=== PATIENT | male | born 1955 | race Caucasian/White ===

== ENCOUNTER → 2016-11-05 | Outpatient (CLI) | payer BC ==
[2016-11-05 08:15] LABS: ABSOLUTE EOSINOPHILS # (AUTO) 0.1 10^3/uL (0.0-0.6); ABSOLUTE LYMPHOCYTES (AUTO) 1.5 10^3/uL (0.5-4.7); ABSOLUTE MONOCYTES (AUTO) 0.3 10^3/uL (0.1-1.4); ABSOLUTE NEUT (AUTO) 3.5 10^3/uL (1.7-8.2); BASOPHILS % (AUTO) 0.7 % (0-2); EOSINOPHILS % (AUTO) 1.4 % (0-6); HEMATOCRIT 43.6 % (37.9-51.0); HEMOGLOBIN 14.5 g/dL (13.5-17.0); HGB HCT DIFFERENCE -0.1; LYMPHOCYTES % (AUTO) 27.9 % (13-45); MEAN CORPUSCULAR HEMOGLOBIN 27.9 pg (27.0-33.4); MEAN CORPUSCULAR HGB CONC 33.4 g/dL (32.0-36.0); MEAN CORPUSCULAR VOLUME 84 fl (80-97); MONOCYTES % (AUTO) 5.2 % (3-13); RED BLOOD COUNT 5.21 10^6/uL (4.35-5.55); RED CELL DISTRIBUTION WIDTH 14.1 % (11.5-14.0); SEGMENTED NEUTROPHILS % (AUTO) 64.8 % (42-78); WHITE BLOOD COUNT 5.5 10^3/uL (4.0-10.5)
[2016-11-05 08:36] LABS: ALANINE AMINOTRANSFERASE 25 U/L (21-72); ALKALINE PHOSPHATASE 74 U/L (38-126); ANION GAP 12 (5-19); ASPARTATE AMINO TRANSFERASE 23 U/L (17-59); BILIRUBIN,DIRECT 0.4 mg/dL (0.0-0.4); BILIRUBIN,TOTAL 0.9 mg/dL (0.2-1.3); BLOOD UREA NITROGEN 15 mg/dL (7-20); CALCIUM 9.3 mg/dL (8.4-10.2); CARBON DIOXIDE 29 mmol/L (22-30); CHLORIDE 104 mmol/L (98-107); CHOLESTEROL 158.93 mg/dL (0-200); CREATININE RESULT 1.03 mg/dL (0.52-1.25); Direct HDL 40 mg/dL (>40); GLUCOSE 142 mg/dL (75-110); POTASSIUM 4.6 mmol/L (3.6-5.0); TRIGLYCERIDES 177 mg/dL (<150)
[2016-11-05 08:47] LABS: DIRECT LDL 82 mg/dL (<100)
[2016-11-05 09:24] LABS: VLDL CHOLESTEROL 35.4 mg/dL (10-31)
== END ==
LOC: OD 07:19
PROVIDERS: ATTEND Internal Medicine
DX: E11.9 Type 2 diabetes mellitus without complications (principal); E29.1 Testicular hypofunction; R53.82 Chronic fatigue, unspecified; R35.1 Nocturia; D81 Combined immunodeficiencies; D64.9 Anemia, unspecified
CPT/HCPCS: 36415; 80053; 80061; 82043; 82607; 83036; 84153; 84403; 84443; 85025; 86255

== ENCOUNTER → 2017-02-11 | Outpatient (CLI) | payer BC ==
[2017-02-11 08:26] LABS: ABSOLUTE EOSINOPHILS # (AUTO) 0.1 10^3/uL (0.0-0.6); ABSOLUTE LYMPHOCYTES (AUTO) 1.9 10^3/uL (0.5-4.7); ABSOLUTE MONOCYTES (AUTO) 0.4 10^3/uL (0.1-1.4); ABSOLUTE NEUT (AUTO) 4.7 10^3/uL (1.7-8.2); BASOPHILS % (AUTO) 0.5 % (0-2); EOSINOPHILS % (AUTO) 1.5 % (0-6); HEMATOCRIT 45.6 % (37.9-51.0); HGB HCT DIFFERENCE -0.6; LYMPHOCYTES % (AUTO) 26.7 % (13-45); MEAN CORPUSCULAR HGB CONC 32.8 g/dL (32.0-36.0); MEAN CORPUSCULAR VOLUME 82 fl (80-97); MONOCYTES % (AUTO) 6.2 % (3-13); RED BLOOD COUNT 5.53 10^6/uL (4.35-5.55); RED CELL DISTRIBUTION WIDTH 15.2 % (11.5-14.0); SEGMENTED NEUTROPHILS % (AUTO) 65.1 % (42-78); WHITE BLOOD COUNT 7.2 10^3/uL (4.0-10.5)
[2017-02-11 08:48] LABS: ALANINE AMINOTRANSFERASE 42 U/L (21-72); ALBUMIN 3.9 g/dL (3.5-5.0); ALKALINE PHOSPHATASE 71 U/L (38-126); ANION GAP 14 (5-19); ASPARTATE AMINO TRANSFERASE 38 U/L (17-59); BILIRUBIN,DIRECT 0.1 mg/dL (0.0-0.4); BILIRUBIN,TOTAL 0.7 mg/dL (0.2-1.3); BLOOD UREA NITROGEN 13 mg/dL (7-20); CALCIUM 8.8 mg/dL (8.4-10.2); CARBON DIOXIDE 27 mmol/L (22-30); CHLORIDE 98 mmol/L (98-107); CREATININE RESULT 0.92 mg/dL (0.52-1.25); DIGOXIN 0.79 ng/mL (0.8-2.0); GLUCOSE 188 mg/dL (75-110); POTASSIUM 4.8 mmol/L (3.6-5.0); TOTAL PROTEIN 6.8 g/dL (6.3-8.2)
== END ==
LOC: OD 07:15
PROVIDERS: ATTEND Internal Medicine
DX: E11.9 Type 2 diabetes mellitus without complications (principal); I48.0 Paroxysmal atrial fibrillation
CPT/HCPCS: 36415; 80053; 80162; 83036; 85025

== ENCOUNTER 2017-06-25 13:21 | Emergency (ER) | payer OTHER, BC ==
[2017-06-25 13:28] VITALS: BP 119/72
--- NOTE | 2017-06-25 13:54 | RADIOLOGY REPORT (SQ) ---
EXAM DESCRIPTION: CT HEAD WITHOUT COMPLETED DATE/TIME: 06/25/2017 1:44 pm REASON FOR STUDY: hit head per dr jenkins on blood thinners COMPARISON: None. TECHNIQUE: Axial images acquired through the brain without intravenous contrast. Images reviewed wi th bone, brain and subdural windows. Additional sagittal and coronal reconstructions were generated. Images stored on PACS. All CT scanners at this facility use dose modulation, iterative reconstruction, and/or weight based d osing when appropriate to reduce radiation dose to as low as reasonably achievable (ALARA). [facility]: Dose Right [facility]: CareDose [facility]: Dose Right [facility]: Teradose 4D [facility]: TwoFish RADIATION DOSE: CT Rad equipment meets quality standard of care and radiation dose reduction techniq ues were employed. CTDIvol: 53.2 mGy. DLP: 1017 mGy-cm. mGy. LIMITATIONS: None. FINDINGS: VENTRICLES: Normal size and contour. CEREBRUM: No masses. No hemorrhage. No midline shift. No evidence for acute infarction. There is a white matter benign dystrophic calcification axial image 24. There is partial calcification of the right and left thalamus, benign CEREBELLUM: No masses. No hemorrhage. No alteration of density. No evidence for acute infarction. Benign bilateral dentate nucleus calcification in the cerebellar hemispheres. EXTRAAXIAL SPACES: No fluid collections. No masses. ORBITS AND GLOBE: No intra- or extraconal masses. Normal contour of globe without masses. CALVARIUM: No fracture. PARANASAL SINUSES: No fluid or mucosal thickening. SOFT TISSUES: No mass or hematoma. OTHER: No other significant finding. IMPRESSION: No acute findings EVIDENCE OF ACUTE STROKE: NO. COMMENT: Quality ID # [id number]: Final reports with documentation of one or more dose reduction techniques (e.g., Automated exposure control, adjustment of the mA and/or kV according to patient size, use of iterative reconstruction technique) TECHNICAL DOCUMENTATION: JOB ID: [id number] [employer]- All Rights Reserved Reading location - IP/workstation name: [email or web address]
--- NOTE | 2017-06-25 14:31 | ER Document Report ---
ED General - General Chief Complaint: Facial Injury Stated Complaint: LACERATION ABOVE RIGHT EYE Time Seen by Provider: 06/25/17 14:19 Mode of Arrival: Ambulatory Information source: Patient Notes: Patient states he was in the restroom and turned around to get back into his wheelchair and lost his balance and his head hit the floor. He states he has muscular dystrophy so he often has problems with balance. He denies any pain. No neck pain or head pain. No loss of consciousness. He states he did get a small abrasion to his finger but otherwise no known injuries. Pain is been mild. Been constant. Nothing makes better or worse. No radiation of the pain. TRAVEL OUTSIDE OF THE [place] IN LAST 30 DAYS: No - Related Data Allergies/Adverse Reactions: hydrocodone [Hydrocodone] Allergy (Verified 12/02/13 06:12) heart racing Past Medical History - General Information source: Patient - Social History Smoking Status: Unknown if Ever Smoked Frequency of alcohol use: None Drug Abuse: None Lives with: Alone Family History: Reviewed & Not Pertinent - Past Medical History Cardiac Medical History: Reports: Hx Atrial Fibrillation Endocrine Medical History: Reports: Hx Diabetes Mellitus Type 2 Past Surgical History: Reports: Hx Appendectomy, Hx Orthopedic Surgery - Immunizations Hx Diphtheria, Pertussis, Tetanus Vaccination: Yes Review of Systems - Review of Systems Constitutional: denies: Chills, Fever Cardiovascular: denies: Chest pain, Palpitations Respiratory: denies: Cough, Short of breath -: Yes All other systems reviewed and negative Physical Exam - Vital signs Vitals: Temp Pulse Resp BP Pulse Ox 98.0 F 108 H 20 119/72 100 06/25/17 13:27 06/25/17 13:27 06/25/17 13:27 06/25/17 13:27 06/25/17 13:27 Interpretation: Tachycardic - General General appearance: Appears well, Alert In distress: None - HEENT Head: Normocephalic, Other - Patient has a 3 cm laceration above the right orbit. Eyes: Normal Pupils: PERRL Neck: Normal, Other - Entire C-spine palpated and nontender. - Respiratory Respiratory status: No respiratory distress Chest status: Nontender Breath sounds: Normal Chest palpation: Normal - Cardiovascular Rhythm: Regular, Tachycardia Heart sounds: Normal auscultation Murmur: No - Abdominal Inspection: Normal Distension: No distension Bowel sounds: Normal Tenderness: Nontender Organomegaly: No organomegaly - Back Back: Normal, Nontender - Extremities General upper extremity: Nontender, Normal color, Normal ROM, Normal temperature , Other - Patient has small abrasion to left finger. General lower extremity: Normal inspection, Nontender, Normal color, Normal ROM , Normal temperature, Normal weight bearing. No: Gary's sign - Neurological Neuro grossly intact: Yes Cognition: Normal Orientation: AAOx4 Mike Coma Scale Eye Opening: Spontaneous Mike Coma Scale Verbal: Oriented [place] Coma Scale Motor: Obeys Commands [place] Coma Scale Total: 15 Speech: Normal Motor strength normal: LUE, RUE Additional motor exam normals: Equal wire roller Sensory: Normal - Psychological Associated symptoms: Normal affect, Normal mood - Skin Skin Temperature: Warm Skin Moisture: Dry Skin Color: Normal Course - Vital Signs Vital signs: Temp Pulse Resp BP Pulse Ox 98.0 F 108 H 20 119/72 100 06/25/17 13:27 06/25/17 13:27 06/25/17 13:27 06/25/17 13:27 06/25/17 13:27 - Diagnostic Test Radiology reviewed: Image reviewed, Reports reviewed - Head CT reviewed and shows no evidence of acute intracranial pathology Procedures - Laceration/Wound Repair Right Head Time completed: 14:30 Wound length (cm): 3 Wound's Depth, Shape: Into muscle, Linear Wound explored: Clean Wound Repaired With: Dermabond Post-procedure wound care: Sterile dressing applied Post-procedure NV exam normal: Yes Complications: No Discharge - Discharge Clinical Impression: Facial laceration Qualifiers: Encounter type: initial encounter Qualified Code(s): S01.81XA - Laceration without foreign body of other part of head, initial encounter Condition: Stable Disposition: HOME, SELF-CARE Instructions: Tetanus Immunization Given (REPLACED BY [facility]), Laceration Care ([facility]), Skin Adhesive Closure (REPLACED BY [facility])
[2017-06-25] MEDS ORDERED: DIPH/PERTUSS(ACELL)/TETANUS VAC/PF 0.5 ML SYR (>=10YO) IM ONE (14:32)
== END 2017-06-25 14:49 | disposition home or self-care (01) ==
LOC: ER 13:21
DX: S01.111A Laceration without foreign body of right eyelid and periocular area, initial encounter (principal); W17.89XA Other fall from one level to another, initial encounter; Y93.89 Activity, other specified; G71.0 Muscular dystrophy; E11.9 Type 2 diabetes mellitus without complications; R00.0 Tachycardia, unspecified; Z88.5 Allergy status to narcotic agent
CPT/HCPCS: 70450; 90471; 90715; 99284

== ENCOUNTER → 2018-05-19 | Outpatient (CLI) | payer BC ==
--- NOTE | 2018-05-20 09:13 | XCELERA REPORT ---
[address] [address] Lower Extremity Venous Evaluation Procedure: A bilateral duplex scan of the lower extremity veins was performed. The evaluation included responses to compression and other maneuvers with patient in the supine and standing positions to assess venous insufficiency. Right Sided Venous Evaluation Challenging study, due to bandaging, inability to cooperate fully with study. Deep venous system evaluation shows patent veins with no obstruction or significant reflux identified. Saphena Femoral junction: no reflux. Femoral vein reflux: no reflux. Greater Saphenous vein, Proximal thigh: reflux: no reflux. Greater Saphenous vein, Distal thigh: reflux: no reflux. Greater Saphenous vein, Proximal below knee: reflux: no reflux. No significant Perforators identified. Left Sided Venous Evaluation Deep venous system evaluatiion shows patent veins with no obstruction or significant reflux identified. Sapheno Femoral junction: no reflux. Femoral vein reflux: no reflux. Greater Saphenous vein, Proximal thigh: reflux: no reflux. Greater Saphenous vein, Distal thigh: reflux: no reflux. Greater Saphenous vein, Proximal below knee: reflux: no reflux. No significant Perforators identified. Interpretation Summary No duplex evidence of DVT or obstruction in the bilateral lower extremities. No significant deep or superficial reflux. Name: DESTIN RAYMOND Age: 62 yrs Gender: Male : 1955 Patient Status: Outpatient Patient Location: Study Date: 05/19/2018 02:57 PM Reason For Study: ULCER Ordering Physician: DEE AMBROCIO Performed By: Jigar Mcintyre : DEE AMBROCIO > Irving Bowen
--- NOTE | 2018-05-20 09:15 | XCELERA REPORT ---
[address] [address] Lower Extremity Arterial Evaluation Name: DESTIN RAYMOND Age: 62 yrs Gender: Male : 1955 Patient Status: Outpatient Patient Location: SP Study Date: 05/19/2018 02:35 PM Procedure: A color flow and duplex scan of the lower extremity arteries was performed bilaterally with velocity and waveform anaylsis. Reason For Study: ULCER Ordering Physician: DEE AMBROCIO Performed By: Jigar Mcintyre Measurements and Calculations Right Left LEGAL RESEARCHER PSV 113.1 112.5 cm/sec Prox PFA PSV -69.1 -64.3 cm/sec Prox SFA PSV 113.8 88.8 cm/sec Mid SFA PSV -122.9 -118.0cm/sec Dist SFA PSV -99.9 -99.2 cm/sec Prox Pop A PSV 111.7 66.6 cm/sec Dist MAREK PSV 75.5 78.6 cm/sec Dist NURSE CARE MANAGER PSV 66.8 81.1 cm/sec Wale Pedis PSV 77.1 55.4 cm/sec Right Side Arterial Evaluation Normal velocity and triphasic waveforms noted from the Common Femoral artery to the infrageniculate vessels . Ankle Brachial index not obtained due to bandaging. Left Side Arterial Evaluation Normal velocity and triphasic waveforms noted from the Common Femoral artery to the infrageniculate vessels . Ankle Brachial index not obtained due to inability to tolerate. Interpretation Summary No hemodynamically significant lesions in the bilateral lower extremities, on duplex imaging, at rest. : DEE AMBROCIO > Irving Bowen
== END ==
LOC: SP 13:50
PROVIDERS: ATTEND Nurse Practitioner Family
DX: E11.621 Type 2 diabetes mellitus with foot ulcer (principal); L97.212 Non-pressure chronic ulcer of right calf with fat layer exposed
CPT/HCPCS: 93925; 93970

== ENCOUNTER 2018-11-04 01:44 | Inpatient (IN) | payer BC, MEDICARE ==
[2018-11-04 02:54] LABS: ABSOLUTE BASOPHILS # (AUTO) 0.1 10^3/uL (0.0-0.2); ABSOLUTE LYMPHOCYTES (AUTO) 1.5 10^3/uL (0.5-4.7); ABSOLUTE MONOCYTES (AUTO) 0.8 10^3/uL (0.1-1.4); ABSOLUTE NEUT (AUTO) 9.3 10^3/uL (1.7-8.2); BASOPHILS % (AUTO) 0.8 % (0-2); EOSINOPHILS % (AUTO) 0.3 % (0-6); HEMATOCRIT 47.4 % (37.9-51.0); HEMOGLOBIN 15.3 g/dL (13.5-17.0); LYMPHOCYTES % (AUTO) 12.9 % (13-45); MEAN CORPUSCULAR HEMOGLOBIN 24.8 pg (27.0-33.4); MEAN CORPUSCULAR HGB CONC 32.3 g/dL (32.0-36.0); MEAN CORPUSCULAR VOLUME 77 fl (80-97); MONOCYTES % (AUTO) 6.7 % (3-13); PLATELET COUNT 208 10^3/uL (150-450); RED BLOOD COUNT 6.16 10^6/uL (4.35-5.55); RED CELL DISTRIBUTION WIDTH 19.5 % (11.5-14.0); SEGMENTED NEUTROPHILS % (AUTO) 79.3 % (42-78); TOTAL CELLS COUNTED % (AUTO) 100 %; WHITE BLOOD COUNT 11.8 10^3/uL (4.0-10.5)
[2018-11-04 03:07] LABS: ALBUMIN 4.4 g/dL (3.5-5.0); ALKALINE PHOSPHATASE 92 U/L (38-126); ANION GAP 12 (5-19); ASPARTATE AMINO TRANSFERASE 41 U/L (17-59); BILIRUBIN,DIRECT 0.2 mg/dL (0.0-0.4); BILIRUBIN,TOTAL 1.3 mg/dL (0.2-1.3); BLOOD UREA NITROGEN 24 mg/dL (7-20); CALCIUM 9.4 mg/dL (8.4-10.2); CARBON DIOXIDE 24 mmol/L (22-30); CHLORIDE 101 mmol/L (98-107); GLUCOSE 198 mg/dL (75-110); TOTAL PROTEIN 7.7 g/dL (6.3-8.2)
[2018-11-04 03:09] LABS: POTASSIUM 6.1 mmol/L (3.6-5.0)
[2018-11-04] MEDS ORDERED: DEXTROSE 50%-WATER 25 GM/50 ML DISP.SYRIN IV ONE (03:15)
[2018-11-04] MEDS ORDERED: CALCIUM GLUCONATE 1000 MG/10 ML INJ IV ONE (03:15)
[2018-11-04] MEDS ORDERED: INSULIN REG, HUMAN 100 UNIT/ML 3 ML VIAL (PYX) IV ONE (03:15)
[2018-11-04] MEDS ORDERED: NORMAL SALINE 1000 ML 1,000 ML IV ONE (03:15)
[2018-11-04 03:18] LABS: CREATINE KINASE MB 1.7 ng/mL (<4.55)
--- NOTE | 2018-11-04 03:24 | ER Document Report ---
ED General - General Chief Complaint: General Weakness Stated Complaint: WEAKNESS Time Seen by Provider: 11/04/18 03:05 Notes: Patient is a 63-year-old male that comes to the emergency department for chief complaint of weakness. He states that he was so weak that he could not get off the toilet this evening, he slid over the side of the toilet and could not get off the floor. He denies a fall injury, denies hitting his head, denies any pa in. He states he could not get his legs to work. He states he does have a history of this, he has a history of muscular dystrophy and he is wheelchair- bound. He still lives alone. He denies any symptoms other than generalized weakness. He does admit to having a lot of difficulty caring for himself. Past medical history includes atrial fibrillation on metoprolol, he states he had his metoprolol increased from 25 twice a day to 25 in the morning and 50 mg in the evening. He states since this time he has had more lightheadedness and weakness as well. He denies fever, headache, vomiting, chest pain, shortness of breath, abdominal pain. TRAVEL OUTSIDE OF THE [place] IN LAST 30 DAYS: No - Related Data Allergies/Adverse Reactions: hydrocodone [Hydrocodone] Allergy (Verified 12/02/13 06:12) heart racing Past Medical History - General Information source: Patient - Social History Smoking Status: Never Smoker Frequency of alcohol use: None Drug Abuse: None Lives with: Family Family History: Reviewed & Not Pertinent Patient has suicidal ideation: No Patient has homicidal ideation: No - Past Medical History Cardiac Medical History: Reports: Hx Atrial Fibrillation Endocrine Medical History: Reports: Hx Diabetes Mellitus Type 2 Renal/ Medical History: Denies: Hx Peritoneal Dialysis Past Surgical History: Reports: Hx Appendectomy, Hx Orthopedic Surgery - Immunizations Hx Diphtheria, Pertussis, Tetanus Vaccination: Yes Review of Systems - Review of Systems Constitutional: See HPI EENT: No symptoms reported Cardiovascular: No symptoms reported Respiratory: No symptoms reported Gastrointestinal: No symptoms reported Genitourinary: No symptoms reported Male Genitourinary: No symptoms reported Musculoskeletal: No symptoms reported Skin: No symptoms reported Hematologic/Lymphatic: No symptoms reported Neurological/Psychological: No symptoms reported Physical Exam - Vital signs Vitals: Resp Pulse Ox 16 100 11/04/18 02:19 11/04/18 02:19 - Notes Notes: GENERAL: Slightly pale but alert and interactive HEAD: Normocephalic, atraumatic. EYES: Pupils equal, round, and reactive to light. Extraocular movements intact. ENT: Oral mucosa dry, tongue midline. Oropharynx unremarkable. Airway patent. LUNGS: Clear to auscultation bilaterally, no wheezes, rales, or rhonchi. No respiratory distress. HEART: Irregularly irregular, borderline tachycardic, no murmur ABDOMEN: Soft, non-tender. Non-distended. Bowel sounds present in all 4 quadrants. EXTREMITIES: Moves all 4 extremities spontaneously. Dressings ranging from the feet all the way to the knees on both lower extremities for pressure ulcers. Normal capillary refill and sensation. BACK: no cervical, thoracic, lumbar midline tenderness. No saddle anesthesia, normal distal neurovascular exam. Moves all extremities in full range of motion. NEUROLOGICAL: Alert and oriented x3. Normal speech. Cranial nerves II through XII grossly intact. PSYCH: Normal affect, normal mood. SKIN: Slightly pale Course - Re-evaluation Re-evalutation: On my initial evaluation patient has a systolic blood pressure of 100. Previous one was 89, patient denying any current symptoms. He is tachycardic with atrial fibrillation but reportedly atrial for relation is chronic and tachycardia is very borderline. Patient will be placed on the monitor, work-up initiated. After IV fluids tachycardia resolved, hypotension resolved. CBC nonspecific. Chemistry shows hyperkalemia at 6.1, QTC is prolonged. Patient given calcium gluconate, insulin, dextrose. Troponin is 0.2, however patient did have intermittent episodes of tachycardia with the atrial fibrillation and he had hypotension. He has not had any chest pain or shortness of breath. This will be recycled. Low suspicion of ACS based on patient's presentation. Discussed with Dr. Manuel. Repeat troponin is downtrending. Patient states he feels much improved after treatments. Because of patient's inability to care for himself, generalized weakness, hyperkalemia, QTC prolongation, acute renal insufficiency, and initial abnormal vital signs I will discuss the patient with hospitalist for admission. Patient states understanding and agreement. Discussed with Dr. Pride, hospitalist, patient will be excepted to telemetry. - Vital Signs Vital signs: Temp Pulse Resp BP Pulse Ox 15 113/81 98 11/04/18 06:01 11/04/18 06:01 11/04/18 06:01 - Laboratory Result Diagrams: 11/04/18 02:35 11/04/18 02:35 Laboratory results interpreted by me: 11/04/18 11/04/18 02:35 02:35 WBC 11.8 H RBC 6.16 H MCV 77 L MCH 24.8 L RDW 19.5 H Lymph % (Auto) 12.9 L Absolute Neuts (auto) 9.3 H Seg Neutrophils % 79.3 H Sodium 136.9 L Potassium 6.1 H* BUN 24 H Creatinine 1.43 H Est GFR (MDRD) Non-Af 50 L Glucose 198 H - EKG Interpretation by Me Additional EKG results interpreted by me: EKG shows atrial fibrillation at a rate of 96, normal axis, no T wave inversions or ST segment changes in consecutive leads. QTc is elevated at 506. Discharge - Discharge Clinical Impression: Weakness, Hyperkalemia, Acute renal insufficiency, Tachycardia Hypotension Qualifiers: Hypotension type: unspecified hypotension type Qualified Code(s): I95.9 - Hypotension, unspecified Condition: Stable Disposition: ADMITTED INPATIENT Admitting Provider: Shannen (Hospitalist) Unit Admitted: Telemetry
[2018-11-04 03:27] LABS: TROPONIN I 0.203 ng/mL
--- NOTE | 2018-11-04 03:55 | RADIOLOGY REPORT (SQ) ---
EXAM DESCRIPTION: XR CHEST 1 VIEW COMPLETED DATE/TME: 11/04/2018 03:16 CLINICAL HISTORY: 63 years, Male, weakness COMPARISON: 04/17/2011 chest x-ray NUMBER OF VIEWS: 1 TECHNIQUE: Portable chest LIMITATIONS: None. FINDINGS: Heart size is normal. Osteopenia. Lungs clear. No pneumothorax IMPRESSION: No acute cardiopulmonary process copyright 2010 [employer]- All Rights Reserved
[2018-11-04] MEDS ORDERED: MAGNESIUM HYDROXIDE SUSP 30 ML UDCUP PO PRN (05:59)
[2018-11-04] MEDS ORDERED: ONDANSETRON HCL INJ/PF 4 MG/2 ML SDV IV PRN (05:59)
[2018-11-04] MEDS ORDERED: MAG HYDROX/AL HYDROX/SIMETH SUSP 30 ML UDCUP PO PRN (05:59)
[2018-11-04] MEDS ORDERED: HEPARIN SOD (PORCINE) 5,000 UNIT/ML 1 ML VIAL SUBCUT SCH (06:00)
[2018-11-04] MEDS ORDERED: DEXTROSE 40% GEL 15 GM TUBE PO PRN ×2 (06:05)
[2018-11-04] MEDS ORDERED: DEXTROSE 50%-WATER 25 GM/50 ML DISP.SYRIN IV PRN ×2 (06:05)
[2018-11-04] MEDS ORDERED: GLUCAGON,HUMAN RECOMB 1 MG INJ IM PRN (06:05)
[2018-11-04] MEDS ORDERED: SODIUM POLYSTYRENE SULFONATE 15 GM/60 ML PO ONE (06:06)
[2018-11-04 06:27] LABS: CHOLESTEROL 90.23 mg/dL (0-200); TRIGLYCERIDES 149 mg/dL (<150)
[2018-11-04] MEDS: PANTOPRAZOLE SODIUM 40 MG TABLET.DR PO SCH ×2 (06:31→17:32)
--- NOTE | 2018-11-04 06:37 | PDOC H&P ---
History of Present Illness Admission Date/PCP: 11/04/2018 05:40 KEMI MARTINEZ Patient complains of: Weakness History of Present Illness: DESTIN RAYMOND is a 63 year old male who presented to the emergency room with acute weakness. He admits that he had been feeling very weak last evening and went to the toilet but was unable to get himself up off the toilet and back into his wheelchair. He subsequently slid himself down onto the floor and was unable to get up from there thus he summoned EMS to help him. He admits prior similar episodes of acute weakness related to his muscular dystrophy. He admits associated lightheadedness but denies other associated or accompanying signs and symptoms. He believes that a recent change in his metoprolol may be responsible for his weakness and lightheadedness but has not identified any additional aggravating or ameliorating factors for his weakness. In the emergency room he was found to have hyperkalemia with potassium 6.1 tachycardia and hypotension both of which responded to IV fluids. Patient was subsequently admitted to the hospital for further evaluation and treatment. Past Medical History Cardiac Medical History: Reports: Atrial Fibrillation, Hypertension Denies: Coronary Artery Disease, Myocardial Infarction, Hyperlipidema Pulmonary Medical History: Denies: Asthma, Chronic Obstructive Pulmonary Disease (COPD) EENT Medical History: Denies: Cataracts, Ears - Hearing aids Neurological Medical History: Reports: Other - Muscular dystrophy Denies: Hemorrhagic CVA, Ischemic CVA, Seizures Endocrine Medical History: Reports: Diabetes Mellitus Type 2 Denies: Diabetes Mellitus Type 1, Hyperthyroidism, Hypothyroidism Renal/ Medical History: Reports: Other - Benign prostatic hypertrophy Denies: Chronic Kidney Disease, Nephrolithiasis Malignancy Medical History: Reports: None GI Medical History: Denies: Cirrhosis, Crohn's Disease, Hepatitis, Ulcerative Colitis Musculoskeltal Medical History: Reports: Other - Muscular dystrophy Denies: Arthritis, Gout Skin Medical History: Denies: Eczema, Psoriasis Psychiatric Medical History: Denies: Alcohol Dependency, Substance Abuse, Tobacco Dependency Traumatic Medical History: Reports: None Hematology: Denies: Anemia, Bleeding Tendencies Infectious Medical History: Reports: None Past Surgical History Past Surgical History: Reports: Appendectomy, Orthopedic Surgery - Left lower extremity "they put a april up my leg" Social History Information Source: Patient Lives with: Alone Smoking Status: Never Smoker Frequency of Alcohol Use: None Hx Recreational Drug Use: No Drugs: None Hx Prescription Drug Abuse: No - Advance Directive Resuscitation Status: Full Code Surrogate healthcare decision maker:: Simeon Pedroza Family History Family History: CAD, DM, Other - Internal bleeding. denies: Hypertension, Malignancy Parental Family History Reviewed: Yes Children Family History Reviewed: No Sibling(s) Family History Reviewed.: Yes Medication/Allergy Home Medications: Insulin Aspart [Novolog] 30 unit SQ AC 04/17/11 Insulin Glargine,Hum.rec.anlog [Lantus] 20 unit SQ QAM 04/17/11 Insulin Glargine,Hum.rec.anlog [Lantus] 50 unit SQ QHS 04/17/11 Lisinopril/Hydrochlorothiazide [Zestoretic 10-12.5 mg Tablet] 1 tab PO DAILY 04/17/11 Metformin HCl [Glucophage 500 Mg Tablet] 1,000 mg PO QHS 04/17/11 Metoprolol Succinate [Toprol-Xl 25 Mg Tab.Sr] 25 mg PO BID 04/17/11 Digoxin [Lanoxin 0.125 mg Tablet] 0.125 mg PO DAILY 12/02/13 Dronedarone Hydrochloride [Multaq 400 Mg Tablet] 400 mg PO BID 12/02/13 Ergocalciferol (Vitamin D2) [Vitamin D2] 2,000 unit PO 12/02/13 Nitrofurantoin/Nitrofuran Mac [Macrobid 100 mg Capsule] 1 tab PO BID #20 capsule 12/02/13 Rivaroxaban [Xarelto 15 mg Tablet] 15 mg PO DAILY 12/02/13 Cephalexin Monohydrate [Keflex 500 mg Capsule] 500 mg PO QID 7 Days capsule 11/10/15 Ondansetron [Zofran Odt 4 mg Tablet] 1 - 2 tab PO Q4H PRN #20 tab.rapdis 11/10/15 Allergies/Adverse Reactions: hydrocodone [Hydrocodone] Allergy (Verified 12/02/13 06:12) heart racing Review of Systems Constitutional: PRESENT: as per HPI, weakness, other - Lightheadedness. ABSENT: chills, fever(s) Eyes: ABSENT: visual disturbances, other - Ocular pain Ears: ABSENT: hearing changes, other - Ear pain Nose, Mouth, and Throat: ABSENT: mouth pain, sore throat Cardiovascular: ABSENT: chest pain, dyspnea on exertion, palpitations Respiratory: ABSENT: cough, dyspnea Gastrointestinal: ABSENT: abdominal pain, constipation, diarrhea, nausea, vomiting Genitourinary: ABSENT: dysuria, hematuria Musculoskeletal: ABSENT: back pain, joint swelling Integumentary: ABSENT: pruritus, rash Neurological: PRESENT: weakness, other - Lightheadedness. ABSENT: confusion, convulsions, focal weakness, memory loss, syncope Psychiatric: ABSENT: anxiety, depression Endocrine: ABSENT: cold intolerance, heat intolerance Hematologic/Lymphatic: ABSENT: easy bleeding, easy bruising Allergic/Immunologic: ABSENT: seasonal rhinorrhea Physical Exam Vital Signs: Temp Pulse Resp BP Pulse Ox 14 108/77 100 11/04/18 05:01 11/04/18 05:01 11/04/18 05:01 Intake & Output 11/02/18 11/03/18 11/04/18 23:59 23:59 23:59 Intake Total 1000 Balance 1000 General appearance: PRESENT: no acute distress, cooperative Head exam: PRESENT: atraumatic, normocephalic Eye exam: PRESENT: conjunctiva pink. ABSENT: conjunctival injection, scleral icterus Ear exam: PRESENT: normal external ear exam. ABSENT: bleeding, drainage Mouth exam: PRESENT: dry mucosa, neck supple Neck exam: ABSENT: thyromegaly, tracheal deviation Respiratory exam: PRESENT: clear to auscultation asad, symmetrical, unlabored Cardiovascular exam: PRESENT: irregular rhythm - Irregularly irregular rate and rhythm. ABSENT: clicks, gallop, rubs Pulses: PRESENT: normal radial pulses, normal dorsalis pedis pul GI/Abdominal exam: PRESENT: normal bowel sounds, soft Rectal exam: PRESENT: deferred Extremities exam: ABSENT: joint swelling, pedal edema, tenderness Musculoskeletal exam: PRESENT: other - Wheelchair-bound due to weakness associated with muscular dystrophy (essentially paraplegic). ABSENT: deformity, dislocation Neurological exam: PRESENT: alert, oriented to person, oriented to place, oriented to time, oriented to situation, CN II-XII grossly intact, other - Wheelchair-bound due to weakness associated with muscular dystrophy (essential paraplegia) Psychiatric exam: PRESENT: appropriate affect, normal mood Skin exam: PRESENT: dry, intact, warm. ABSENT: jaundice, rash, urticaria Results Laboratory Results: 11/04/18 02:35 11/04/18 02:35 11/04/18 11/04/18 02:35 02:35 WBC 11.8 H RBC 6.16 H Hgb 15.3 Hct 47.4 MCV 77 L MCH 24.8 L MCHC 32.3 RDW 19.5 H Plt Count 208 Seg Neutrophils % 79.3 H Sodium 136.9 L Potassium 6.1 H* Chloride 101 Carbon Dioxide 24 Anion Gap 12 BUN 24 H Creatinine 1.43 H Est GFR ( Amer) > 60 Glucose 198 H Calcium 9.4 Magnesium 1.6 Total Bilirubin 1.3 AST 41 Alkaline Phosphatase 92 Total Protein 7.7 Albumin 4.4 11/04/18 11/04/18 11/04/18 02:35 02:35 04:35 Creatine Kinase 65 CK-MB (CK-2) 1.70 Troponin I 0.203 0.181 Impressions: Chest X-Ray 11/04/18 03:16 IMPRESSION: No acute cardiopulmonary process copyright 2011 [employer]- All Rights Reserved Assessment and Plan - Diagnosis (1) Acute renal insufficiency Is this a current diagnosis for this admission?: Yes Plan: Patient will be given IV fluids and his metabolic profile with magnesium levels and CBCs will be followed on a daily basis. (2) Hyperkalemia Is this a current diagnosis for this admission?: Yes Plan: Patient will be treated with IV fluid and his metabolic profiles will be followe d on a daily basis including a magnesium level. (3) Chronic atrial fibrillation Is this a current diagnosis for this admission?: Yes Plan: Patient will be continued on metoprolol for his atrial fibrillation but his dosage will be reduced back to 25 mg twice daily. Patient be monitored throughout his hospital course. (4) Hypertension Qualifiers: Hypertension type: essential hypertension Qualified Code(s): I10 - Essential (primary) hypertension Is this a current diagnosis for this admission?: Yes Plan: Patient will be treated with metoprolol 25 mg p.o. twice daily and his vital signs were monitored closely throughout his hospital stay to make any appropriate adjustments as needed in his therapy. (5) Diabetes mellitus type 2 in nonobese Is this a current diagnosis for this admission?: Yes Plan: Patient be continued on his usual diabetic diet and diabetic regiment. Hemoglobin A1c will be obtained to evaluate patient's current therapy. Changes were made to therapy only as required. A thyroid profile and a lipid profile will also be obtained during the patient's hospital course. Patient will have a [facility] Accu-Cheks performed and will receive sliding scale insulin for hyperglycemic events and hypoglycemic events will be treated with a hypoglycemic protocol. - Time Time Spent with patient: 15-24 minutes Medications reviewed and adjusted accordingly: Yes Anticipated discharge: SNF - Inpatient Certification Based on my medical assessment, after consideration of the patient's comorbidities, presenting symptoms, or acuity I expect that the services needed warrant INPATIENT care.: Yes I certify that my determination is in accordance with my understanding of Medicare's requirements for reasonable and necessary INPATIENT services [42 CFR 412.3e].: Yes Medical Necessity: Significant Comorbidiites Make Outpatient Treatment Too Risky, Need Close Monitoring Due to Risk of Patient Decompensation, Need For IV Fluids, Need For Continuous Telemetry Monitoring, Risk of Complication if Not Cared For in Hospital, Risk of Diagnosis Which Will Require Inpatient Eval/Care/Monitoring
[2018-11-04 06:38] LABS: DIRECT LDL 35 mg/dL (<100)
[2018-11-04 06:45] LABS: FREE T3 3.43 pg/mL (2.77-5.27); FREE T4 (FREE THYROXINE) 1.72 ng/dL (0.78-2.19)
[2018-11-04 06:59] LABS: THYROID STIMULATING HORMONE 1.29 uIU/mL (0.47-4.68)
[2018-11-04] MEDS: DOCUSATE SODIUM 100 MG CAPSULE PO SCH ×2 (09:59→17:11)
[2018-11-04] MEDS: INSULIN REG, HUMAN 100 UNIT/ML 3 ML VIAL (PYX) SUBCUT PRN ×3 (12:57→21:52)
[2018-11-04] MEDS ORDERED: (PENDING PHARMACY ID) (Fesoterodine Fumarate [Toviaz] 8 MG) PO SCH (14:14)
[2018-11-04] MEDS ORDERED: METOPROLOL TARTRATE 25 MG TABLET PO ONE (14:18)
--- NOTE | 2018-11-04 14:18 | PDOC PROGRESS REPORT ---
Subjective Progress Note for:: 11/04/18 Subjective:: Patient is resting in bed. He feels somewhat uneasy. He does not understand why he feels weak. He did note that he does not feel when his atrial fibrillation is rapid. Reason For Visit: REYES, HYPERKALEMIA Physical Exam Vital Signs: Temp Pulse Resp BP Pulse Ox 97.2 F 82 16 108/64 98 11/04/18 12:29 11/04/18 12:29 11/04/18 12:29 11/04/18 12:29 11/04/18 12:29 Intake & Output 11/03/18 11/04/18 11/05/18 06:59 06:59 06:59 Intake Total 1000 957 Balance 1000 957 General appearance: PRESENT: cooperative, mild distress, well-developed Head exam: PRESENT: atraumatic, normocephalic Eye exam: PRESENT: conjunctiva pink. ABSENT: scleral icterus Ear exam: PRESENT: normal external ear exam. ABSENT: bleeding, drainage Mouth exam: PRESENT: dry mucosa, tongue midline Respiratory exam: PRESENT: clear to auscultation asad, symmetrical, unlabored. ABSENT: rales, rhonchi, tachypnea, wheezes Cardiovascular exam: PRESENT: irregular rhythm, tachycardia GI/Abdominal exam: PRESENT: normal bowel sounds, soft. ABSENT: distended, tenderness Rectal exam: PRESENT: deferred Extremities exam: ABSENT: joint swelling, pedal edema - Compression wraps in place Musculoskeletal exam: PRESENT: other - Weakness with decreased muscle mass lower extremities more so than upper extremities trunk weakness noted as well. Neurological exam: PRESENT: alert, awake, oriented to person, oriented to place, oriented to time, oriented to situation, CN II-XII grossly intact Psychiatric exam: PRESENT: appropriate affect. ABSENT: agitated, anxious Focused psych exam: ABSENT: delusional, restlessness Results Laboratory Results: 11/04/18 02:35 11/04/18 02:35 11/04/18 11/04/18 11/04/18 02:35 02:35 02:35 WBC 11.8 H RBC 6.16 H Hgb 15.3 Hct 47.4 MCV 77 L MCH 24.8 L MCHC 32.3 RDW 19.5 H Plt Count 208 Seg Neutrophils % 79.3 H Sodium 136.9 L Potassium 6.1 H* Chloride 101 Carbon Dioxide 24 Anion Gap 12 BUN 24 H Creatinine 1.43 H Est GFR ( Amer) > 60 Glucose 198 H Calcium 9.4 Magnesium 1.6 Total Bilirubin 1.3 AST 41 Alkaline Phosphatase 92 Total Protein 7.7 Albumin 4.4 Triglycerides Cholesterol LDL Cholesterol Direct VLDL Cholesterol HDL Cholesterol TSH 1.29 Free T4 1.72 Free T3 pg/mL 3.43 11/04/18 02:35 WBC RBC Hgb Hct MCV MCH MCHC RDW Plt Count Seg Neutrophils % Sodium Potassium Chloride Carbon Dioxide Anion Gap BUN Creatinine Est GFR ( Amer) Glucose Calcium Magnesium Total Bilirubin AST Alkaline Phosphatase Total Protein Albumin Triglycerides 149 Cholesterol 90.23 LDL Cholesterol Direct 35 VLDL Cholesterol 30.0 HDL Cholesterol 35 L TSH Free T4 Free T3 pg/mL 11/04/18 11/04/18 11/04/18 02:35 02:35 04:35 Creatine Kinase 65 CK-MB (CK-2) 1.70 Troponin I 0.203 0.181 Impressions: Chest X-Ray 11/04/18 03:16 IMPRESSION: No acute cardiopulmonary process copyright 2010 [employer]- All Rights Reserved Assessment and Plan - Diagnosis (1) Atrial fibrillation with rapid ventricular response Is this a current diagnosis for this admission?: Yes Plan: 11/04/2018-we had a long discussion regarding potential causes of his acute kidney injury and his weakness. As it turns out the patient cannot sense when his heart rate is up. His heart rate is currently in the 115 to 125 range. His blood pressures are holding systolic slightly better than 100. The patient does see Dr. Gutierrez. He notes that he is on digoxin. He states that Dr. Gutierrez changed the other medication and he is no longer on metoprolol. He could not remember the name of the medication. After reaching out to Dr. Gutierrez I discovered that the medicine was Multitak. The patient takes 400 mg twice daily. The patient does state that he ran out of the medication at least 1 week ago. Once this was discovered I explained to him that if he cannot feel the rapid heart rate (2) Acute renal insufficiency Is this a current diagnosis for this admission?: Yes Plan: Patient will be given IV fluids and his metabolic profile with magnesium levels and CBCs will be followed on a daily basis. 11/04/2018-GFR is normal today. We will continue to monitor especially since the patient is on digoxin. (3) Hypotension Qualifiers: Hypotension type: unspecified hypotension type Qualified Code(s): I95.9 - Hypotension, unspecified Is this a current diagnosis for this admission?: Yes Plan: 11/04/2018-the patient's hypotension was likely due to atrial fibrillation with rapid ventricular response. I explained that with better rate control his blood pressure should improve. He also received fluids. I also explained that because he cannot sense a rapid heart rate from his fibrillation he may become lightheaded not knowing why and this could have predisposed him to the weakness and collapse. (4) Hyperkalemia Is this a current diagnosis for this admission?: Yes Plan: 11/04/2018-I believe the patient received Kayexalate in the emergency department. Potassium is now normal. We will continue to monitor. (5) Diabetes mellitus type 2 in nonobese Is this a current diagnosis for this admission?: Yes Plan: 11/04/2018-we will continue to monitor Accu-Cheks. The patient is on metformin as well as sliding scale. Will adjust medications based on sliding scale requirements. - Time Time Spent with patient: 25-34 minutes Medications reviewed and adjusted accordingly: Yes Anticipated discharge: Home
[2018-11-04] MEDS: NORMAL SALINE 1000 ML 1,000 ML IV PRN ×3 (14:45→23:27)
[2018-11-04] MEDS ORDERED: METOPROLOL TARTRATE PF/INJ 5 MG/5 ML SDV IV PRN (18:01)
[2018-11-04] MEDS ORDERED: DRONEDARONE HYDROCHLORIDE 400 MG TABLET PO ONE (18:30)
[2018-11-04 19:02] LABS: ANION GAP 13 (5-19); BLOOD UREA NITROGEN 20 mg/dL (7-20); CALCIUM 8.4 mg/dL (8.4-10.2); CARBON DIOXIDE 21 mmol/L (22-30); CHLORIDE 101 mmol/L (98-107); GLUCOSE 288 mg/dL (75-110)
[2018-11-04 19:13] LABS: POTASSIUM 4.7 mmol/L (3.6-5.0)
[2018-11-04] MEDS: DRONEDARONE HYDROCHLORIDE 400 MG TABLET PO SCH (21:48)
[2018-11-04] MEDS: ATORVASTATIN CALCIUM 20 MG TABLET PO SCH (21:51)
[2018-11-04] MEDS: METFORMIN HCL 500 MG TABLET PO SCH (21:51)
[2018-11-04] MEDS ORDERED: METOPROLOL SUCCINATE 50 MG TAB.SR.24H PO SCH (22:00)
[2018-11-05] MEDS: NORMAL SALINE 1000 ML 1,000 ML IV PRN (03:41)
[2018-11-05] MEDS: PANTOPRAZOLE SODIUM 40 MG TABLET.DR PO SCH ×2 (05:30→16:18)
[2018-11-05 06:28] LABS: HEMATOCRIT 36.6 % (37.9-51.0); MEAN CORPUSCULAR HEMOGLOBIN 25.2 pg (27.0-33.4); MEAN CORPUSCULAR HGB CONC 32.5 g/dL (32.0-36.0); MEAN CORPUSCULAR VOLUME 78 fl (80-97); PLATELET COUNT 122 10^3/uL (150-450); RED BLOOD COUNT 4.71 10^6/uL (4.35-5.55); RED CELL DISTRIBUTION WIDTH 19.5 % (11.5-14.0); WHITE BLOOD COUNT 6.4 10^3/uL (4.0-10.5)
[2018-11-05 06:30] LABS: HEMOGLOBIN 11.9 g/dL (13.5-17.0)
[2018-11-05 06:45] LABS: ALBUMIN 3.1 g/dL (3.5-5.0); ALKALINE PHOSPHATASE 65 U/L (38-126); ANION GAP 10 (5-19); ASPARTATE AMINO TRANSFERASE 44 U/L (17-59); BILIRUBIN,DIRECT 0.1 mg/dL (0.0-0.4); BILIRUBIN,TOTAL 0.6 mg/dL (0.2-1.3); BLOOD UREA NITROGEN 18 mg/dL (7-20); CALCIUM 7.8 mg/dL (8.4-10.2); CARBON DIOXIDE 22 mmol/L (22-30); CHLORIDE 106 mmol/L (98-107); GLUCOSE 212 mg/dL (75-110); POTASSIUM 4.6 mmol/L (3.6-5.0); TOTAL PROTEIN 5.7 g/dL (6.3-8.2)
[2018-11-05 07:56] LABS: APPEARANCE,URINE CLEAR; BILIRUBIN,URINE NEGATIVE (NEGATIVE); COLOR,URINE YELLOW; GLUCOSE, URINE >=500 mg/dL (NEGATIVE); KETONES,URINE NEGATIVE (NEGATIVE); LEUKOCYTE ESTERASE,URINE NEGATIVE (NEGATIVE); NITRITE,URINE NEGATIVE (NEGATIVE); PROTEIN,URINE NEGATIVE (NEGATIVE); URINE SPECIFIC GRAVITY 1.013; UROBILINOGEN,URINE NEGATIVE mg/dL (<2.0)
[2018-11-05] MEDS ORDERED: ONDANSETRON HCL INJ/PF 4 MG/2 ML SDV IV PRN (09:00)
[2018-11-05] MEDS: DOCUSATE SODIUM 100 MG CAPSULE PO SCH ×2 (12:00→19:08)
[2018-11-05] MEDS: RIVAROXABAN 15 MG TABLET PO SCH (12:11)
[2018-11-05] MEDS: LISINOPRIL 5 MG TABLET PO SCH (12:11)
[2018-11-05] MEDS: MULTIVITAMIN TABLET PO SCH (12:11)
[2018-11-05] MEDS: DIGOXIN 0.125 MG TABLET PO SCH (12:12)
[2018-11-05] MEDS: DRONEDARONE HYDROCHLORIDE 400 MG TABLET PO SCH ×2 (12:12→21:35)
[2018-11-05] MEDS: MAGNESIUM SULFATE/D5W 1 GM/100 ML RTUPB IV SCH ×2 (12:13→16:18)
--- NOTE | 2018-11-05 14:21 | EKG REPORT ---
SEVERITY:- ABNORMAL ECG - ATRIAL FIBRILLATION, V-RATE 68-120 NONSPECIFIC INTRAVENTRICULAR CONDUCTION DELAY : Confirmed by: Rosalee Fragoso 05-Nov-2018 14:20:43
[2018-11-05] MEDS ORDERED: MAGNESIUM SULFATE/D5W 1 GM/100 ML RTUPB IV ONE (16:05)
--- NOTE | 2018-11-05 16:35 | PDOC PROGRESS REPORT ---
Subjective Progress Note for:: 11/05/18 Subjective:: The patient reports feeling better today. He still has episodes of fast heartbeat and variable blood pressure. Reason For Visit: REYES, HYPERKALEMIA Physical Exam Vital Signs: Temp Pulse Resp BP Pulse Ox 98.4 F 118 H 15 117/83 97 11/05/18 15:12 11/05/18 15:12 11/05/18 15:12 11/05/18 15:12 11/05/18 15:12 Intake & Output 11/04/18 11/05/18 11/06/18 06:59 06:59 06:59 Intake Total 1000 3820 236 Output Total 0 Balance 1000 3820 236 Weight 88.8 kg 88.8 kg General appearance: PRESENT: no acute distress, cooperative, well-developed Head exam: PRESENT: atraumatic, normocephalic Eye exam: PRESENT: conjunctiva pink. ABSENT: scleral icterus Ear exam: PRESENT: normal external ear exam. ABSENT: bleeding, drainage Mouth exam: PRESENT: moist, tongue midline Respiratory exam: PRESENT: clear to auscultation asad, symmetrical, unlabored. ABSENT: rales, rhonchi, tachypnea, wheezes Cardiovascular exam: PRESENT: irregular rhythm, tachycardia GI/Abdominal exam: PRESENT: normal bowel sounds, soft. ABSENT: distended, tenderness Musculoskeletal exam: PRESENT: other - Marked weakness lower extremities and trunk. Upper extremities weak but functional. Neurological exam: PRESENT: alert, awake, oriented to person, oriented to place, oriented to time, oriented to situation, CN II-XII grossly intact Psychiatric exam: PRESENT: appropriate affect. ABSENT: agitated, anxious Focused psych exam: ABSENT: delusional, restlessness Skin exam: PRESENT: dry, normal color, warm. ABSENT: rash Results Laboratory Results: 11/05/18 05:50 11/05/18 05:50 11/04/18 11/05/18 11/05/18 18:34 05:50 05:50 WBC 6.4 RBC 4.71 Hgb 11.9 L D Hct 36.6 L MCV 78 L MCH 25.2 L MCHC 32.5 RDW 19.5 H Plt Count 122 L Sodium 135.2 L 138.0 Potassium 4.7 D 4.6 Chloride 101 106 Carbon Dioxide 21 L 22 Anion Gap 13 10 BUN 20 18 Creatinine 1.09 0.97 Est GFR ( Amer) > 60 > 60 Glucose 288 H 212 H Calcium 8.4 7.8 L Magnesium 1.3 L 1.3 L Total Bilirubin 0.6 AST 44 Alkaline Phosphatase 65 Total Protein 5.7 L Albumin 3.1 L Urine Color Urine Appearance Urine pH Ur Specific Bishop Urine Protein Urine Glucose (UA) Urine Ketones Urine Blood Urine Nitrite Ur Leukocyte Esterase Urine WBC (Auto) Urine RBC (Auto) 11/05/18 07:15 WBC RBC Hgb Hct MCV MCH MCHC RDW Plt Count Sodium Potassium Chloride Carbon Dioxide Anion Gap BUN Creatinine Est GFR ( Amer) Glucose Calcium Magnesium Total Bilirubin AST Alkaline Phosphatase Total Protein Albumin Urine Color YELLOW Urine Appearance CLEAR Urine pH 5.0 Ur Specific Bishop 1.013 Urine Protein NEGATIVE Urine Glucose (UA) >=500 H Urine Ketones NEGATIVE Urine Blood SMALL H Urine Nitrite NEGATIVE Ur Leukocyte Esterase NEGATIVE Urine WBC (Auto) 0 Urine RBC (Auto) 1 11/04/18 11/04/18 11/04/18 02:35 02:35 04:35 Creatine Kinase 65 CK-MB (CK-2) 1.70 Troponin I 0.203 0.181 Impressions: Chest X-Ray 11/04/18 03:16 IMPRESSION: No acute cardiopulmonary process copyright 2010 [employer]- All Rights Reserved Assessment and Plan - Diagnosis (1) Atrial fibrillation with rapid ventricular response Is this a current diagnosis for this admission?: Yes Plan: 11/04/2018-we had a long discussion regarding potential causes of his acute kidney injury and his weakness. As it turns out the patient cannot sense when his heart rate is up. His heart rate is currently in the 115 to 125 range. His blood pressures are holding systolic slightly better than 100. The patient does see Dr. Gutierrez. He notes that he is on digoxin. He states that Dr. Gutierrez changed the other medication and he is no longer on metoprolol. He could not remember the name of the medication. After reaching out to Dr. Gutierrez I discovered that the medicine was Multitak. The patient takes 400 mg twice daily. The patient does state that he ran out of the medication at least 1 week ago. Once this was discovered I explained to him that if he cannot feel the rapid heart rate 11/05/2018-the patient was restarted on his Multitak. He received 1 dose last night and one this morning. He still has pulse rates jumping between 80 and greater than 110. His magnesium is low and so he will get IV magnesium and this may help stabilize the rate. Cardiology did mention using sotalol if the Multitak is ineffective. (2) Acute renal insufficiency Is this a current diagnosis for this admission?: Yes Plan: Patient will be given IV fluids and his metabolic profile with magnesium levels and CBCs will be followed on a daily basis. 11/04/2018-GFR is normal today. We will continue to monitor especially since the patient is on digoxin. 11/05/2018-resolved. (3) Hypotension Qualifiers: Hypotension type: unspecified hypotension type Qualified Code(s): I95.9 - Hypotension, unspecified Is this a current diagnosis for this admission?: Yes Plan: 11/04/2018-the patient's hypotension was likely due to atrial fibrillation with rapid ventricular response. I explained that with better rate control his blood pressure should improve. He also received fluids. I also explained that because he cannot sense a rapid heart rate from his fibrillation he may become lightheaded not knowing why and this could have predisposed him to the weakness and collapse. 11/05/2018-blood pressures have been stable. (4) Hyperkalemia Is this a current diagnosis for this admission?: Yes Plan: 11/04/2018-I believe the patient received Kayexalate in the emergency department. Potassium is now normal. We will continue to monitor. 11/05/2018-potassium remains stable. We will be checking chemistries daily. (5) Diabetes mellitus type 2 in nonobese Is this a current diagnosis for this admission?: Yes Plan: 11/04/2018-we will continue to monitor Accu-Cheks. The patient is on metformin as well as sliding scale. Will adjust medications based on sliding scale requirements. 11/05/[id number] have been above 200. He is currently on sliding scale with 1 g of metformin at night. We may need to add low-dose Lantus or a more aggressive sliding scale. We will continue to monitor his Accu-Cheks.
[2018-11-05] MEDS: MAGNESIUM OXIDE 400 MG TABLET PO SCH (20:12)
[2018-11-05] MEDS: ATORVASTATIN CALCIUM 20 MG TABLET PO SCH (21:35)
[2018-11-05] MEDS: METFORMIN HCL 500 MG TABLET PO SCH (21:35)
[2018-11-05] MEDS: INSULIN REG, HUMAN 100 UNIT/ML 3 ML VIAL (PYX) SUBCUT PRN (21:36)
[2018-11-06] MEDS: PANTOPRAZOLE SODIUM 40 MG TABLET.DR PO SCH (05:06)
[2018-11-06 06:16] LABS: HEMATOCRIT 38.3 % (37.9-51.0); HEMOGLOBIN 12.5 g/dL (13.5-17.0); MEAN CORPUSCULAR HEMOGLOBIN 25.1 pg (27.0-33.4); MEAN CORPUSCULAR HGB CONC 32.6 g/dL (32.0-36.0); MEAN CORPUSCULAR VOLUME 77 fl (80-97); PLATELET COUNT 130 10^3/uL (150-450); RED BLOOD COUNT 4.98 10^6/uL (4.35-5.55); RED CELL DISTRIBUTION WIDTH 18.9 % (11.5-14.0); WHITE BLOOD COUNT 7.2 10^3/uL (4.0-10.5)
[2018-11-06 06:32] LABS: ANION GAP 12 (5-19); BLOOD UREA NITROGEN 12 mg/dL (7-20); CALCIUM 8.6 mg/dL (8.4-10.2); CARBON DIOXIDE 23 mmol/L (22-30); CHLORIDE 101 mmol/L (98-107); GLUCOSE 232 mg/dL (75-110); POTASSIUM 4.3 mmol/L (3.6-5.0)
[2018-11-06] MEDS: MAGNESIUM SULFATE/D5W 1 GM/100 ML RTUPB IV SCH ×3 (08:25→12:08)
[2018-11-06] MEDS: INSULIN REG, HUMAN 100 UNIT/ML 3 ML VIAL (PYX) SUBCUT PRN ×2 (08:40→22:07)
[2018-11-06] MEDS: LISINOPRIL 5 MG TABLET PO SCH (09:48)
[2018-11-06] MEDS: DIGOXIN 0.125 MG TABLET PO SCH (09:49)
[2018-11-06] MEDS: RIVAROXABAN 15 MG TABLET PO SCH (09:49)
[2018-11-06] MEDS: MAGNESIUM OXIDE 400 MG TABLET PO SCH ×2 (09:49→18:19)
[2018-11-06] MEDS: MULTIVITAMIN TABLET PO SCH (09:49)
[2018-11-06] MEDS: DRONEDARONE HYDROCHLORIDE 400 MG TABLET PO SCH (09:50)
[2018-11-06] MEDS: DOCUSATE SODIUM 100 MG CAPSULE PO SCH ×2 (09:54→19:29)
--- NOTE | 2018-11-06 11:46 | PDOC PROGRESS REPORT ---
Subjective Progress Note for:: 11/06/18 Subjective:: Patient is resting in bed. He was sleeping but wakes easily. He feels good today. His heart rate and blood pressure are better. Reason For Visit: REYES, HYPERKALEMIA Physical Exam Vital Signs: Temp Pulse Resp BP Pulse Ox 97.6 F 62 16 112/73 97 11/06/18 08:39 11/06/18 08:39 11/06/18 08:39 11/06/18 08:39 11/06/18 08:39 Intake & Output 11/05/18 11/06/18 11/07/18 06:59 06:59 06:59 Intake Total 3820 2076 100 Output Total 0 900 Balance 3820 1176 100 Weight 88.8 kg 87.6 kg General appearance: PRESENT: no acute distress, cooperative, well-developed Head exam: PRESENT: atraumatic, normocephalic Eye exam: PRESENT: conjunctiva pink. ABSENT: scleral icterus Ear exam: PRESENT: normal external ear exam. ABSENT: bleeding, drainage Mouth exam: PRESENT: moist, tongue midline Respiratory exam: PRESENT: clear to auscultation asad, symmetrical, unlabored. ABSENT: rales, rhonchi, tachypnea, wheezes Cardiovascular exam: PRESENT: irregular rhythm GI/Abdominal exam: PRESENT: normal bowel sounds, soft. ABSENT: distended, tenderness Rectal exam: PRESENT: deferred Extremities exam: ABSENT: joint swelling, pedal edema Musculoskeletal exam: PRESENT: other - Chronic weakness especially lower extremities and lower trunk. Arms with weakness but not profound. Neurological exam: PRESENT: awake, oriented to person, oriented to place, or iented to time, oriented to situation, CN II-XII grossly intact Psychiatric exam: PRESENT: appropriate affect. ABSENT: agitated, anxious Focused psych exam: ABSENT: delusional, restlessness Results Laboratory Results: 11/06/18 05:49 11/06/18 05:49 11/06/18 11/06/18 05:49 05:49 WBC 7.2 RBC 4.98 Hgb 12.5 L Hct 38.3 MCV 77 L MCH 25.1 L MCHC 32.6 RDW 18.9 H Plt Count 130 L Sodium 135.7 L Potassium 4.3 Chloride 101 Carbon Dioxide 23 Anion Gap 12 BUN 12 Creatinine 0.90 Est GFR ( Amer) > 60 Glucose 232 H Calcium 8.6 Magnesium 1.2 L* 11/04/18 11/04/18 11/04/18 02:35 02:35 04:35 Creatine Kinase 65 CK-MB (CK-2) 1.70 Troponin I 0.203 0.181 Impressions: Chest X-Ray 11/04/18 03:16 IMPRESSION: No acute cardiopulmonary process copyright 2010 [employer]- All Rights Reserved Assessment and Plan - Diagnosis (1) Atrial fibrillation with rapid ventricular response Is this a current diagnosis for this admission?: Yes Plan: 11/04/2018-we had a long discussion regarding potential causes of his acute kidney injury and his weakness. As it turns out the patient cannot sense when his heart rate is up. His heart rate is currently in the 115 to 125 range. His blood pressures are holding systolic slightly better than 100. The patient does see Dr. Gutierrez. He notes that he is on digoxin. He states that Dr. Gutierrez changed the other medication and he is no longer on metoprolol. He could not remember the name of the medication. After reaching out to Dr. Gutierrez I discovered that the medicine was Multitak. The patient takes 400 mg twice daily. The patient does state that he ran out of the medication at least 1 week ago. Once this was discovered I explained to him that if he cannot feel the rapid heart rate 11/05/2018-the patient was restarted on his Multitak. He received 1 dose last ni ght and one this morning. He still has pulse rates jumping between 80 and greater than 110. His magnesium is low and so he will get IV magnesium and this may help stabilize the rate. Cardiology did mention using sotalol if the Multitak is ineffective. 11/06/2018-I discussed the patient this morning on the phone with Dr. Gutierrez. He plans on stopping the Multitak and starting amiodarone. The patient's rate is controlled but he is still in fibrillation. (2) Acute renal insufficiency Is this a current diagnosis for this admission?: Yes Plan: Patient will be given IV fluids and his metabolic profile with magnesium levels and CBCs will be followed on a daily basis. 11/04/2018-GFR is normal today. We will continue to monitor especially since the patient is on digoxin. 11/05/2018-resolved. (3) Hypotension Qualifiers: Hypotension type: unspecified hypotension type Qualified Code(s): I95.9 - Hypotension, unspecified Is this a current diagnosis for this admission?: Yes Plan: 11/04/2018-the patient's hypotension was likely due to atrial fibrillation with rapid ventricular response. I explained that with better rate control his blood pressure should improve. He also received fluids. I also explained that because he cannot sense a rapid heart rate from his fibrillation he may become lightheaded not knowing why and this could have predisposed him to the weakness and collapse. 11/05/2018-blood pressures have been stable. 11/06/2018-resolved (4) Hyperkalemia Is this a current diagnosis for this admission?: Yes Plan: 11/04/2018-I believe the patient received Kayexalate in the emergency department. Potassium is now normal. We will continue to monitor. 11/05/2018-potassium remains stable. We will be checking chemistries daily. In 619-potassium is normal. Continue to monitor. Supplement if needed. (5) Diabetes mellitus type 2 in nonobese Is this a current diagnosis for this admission?: Yes Plan: 11/04/2018-we will continue to monitor Accu-Cheks. The patient is on metformin as well as sliding scale. Will adjust medications based on sliding scale re quirements. 11/05/20187543-[id number] have been above 200. He is currently on sliding scale with 1 g of metformin at night. We may need to add low-dose Lantus or a more aggressive sliding scale. We will continue to monitor his Accu-Cheks. 11/06/[id number] still significantly elevated. I will add 5 units of Lantus subcu at bedtime. Continue sliding scale. Adjust Lantus based on sliding scale requirements. (6) Hypomagnesemia Is this a current diagnosis for this admission?: Yes Plan: 11/06/2018-the patient exhibited low magnesium yesterday. He received some of the IV dose but the vein infiltrated. He is started on oral dosing today however his magnesium is only 1.2 and so 3 g IV will be given as well as the oral dose. He is on Protonix. PPIs can reduce her magnesium. I will discontinue the Protonix and start Pepcid. Continue to monitor magnesium levels. (7) Muscular dystrophy Is this a current diagnosis for this admission?: Yes Plan: 11/06/2018-the patient has systemic weakness due to muscular dystrophy. He uses an electric scooter and wheelchair to mobilize. He cannot support himself with a walker. With help he stands pivot transfers to a chair. I will asked physical therapy to work with the patient and provide bedside exercise regimen. - Time Time Spent with patient: 15-24 minutes Medications reviewed and adjusted accordingly: Yes Anticipated discharge: Home
[2018-11-06] MEDS ORDERED: DIGOXIN INJ 0.5 MG/2 ML AMPULE IV ONE (15:00)
[2018-11-06] MEDS ORDERED: FAMOTIDINE 20 MG TABLET PO ONE (16:00)
[2018-11-06] MEDS: FAMOTIDINE 20 MG TABLET PO SCH ×2 (16:10→22:09)
[2018-11-06] MEDS ORDERED: INSULIN GLARGINE,HUM.REC.ANLOG 1,000 UNIT/10 ML VIAL SUBCUT SCH (22:00)
[2018-11-06] MEDS: METFORMIN HCL 500 MG TABLET PO SCH (22:09)
[2018-11-07 04:38] LABS: HEMATOCRIT 39.3 % (37.9-51.0); MEAN CORPUSCULAR HEMOGLOBIN 25.4 pg (27.0-33.4); MEAN CORPUSCULAR HGB CONC 33.1 g/dL (32.0-36.0); MEAN CORPUSCULAR VOLUME 77 fl (80-97); PLATELET COUNT 147 10^3/uL (150-450); RED BLOOD COUNT 5.12 10^6/uL (4.35-5.55); RED CELL DISTRIBUTION WIDTH 19.3 % (11.5-14.0); WHITE BLOOD COUNT 6.8 10^3/uL (4.0-10.5)
[2018-11-07 05:10] LABS: ANION GAP 11 (5-19); BLOOD UREA NITROGEN 15 mg/dL (7-20); CALCIUM 9.1 mg/dL (8.4-10.2); CARBON DIOXIDE 27 mmol/L (22-30); CHLORIDE 98 mmol/L (98-107); DIGOXIN 0.79 ng/mL (0.8-2.0); GLUCOSE 203 mg/dL (75-110); POTASSIUM 4.6 mmol/L (3.6-5.0)
[2018-11-07] MEDS: INSULIN REG, HUMAN 100 UNIT/ML 3 ML VIAL (PYX) SUBCUT PRN ×3 (08:29→21:07)
[2018-11-07] MEDS ORDERED: DRONEDARONE HYDROCHLORIDE 400 MG TABLET PO ONE (10:00)
--- NOTE | 2018-11-07 10:14 | PDOC PROGRESS REPORT ---
Subjective Progress Note for:: 11/07/18 Subjective:: The patient is resting in bed. He in fact reports feeling better than yesterday. He is eating breakfast. He remains in atrial fib. Reason For Visit: REYES, HYPERKALEMIA Physical Exam Vital Signs: Temp Pulse Resp BP Pulse Ox 97.2 F 105 H 17 132/77 H 97 11/07/18 03:35 11/07/18 03:35 11/07/18 03:35 11/07/18 03:35 11/07/18 03:35 Intake & Output 11/06/18 11/07/18 11/08/18 06:59 06:59 06:59 Intake Total 2076 1496 Output Total 900 1750 Balance 1176 -254 Weight 87.6 kg 85.6 kg General appearance: PRESENT: no acute distress, cooperative, well-developed Head exam: PRESENT: atraumatic, normocephalic Eye exam: PRESENT: conjunctiva pink. ABSENT: scleral icterus Ear exam: PRESENT: normal external ear exam. ABSENT: bleeding, drainage Mouth exam: PRESENT: moist, tongue midline Respiratory exam: PRESENT: clear to auscultation asad, symmetrical, unlabored. ABSENT: rales, rhonchi, tachypnea, wheezes Cardiovascular exam: PRESENT: irregular rhythm GI/Abdominal exam: PRESENT: normal bowel sounds, soft. ABSENT: distended, tenderness Extremities exam: ABSENT: calf tenderness, joint swelling, pedal edema Musculoskeletal exam: PRESENT: normal inspection, other - Chronic weakness lower extremities more than upper and trunk. Neurological exam: PRESENT: alert, awake, oriented to person, oriented to place, oriented to time, oriented to situation, CN II-XII grossly intact Psychiatric exam: PRESENT: appropriate affect, normal mood. ABSENT: agitated, anxious Focused psych exam: ABSENT: delusional, restlessness Skin exam: PRESENT: dry, normal color, warm. ABSENT: rash Results Laboratory Results: 11/07/18 04:20 11/07/18 04:20 11/06/18 11/06/18 11/07/18 14:51 14:51 04:20 WBC 6.8 RBC 5.12 Hgb 13.0 L Hct 39.3 MCV 77 L MCH 25.4 L MCHC 33.1 RDW 19.3 H Plt Count 147 L Sodium Potassium Chloride Carbon Dioxide Anion Gap BUN Creatinine Est GFR ( Amer) Glucose Calcium Ionized Calcium Junie 1.11 L Magnesium 2.1 PTH Intact 11/07/18 11/07/18 04:20 04:20 WBC RBC Hgb Hct MCV MCH MCHC RDW Plt Count Sodium 136.0 L Potassium 4.6 Chloride 98 Carbon Dioxide 27 Anion Gap 11 BUN 15 Creatinine 0.85 Est GFR ( Amer) > 60 Glucose 203 H Calcium 9.1 Ionized Calcium Junie Magnesium 1.6 PTH Intact 48.6 11/04/18 11/04/18 11/04/18 02:35 02:35 04:35 Creatine Kinase 65 CK-MB (CK-2) 1.70 Troponin I 0.203 0.181 Impressions: Chest X-Ray 11/04/18 03:16 IMPRESSION: No acute cardiopulmonary process copyright 2010 [employer]- All Rights Reserved Assessment and Plan - Diagnosis (1) Atrial fibrillation with rapid ventricular response Is this a current diagnosis for this admission?: Yes Plan: 11/04/2018-we had a long discussion regarding potential causes of his acute kidney injury and his weakness. As it turns out the patient cannot sense when his heart rate is up. His heart rate is currently in the 115 to 125 range. His blood pressures are holding systolic slightly better than 100. The patient does see Dr. Gutierrez. He notes that he is on digoxin. He states that Dr. Gutierrez changed the other medication and he is no longer on metoprolol. He could not remember the name of the medication. After reaching out to Dr. Gutierrez I discovered that the medicine was Multitak. The patient takes 400 mg twice daily. The patient does state that he ran out of the medication at least 1 week ago. Once this was discovered I explained to him that if he cannot feel the rapid heart rate 11/05/2018-the patient was restarted on his Multitak. He received 1 dose last night and one this morning. He still has pulse rates jumping between 80 and greater than 110. His magnesium is low and so he will get IV magnesium and this may help stabilize the rate. Cardiology did mention using sotalol if the Multitak is ineffective. 11/06/2018-I discussed the patient this morning on the phone with Dr. Gutierrez. He plans on stopping the Multitak and starting amiodarone. The patient's rate is controlled but he is still in fibrillation. 11/07/2018-patient is still in atrial fibrillation. Dr. Gutierrez reported that he was going to start the patient on sotalol. The patient will need to stay monitored for 48 hours. Hopefully this will convert and control the patient. (2) Acute renal insufficiency Is this a current diagnosis for this admission?: Yes Plan: Patient will be given IV fluids and his metabolic profile with magnesium levels and CBCs will be followed on a daily basis. 11/04/2018-GFR is normal today. We will continue to monitor especially since the patient is on digoxin. 11/05/2018-resolved. (3) Hypotension Qualifiers: Hypotension type: unspecified hypotension type Qualified Code(s): I95.9 - Hypotension, unspecified Is this a current diagnosis for this admission?: Yes Plan: 11/04/2018-the patient's hypotension was likely due to atrial fibrillation with rapid ventricular response. I explained that with better rate control his blood pressure should improve. He also received fluids. I also explained that because he cannot sense a rapid heart rate from his fibrillation he may become lightheaded not knowing why and this could have predisposed him to the weakness and collapse. 11/05/2018-blood pressures have been stable. 11/06/2018-resolved (4) Hyperkalemia Is this a current diagnosis for this admission?: Yes Plan: 11/04/2018-I believe the patient received Kayexalate in the emergency department. Potassium is now normal. We will continue to monitor. 11/05/2018-potassium remains stable. We will be checking chemistries daily. 11/06/2018-potassium is normal. Continue to monitor. Supplement if needed. 11/07/2018-potassium remains normal. Monitor potassium. (5) Diabetes mellitus type 2 in nonobese Is this a current diagnosis for this admission?: Yes Plan: 11/04/2018-we will continue to monitor Accu-Cheks. The patient is on metformin as well as sliding scale. Will adjust medications based on sliding scale requirements. 11/05/[id number]-[id number] have been above 200. He is currently on sliding scale with 1 g of metformin at night. We may need to add low-dose Lantus or a more aggressive sliding scale. We will continue to monitor his Accu-Cheks. 11/06/[id number]-[id number] still significantly elevated. I will add 5 units of Lantus subcu at bedtime. Continue sliding scale. Adjust Lantus based on sliding scale requirements. 11/07/2018-the patient did receive his first dose of Lantus last night. Accu- Cheks are still high this morning. I will increase the Lantus to 8 units for tonight. Continue sliding scale. Continue to adjust Lantus based on sliding scale requirements. (6) Hypomagnesemia Is this a current diagnosis for this admission?: Yes Plan: 11/06/2018-the patient exhibited low magnesium yesterday. He received some of the IV dose but the vein infiltrated. He is started on oral dosing today however his magnesium is only 1.2 and so 3 g IV will be given as well as the oral dose. He is on Protonix. PPIs can reduce her magnesium. I will discontinue the Protonix and start Pepcid. Continue to monitor magnesium levels. 11/07/2018-the serum magnesium is just at the lower limit normal. Continue oral magnesium supplement. Proton pump inhibitor was discontinued as this can decrease magnesium. Parathyroid hormone, cortisol levels and vitamin D levels have been ordered. (7) Muscular dystrophy Is this a current diagnosis for this admission?: Yes Plan: 11/06/2018-the patient has systemic weakness due to muscular dystrophy. He uses an electric scooter and wheelchair to mobilize. He cannot support himself with a walker. With help he stands pivot transfers to a chair. I will asked physical therapy to work with the patient and provide bedside exercise regimen. In addition: With the patient's underlying muscle weakness Dr. Gutierrez suggested stopping the statin therapy as well. 11/07/2018-physical therapy did see the patient yesterday. They are waiting for his wheelchair to arrive today and they will work on transfers. We did stop his statin therapy in the event that is contributing to the weakness. I believe his underlying muscular dystrophy is certainly primary. - Time Time Spent with patient: Less than 15 minutes Medications reviewed and adjusted accordingly: Yes Anticipated discharge: Home
[2018-11-07] MEDS: MAGNESIUM OXIDE 400 MG TABLET PO SCH ×2 (10:31→17:35)
[2018-11-07] MEDS: LISINOPRIL 5 MG TABLET PO SCH (10:32)
[2018-11-07] MEDS: MULTIVITAMIN TABLET PO SCH (10:33)
[2018-11-07] MEDS: RIVAROXABAN 15 MG TABLET PO SCH (10:33)
[2018-11-07] MEDS: DIGOXIN 0.125 MG TABLET PO SCH (10:33)
[2018-11-07] MEDS: FAMOTIDINE 20 MG TABLET PO SCH ×2 (10:35→21:00)
[2018-11-07] MEDS: DOCUSATE SODIUM 100 MG CAPSULE PO SCH ×2 (10:52→17:37)
[2018-11-07] MEDS ORDERED: METOPROLOL TARTRATE PF/INJ 5 MG/5 ML SDV IV ONE (11:45)
[2018-11-07] MEDS ORDERED: DIGOXIN INJ 0.5 MG/2 ML AMPULE IV ONE (19:55)
--- NOTE | 2018-11-07 19:55 | Progress Note ---
Provider Note Provider Note: Cardiology PROGRESS NOTE by Dr. Minda Gutierrez on 11/07/2018. SUBJECTIVE: The patient's muscle weakness is much better better and he is able to transfer himself from the wheelchair to the bed. His magnesium is now normal. He continues to be in atrial fibrillation with ventricular response in the 1 teens. There is no bleeding on Xarelto. There is no TIA CVA symptoms. The patient denies any chest pain or discomfort. There is no shortness of breath. There is no PND orthopnea or leg edema. Physical EXAMINATION: The patient is well-groomed in no acute distress Selected Entries 11/07/18 11:22 Temperature 98.3 F Temperature Oral Source Pulse Rate 109 H Respiratory 17 Rate Blood Pressure 140/86 H Blood Pressure 104 Mean BP Location Left Arm BP Position Supine O2 Sat by Pulse 100 Oximetry Oxygen Delivery Room Air Method Head is atraumatic normocephalic. EYES: Pupils equal round regular reactive to light accommodation. External ocular movements are normal. There is no clinical pallor. There is no scleral icterus. EARS: Tympanic membranes are intact. External auditory canals are clear. NOSE: There is no deviated nasal septum. There is no inflammation of the nasal mucous membrane. MOUTH: Mucous membranes of the mouth are moist tongue is moist. There is no ulcers. There is no bleeding from the gums. THROAT: There is no redness of the oropharynx. There is no exudates. SKIN: There is no skin rashes. There is no petechia or ecchymosis. There is no skin lesions. NECK: Supple. There is no JVD. Carotids are equal there is no bruit there is no lymphadenopathy. There is no goiter. There is no accessory muscle respiration use. Trachea central. LUNGS: Clear to auscultation percussion without any rhonchi rales wheezing. HEART: S1- S2 is heard. S1 is of variable intensity. There is no S3 gallop. There is no S4 gallop. There is systolic murmur left sternal border and the apex there is no rub. ABDOMEN: Soft. Nontender. There is no hepatospleno megaly. Bowel sounds well heard. There is no tender areas masses. EXTREMITIES: Femorals well felt. There is no femoral bruits. Leg pulses are well felt. There is no pedal edema. There is no DVT or cellulitis. There is no calf tenderness. COMPONENT TECHNICIAN: The patient is conscious awake alert oriented x3. He has lower extremity and truncal weakness greater than upper extremity weakness. His muscle weakness has improved compared to yesterday. Although in spite of this there is no focal deficits. PSYCHIATRIC: Patient judgment insight are intact his affect is normal. Labs- All tests 24 hr 11/06/18 11/06/18 11/07/18 18:52 21:12 04:20 WBC 6.8 RBC 5.12 Hgb 13.0 L Hct 39.3 MCV 77 L MCH 25.4 L MCHC 33.1 RDW 19.3 H Plt Count 147 L Sodium Potassium Chloride Carbon Dioxide Anion Gap BUN Creatinine Est GFR ( Amer) Est GFR (MDRD) Non-Af Glucose POC Glucose 273 H Calcium Magnesium PTH Intact Cortisol AM Sample Cortisol PM Sample 5.81 Digoxin 11/07/18 11/07/18 11/07/18 04:20 04:20 04:20 WBC RBC Hgb Hct MCV MCH MCHC RDW Plt Count Sodium 136.0 L Potassium 4.6 Chloride 98 Carbon Dioxide 27 Anion Gap 11 BUN 15 Creatinine 0.85 Est GFR ( Amer) > 60 Est GFR (MDRD) Non-Af > 60 Glucose 203 H POC Glucose Calcium 9.1 Magnesium 1.6 PTH Intact 48.6 Cortisol AM Sample 19.70 Cortisol PM Sample Digoxin 0.79 L 11/07/18 11/07/18 11/07/18 08:10 11:55 17:04 WBC RBC Hgb Hct MCV MCH MCHC RDW Plt Count Sodium Potassium Chloride Carbon Dioxide Anion Gap BUN Creatinine Est GFR ( Amer) Est GFR (MDRD) Non-Af Glucose POC Glucose 197 H 201 H 220 H Calcium Magnesium PTH Intact Cortisol AM Sample Cortisol PM Sample Digoxin Chest X-Ray 11/04/18 03:16 IMPRESSION: No acute cardiopulmonary process copyright 2011 [employer]- All Rights Reserved IMPRESSION/RECOMMENDATION: 1. Hypomagnesemia: Resolved after replacement. Magnesium level is now normal. Hypomagnesemia is the likely cause of the patient's increased muscle weakness on top of the patient's already present weakness secondary to muscular dystrophy. Note that the patient's steroid levels are normal. The PTH is normal. And the patient ionized calcium slightly less than normal. Hence most likely the cause of the patient's hypomagnesemia most likely secondary to his proton pump inhibitor. 2. Muscle weakness most likely secondary to hypomagnesemia causing increased weakness on patient with already muscular dystrophy. 2. Atrial fibrillation with fast ventricular response: Note initially there was a plan to start the patient on sotalol. But the patient's QTC slightly white. Hence we will restart the patient on on Multitak again. Note his liver function tests are normal. The patient's this level is subtherapeutic. The patient already received his usual dose of digoxin this morning. We will give later a extra dose of digoxin 0.25 mg IV push if the heart rate still seems to be up. Will also give the patient metoprolol 2 0.5 mg IV push x1 dose. Continue Xarelto. 3. Muscular dystrophy: Continue supportive treatment. 4. Coronary artery disease by prior stress testing. Patient has no angina. There is no evidence of acute coronary syndrome this admission. Medications reviewed. Medications adjusted. Management plan discussed with the attending physician on the case. Discussed with the patient also. Medical decision making is of high complexity. 40 minutes spent on this patient more than 50% of time spent in direct patient care. Will follow
[2018-11-07] MEDS: METFORMIN HCL 500 MG TABLET PO SCH (21:00)
[2018-11-07] MEDS: INSULIN GLARGINE,HUM.REC.ANLOG 1,000 UNIT/10 ML VIAL SUBCUT SCH (21:09)
[2018-11-07] MEDS ORDERED: DIGOXIN 0.125 MG TABLET PO ONE (21:30)
[2018-11-08 05:06] LABS: HEMATOCRIT 39.4 % (37.9-51.0); HEMOGLOBIN 13.1 g/dL (13.5-17.0); MEAN CORPUSCULAR HEMOGLOBIN 25.4 pg (27.0-33.4); MEAN CORPUSCULAR HGB CONC 33.1 g/dL (32.0-36.0); MEAN CORPUSCULAR VOLUME 77 fl (80-97); PLATELET COUNT 163 10^3/uL (150-450); RED BLOOD COUNT 5.13 10^6/uL (4.35-5.55); RED CELL DISTRIBUTION WIDTH 18.5 % (11.5-14.0); WHITE BLOOD COUNT 6.9 10^3/uL (4.0-10.5)
[2018-11-08 05:28] LABS: ANION GAP 12 (5-19); BLOOD UREA NITROGEN 19 mg/dL (7-20); CALCIUM 8.8 mg/dL (8.4-10.2); CARBON DIOXIDE 25 mmol/L (22-30); CHLORIDE 98 mmol/L (98-107); GLUCOSE 239 mg/dL (75-110); POTASSIUM 4.5 mmol/L (3.6-5.0)
[2018-11-08] MEDS: DOCUSATE SODIUM 100 MG CAPSULE PO SCH ×2 (10:17→17:00)
[2018-11-08] MEDS: DIGOXIN 0.125 MG TABLET PO SCH (10:21)
[2018-11-08] MEDS: FAMOTIDINE 20 MG TABLET PO SCH ×2 (10:22→21:46)
[2018-11-08] MEDS: MAGNESIUM OXIDE 400 MG TABLET PO SCH ×2 (10:22→17:02)
[2018-11-08] MEDS: LISINOPRIL 5 MG TABLET PO SCH (10:22)
[2018-11-08] MEDS: MULTIVITAMIN TABLET PO SCH (10:23)
[2018-11-08] MEDS: RIVAROXABAN 15 MG TABLET PO SCH (10:23)
[2018-11-08] MEDS: INSULIN REG, HUMAN 100 UNIT/ML 3 ML VIAL (PYX) SUBCUT PRN ×3 (10:26→21:43)
[2018-11-08] MEDS ORDERED: DIGOXIN INJ 0.5 MG/2 ML AMPULE IV ONE (12:00)
[2018-11-08] MEDS: METOPROLOL SUCCINATE 25 MG TAB.SR.24H PO SCH ×2 (14:37→21:44)
--- NOTE | 2018-11-08 14:41 | RADIOLOGY REPORT (SQ) ---
EXAM DESCRIPTION: ELBOW LEFT AP/LATERAL COMPLETED DATE/TIME: 11/08/2018 2:30 pm REASON FOR STUDY: Leftelbow pain and swelling COMPARISON: None. NUMBER OF VIEWS: Two views. TECHNIQUE: AP and lateral radiographic images acquired of the left elbow. LIMITATIONS: None. FINDINGS: MINERALIZATION: Normal. BONES: No acute fracture or dislocation. No worrisome bone lesions. JOINT: No effusion. Moderate arthrosis. SOFT TISSUES: No soft tissue swelling. No foreign body. OTHER: No other significant finding. IMPRESSION: No fracture or dislocation of the left elbow. Moderate arthrosis. No elbow joint effus ion to suggest radiographically occult fracture. TECHNICAL DOCUMENTATION: JOB ID: [id number] [employer]- All Rights Reserved Reading location - IP/workstation name: [email or web address]
--- NOTE | 2018-11-08 18:48 | EKG REPORT ---
SEVERITY:- ABNORMAL ECG - ATRIAL FIBRILLATION, V-RATE 69-117 RIGHT BUNDLE BRANCH BLOCK ANTERIOR INFARCT, AGE INDETERMINATE : Confirmed by: Rosalee Fragoso 08-Nov-2018 18:46:35
--- NOTE | 2018-11-08 18:48 | EKG REPORT ---
SEVERITY:- ABNORMAL ECG - ATRIAL FIBRILLATION, V-RATE 94-158 RIGHT BUNDLE BRANCH BLOCK : Confirmed by: Rosalee Fragoso 08-Nov-2018 18:46:41
--- NOTE | 2018-11-08 20:06 | PDOC PROGRESS REPORT ---
Subjective Progress Note for:: 11/08/18 Subjective:: Today he complains of left elbow pain. He also remains tachycardic with his atrial fibrillation. Reason For Visit: REYES, HYPERKALEMIA Physical Exam Vital Signs: Temp Pulse Resp BP Pulse Ox 97.5 F 35 L 14 128/85 H 98 11/08/18 15:57 11/08/18 15:57 11/08/18 04:15 11/08/18 15:57 11/08/18 15:57 Intake & Output 11/07/18 11/08/18 11/09/18 06:59 06:59 06:59 Intake Total 1596 1440 180 Output Total 1750 2750 Balance -154 -1310 180 Weight 85.6 kg 84.8 kg General appearance: PRESENT: no acute distress, cooperative, well-developed Head exam: PRESENT: atraumatic, normocephalic Eye exam: PRESENT: conjunctiva pink. ABSENT: scleral icterus Ear exam: PRESENT: normal external ear exam. ABSENT: bleeding, drainage Teeth exam: PRESENT: poor dentation Respiratory exam: PRESENT: clear to auscultation asad, symmetrical, unlabored. ABSENT: accessory muscle use, rales, rhonchi, tachypnea, wheezes Cardiovascular exam: PRESENT: irregular rhythm GI/Abdominal exam: PRESENT: normal bowel sounds, soft. ABSENT: distended, tenderness Rectal exam: PRESENT: deferred Gentrourinary exam: ABSENT: indwelling catheter Extremities exam: ABSENT: pedal edema Musculoskeletal exam: PRESENT: other - The left elbow is not swollen and there is no erythema. The patient is somewhat tender over the lateral aspect of the elbow. No fluid collection is suspected. Neurological exam: PRESENT: alert, awake, oriented to person, oriented to place, oriented to time, oriented to situation, CN II-XII grossly intact, other - Chronic weakness from muscular dystrophy unchanged Psychiatric exam: PRESENT: normal mood. ABSENT: agitated, anxious Focused psych exam: ABSENT: delusional, restlessness Results Laboratory Results: 11/08/18 04:16 11/08/18 04:16 11/08/18 11/08/18 04:16 04:16 WBC 6.9 RBC 5.13 Hgb 13.1 L Hct 39.4 MCV 77 L MCH 25.4 L MCHC 33.1 RDW 18.5 H Plt Count 163 Sodium 134.9 L Potassium 4.5 Chloride 98 Carbon Dioxide 25 Anion Gap 12 BUN 19 Creatinine 0.91 Est GFR ( Amer) > 60 Glucose 239 H Calcium 8.8 Magnesium 1.4 L 11/04/18 11/04/18 11/04/18 02:35 02:35 04:35 Creatine Kinase 65 CK-MB (CK-2) 1.70 Troponin I 0.203 0.181 Impressions: Chest X-Ray 11/04/18 03:16 IMPRESSION: No acute cardiopulmonary process copyright 2010 [employer]- All Rights Reserved Elbow X-Ray 11/08/18 00:00 IMPRESSION: No fracture or dislocation of the left elbow. Moderate arthrosis. No elbow joint effusion to suggest radiographically occult fracture. Assessment and Plan - Diagnosis (1) Atrial fibrillation with rapid ventricular response Is this a current diagnosis for this admission?: Yes Plan: 11/04/2018-we had a long discussion regarding potential causes of his acute kidney injury and his weakness. As it turns out the patient cannot sense when his heart rate is up. His heart rate is currently in the 115 to 125 range. His blood pressures are holding systolic slightly better than 100. The patient does see Dr. Gutierrez. He notes that he is on digoxin. He states that Dr. Gutierrez changed the other medication and he is no longer on metoprolol. He could not remember the name of the medication. After reaching out to Dr. Gutierrez I discovered that the medicine was Multitak. The patient takes 400 mg twice daily. The patient does state that he ran out of the medication at least 1 week ago. Once this was discovered I explained to him that if he cannot feel the rapid heart rate 11/05/2018-the patient was restarted on his Multitak. He received 1 dose last night and one this morning. He still has pulse rates jumping between 80 and greater than 110. His magnesium is low and so he will get IV magnesium and this may help stabilize the rate. Cardiology did mention using sotalol if the M ultitak is ineffective. 11/06/2018-I discussed the patient this morning on the phone with Dr. Gutierrez. He plans on stopping the Multitak and starting amiodarone. The patient's rate is controlled but he is still in fibrillation. 11/07/2018-patient is still in atrial fibrillation. Dr. Gutierrez reported that he was going to start the patient on sotalol. The patient will need to stay monitored for 48 hours. Hopefully this will convert and control the patient. 11/08/2018-the patient was still tachycardic with an adequate rate control. Cardiology's plan was to initiate sotalol. He is currently on digoxin and metoprolol. (2) Acute renal insufficiency Is this a current diagnosis for this admission?: Yes Plan: Patient will be given IV fluids and his metabolic profile with magnesium levels and CBCs will be followed on a daily basis. 11/04/2018-GFR is normal today. We will continue to monitor especially since the patient is on digoxin. 11/05/2018-resolved. (3) Hypotension Qualifiers: Hypotension type: unspecified hypotension type Qualified Code(s): I95.9 - Hypotension, unspecified Is this a current diagnosis for this admission?: Yes Plan: 11/04/2018-the patient's hypotension was likely due to atrial fibrillation with rapid ventricular response. I explained that with better rate control his blood pressure should improve. He also received fluids. I also explained that because he cannot sense a rapid heart rate from his fibrillation he may become lightheaded not knowing why and this could have predisposed him to the weakness and collapse. 11/05/2018-blood pressures have been stable. 11/06/2018-resolved (4) Hyperkalemia Is this a current diagnosis for this admission?: Yes Plan: 11/04/2018-I believe the patient received Kayexalate in the emergency department. Potassium is now normal. We will continue to monitor. 11/05/2018-potassium remains stable. We will be checking chemistries daily. 11/06/2018-potassium is normal. Continue to monitor. Supplement if needed. 11/07/2018-potassium remains normal. Monitor potassium. 11/08/2018-normokalemic. Monitor electrolytes. (5) Diabetes mellitus type 2 in nonobese Is this a current diagnosis for this admission?: Yes Plan: 11/04/2018-we will continue to monitor Accu-Cheks. The patient is on metformin as well as sliding scale. Will adjust medications based on sliding scale requirements. 11/05/20189252-[id number] have been above 200. He is currently on sliding scale with 1 g of metformin at night. We may need to add low-dose Lantus or a more aggressive sliding scale. We will continue to monitor his Accu-Cheks. 11/06/[id number]-[id number] still significantly elevated. I will add 5 units of Lantus subcu at bedtime. Continue sliding scale. Adjust Lantus based on sliding scale requirements. 11/07/2018-the patient did receive his first dose of Lantus last night. Accu- Cheks are still high this morning. I will increase the Lantus to 8 units for tonight. Continue sliding scale. Continue to adjust Lantus based on sliding scale requirements. 11/08/2018-still with Accu-Cheks higher than desired. Will increase Lantus. He may need to split dosing Lantus or may need to change the Lantus dose to morning administration. (6) Hypomagnesemia Is this a current diagnosis for this admission?: Yes Plan: 11/06/2018-the patient exhibited low magnesium yesterday. He received some of the IV dose but the vein infiltrated. He is started on oral dosing today however his magnesium is only 1.2 and so 3 g IV will be given as well as the oral dose. He is on Protonix. PPIs can reduce her magnesium. I will discontinue the Protonix and start Pepcid. Continue to monitor magnesium levels. 11/07/2018-the serum magnesium is just at the lower limit normal. Continue oral magnesium supplement. Proton pump inhibitor was discontinued as this can decrease magnesium. Parathyroid hormone, cortisol levels and vitamin D levels have been ordered. 11/08/2018-despite supplementation he is still hypomagnesemic. I did discontinue the proton pump inhibitor. It may take some time for his magnesium levels to replete. We will continue to supplement. (7) Muscular dystrophy Is this a current diagnosis for this admission?: Yes Plan: 11/06/2018-the patient has systemic weakness due to muscular dystrophy. He uses an electric scooter and wheelchair to mobilize. He cannot support himself with a walker. With help he stands pivot transfers to a chair. I will asked physical therapy to work with the patient and provide bedside exercise regimen. In addition: With the patient's underlying muscle weakness Dr. Gutierrez suggested stopping the statin therapy as well. 11/07/2018-physical therapy did see the patient yesterday. They are waiting for his wheelchair to arrive today and they will work on transfers. We did stop his statin therapy in the event that is contributing to the weakness. I believe his underlying muscular dystrophy is certainly primary. 11/08/2018-I was called to be made aware that the patient's wheelchair was brought in for him and that with physical therapy he successfully transferred to his chair. At this point he should be able to transfer to his chair so that he can get out of bed and possibly even out of his room for short trips in the hallway. (8) Left elbow pain Is this a current diagnosis for this admission?: Yes Plan: 11/08/2018-the patient is having some discomfort in his left elbow. We will obtain a plain film. There is no discoloration or swelling. - Time Time Spent with patient: Less than 15 minutes Medications reviewed and adjusted accordingly: Yes Anticipated discharge: Home
[2018-11-08] MEDS: INSULIN GLARGINE,HUM.REC.ANLOG 1,000 UNIT/10 ML VIAL SUBCUT SCH (21:44)
[2018-11-08] MEDS: METFORMIN HCL 500 MG TABLET PO SCH (21:44)
--- NOTE | 2018-11-08 22:42 | Progress Note ---
Provider Note Provider Note: CARDIOLOGY PROGRESS NOTE by Dr. Minda Gutierrez on 11/08/2018. SUBJECTIVE: The patient complains of pain in the left elbow. He still seems to be in atrial fibrillation with rapid ventricular response. He has no chest pain or discomfort. There is no shortness of breath. There is no PND orthopnea. There is no leg edema. The patient's muscle weakness is much improved. PHYSICAL EXAMINATION: The patient is well-built. He is well-nourished. In no acute distress. Selected Entries 11/08/18 11/08/18 11/08/18 10:00 12:09 14:00 Temperature 98.4 F Pulse Rate 120 H Blood Pressure Blood Pressure Mean O2 Sat by Pulse 98 Oximetry Oxygen Delivery Room Air Method ( includes room air) 11/08/18 15:57 Temperature Pulse Rate Blood Pressure 128/85 H Blood Pressure 99 Mean O2 Sat by Pulse 98 Oximetry Oxygen Delivery Method ( includes room air) Head is atraumatic normocephalic. EYES: Pupils equal round regular reactive to light accommodation. External ocular movements are normal. There is no clinical pallor. There is no scleral icterus. EARS: Tympanic membranes are intact. External auditory canals are clear. NOSE: There is no deviated nasal septum. There is no inflammation of the nasal mucous membrane. MOUTH: Mucous membranes of the mouth are moist tongue is moist. There is no ulcers. There is no bleeding from the gums. THROAT: There is no redness of the oropharynx. There is no exudates. SKIN: There is no skin rashes. There is no petechia or ecchymosis. There is no skin lesions. NECK: Supple. There is no JVD. Carotids are equal there is no bruit there is no lymphadenopathy. There is no goiter. There is no accessory muscle respiration use. Trachea central. LUNGS: Clear to auscultation percussion without any rhonchi rales wheezing. HEART: S1- S2 is heard. S1 is of variable intensity. There is no S3 gallop. There is no S4 gallop. There is systolic murmur left sternal border and the apex there is no rub. ABDOMEN: Soft. Nontender. There is no hepatospleno megaly. Bowel sounds well heard. There is no tender areas masses. EXTREMITIES: Femorals well felt. There is no femoral bruits. Leg pulses are well felt. There is no pedal edema. There is no DVT or cellulitis. There is no calf tenderness. CERTIFIED PHYSICIAN ASSISTANT: The patient is conscious awake alert oriented x3. He has lower extremity and truncal weakness greater than upper extremity weakness. His muscle weakness has improved compared to yesterday. Although in spite of this there is no focal deficits. PSYCHIATRIC: Patient judgment insight are intact his affect is normal. Labs- All tests 24 hr 11/08/18 11/08/18 11/08/18 04:16 04:16 08:34 WBC 6.9 RBC 5.13 Hgb 13.1 L Hct 39.4 MCV 77 L MCH 25.4 L MCHC 33.1 RDW 18.5 H Plt Count 163 Sodium 134.9 L Potassium 4.5 Chloride 98 Carbon Dioxide 25 Anion Gap 12 BUN 19 Creatinine 0.91 Est GFR ( Amer) > 60 Est GFR (MDRD) Non-Af > 60 Glucose 239 H POC Glucose 191 H Calcium 8.8 Magnesium 1.4 L 11/08/18 11/08/18 11/08/18 12:34 16:22 21:32 WBC RBC Hgb Hct MCV MCH MCHC RDW Plt Count Sodium Potassium Chloride Carbon Dioxide Anion Gap BUN Creatinine Est GFR ( Amer) Est GFR (MDRD) Non-Af Glucose POC Glucose 238 H 273 H 309 H Calcium Magnesium Chest X-Ray 11/04/18 03:16 IMPRESSION: No acute cardiopulmonary process copyright 2011 [employer]- All Rights Reserved Elbow X-Ray 11/08/18 00:00 IMPRESSION: No fracture or dislocation of the left elbow. Moderate arthrosis. No elbow joint effusion to suggest radiographically occult fracture. IMPRESSION/RECOMMENDATION: 1. Hypomagnesemia: Resolved after replacement. Magnesium level is now normal. Hypomagnesemia is the likely cause of the patient's increased muscle weakness on top of the patient's already present weakness secondary to muscular dystrophy. Note that the patient's steroid levels are normal. The PTH is normal. And the patient ionized calcium slightly less than normal. Hence most likely the cause of the patient's hypomagnesemia most likely secondary to his proton pump inhibitor. 2. Muscle weakness most likely secondary to hypomagnesemia causing increased weakness on patient with already muscular dystrophy. 2. Atrial fibrillation with fast ventricular response: Note initially there was a plan to start the patient on sotalol. But the patient's QTC slightly white. Hence we will restart the patient on on Multitak again. Note his liver function tests are normal. The patient already received his usual dose of digoxin this morning. We will give an extra dose of digoxinWill start patient on Toprol XL. Continue Xarelto. 3. Left elbow pain this seems to be a slight swelling without redness. Will check elbow x-ray. 4.Muscular dystrophy: Continue supportive treatment. 5 Coronary artery disease by prior stress testing. Patient has no angina. There is no evidence of acute coronary syndrome this admission. 6. Diabetes mellitus: Continue antidiabetic medication. Medications reviewed. Medications adjusted. Management plan discussed with the attending physician on the case. Discussed with the patient also. Medical de cision making is of high complexity. 40 minutes spent on this patient more than 50% of time spent in direct patient care. Will follow
[2018-11-09] MEDS: MAGNESIUM OXIDE 400 MG TABLET PO SCH ×3 (07:53→18:49)
[2018-11-09 08:18] LABS: BLOOD UREA NITROGEN 24 mg/dL (7-20); CALCIUM 8.9 mg/dL (8.4-10.2); GLUCOSE 261 mg/dL (75-110)
[2018-11-09 08:19] LABS: ANION GAP 12 (5-19); CARBON DIOXIDE 25 mmol/L (22-30); CHLORIDE 97 mmol/L (98-107)
[2018-11-09] MEDS: INSULIN REG, HUMAN 100 UNIT/ML 3 ML VIAL (PYX) SUBCUT PRN (08:35)
[2018-11-09] MEDS: DOCUSATE SODIUM 100 MG CAPSULE PO SCH ×2 (09:04→18:49)
[2018-11-09] MEDS: MULTIVITAMIN TABLET PO SCH (09:04)
[2018-11-09] MEDS: RIVAROXABAN 15 MG TABLET PO SCH (09:04)
[2018-11-09] MEDS: METOPROLOL SUCCINATE 25 MG TAB.SR.24H PO SCH ×2 (09:04→22:09)
[2018-11-09] MEDS: FAMOTIDINE 20 MG TABLET PO SCH ×2 (09:05→22:09)
[2018-11-09] MEDS: DIGOXIN 0.125 MG TABLET PO SCH (09:05)
[2018-11-09] MEDS: LISINOPRIL 5 MG TABLET PO SCH (09:06)
[2018-11-09] MEDS: ACETAMINOPHEN 325 MG TABLET PO PRN ×2 (09:07→22:43)
[2018-11-09] MEDS ORDERED: DIGOXIN 0.125 MG TABLET PO ONE (13:30)
[2018-11-09] MEDS ORDERED: DIGOXIN INJ 0.5 MG/2 ML AMPULE ONE (13:37)
[2018-11-09] MEDS ORDERED: MAGNESIUM SULFATE/D5W 1 GM/100 ML RTUPB IV ONE (14:28)
--- NOTE | 2018-11-09 14:45 | EKG REPORT ---
SEVERITY:- ABNORMAL ECG - ATRIAL FIBRILLATION, V-RATE 79-120 RIGHT BUNDLE BRANCH BLOCK PROBABLE ANTEROSEPTAL INFARCT, AGE INDETERM : Confirmed by: Minda Gutierrez MD 09-Nov-2018 14:44:59
[2018-11-09] MEDS ORDERED: POLYETHYLENE GLYCOL 3350 POWDER 17 GM/1 PACKET PO ONE (18:00)
[2018-11-09] MEDS ORDERED: KETOROLAC TROMETHAMINE INJ/PF 30 MG/1 ML SDV IV SCH (18:00)
[2018-11-09] MEDS: FERROUS SULFATE 325 MG TABLET PO SCH (18:49)
[2018-11-09] MEDS: LACTULOSE SYRUP 20 GM/30 ML UDCUP PO SCH (18:49)
[2018-11-09] MEDS: METFORMIN HCL 500 MG TABLET PO SCH (22:08)
[2018-11-09] MEDS: INSULIN GLARGINE,HUM.REC.ANLOG 1,000 UNIT/10 ML VIAL SUBCUT SCH (22:08)
--- NOTE | 2018-11-09 23:01 | Progress Note ---
Provider Note Provider Note: Cardiology PROGRESS NOTE by Dr. Minda Ye on 11/09/2018. SUBJECTIVE: The patient continues to be in atrial fibrillation, with ventricular response much better. He is left elbow pain is much improved. He denies chest pain or discomfort there is no muscle weakness of the severity that he came in with. He has no PND orthopnea. There is no anginal symptoms. There is no leg edema. Physical EXAMINATION: The patient is a frail build. In no acute distress. The patient magnesium again is 1.5, and mildly low. Selected Entries 11/09/18 14:50 Temperature 98.5 F Temperature Oral Source Pulse Rate 85 Respiratory 18 Rate Blood Pressure 101/67 Blood Pressure 78 Mean BP Location Left Arm BP Position Supine O2 Sat by Pulse 96 Oximetry Oxygen Delivery Room Air Method Head is atraumatic normocephalic. EYES: Pupils equal round regular reactive to light accommodation. External ocular movements are normal. There is no clinical pallor. There is no scleral icterus. EARS: Tympanic membranes are intact. External auditory canals are clear. NOSE: There is no deviated nasal septum. There is no inflammation of the nasal mucous membrane. MOUTH: Mucous membranes of the mouth are moist tongue is moist. There is no ulcers. There is no bleeding from the gums. THROAT: There is no redness of the oropharynx. There is no exudates. SKIN: There is no skin rashes. There is no petechia or ecchymosis. There is no skin lesions. NECK: Supple. There is no JVD. Carotids are equal there is no bruit there is no lymphadenopathy. There is no goiter. There is no accessory muscle respiration use. Trachea central. LUNGS: Clear to auscultation percussion without any rhonchi rales wheezing. HEART: S1- S2 is heard. S1 is of variable intensity. There is no S3 gallop. There is no S4 gallop. There is systolic murmur left sternal border and the apex there is no rub. ABDOMEN: Soft. Nontender. There is no hepatospleno megaly. Bowel sounds well heard. There is no tender areas masses. EXTREMITIES: Femorals well felt. There is no femoral bruits. Leg pulses are well felt. There is no pedal edema. There is no DVT or cellulitis. There is no calf tenderness. SCRIPT MANAGER: The patient is conscious awake alert oriented x3. He has lower extremity and truncal weakness greater than upper extremity weakness. His muscle weakness has improved compared to yesterday. Although in spite of this there is no focal deficits. PSYCHIATRIC: Patient judgment insight are intact his affect is normal. Labs- All tests 24 hr 11/09/18 11/09/18 11/09/18 07:10 08:22 11:46 Sodium 133.8 L Potassium 5.0 Chloride 97 L Carbon Dioxide 25 Anion Gap 12 BUN 24 H Creatinine 0.91 Est GFR ( Amer) > 60 Est GFR (MDRD) Non-Af > 60 Glucose 261 H POC Glucose 257 H 281 H Calcium 8.9 Magnesium 1.5 L 11/09/18 11/09/18 17:00 21:37 Sodium Potassium Chloride Carbon Dioxide Anion Gap BUN Creatinine Est GFR ( Amer) Est GFR (MDRD) Non-Af Glucose POC Glucose 287 H 304 H Calcium Magnesium IMPRESSION/RECOMMENDATION: 1. Hypomagnesemia: The patient's magnesium is still slightly low. Continue magnesium replacement.. 2. Muscle weakness most likely secondary to hypomagnesemia causing increased weakness on patient with already muscular dystrophy. 2. Atrial fibrillation with fast ventricular response: Note initially there was a plan to start the patient on sotalol. But the patient's QTC slightly white. Hence we will restart the patient on on Multaq again. Note his liver function tests are normal. The patient already received his usual dose of digoxin this morning. We will give an extra dose of digoxinWill start patient on Toprol XL. Continue Xarelto. Check dig level in the a.m. 3. Left elbow pain this seems to be a slight swelling without redness. Will check elbow x-ray. 4.Muscular dystrophy: Continue supportive treatment. 5 Coronary artery disease by prior stress testing. Patient has no angina. There is no evidence of acute coronary syndrome this admission. 6. Diabetes mellitus: Continue antidiabetic medication.. Note needs tighter control of his diabetes, since the blood sugars are still very much elevated. Medications reviewed. Medications and management plan discussed with attending physician on the case. Condition making is of high complexity. The patient continues to be in atrial fibrillation. The patient Multitak and start the patient on amiodarone. 40 minutes spent on this patient with more than 50% time spent in direct patient care. Will follow.
[2018-11-10 05:11] LABS: HEMOGLOBIN 13.2 g/dL (13.5-17.0); MEAN CORPUSCULAR HEMOGLOBIN 25.1 pg (27.0-33.4); MEAN CORPUSCULAR HGB CONC 32.9 g/dL (32.0-36.0); MEAN CORPUSCULAR VOLUME 76 fl (80-97); PLATELET COUNT 162 10^3/uL (150-450); RED BLOOD COUNT 5.24 10^6/uL (4.35-5.55); RED CELL DISTRIBUTION WIDTH 18.1 % (11.5-14.0); WHITE BLOOD COUNT 6.2 10^3/uL (4.0-10.5)
[2018-11-10 05:33] LABS: ANION GAP 11 (5-19); BLOOD UREA NITROGEN 26 mg/dL (7-20); CALCIUM 9.1 mg/dL (8.4-10.2); CARBON DIOXIDE 26 mmol/L (22-30); CHLORIDE 98 mmol/L (98-107); GLUCOSE 264 mg/dL (75-110); POTASSIUM 4.8 mmol/L (3.6-5.0)
[2018-11-10] MEDS: INSULIN REG, HUMAN 100 UNIT/ML 3 ML VIAL (PYX) SUBCUT PRN ×4 (08:34→22:08)
--- NOTE | 2018-11-10 08:36 | PDOC PROGRESS REPORT ---
Subjective Progress Note for:: 11/09/18 Subjective:: The patient is resting in bed. His left elbow is still sore. He is getting frustrated as his rate is still not well controlled. He also reported some lightheadedness and dizziness. Reason For Visit: REYES, HYPERKALEMIA Physical Exam Vital Signs: Temp Pulse Resp BP Pulse Ox 98.1 F 73 16 126/78 H 97 11/10/18 03:31 11/10/18 07:00 11/10/18 03:31 11/10/18 03:31 11/10/18 03:31 Intake & Output 11/09/18 11/10/18 11/11/18 06:59 06:59 06:59 Intake Total 480 1406 Output Total 450 1300 Balance 30 106 Weight 83.6 kg 83.6 kg General appearance: PRESENT: no acute distress, cooperative, well-developed Head exam: PRESENT: atraumatic, normocephalic Ear exam: PRESENT: normal external ear exam. ABSENT: bleeding, drainage Respiratory exam: PRESENT: clear to auscultation asad, symmetrical, unlabored. ABSENT: accessory muscle use, rales, rhonchi, tachypnea, wheezes Cardiovascular exam: PRESENT: irregular rhythm GI/Abdominal exam: PRESENT: normal bowel sounds, soft. ABSENT: distended, tenderness Extremities exam: ABSENT: joint swelling, pedal edema Musculoskeletal exam: PRESENT: other - There is no swelling or discoloration of the left elbow. There is some tenderness over the tendons on the extensor side. There is no tenderness in the bodies of the muscle. Neurological exam: PRESENT: alert, awake, oriented to person, oriented to place, oriented to time, oriented to situation, CN II-XII grossly intact Psychiatric exam: PRESENT: appropriate affect. ABSENT: agitated, anxious Focused psych exam: ABSENT: delusional, restlessness Results Laboratory Results: 11/10/18 04:37 11/10/18 04:37 11/10/18 11/10/18 04:37 04:37 WBC 6.2 RBC 5.24 Hgb 13.2 L Hct 40.0 MCV 76 L MCH 25.1 L MCHC 32.9 RDW 18.1 H Plt Count 162 Sodium 135.0 L Potassium 4.8 Chloride 98 Carbon Dioxide 26 Anion Gap 11 BUN 26 H Creatinine 0.93 Est GFR ( Amer) > 60 Glucose 264 H Calcium 9.1 Magnesium 1.8 11/04/18 11/04/18 11/04/18 02:35 02:35 04:35 Creatine Kinase 65 CK-MB (CK-2) 1.70 Troponin I 0.203 0.181 Impressions: Chest X-Ray 11/04/18 03:16 IMPRESSION: No acute cardiopulmonary process copyright 2010 [employer]- All Rights Reserved Elbow X-Ray 11/08/18 00:00 IMPRESSION: No fracture or dislocation of the left elbow. Moderate arthrosis. No elbow joint effusion to suggest radiographically occult fracture. Assessment and Plan - Diagnosis (1) Atrial fibrillation with rapid ventricular response Is this a current diagnosis for this admission?: Yes Plan: 11/04/2018-we had a long discussion regarding potential causes of his acute kidney injury and his weakness. As it turns out the patient cannot sense when his heart rate is up. His heart rate is currently in the 115 to 125 range. His blood pressures are holding systolic slightly better than 100. The patient does see Dr. Gutierrez. He notes that he is on digoxin. He states that Dr. Gutierrez changed the other medication and he is no longer on metoprolol. He could not remember the name of the medication. After reaching out to Dr. Gutierrez I discovered that the medicine was Multitak. The patient takes 400 mg twice daily. The patient does state that he ran out of the medication at least 1 week ago. Once this was discovered I explained to him that if he cannot feel the rapid heart rate 11/05/2018-the patient was restarted on his Multitak. He received 1 dose last night and one this morning. He still has pulse rates jumping between 80 and greater than 110. His magnesium is low and so he will get IV magnesium and this may help stabilize the rate. Cardiology did mention using sotalol if the Multitak is ineffective. 11/06/2018-I discussed the patient this morning on the phone with Dr. Gutierrez. He plans on stopping the Multitak and starting amiodarone. The patient's rate is controlled but he is still in fibrillation. 11/07/2018-patient is still in atrial fibrillation. Dr. Gutierrez reported that he was going to start the patient on sotalol. The patient will need to stay monitored for 48 hours. Hopefully this will convert and control the patient. 11/08/2018-the patient was still tachycardic with an adequate rate control. Cardiology's plan was to initiate sotalol. He is currently on digoxin and metoprolol. 11/09/2018-the patient is still having heart rates above 100. Dr. Gutierrez has increase the metoprolol. We might consider adding diltiazem if he is not going to try sotalol. The patient's digoxin level was subtherapeutic and so we can increase the digoxin. (2) Acute renal insufficiency Is this a current diagnosis for this admission?: Yes Plan: Patient will be given IV fluids and his metabolic profile with magnesium levels and CBCs will be followed on a daily basis. 11/04/2018-GFR is normal today. We will continue to monitor especially since the patient is on digoxin. 11/05/2018-resolved. (3) Hypotension Qualifiers: Hypotension type: unspecified hypotension type Qualified Code(s): I95.9 - Hypotension, unspecified Is this a current diagnosis for this admission?: Yes Plan: 11/04/2018-the patient's hypotension was likely due to atrial fibrillation with rapid ventricular response. I explained that with better rate control his blood pressure should improve. He also received fluids. I also explained that because he cannot sense a rapid heart rate from his fibrillation he may become lightheaded not knowing why and this could have predisposed him to the weakness and collapse. 11/05/2018-blood pressures have been stable. 11/06/2018-resolved (4) Hyperkalemia Is this a current diagnosis for this admission?: Yes Plan: 11/04/2018-I believe the patient received Kayexalate in the emergency department. Potassium is now normal. We will continue to monitor. 11/05/2018-potassium remains stable. We will be checking chemistries daily. 11/06/2018-potassium is normal. Continue to monitor. Supplement if needed. 11/07/2018-potassium remains normal. Monitor potassium. 11/08/2018-normokalemic. Monitor electrolytes. 11/09/2018-serum potassium is 5.0. It is still within normal range. We will continue to monitor to avoid hyperkalemia. (5) Diabetes mellitus type 2 in nonobese Is this a current diagnosis for this admission?: Yes Plan: 11/04/2018-we will continue to monitor Accu-Cheks. The patient is on metformin as well as sliding scale. Will adjust medications based on sliding scale requirements. 11/05/20187599-[id number]-[id number] have been above 200. He is currently on sliding scale with 1 g of metformin at night. We may need to add low-dose Lantus or a more aggressive sliding scale. We will continue to monitor his Accu-Cheks. 11/06/[id number] still significantly elevated. I will add 5 units of Lantus subcu at bedtime. Continue sliding scale. Adjust Lantus based on sliding scale requirements. 11/07/2018-the patient did receive his first dose of Lantus last night. Accu- Cheks are still high this morning. I will increase the Lantus to 8 units for tonight. Continue sliding scale. Continue to adjust Lantus based on sliding scale requirements. 11/08/2018-still with Accu-Cheks higher than desired. Will increase Lantus. He may need to split dosing Lantus or may need to change the Lantus dose to morning administration. 11/09/[id number] still above 200. This has been his second dose of Lantus. If they are still elevated tomorrow then I would increase his Lantus again. He is on metformin 1000 mg daily. We can also increase his metformin. (6) Hypomagnesemia Is this a current diagnosis for this admission?: Yes Plan: 11/06/2018-the patient exhibited low magnesium yesterday. He received some of the IV dose but the vein infiltrated. He is started on oral dosing today however his magnesium is only 1.2 and so 3 g IV will be given as well as the oral dose. He is on Protonix. PPIs can reduce her magnesium. I will discontinue the Protonix and start Pepcid. Continue to monitor magnesium levels. 11/07/2018-the serum magnesium is just at the lower limit normal. Continue oral magnesium supplement. Proton pump inhibitor was discontinued as this can decrease magnesium. Parathyroid hormone, cortisol levels and vitamin D levels have been ordered. 11/08/2018-despite supplementation he is still hypomagnesemic. I did discontinue the proton pump inhibitor. It may take some time for his magnesium levels to replete. We will continue to supplement. 11/09/2018-his magnesium is still only 1.5 despite increasing his magnesium oxide to 800 mg 3 times a day. I will give 1 g of magnesium sulfate and hopefully tomorrow he will begin to stay within the normal range. (7) Muscular dystrophy Is this a current diagnosis for this admission?: Yes Plan: 11/06/2018-the patient has systemic weakness due to muscular dystrophy. He uses an electric scooter and wheelchair to mobilize. He cannot support himself with a walker. With help he stands pivot transfers to a chair. I will asked physical therapy to work with the patient and provide bedside exercise regimen. In addition: With the patient's underlying muscle weakness Dr. Gutierrez suggested stopping the statin therapy as well. 11/07/2018-physical therapy did see the patient yesterday. They are waiting for his wheelchair to arrive today and they will work on transfers. We did stop his statin therapy in the event that is contributing to the weakness. I believe his underlying muscular dystrophy is certainly primary. 11/08/2018-I was called to be made aware that the patient's wheelchair was brought in for him and that with physical therapy he successfully transferred to his chair. At this point he should be able to transfer to his chair so that he can get out of bed and possibly even out of his room for short trips in the hallway. 11/09/2018-I did encourage the patient to be in the wheelchair more. His left elbow is still sore and this may inhibit transfers. (8) Left elbow pain Is this a current diagnosis for this admission?: Yes Plan: 11/08/2018-the patient is having some discomfort in his left elbow. We will obtain a plain film. There is no discoloration or swelling. On 919-this is likely soft tissue. We can consider cold packs. I think range of motion exercises will help as well. - Time Time Spent with patient: Less than 15 minutes Medications reviewed and adjusted accordingly: Yes Anticipated discharge: Home
[2018-11-10] MEDS: MAGNESIUM OXIDE 400 MG TABLET PO SCH ×3 (09:08→16:10)
[2018-11-10] MEDS: RIVAROXABAN 15 MG TABLET PO SCH (09:08)
[2018-11-10] MEDS: DOCUSATE SODIUM 100 MG CAPSULE PO SCH ×2 (09:08→17:08)
[2018-11-10] MEDS: FAMOTIDINE 20 MG TABLET PO SCH ×2 (09:08→22:01)
[2018-11-10] MEDS: METOPROLOL SUCCINATE 25 MG TAB.SR.24H PO SCH ×2 (09:09→22:01)
[2018-11-10] MEDS: FERROUS SULFATE 325 MG TABLET PO SCH ×2 (09:09→17:09)
[2018-11-10] MEDS: LISINOPRIL 5 MG TABLET PO SCH (09:09)
[2018-11-10] MEDS: MULTIVITAMIN TABLET PO SCH (09:09)
[2018-11-10] MEDS: LACTULOSE SYRUP 20 GM/30 ML UDCUP PO SCH ×2 (09:11→17:08)
[2018-11-10] MEDS ORDERED: DIGOXIN 0.125 MG TABLET PO SCH (10:00)
[2018-11-10] MEDS ORDERED: AMIODARONE HCL 200 MG TABLET PO ONE (10:04)
--- NOTE | 2018-11-10 19:05 | PDOC PROGRESS REPORT ---
Subjective Progress Note for:: 11/10/18 Subjective:: DESTIN RAYMOND is a 63 year old male who presented to the emergency room with acute weakness. He admits that he had been feeling very weak last evening and went to the toilet but was unable to get himself up off the toilet and back into his wheelchair. He subsequently slid himself down onto the floor and was unable to get up from there thus he summoned EMS to help him. He admits prior similar episodes of acute weakness related to his muscular dystrophy. He admits associated lightheadedness but denies other associated or accompanying signs and symptoms. He believes that a recent change in his metoprolol may be responsible for his weakness and lightheadedness but has not identified any additional aggravating or ameliorating factors for his weakness. In the emergency room he was found to have hyperkalemia with potassium 6.1 tachycardia and hypotension both of which responded to IV fluids. Patient was subsequently admitted to the hospital for further evaluation and treatment. Reason For Visit: REYES, HYPERKALEMIA Physical Exam Vital Signs: Temp Pulse Resp BP Pulse Ox 98.1 F 81 16 126/78 H 97 11/10/18 03:31 11/10/18 14:00 11/10/18 03:31 11/10/18 03:31 11/10/18 03:31 Intake & Output 11/09/18 11/10/18 11/11/18 06:59 06:59 06:59 Intake Total 480 1406 487 Output Total 450 1300 400 Balance 30 106 87 Weight 83.6 kg 83.6 kg General appearance: PRESENT: no acute distress, well-developed, well-nourished Head exam: PRESENT: atraumatic, normocephalic Respiratory exam: PRESENT: clear to auscultation asad. ABSENT: rales, rhonchi, wheezes Cardiovascular exam: PRESENT: irregular rhythm GI/Abdominal exam: PRESENT: normal bowel sounds, soft. ABSENT: distended, guarding, mass, organolmegaly, rebound, tenderness Skin exam: PRESENT: dry, intact, warm. ABSENT: cyanosis, rash Results Laboratory Results: 11/10/18 04:37 11/10/18 04:37 11/10/18 11/10/18 04:37 04:37 WBC 6.2 RBC 5.24 Hgb 13.2 L Hct 40.0 MCV 76 L MCH 25.1 L MCHC 32.9 RDW 18.1 H Plt Count 162 Sodium 135.0 L Potassium 4.8 Chloride 98 Carbon Dioxide 26 Anion Gap 11 BUN 26 H Creatinine 0.93 Est GFR ( Amer) > 60 Glucose 264 H Calcium 9.1 Magnesium 1.8 11/04/18 11/04/18 11/04/18 02:35 02:35 04:35 Creatine Kinase 65 CK-MB (CK-2) 1.70 Troponin I 0.203 0.181 Impressions: Chest X-Ray 11/04/18 03:16 IMPRESSION: No acute cardiopulmonary process copyright 2010 [employer]- All Rights Reserved Elbow X-Ray 11/08/18 00:00 IMPRESSION: No fracture or dislocation of the left elbow. Moderate arthrosis. No elbow joint effusion to suggest radiographically occult fracture. Assessment and Plan - Diagnosis (1) Atrial fibrillation with rapid ventricular response Is this a current diagnosis for this admission?: Yes Plan: Anticoagulated. Rate improving. Digoxin subtherapeutic. Multaq and digoxin DC'd by cardiology. Started on amiodarone by cardiology. Baseline thyroid function and liver enzymes WNL. Magnesium has been repleted. Toprol-XL 25 mg p.o. twice daily. Continue amiodarone, Toprol-XL, telemetry. Cardiology consulted. Recommendations noted. (2) Acute renal insufficiency Is this a current diagnosis for this admission?: Yes Plan: Likely prerenal. Resolved after IV fluid challenge. Electrolytes WNL. Digoxin discontinued by cardiology. Monitor volume status and electrolytes. Outpatient PCP follow-up. (3) Diabetes mellitus type 2 in nonobese Is this a current diagnosis for this admission?: Yes Plan: Improving. Not optimized. Takes metformin at home. Continue cardiac diabetic diet, sliding scale regimen, Accu-Chek, long-acting insulin, pre-meal insulin, hypoglycemic protocol. Will DC home on home meds. Follow-up with PCP (4) Hypomagnesemia Is this a current diagnosis for this admission?: Yes Plan: Resolved. Continue supplemental magnesium. (5) Muscular dystrophy Is this a current diagnosis for this admission?: Yes Plan: History of muscular dystrophy and Objlxgk-Mpnmy-Dfwjv disease. Not on any muscle relaxants. Stating it did not help. He uses an electric scooter and wheelchair to mobilize. With the patient's underlying muscle weakness Dr. Gutierrez suggested stopping the statin therapy as well. PT OT was consulted. No rehab recommended. Continue supportive measures.
--- NOTE | 2018-11-10 21:11 | Progress Note ---
Provider Note Provider Note: Cardiology PROGRESS NOTE by Dr. Minda Ye on 11/10/2018. SUBJECTIVE: The patient continues to be in atrial fibrillation, but the heart rate is better. Note that the patient since 11/07/2018 has been off Multitak. This was stopped due to grave prognosis associated with continue Multitak in a patient who continues to be in atrial fibrillation. The patient denies any chest pain discomfort. There is no PND orthopnea. There is no bleeding on Xarelto. There is no TIA CVA symptoms. The patient's left elbow pain is much improved. There is no arrhythmia seen on the monitor. His muscle strength is slightly improved. PHYSICAL EXAMINATION: The patient is well-built. In no acute distress Selected Entries 11/10/18 03:31 Temperature 98.1 F Temperature Oral Source Pulse Rate 69 Respiratory 16 Rate Blood Pressure 126/78 H [Left] Blood Pressure 94 Mean [Left] Blood Pressure Supine Position [Left] O2 Sat by Pulse 97 Oximetry Oxygen Delivery Room Air Method ( includes room air) Head is atraumatic normocephalic. EYES: Pupils equal round regular reactive to light accommodation. External ocular movements are normal. There is no clinical pallor. There is no scleral icterus. EARS: Tympanic membranes are intact. External auditory canals are clear. NOSE: There is no deviated nasal septum. There is no inflammation of the nasal mucous membrane. MOUTH: Mucous membranes of the mouth are moist tongue is moist. There is no ulcers. There is no bleeding from the gums. THROAT: There is no redness of the oropharynx. There is no exudates. SKIN: There is no skin rashes. There is no petechia or ecchymosis. There is no skin lesions. NECK: Supple. There is no JVD. Carotids are equal there is no bruit there is no lymphadenopathy. There is no goiter. There is no accessory muscle respiration use. Trachea central. LUNGS: Clear to auscultation percussion without any rhonchi rales wheezing. HEART: S1-S2 is heard. S1 is of variable intensity. There is no S3 gallop. There is no S4 gallop. There is systolic murmur left sternal border and the apex there is no rub. ABDOMEN: Soft. Nontender. There is no hepatospleno megaly. Bowel sounds well heard. There is no tender areas masses. EXTREMITIES: Femorals well felt. There is no femoral bruits. Leg pulses are well felt. There is no pedal edema. There is no DVT or cellulitis. There is no calf tenderness. FUTURES TRADER: The patient is conscious awake alert oriented x3. He has lower extremity and truncal weakness greater than upper extremity weakness. His muscle weakness has improved compared to yesterday. Although in spite of this there is no focal deficits. PSYCHIATRIC: Patient judgment insight are intact his affect is normal. Labs- All tests 24 hr 11/09/18 11/10/18 11/10/18 23:20 04:37 04:37 WBC 6.2 RBC 5.24 Hgb 13.2 L Hct 40.0 MCV 76 L MCH 25.1 L MCHC 32.9 RDW 18.1 H Plt Count 162 Sodium 135.0 L Potassium 4.8 Chloride 98 Carbon Dioxide 26 Anion Gap 11 BUN 26 H Creatinine 0.93 Est GFR ( Amer) > 60 Est GFR (MDRD) Non-Af > 60 Glucose 264 H POC Glucose Calcium 9.1 Magnesium 1.8 Stl Occult Blood (ICT) NEGATIVE Digoxin 11/10/18 11/10/18 11/10/18 04:37 08:01 12:12 WBC RBC Hgb Hct MCV MCH MCHC RDW Plt Count Sodium Potassium Chloride Carbon Dioxide Anion Gap BUN Creatinine Est GFR ( Amer) Est GFR (MDRD) Non-Af Glucose POC Glucose 198 H 237 H Calcium Magnesium Stl Occult Blood (ICT) Digoxin 1.15 11/10/18 11/10/18 15:56 22:00 WBC RBC Hgb Hct MCV MCH MCHC RDW Plt Count Sodium Potassium Chloride Carbon Dioxide Anion Gap BUN Creatinine Est GFR ( Amer) Est GFR (MDRD) Non-Af Glucose POC Glucose 266 H 256 H Calcium Magnesium Stl Occult Blood (ICT) Digoxin EKG: Shows Atrial Fibrillation. IMPRESSION/RECOMMENDATION: 1. Hypomagnesemia: This has resolved. The patient's magnesium is back up to normal.. 2. Muscle weakness most likely secondary to hypomagnesemia causing increased weakness on patient with already muscular dystrophy. 2. Atrial fibrillation with controlled ventricular response: Note that the patient's Multitak has been stopped. We will start the patient on amiodarone. The risks and side effects of amiodarone of different systems discussed with the patient. The patient's baseline thyroid function test and liver function tests were normal. We will start the patient on amiodarone. We will stop the patient digoxin. For now we will continue patient on Lopressor. Continue Xarelto. 3. Left elbow pain this seems to be a slight swelling without redness. No fracture effusion by x-ray. Symptoms are much improved. 4.Muscular dystrophy: Continue supportive treatment. 5 Coronary artery disease by prior stress testing. Patient has no angina. There is no evidence of acute coronary syndrome this admission. 6. Diabetes mellitus: Continue antidiabetic medication.. Note needs tighter control of his diabetes, since the blood sugars are still very much elevated. Occasions reviewed. Medications adjusted. New medications added. Medical decision making is of high complexity in view of the need for change of medicin e. Medication management and management plan discussed with attending provider on the case. 40 minutes spent on this patient with more than 50% of the time spent in direct patient care. Will follow.
[2018-11-10] MEDS: ACETAMINOPHEN 325 MG TABLET PO PRN (22:01)
[2018-11-10] MEDS: AMIODARONE HCL 200 MG TABLET PO SCH (22:01)
[2018-11-10] MEDS: METFORMIN HCL 500 MG TABLET PO SCH (22:01)
[2018-11-10] MEDS: INSULIN GLARGINE,HUM.REC.ANLOG 1,000 UNIT/10 ML VIAL SUBCUT SCH (22:02)
[2018-11-11 06:41] LABS: ABSOLUTE EOSINOPHILS # (AUTO) 0.2 10^3/uL (0.0-0.6); ABSOLUTE LYMPHOCYTES (AUTO) 1.6 10^3/uL (0.5-4.7); ABSOLUTE MONOCYTES (AUTO) 0.6 10^3/uL (0.1-1.4); ABSOLUTE NEUT (AUTO) 4.1 10^3/uL (1.7-8.2); BASOPHILS % (AUTO) 0.7 % (0-2); EOSINOPHILS % (AUTO) 2.9 % (0-6); HEMATOCRIT 42.1 % (37.9-51.0); HEMOGLOBIN 13.6 g/dL (13.5-17.0); MEAN CORPUSCULAR HGB CONC 32.4 g/dL (32.0-36.0); MEAN CORPUSCULAR VOLUME 77 fl (80-97); MONOCYTES % (AUTO) 8.8 % (3-13); PLATELET COUNT 187 10^3/uL (150-450); RED BLOOD COUNT 5.47 10^6/uL (4.35-5.55); RED CELL DISTRIBUTION WIDTH 17.8 % (11.5-14.0); SEGMENTED NEUTROPHILS % (AUTO) 62.6 % (42-78); TOTAL CELLS COUNTED % (AUTO) 100 %; WHITE BLOOD COUNT 6.5 10^3/uL (4.0-10.5)
[2018-11-11 06:59] LABS: ALBUMIN 3.5 g/dL (3.5-5.0); ALKALINE PHOSPHATASE 85 U/L (38-126); ANION GAP 12 (5-19); ASPARTATE AMINO TRANSFERASE 23 U/L (17-59); BILIRUBIN,DIRECT 0.2 mg/dL (0.0-0.4); BILIRUBIN,TOTAL 0.4 mg/dL (0.2-1.3); BLOOD UREA NITROGEN 27 mg/dL (7-20); CARBON DIOXIDE 27 mmol/L (22-30); CHLORIDE 97 mmol/L (98-107); GLUCOSE 194 mg/dL (75-110); TOTAL PROTEIN 6.6 g/dL (6.3-8.2)
[2018-11-11] MEDS: MAGNESIUM OXIDE 400 MG TABLET PO SCH ×2 (09:07→13:02)
[2018-11-11] MEDS: METOPROLOL SUCCINATE 25 MG TAB.SR.24H PO SCH (09:07)
[2018-11-11] MEDS: LISINOPRIL 5 MG TABLET PO SCH (09:07)
[2018-11-11] MEDS: AMIODARONE HCL 200 MG TABLET PO SCH (09:08)
[2018-11-11] MEDS: FAMOTIDINE 20 MG TABLET PO SCH (09:08)
[2018-11-11] MEDS: MULTIVITAMIN TABLET PO SCH (09:08)
[2018-11-11] MEDS: FERROUS SULFATE 325 MG TABLET PO SCH (09:08)
[2018-11-11] MEDS: RIVAROXABAN 15 MG TABLET PO SCH (09:08)
[2018-11-11] MEDS: LACTULOSE SYRUP 20 GM/30 ML UDCUP PO SCH (09:09)
[2018-11-11] MEDS: DOCUSATE SODIUM 100 MG CAPSULE PO SCH (09:09)
[2018-11-11] MEDS: INSULIN REG, HUMAN 100 UNIT/ML 3 ML VIAL (PYX) SUBCUT PRN ×2 (09:15→13:01)
--- NOTE | 2018-11-11 09:26 | EKG REPORT ---
SEVERITY:- ABNORMAL ECG - ATRIAL FIBRILLATION, V-RATE 58-83 RIGHT BUNDLE BRANCH BLOCK PROBABLE ANTEROSEPTAL INFARCT, AGE INDETERM : Confirmed by: Minda Gutierrez MD 11-Nov-2018 09:25:31
[2018-11-11] MEDS ORDERED: AMIODARONE HCL 200 MG TABLET PO ONE (11:00)
[2018-11-11 14:32] VITALS: BP 126/78
[2018-11-11] MEDS ORDERED: INSULIN GLARGINE,HUM.REC.ANLOG 1,000 UNIT/10 ML VIAL SUBCUT SCH (22:00)
--- NOTE | 2018-11-11 22:20 | EKG REPORT ---
SEVERITY:- ABNORMAL ECG - ATRIAL FIBRILLATION, V-RATE 58-97 RIGHT BUNDLE BRANCH BLOCK ANTERIOR INFARCT, AGE INDETERMINATE : Confirmed by: Minda Gutierrez MD 11-Nov-2018 22:19:21
--- NOTE | 2018-11-12 16:18 | PDOC DISCHARGE SUMMARY ---
General - Admit/Disc Date/PCP Admission Date/Primary Care Provider: 11/04/18 05:36 KEMI MARTINEZ Discharge Date: 11/11/18 - Discharge Diagnosis (1) Atrial fibrillation with rapid ventricular response Is this a current diagnosis for this admission?: Yes (2) Acute renal insufficiency Is this a current diagnosis for this admission?: Yes (3) Diabetes mellitus type 2 in nonobese Is this a current diagnosis for this admission?: Yes (4) Hyperkalemia Is this a current diagnosis for this admission?: Yes (5) Hypomagnesemia Is this a current diagnosis for this admission?: Yes (6) Muscular dystrophy Is this a current diagnosis for this admission?: Yes - Additional Information Resuscitation Status: Full Code Discharge Diet: Cardiac, Diabetic Discharge Activity: Activity As Tolerated Prescriptions: Amiodarone HCl [Cordarone 200 mg Tablet] 200 mg PO Q12 30 Days #60 tablet Magnesium Oxide [Mag-Ox 400 mg Tablet] 800 mg PO MEALS 10 Days #10 tablet Metoprolol Succinate [Toprol Xl 25 mg Tab.sr] 25 mg PO BID 30 Days #60 tab.sr.24h Home Medications: Rivaroxaban [Xarelto 15 mg Tablet] 15 mg PO DAILY 12/02/13 Atorvastatin Calcium [Lipitor 20 mg Tablet] 20 mg PO QHS 11/04/18 Fesoterodine Fumarate [Toviaz] 8 mg PO DAILY 11/04/18 Lisinopril [Prinivil 5 mg Tablet] 2.5 mg PO DAILY 11/04/18 Multivitamin [Tab-A-Tia (Multiple Vitamin) Tablet] 1 tab PO DAILY 11/04/18 Amiodarone HCl [Cordarone 200 mg Tablet] 200 mg PO Q12 30 Days #60 tablet 11/11/18 Magnesium Oxide [Mag-Ox 400 mg Tablet] 800 mg PO MEALS 10 Days #10 tablet 11/11/18 Metoprolol Succinate [Toprol Xl 25 mg Tab.sr] 25 mg PO BID 30 Days #60 tab.sr.24h 11/12/18 History of Present Illness History of Present Illness: DESTIN RAYMOND is a 63 year old male who presented to the emergency room with acute weakness. He admits that he had been feeling very weak last evening and went to the toilet but was unable to get himself up off the toilet and back into his wheelchair. He subsequently slid himself down onto the floor and was unable to get up from there thus he summoned EMS to help him. He admits prior similar episodes of acute weakness related to his muscular dystrophy. He admits associated lightheadedness but denies other associated or accompanying signs and symptoms. He believes that a recent change in his metoprolol may be responsible for his weakness and lightheadedness but has not identified any additional aggravating or ameliorating factors for his weakness. In the emergency room he was found to have hyperkalemia with potassium 6.1 tachycardia and hypotension both of which responded to IV fluids. Patient was subsequently admitted to the hospital for further evaluation and treatment. Hospital Course Hospital Course: (1) Atrial fibrillation with rapid ventricular response Anticoagulated. Rate controlled. Digoxin was subtherapeutic DC'd by Dr. Gutierrez his scrub tech. Multaq and digoxin DC'd by cardiology. Was started on amiodarone by cardiology with good response. Baseline thyroid function and liver enzymes WNL. Magnesium has been repleted. Toprol-XL 25 mg p.o. twice daily. Dmitry was DC'd on Toprol-XL 25 mg p.o. twice daily, amiodarone 200 mg p.o. twice daily as per cardiology recommendation. Appointment was scheduled Dr. Gutierrez his scrub tech on 11/20/[address] Martinez on 11/17/2018. (2) Acute renal insufficiency Likely prerenal. Resolved after IV fluid challenge. Electrolytes WNL. Digoxin discontinued by cardiology. Monitor volume status and electrolytes. Outpatient PCP follow-up. (3) Diabetes mellitus type 2 in nonobese Improving. Not optimized. Takes metformin at home. A1c 8.3%. Was a started on cardiac diabetic diet, sliding scale regimen, Accu-Chek, long- acting insulin, pre-meal insulin, hypoglycemic protocol. Was discharged on home meds. Encouraged to follow-up with PCP for evaluation of diabetes. (4) Hypomagnesemia Resolved. Was placed on supplemental magnesium. Was discharged on supplemental magnesium for another [address] Gutierrez on 11/20/2018. (5) Muscular dystrophy History of muscular dystrophy and Nsbcomy-Lqyub-Cphic disease. Not on any muscle relaxants. Stating it did not help. He uses an electric scooter and wheelchair to mobilize. With the patient's underlying muscle weakness Dr. Gutierrez suggested stopping the statin therapy as well. Received PT/OT. No rehab recommended. Continued on supportive measures. Outpatient PCP follow-up. Physical Exam Vital Signs: Temp Pulse Resp BP Pulse Ox 97.5 F 90 16 126/78 H 98 11/11/18 13:41 11/11/18 14:00 11/11/18 13:41 11/11/18 13:41 11/11/18 13:41 Intake & Output 11/11/18 11/12/18 11/13/18 06:59 06:59 06:59 Intake Total 487 Output Total 1000 Balance -513 Weight 88.1 kg General appearance: PRESENT: no acute distress, well-developed, well-nourished Head exam: PRESENT: atraumatic, normocephalic Eye exam: PRESENT: conjunctiva pink, EOMI, PERRLA. ABSENT: scleral icterus Ear exam: PRESENT: normal external ear exam Mouth exam: PRESENT: moist, tongue midline Neck exam: ABSENT: carotid bruit, JVD, lymphadenopathy, thyromegaly Respiratory exam: PRESENT: clear to auscultation asad. ABSENT: rales, rhonchi, wheezes Cardiovascular exam: PRESENT: RRR. ABSENT: diastolic murmur, rubs, systolic murmur Pulses: PRESENT: normal dorsalis pedis pul Vascular exam: PRESENT: normal capillary refill GI/Abdominal exam: PRESENT: normal bowel sounds, soft. ABSENT: distended, guarding, mass, organolmegaly, rebound, tenderness Rectal exam: PRESENT: deferred Extremities exam: PRESENT: full ROM. ABSENT: calf tenderness, clubbing, pedal edema Neurological exam: PRESENT: alert, awake, oriented to person, oriented to place, oriented to time, oriented to situation, CN II-XII grossly intact. ABSENT: motor sensory deficit Psychiatric exam: PRESENT: appropriate affect, normal mood. ABSENT: homicidal ideation, suicidal ideation Skin exam: PRESENT: dry, intact, warm. ABSENT: cyanosis, rash Results Laboratory Results: 11/11/18 05:45 11/11/18 05:45 11/04/18 11/04/18 11/04/18 02:35 02:35 04:35 Creatine Kinase 65 CK-MB (CK-2) 1.70 Troponin I 0.203 0.181 11/11/18 10:14 Creatine Kinase CK-MB (CK-2) Troponin I < 0.012 Impressions: Chest X-Ray 11/04/18 03:16 IMPRESSION: No acute cardiopulmonary process copyright 2011 [employer]- All Rights Reserved Elbow X-Ray 11/08/18 00:00 IMPRESSION: No fracture or dislocation of the left elbow. Moderate arthrosis. No elbow joint effusion to suggest radiographically occult fracture. Qualifiers - * PATIENT BEING DISCHARGED WITH ANY OF THE FOLLOWING DIAGNOSIS: No Acute Heart Failure - Is this a Heart Failure Patient?: No
== END 2018-11-11 16:03 | disposition home or self-care (01) | DRG 641 ==
LOC: ER 01:44 → EH 05:36 → 5 08:11
PROVIDERS: ADMIT Emergency Medicine; ATTEND Emergency Medicine
DX: E87.5 Hyperkalemia (principal); E11.9 Type 2 diabetes mellitus without complications; E83.42 Hypomagnesemia; I48.2 Chronic atrial fibrillation; G71.00 Muscular dystrophy, unspecified; I10 Essential (primary) hypertension; N28.9 Disorder of kidney and ureter, unspecified; Z60.2 Problems related to living alone; I95.9 Hypotension, unspecified; Z99.3 Dependence on wheelchair; Z88.6 Allergy status to analgesic agent; Z79.4 Long term (current) use of insulin; Z79.899 Other long term (current) drug therapy; Z82.49 Family history of ischemic heart disease and other diseases of the circulatory system; Z83.3 Family history of diabetes mellitus
CPT/HCPCS: 36415; 71045; 80048; 80053; 80061; 80076; 80162; 81001; 82272; 82306; 82330; 82533; 82550; 82553; 82962; 83036; 83735; 83970; 84439; 84443; 84481; 84484; 85025; 85027; 93005; 93010; 94799; 96361; 96374; 96375; 99285; J0610; J1160; J1815; J3475; J3490; J7030

== ENCOUNTER 2018-12-04 14:43 | Emergency (ER) | payer BC, MEDICARE ==
[2018-12-04] MEDS ORDERED: NORMAL SALINE 500 ML IV ONE ×2 (20:30→22:04)
[2018-12-04 22:00] LABS: ABSOLUTE BASOPHILS # (AUTO) 0.1 10^3/uL (0.0-0.2); ABSOLUTE LYMPHOCYTES (AUTO) 1.4 10^3/uL (0.5-4.7); ABSOLUTE MONOCYTES (AUTO) 1.2 10^3/uL (0.1-1.4); ABSOLUTE NEUT (AUTO) 11.4 10^3/uL (1.7-8.2); BASOPHILS % (AUTO) 0.4 % (0-2); EOSINOPHILS % (AUTO) 0.2 % (0-6); HEMATOCRIT 42.8 % (37.9-51.0); HEMOGLOBIN 14.1 g/dL (13.5-17.0); LYMPHOCYTES % (AUTO) 10.2 % (13-45); MEAN CORPUSCULAR HGB CONC 32.8 g/dL (32.0-36.0); MEAN CORPUSCULAR VOLUME 79 fl (80-97); MONOCYTES % (AUTO) 8.7 % (3-13); PLATELET COUNT 161 10^3/uL (150-450); RED BLOOD COUNT 5.41 10^6/uL (4.35-5.55); RED CELL DISTRIBUTION WIDTH 18.7 % (11.5-14.0); SEGMENTED NEUTROPHILS % (AUTO) 80.5 % (42-78); TOTAL CELLS COUNTED % (AUTO) 100 %; WHITE BLOOD COUNT 14.1 10^3/uL (4.0-10.5)
[2018-12-04 22:31] LABS: ALKALINE PHOSPHATASE 74 U/L (38-126); ANION GAP 15 (5-19); ASPARTATE AMINO TRANSFERASE 27 U/L (17-59); BILIRUBIN,DIRECT 0.2 mg/dL (0.0-0.4); BLOOD UREA NITROGEN 23 mg/dL (7-20); CALCIUM 8.8 mg/dL (8.4-10.2); CARBON DIOXIDE 23 mmol/L (22-30); CHLORIDE 98 mmol/L (98-107); GLUCOSE 160 mg/dL (75-110); POTASSIUM 4.6 mmol/L (3.6-5.0); TOTAL PROTEIN 7.3 g/dL (6.3-8.2)
[2018-12-05 01:05] LABS: APPEARANCE,URINE SLIGHTLY-CLOUDY; BILIRUBIN,URINE NEGATIVE (NEGATIVE); COLOR,URINE AMBER; GLUCOSE, URINE 50 mg/dL (NEGATIVE); KETONES,URINE TRACE mg/dL (NEGATIVE); LEUKOCYTE ESTERASE,URINE NEGATIVE (NEGATIVE); NITRITE,URINE NEGATIVE (NEGATIVE); PROTEIN,URINE 30 mg/dL (NEGATIVE); URINE SPECIFIC GRAVITY 1.019
--- NOTE | 2018-12-05 01:32 | RADIOLOGY REPORT (SQ) ---
EXAM DESCRIPTION: XR CHEST 1 VIEW COMPLETED DATE/TME: 12/05/2018 00:00 CLINICAL HISTORY: leukocytosis COMPARISON: None. FINDINGS: Single frontal view of the chest. Cardiomediastinal silhouette: Normal size and contour. Lungs: No consolidation, pneumothorax, or pleural effusion. Bones: Degenerative change of the spine and shoulders. Leads overlie the chest. Upper abdomen: No abnormality identified. IMPRESSION: 1. No acute pulmonary process identified.
--- NOTE | 2018-12-05 01:34 | ER Document Report ---
Entered by JOANIE HERNANDEZ SCRIBE 12/04/18 2884 Acting as scribe for:DAVIS MEEHAN DO ED GI/ - General Chief Complaint: Diarrhea Stated Complaint: URINARY ISSUES Time Seen by Provider: 12/04/18 20:28 Primary Care Provider: KEMI MARTINEZ MD [Primary Care Provider] - Follow up as needed Mode of Arrival: Ambulatory Information source: Patient Notes: Patient is a 63-year-old male who presents to the emergency department today w ith complaints of loose stools for the last 2 days with associated abdominal cramping. Patient states the cramping is diffuse across his abdomen. Patient also mentions he has not urinated in 2 days, stating when he goes to urinate nothing comes out. Patient denies any pain when trying to urinate. Patient states initially he had been having a problem with constipation so he tried taking fiber, prune juice, and hot tea and now is having loose stools. TRAVEL OUTSIDE OF THE [place] IN LAST 30 DAYS: No - Related Data Allergies/Adverse Reactions: hydrocodone [Hydrocodone] Allergy (Verified 12/02/13 06:12) heart racing Past Medical History - General Information source: Patient - Social History Smoking Status: Never Smoker Cigarette use (# per day): No Chew tobacco use (# tins/day): No Frequency of alcohol use: None Drug Abuse: None Lives with: Family Family History: Reviewed & Not Pertinent, CAD, DM, Other Patient has suicidal ideation: No Patient has homicidal ideation: No - Past Medical History Cardiac Medical History: Reports: Hx Atrial Fibrillation, Hx Hypertension Endocrine Medical History: Reports: Hx Diabetes Mellitus Type 2 Past Surgical History: Reports: Hx Appendectomy, Hx Orthopedic Surgery - Immunizations Hx Diphtheria, Pertussis, Tetanus Vaccination: Yes Review of Systems - Review of Systems Constitutional: No symptoms reported EENT: No symptoms reported Cardiovascular: No symptoms reported Respiratory: No symptoms reported Gastrointestinal: See HPI, Abdominal pain, Diarrhea Genitourinary: See HPI, Retention Male Genitourinary: No symptoms reported Musculoskeletal: No symptoms reported Skin: No symptoms reported Hematologic/Lymphatic: No symptoms reported Neurological/Psychological: No symptoms reported -: Yes All other systems reviewed and negative Physical Exam - Vital signs Vitals: Resp Pulse Ox 19 97 12/04/18 16:03 12/04/18 16:03 Interpretation: Normal - General General appearance: Appears well In distress: None - HEENT Head: Normocephalic, Atraumatic Mucous membranes: Dry Pharynx: Normal - Respiratory Respiratory status: No respiratory distress Chest status: Nontender Breath sounds: Normal Chest palpation: Normal - Cardiovascular Rhythm: Irregularly irregular - Abdominal Inspection: Normal Distension: Distended Tenderness: Other - mild suprapubic TTP - Back Back: Normal - Extremities General upper extremity: Normal ROM General lower extremity: Other - at baseline - Neurological Neuro grossly intact: Yes Cognition: Normal Orientation: AAOx4 [place] Coma Scale Eye Opening: Spontaneous [place] Coma Scale Verbal: Oriented [place] Coma Scale Motor: Obeys Commands [place] Coma Scale Total: 15 - Psychological Associated symptoms: Normal affect, Normal mood - Skin Skin Temperature: Warm Skin Moisture: Dry Course - Re-evaluation Re-evalutation: 12/05/18 01:31 Patient is a 63-year-old male who comes in with diarrhea and complaints of difficulty urinating over the last 2 days. Patient with normal creatinine. Some urinary retention but patient is taking medication for incontinence. Patient has had some loose bowel movements here but no white blood cells or evidence for C. difficile infection. Abdominal pain resolved after bladder drained. Patient does not want [place] catheter. He is afebrile with a heart rate in the 50s to 60s and a blood pressure of 120s to 140 systolic. Some slight hyponatremia. Patient has been given fluids and is feeling better. He is hungry and wants to eat. Patient and family member requesting admission. Urine with no evidence for infection. Chest x-ray clear. Vitals are stable. Patient does not have any criteria at this time for admission. He appears to be at his baseline. I have offered medical transport for the patient home. He does not want to pay for this. I have offered to discuss social admission and placement in a facility as patient has a history of muscular dystrophy and states that he has been declining over the last few months. He does not want placement in a care home as he has a job. I have explained to the patient that unfortunately he does not meet any criteria for admission at this time. Nursing staff is also explained this to his family. He would like to wait for them to come pick him up in the morning. Otherwise, benign exam. Able to eat and drink. No WBCs indicative of C. difficile infection. Patient stable at this time for discharge. He is agreeable to this plan. - Vital Signs Vital signs: Temp Pulse Resp BP Pulse Ox 97.6 F 54 L 20 123/65 97 12/04/18 19:58 12/04/18 19:58 12/04/18 19:58 12/04/18 19:58 12/04/18 19:58 - Laboratory Result Diagrams: 12/04/18 21:15 12/04/18 21:15 Laboratory results interpreted by me: 12/04/18 12/04/18 12/05/18 21:15 21:15 00:40 WBC 14.1 H MCV 79 L MCH 26.0 L RDW 18.7 H Lymph % (Auto) 10.2 L Absolute Neuts (auto) 11.4 H Seg Neutrophils % 80.5 H Sodium 135.7 L BUN 23 H Glucose 160 H Total Bilirubin 2.0 H Urine Protein 30 H Urine Glucose (UA) 50 H Urine Ketones TRACE H Urine Blood LARGE H Urine Urobilinogen 2.0 H - Diagnostic Test Radiology reviewed: Image reviewed - CXR wnl Discharge - Discharge Clinical Impression: Diarrhea Qualifiers: Diarrhea type: unspecified type Qualified Code(s): R19.7 - Diarrhea, uns pecified Condition: Stable Disposition: HOME, SELF-CARE Instructions: Diarrhea, Nonspecific ([facility]) Referrals: KEMI MARTINEZ MD [Primary Care Provider] - Follow up as needed I personally performed the services described in the documentation, reviewed and edited the documentation which was dictated to the scribe in my presence, and it accurately records my words and actions.
[2018-12-05 02:36] LABS: C DIFFICILE GDH NEGATIVE (NEGATIVE)
[2018-12-05 09:43] VITALS: BP 130/69
== END 2018-12-05 09:43 | disposition home or self-care (01) ==
LOC: ER 14:43
DX: R19.7 Diarrhea, unspecified (principal); R39.198 Other difficulties with micturition; R10.9 Unspecified abdominal pain; I10 Essential (primary) hypertension; E11.9 Type 2 diabetes mellitus without complications
CPT/HCPCS: 36415; 87045; 89055; 87205; 82550; 83735; 85025; 80053; 81001; 84484; 87324; 87449; 71045; J7040; 96360; 96361; 99284

== ENCOUNTER 2018-12-06 01:55 | Inpatient (IN) | payer MEDICARE, BC ==
[2018-12-06 03:10] LABS: ABSOLUTE EOSINOPHILS # (AUTO) 0.1 10^3/uL (0.0-0.6); ABSOLUTE LYMPHOCYTES (AUTO) 0.9 10^3/uL (0.5-4.7); ABSOLUTE MONOCYTES (AUTO) 0.6 10^3/uL (0.1-1.4); ABSOLUTE NEUT (AUTO) 6.9 10^3/uL (1.7-8.2); BASOPHILS % (AUTO) 0.6 % (0-2); EOSINOPHILS % (AUTO) 0.9 % (0-6); HEMATOCRIT 40.3 % (37.9-51.0); HEMOGLOBIN 13.1 g/dL (13.5-17.0); LYMPHOCYTES % (AUTO) 10.2 % (13-45); MEAN CORPUSCULAR HEMOGLOBIN 25.5 pg (27.0-33.4); MEAN CORPUSCULAR HGB CONC 32.4 g/dL (32.0-36.0); MEAN CORPUSCULAR VOLUME 79 fl (80-97); MONOCYTES % (AUTO) 7.5 % (3-13); PLATELET COUNT 136 10^3/uL (150-450); RED BLOOD COUNT 5.12 10^6/uL (4.35-5.55); RED CELL DISTRIBUTION WIDTH 18.7 % (11.5-14.0); SEGMENTED NEUTROPHILS % (AUTO) 80.8 % (42-78); TOTAL CELLS COUNTED % (AUTO) 100 %; WHITE BLOOD COUNT 8.6 10^3/uL (4.0-10.5)
[2018-12-06 03:53] LABS: ALBUMIN 3.5 g/dL (3.5-5.0); ALKALINE PHOSPHATASE 79 U/L (38-126); ANION GAP 11 (5-19); ASPARTATE AMINO TRANSFERASE 24 U/L (17-59); BILIRUBIN,DIRECT 0.1 mg/dL (0.0-0.4); BILIRUBIN,TOTAL 1.2 mg/dL (0.2-1.3); BLOOD UREA NITROGEN 25 mg/dL (7-20); CALCIUM 9.1 mg/dL (8.4-10.2); CARBON DIOXIDE 25 mmol/L (22-30); CHLORIDE 101 mmol/L (98-107); GLUCOSE 216 mg/dL (75-110); TOTAL PROTEIN 6.5 g/dL (6.3-8.2)
--- NOTE | 2018-12-06 04:49 | ER Document Report ---
ED General - General Chief Complaint: Diarrhea Stated Complaint: diarrhea Time Seen by Provider: 12/06/18 02:00 Mode of Arrival: Medic Information source: Patient Notes: This 63-year-old male with history of muscular dystrophy, diabetes, chronic afib presents to the emergency department with reports of weakness,tired, constant incontinent of diarrhea with incontinent of urine for the last few days. He reports that he is having trouble just sitting in his chair without falling. Patient does live alone. He reports that he was having trouble with constipation so a couple days ago he had a cup of tea with some fiber and now he is experiencing diarrhea. He reports he is constantly stooling, at least every 15 minutes. He also reports that he was on some medication to stop his urine i ncontinence and he took 1 dose yesterday and now he is incontinent of urine whenever he has a bowel movement. Reports he believes this time for him to go to a facility. His neighbor usually takes care of him but she recently broke her hand and is unable to help him. TRAVEL OUTSIDE OF THE [place] IN LAST 30 DAYS: No - HPI Onset: Other Onset/Duration: Persistent Quality of pain: Achy Associated symptoms: Diarrhea Exacerbated by: Denies Relieved by: Denies Similar symptoms previously: No Recently seen / treated by doctor: No - Related Data Allergies/Adverse Reactions: hydrocodone [Hydrocodone] Allergy (Verified 12/02/13 06:12) heart racing Past Medical History - General Information source: Patient - Social History Smoking Status: Unknown if Ever Smoked Cigarette use (# per day): No Frequency of alcohol use: None Drug Abuse: None Lives with: Alone Family History: Reviewed & Not Pertinent, CAD, DM, Other Patient has suicidal ideation: No Patient has homicidal ideation: No - Past Medical History Cardiac Medical History: Reports: Hx Atrial Fibrillation, Hx Hypertension Denies: Hx Coronary Artery Disease, Hx Heart Attack, Hx Hypercholesterolemia Pulmonary Medical History: Denies: Hx Asthma, Hx COPD Neurological Medical History: Denies: Hx Seizures Endocrine Medical History: Reports: Hx Diabetes Mellitus Type 2. Denies: Hx Diabetes Mellitus Type 1, Hx Hyperthyroidism, Hx Hypothyroidism Renal/ Medical History: Denies: Hx Peritoneal Dialysis GI Medical History: Denies: Hx Cirrhosis, Hx Crohn's Disease, Hx Hepatitis, Hx Ulcerative Colitis Musculoskeletal Medical History: Denies Hx Arthritis, Denies Hx Gout, Reports Hx Muscular Dystrophy Skin Medical History: Denies Hx Eczema, Denies Hx Psoriasis Infectious Medical History: Denies: Hx Hepatitis Past Surgical History: Reports: Hx Appendectomy, Hx Orthopedic Surgery - Immunizations Hx Diphtheria, Pertussis, Tetanus Vaccination: Yes Review of Systems - Review of Systems Notes: Review HPI for review of systems., All other systems negative Physical Exam - Vital signs Vitals: Temp Pulse BP Pulse Ox 97.5 F 61 106/63 99 12/06/18 03:09 12/06/18 03:09 12/06/18 03:09 12/06/18 03:09 - General General appearance: Alert, Anxious In distress: None - HEENT Head: Normocephalic Eyes: Normal Conjunctiva: Normal Neck: Normal - Respiratory Respiratory status: No respiratory distress Chest status: Nontender Breath sounds: Normal Chest palpation: Normal - Cardiovascular Rhythm: Regular - Abdominal Inspection: Normal Distension: No distension Bowel sounds: Normal Tenderness: Nontender - Rectal Tenderness: Yes - Back Back: Normal - Extremities General upper extremity: Normal color - Upper extremities active full range of motion bilaterally General lower extremity: Normal color, Other - lower extremities decreased range of motion, 2+ pitting edema to the ankles - Neurological Neuro grossly intact: Yes Cognition: Normal Orientation: AAOx4 [place] Coma Scale Eye Opening: Spontaneous [place] Coma Scale Verbal: Oriented [place] Coma Scale Motor: Obeys Commands [place] Coma Scale Total: 15 Speech: Normal - Psychological Associated symptoms: Normal affect, Normal mood - Skin Skin Temperature: Warm Skin Moisture: Dry Skin irregularity: Decubitus ulcer - sacral area Course - Re-evaluation Re-evalutation: 12/06/18 04:49 63-year-old male with history of muscular dystrophy that lives alone presents today with complaints of weakness, constant stools for the last few days, incontinent of urine. Patient reports he is so weak and tired he is unable to sit down in his chair without falling over. Denies fever vomiting denies abdominal pain. Denies chest pain. Patient lives alone. Reports his neighbor usually comes over and helps him but he she recently broke her hands unable to help him. He believes it is time to go to rehab. 12/06/18 06:[address] Pride, he agrees with admission 12/06/18 02:55 12/06/18 02:55 MCV 79 fl (80-97) L 12/06/18 02:55 MCH 25.5 pg (27.0-33.4) L 12/06/18 02:55 MCHC 32.4 g/dL (32.0-36.0) 12/06/18 02:55 RDW 18.7 % (11.5-14.0) H 12/06/18 02:55 Seg Neutrophils % 80.8 % (42-78) H 12/06/18 02:55 Chloride 101 mmol/L (98-107) 12/06/18 02:55 Carbon Dioxide 25 mmol/L (22-30) 12/06/18 02:55 Anion Gap 11 (5-19) 12/06/18 02:55 Est GFR ( Amer) > 60 (>60) 12/06/18 02:55 Glucose 216 mg/dL (75-110) H 12/06/18 02:55 Calcium 9.1 mg/dL (8.4-10.2) 12/06/18 02:55 Total Bilirubin 1.2 mg/dL (0.2-1.3) 12/06/18 02:55 AST 24 U/L (17-59) 12/06/18 02:55 Alkaline Phosphatase 79 U/L (38-126) 12/06/18 02:55 Total Protein 6.5 g/dL (6.3-8.2) 12/06/18 02:55 Albumin 3.5 g/dL (3.5-5.0) 12/06/18 02:55 Urine Color YELLOW 12/06/18 05:07 Urine Appearance CLEAR 12/06/18 05:07 Urine pH 5.0 (5.0-9.0) 12/06/18 05:07 Ur Specific [place] 1.019 12/06/18 05:07 Urine Protein 30 mg/dL (NEGATIVE) H 12/06/18 05:07 Urine Glucose (UA) 150 mg/dL (NEGATIVE) H 12/06/18 05:07 Urine Ketones TRACE mg/dL (NEGATIVE) H 12/06/18 05:07 Urine Blood MODERATE (NEGATIVE) H 12/06/18 05:07 Urine Nitrite NEGATIVE (NEGATIVE) 12/06/18 05:07 Ur Leukocyte Esterase NEGATIVE (NEGATIVE) 12/06/18 05:07 Urine WBC (Auto) 1 /HPF 12/06/18 05:07 Urine RBC (Auto) 36 /HPF 12/06/18 05:07 Stool for White Cells NO WBCs SEEN 12/06/18 02:55 - Vital Signs Vital signs: Temp Pulse Resp BP Pulse Ox 97.5 F 89 20 128/63 H 99 12/06/18 05:59 12/06/18 05:59 12/06/18 05:59 12/06/18 05:59 12/06/18 05:59 - Laboratory Result Diagrams: 12/06/18 02:55 12/06/18 02:55 Laboratory results interpreted by me: 12/06/18 12/06/18 12/06/18 02:55 02:55 05:07 Hgb 13.1 L MCV 79 L MCH 25.5 L RDW 18.7 H Plt Count 136 L Lymph % (Auto) 10.2 L Seg Neutrophils % 80.8 H Sodium 136.7 L BUN 25 H Glucose 216 H Urine Protein 30 H Urine Glucose (UA) 150 H Urine Ketones TRACE H Urine Blood MODERATE H - EKG Interpretation by Me EKG shows normal: Sinus rhythm Mcnabb/QRS: RBBB Discharge - Discharge Clinical Impression: Weakness, Muscular dystrophy Diarrhea Qualifiers: Diarrhea type: unspecified type Qualified Code(s): R19.7 - Diarrhea, unspecified Condition: Stable Disposition: ADMITTED INPATIENT Admitting Provider: Shannen (Hospitalist) Unit Admitted: Medical Floor
[2018-12-06 06:03] LABS: APPEARANCE,URINE CLEAR; BILIRUBIN,URINE NEGATIVE (NEGATIVE); COLOR,URINE YELLOW; GLUCOSE, URINE 150 mg/dL (NEGATIVE); KETONES,URINE TRACE mg/dL (NEGATIVE); LEUKOCYTE ESTERASE,URINE NEGATIVE (NEGATIVE); NITRITE,URINE NEGATIVE (NEGATIVE); PROTEIN,URINE 30 mg/dL (NEGATIVE); URINE SPECIFIC GRAVITY 1.019; UROBILINOGEN,URINE NEGATIVE mg/dL (<2.0)
[2018-12-06] MEDS ORDERED: MAG HYDROX/AL HYDROX/SIMETH SUSP 30 ML UDCUP PO PRN (06:50)
[2018-12-06] MEDS ORDERED: ONDANSETRON HCL INJ/PF 4 MG/2 ML SDV IV PRN (06:50)
[2018-12-06] MEDS ORDERED: DEXTROSE 50%-WATER 25 GM/50 ML DISP.SYRIN IV PRN ×4 (06:56→08:52)
[2018-12-06] MEDS ORDERED: GLUCAGON,HUMAN RECOMB 1 MG INJ IM PRN ×2 (06:56→08:52)
[2018-12-06] MEDS ORDERED: DEXTROSE 40% GEL 15 GM TUBE PO PRN ×4 (06:56→08:52)
[2018-12-06] MEDS ORDERED: INSULIN REG, HUMAN 100 UNIT/ML 3 ML VIAL (PYX) SUBCUT PRN (06:57)
[2018-12-06 07:25] LABS: INTERNATIONAL RATION (INR) 1.93; PROTHROMBIN TIME 22.3 SEC (11.4-15.4)
[2018-12-06 07:26] LABS: PARTIAL THROMBOPLASTIN TIME 43.3 SEC (23.5-35.8)
[2018-12-06 07:50] LABS: FREE T3 2.42 pg/mL (2.77-5.27); FREE T4 (FREE THYROXINE) 2.18 ng/dL (0.78-2.19)
[2018-12-06] MEDS: RINGERS SOLUTION,LACTATED 1,000 ML IV PRN (07:50)
[2018-12-06 08:03] LABS: THYROID STIMULATING HORMONE 1.81 uIU/mL (0.47-4.68)
[2018-12-06 08:43] LABS: ANION GAP 10 (5-19); BLOOD UREA NITROGEN 23 mg/dL (7-20); CALCIUM 8.8 mg/dL (8.4-10.2); CARBON DIOXIDE 26 mmol/L (22-30); CHLORIDE 101 mmol/L (98-107); GLUCOSE 211 mg/dL (75-110)
--- NOTE | 2018-12-06 08:50 | EKG REPORT ---
SEVERITY:- ABNORMAL ECG - SINUS RHYTHM RIGHT BUNDLE BRANCH BLOCK ANTERIOR INFARCT, AGE INDETERMINATE : Confirmed by: Minda Gutierrez MD 06-Dec-2018 08:49:50
--- NOTE | 2018-12-06 09:10 | PDOC H&P ---
History of Present Illness Admission Date/PCP: 12/06/18 06:32 KEMI MARTINEZ Patient complains of: Incontinence feces and urine, worsening weakness History of Present Illness: DESTIN RAYMOND is a 63 year old male with multiple previous hospitalizations over the last several months. The patient reports that he has been having incontinence of feces and urine. When he would move his bowels he would express urine. He also has been having increased weakness. He is unable to hold himself upright on his electric scooter. He tends to lean to the side. He can correct his position sometimes but sometimes falls. He has been feeling weaker over time. Assessment in the emergency department was relatively unremarkable. He had hyperglycemia and mild dehydration. He is incapable of caring for himself at home. He will be admitted to the hospital by the hospitalist service and evaluated for long-term care after repleting his volume, monitoring his electrolytes and checking pulmonary function as he has been on amiodarone for his atrial fibrillation. Past Medical History Cardiac Medical History: Reports: Atrial Fibrillation, Hypertension Denies: Coronary Artery Disease, Myocardial Infarction, Hyperlipidema Pulmonary Medical History: Denies: Asthma, Chronic Obstructive Pulmonary Disease (COPD) EENT Medical History: Denies: Ears, Nose, Throat Neurological Medical History: Denies: Seizures Endocrine Medical History: Reports: Diabetes Mellitus Type 2, Other - Muscular dystrophy Denies: Diabetes Mellitus Type 1, Hyperthyroidism, Hypothyroidism Renal/ Medical History: Reports: Other Denies: Chronic Kidney Disease Malignancy Medical History: Reports: None GI Medical History: Denies: Cirrhosis, Crohn's Disease, Hepatitis, Ulcerative Colitis Musculoskeltal Medical History: Reports: Other - ezcibmt-Pxfvr-Qvyql muscular dystrophy Denies: Arthritis, Gout Skin Medical History: Denies: Eczema, Psoriasis Psychiatric Medical History: Denies: Alcohol Dependency, Depression, General Anxiety Disorder, Substance Abuse, Tobacco Dependency Traumatic Medical History: Reports: None Hematology: Denies: Anemia, Bleeding Tendencies Infectious Medical History: Reports: None Past Surgical History Past Surgical History: Reports: Appendectomy, Orthopedic Surgery Social History Information Source: Patient, [facility] Records Lives with: Alone Smoking Status: Unknown if Ever Smoked Frequency of Alcohol Use: None Hx Recreational Drug Use: No Drugs: None Hx Prescription Drug Abuse: No - Advance Directive Resuscitation Status: Full Code Surrogate healthcare decision maker:: Because the patient cannot write I helped him to initiate completing the application of the healthcare proxy/living will that is part of the admissions packet. His sister Christos Pedroza is the designated decision maker. Family History Family History: CAD, DM, Other Parental Family History Reviewed: Yes Children Family History Reviewed: Yes Sibling(s) Family History Reviewed.: Yes Medication/Allergy Home Medications: Rivaroxaban [Xarelto 15 mg Tablet] 15 mg PO DAILY 12/02/13 Atorvastatin Calcium [Lipitor 20 mg Tablet] 20 mg PO QHS 11/04/18 Fesoterodine Fumarate [Toviaz] 8 mg PO DAILY 11/04/18 Lisinopril [Prinivil 5 mg Tablet] 2.5 mg PO DAILY 11/04/18 Multivitamin [Tab-A-Tia (Multiple Vitamin) Tablet] 1 tab PO DAILY 11/04/18 Magnesium Oxide [Mag-Ox 400 mg Tablet] 800 mg PO MEALS 10 Days #10 tablet 11/11/18 Amiodarone HCl [Cordarone 200 mg Tablet] 200 mg PO Q8 12/06/18 Digoxin [Lanoxin 0.125 mg Tablet] 0.125 mg PO DAILY 12/06/18 Metformin HCl [Metformin HCl ER] 1,000 mg PO QHS 12/06/18 Metoprolol Succinate [Toprol Xl 50 mg Tab.sr] 50 mg PO Q12 12/06/18 Allergies/Adverse Reactions: hydrocodone [Hydrocodone] Allergy (Verified 12/02/13 06:12) heart racing Review of Systems Constitutional: ABSENT: anorexia, fever(s), headache(s) Eyes: ABSENT: visual disturbances Ears: ABSENT: hearing changes Nose, Mouth, and Throat: ABSENT: headache(s), mouth pain, sore throat Cardiovascular: PRESENT: palpitations - History a-fib. ABSENT: chest pain, edema Respiratory: ABSENT: cough, dyspnea, hemoptysis Gastrointestinal: PRESENT: diarrhea. ABSENT: abdominal pain, nausea, vomiting Genitourinary: PRESENT: difficulty urinating. ABSENT: hematuria Musculoskeletal: PRESENT: joint swelling - Ankles Integumentary: PRESENT: wounds - scabs and ulcerations legs Neurological: PRESENT: tremor(s), weakness. ABSENT: syncope Psychiatric: ABSENT: anxiety, depression Endocrine: ABSENT: cold intolerance, heat intolerance Hematologic/Lymphatic: ABSENT: easy bleeding, easy bruising Allergic/Immunologic: ABSENT: seasonal rhinorrhea Physical Exam Vital Signs: Temp Pulse Resp BP Pulse Ox 97.5 F 89 20 128/63 H 99 12/06/18 05:59 12/06/18 05:59 12/06/18 05:59 12/06/18 05:59 12/06/18 05:59 Intake & Output 12/05/18 12/06/18 12/07/18 06:59 06:59 06:59 Output Total 2400 Balance -2400 Weight 84.5 kg General appearance: PRESENT: no acute distress, cooperative, well-developed Head exam: PRESENT: atraumatic, normocephalic Eye exam: PRESENT: conjunctiva pink, EOMI. ABSENT: PERRLA - Iris defect congenital, scleral icterus Ear exam: PRESENT: normal external ear exam. ABSENT: bleeding, drainage Mouth exam: PRESENT: moist, other - some drooling Teeth exam: ABSENT: dental tenderness Neck exam: ABSENT: carotid bruit, JVD, lymphadenopathy Respiratory exam: PRESENT: clear to auscultation asad, symmetrical, unlabored. ABSENT: accessory muscle use, rales, rhonchi, tachypnea, wheezes Cardiovascular exam: PRESENT: irregular rhythm. ABSENT: diastolic murmur, systolic murmur GI/Abdominal exam: PRESENT: normal bowel sounds, soft. ABSENT: distended, rigid, tenderness Rectal exam: PRESENT: deferred Extremities exam: PRESENT: joint swelling - ankles. ABSENT: pedal edema Musculoskeletal exam: PRESENT: deformity. ABSENT: ambulatory, full ROM, normal inspection Neurological exam: PRESENT: alert, awake, oriented to person, oriented to place, oriented to time, oriented to situation, CN II-XII grossly intact Psychiatric exam: PRESENT: appropriate affect, normal mood. ABSENT: agitated, anxious Focused psych exam: ABSENT: delusional, restlessness Skin exam: PRESENT: other - very dry with cobble-stoning around ankles and toes. Thin skin with scabs and abrasion Results Laboratory Results: 12/06/18 02:55 12/06/18 07:55 12/06/18 12/06/18 12/06/18 02:55 02:55 02:55 WBC 8.6 RBC 5.12 Hgb 13.1 L Hct 40.3 MCV 79 L MCH 25.5 L MCHC 32.4 RDW 18.7 H Plt Count 136 L Seg Neutrophils % 80.8 H Sodium 136.7 L Potassium 4.0 Chloride 101 Carbon Dioxide 25 Anion Gap 11 BUN 25 H Creatinine 0.85 Est GFR ( Amer) > 60 Glucose 216 H Calcium 9.1 Total Bilirubin 1.2 AST 24 Alkaline Phosphatase 79 Total Protein 6.5 Albumin 3.5 TSH Free T4 Free T3 pg/mL Urine Color Urine Appearance Urine pH Ur Specific [place] Urine Protein Urine Glucose (UA) Urine Ketones Urine Blood Urine Nitrite Ur Leukocyte Esterase Urine WBC (Auto) Urine RBC (Auto) Stool for White Cells NO WBCs SEEN 12/06/18 12/06/18 12/06/18 02:55 05:07 07:55 WBC RBC Hgb Hct MCV MCH MCHC RDW Plt Count Seg Neutrophils % Sodium 136.8 L Potassium 4.0 Chloride 101 Carbon Dioxide 26 Anion Gap 10 BUN 23 H Creatinine 0.73 Est GFR ( Amer) > 60 Glucose 211 H Calcium 8.8 Total Bilirubin AST Alkaline Phosphatase Total Protein Albumin TSH 1.81 Free T4 2.18 Free T3 pg/mL 2.42 L Urine Color YELLOW Urine Appearance CLEAR Urine pH 5.0 Ur Specific [place] 1.019 Urine Protein 30 H Urine Glucose (UA) 150 H Urine Ketones TRACE H Urine Blood MODERATE H Urine Nitrite NEGATIVE Ur Leukocyte Esterase NEGATIVE Urine WBC (Auto) 1 Urine RBC (Auto) 36 Stool for White Cells Assessment and Plan - Diagnosis (1) Muscular dystrophy Is this a current diagnosis for this admission?: Yes (2) Neurogenic bladder Is this a current diagnosis for this admission?: Yes (3) Diarrhea Qualifiers: Diarrhea type: unspecified type Qualified Code(s): R19.7 - Diarrhea, unspecified Is this a current diagnosis for this admission?: Yes (4) Chronic atrial fibrillation Is this a current diagnosis for this admission?: Yes (5) Diabetes mellitus type 2 in nonobese Is this a current diagnosis for this admission?: Yes (6) Hyponatremia Is this a current diagnosis for this admission?: Yes - Plan Summary Summary: 12/06/2018 Muscular dystrophy-the patient's muscular dystrophy is progressing. He is losing control of his bowels and exhibits neurogenic bladder with urinary retention. He required catheter placement. I will hold his Toviaz. He admits to increased weakness. He is losing trunk strength and the ability to maintain positioning. I have asked physical and speech therapy to assess the patient. I do not believe he is capable of caring for himself at home. For fibrillation-the patient is chronic atrial fibrillation. He has been on several medications including amiodarone. Dr. Gutierrez will see the patient and I have ordered pulmonary function testing to assess for any pulmonary toxicity from the amiodarone. The patient will continue his anticoagulation. He is placed on telemetry monitoring. Diabetes mellitus type 2-we will continue the metformin 1 g at bedtime. He is on 60 units of Lantus at bedtime and 30 units of NovoLog with meals. I have decreased the Lantus dosing slightly and decrease the scheduled NovoLog. I have ordered Accu-Cheks and sliding scale coverage. Hyponatremia-the serum sodium is only slightly below the lower limit normal. We will administer IV fluids and continue to monitor. - Time Time Spent with patient: 35 or more minutes Medications reviewed and adjusted accordingly: Yes Anticipated discharge: Other - Long-term care - Inpatient Certification Based on my medical assessment, after consideration of the patient's comorbidities, presenting symptoms, or acuity I expect that the services needed warrant INPATIENT care.: Yes I certify that my determination is in accordance with my understanding of Medicare's requirements for reasonable and necessary INPATIENT services [42 CFR 412.3e].: Yes Medical Necessity: Significant Comorbidiites Make Outpatient Treatment Too Risky, Need For Continuous Telemetry Monitoring, Risk of Complication if Not Cared For in Hospital Post Hospital Care: D/C Transportation Superintendent Documentation
--- NOTE | 2018-12-06 09:29 | ADVANCED CARE ---
- Diagnosis (1) Diarrhea Diagnosis Current: Yes (2) Chronic atrial fibrillation Diagnosis Current: Yes (3) Diabetes mellitus type 2 in nonobese Diagnosis Current: Yes Attendance: Discussion was held at the bedside with the patient Resuscitation Status: Full Code Discussion: Because the patient is actually seeking long-term placement at this time we did discuss his current CODE STATUS. He is a full code. He does want certain restrictions such as no tracheostomy. We briefly discussed the PEG tube. I explained that they would put a PEG tube and if he lost the swallow which means he would not be able to eat. It was overwhelming for the patient at this time. I told him that we could discuss this further. I did enter in the discharge planners note that we initiated completing the healthcare proxy/living will form and that it would need to be completed and notarized. The patient has difficulty writing because of his muscular dystrophy and so would probably need a witness and ascribed. Care Planning Goals: To establish benchmarks as he has a chronic progressive illness. Document(s) Completed: Initiated entries into the healthcare proxy/living will form. The patient still needs to make some decisions. He did designate his sister Andreas Pedroza as the designated decision maker. He has 2 children that he does not want participating in his decisions. He still has to delineate care goals and restrictions in the event of a catastrophic event. Time Spent: 25 minutes
[2018-12-06] MEDS ORDERED: PHARMACY COMMUNICATION ORDER MC NR (09:30)
[2018-12-06] MEDS: FAMOTIDINE 20 MG TABLET PO SCH ×2 (09:52→22:17)
[2018-12-06] MEDS: INSULIN LISPRO 100 UNIT/ML 3 ML VIAL SUBCUT SCH ×5 (13:15→22:18)
[2018-12-06] MEDS ORDERED: HEPARIN SOD (PORCINE) 5,000 UNIT/ML 1 ML VIAL SUBCUT SCH (14:00)
[2018-12-06] MEDS ORDERED: LEVALBUTEROL HCL NEB 1.25 MG/3 ML AMPUL NEB PRN (14:17)
[2018-12-06] MEDS: METOPROLOL SUCCINATE 25 MG TAB.SR.24H PO SCH ×2 (14:55→22:17)
[2018-12-06] MEDS: AMIODARONE HCL 200 MG TABLET PO SCH ×2 (14:55→22:17)
[2018-12-06] MEDS: RIVAROXABAN 15 MG TABLET PO SCH (17:51)
[2018-12-06] MEDS: METFORMIN HCL 500 MG TABLET PO SCH (17:51)
[2018-12-06] MEDS: ATORVASTATIN CALCIUM 20 MG TABLET PO SCH (22:18)
[2018-12-06] MEDS: INSULIN GLARGINE,HUM.REC.ANLOG 1,000 UNIT/10 ML VIAL SUBCUT SCH (22:19)
[2018-12-06] MEDS: TEMAZEPAM 15 MG CAPSULE PO PRN (22:53)
[2018-12-06] MEDS: ACETAMINOPHEN 325 MG TABLET PO PRN (22:53)
[2018-12-07] MEDS: RINGERS SOLUTION,LACTATED 1,000 ML IV PRN (00:06)
[2018-12-07] MEDS: AMIODARONE HCL 200 MG TABLET PO SCH ×3 (05:21→21:57)
[2018-12-07] MEDS: ACETAMINOPHEN 325 MG TABLET PO PRN (06:19)
[2018-12-07] MEDS: INSULIN LISPRO 100 UNIT/ML 3 ML VIAL SUBCUT SCH ×7 (07:43→21:56)
[2018-12-07 09:59] LABS: HEMATOCRIT 35.5 % (37.9-51.0); HEMOGLOBIN 11.8 g/dL (13.5-17.0); MEAN CORPUSCULAR HEMOGLOBIN 25.9 pg (27.0-33.4); MEAN CORPUSCULAR HGB CONC 33.2 g/dL (32.0-36.0); MEAN CORPUSCULAR VOLUME 78 fl (80-97); PLATELET COUNT 126 10^3/uL (150-450); RED BLOOD COUNT 4.54 10^6/uL (4.35-5.55); RED CELL DISTRIBUTION WIDTH 18.6 % (11.5-14.0); WHITE BLOOD COUNT 5.4 10^3/uL (4.0-10.5)
[2018-12-07] MEDS: FAMOTIDINE 20 MG TABLET PO SCH ×2 (10:37→21:55)
[2018-12-07 10:47] LABS: ANION GAP 8 (5-19); BLOOD UREA NITROGEN 17 mg/dL (7-20); CALCIUM 7.9 mg/dL (8.4-10.2); CARBON DIOXIDE 27 mmol/L (22-30); CHLORIDE 100 mmol/L (98-107); GLUCOSE 165 mg/dL (75-110); POTASSIUM 3.6 mmol/L (3.6-5.0)
[2018-12-07] MEDS: METOPROLOL SUCCINATE 25 MG TAB.SR.24H PO SCH ×2 (10:51→21:55)
[2018-12-07] MEDS ORDERED: MAGNESIUM SULFATE 4 GM/D5W 100 ML IV ONE (12:00)
[2018-12-07] MEDS: RIVAROXABAN 15 MG TABLET PO SCH (17:11)
[2018-12-07] MEDS: METFORMIN HCL 500 MG TABLET PO SCH (17:11)
--- NOTE | 2018-12-07 17:54 | PDOC PROGRESS REPORT ---
Subjective Progress Note for:: 12/07/18 Subjective:: Just returned from pulmonary function testing. Loose stools are slowing somewhat. [place] Le[place] catheter was inserted due to acute urinary retention. His urine is still dark in color. Reason For Visit: DIARRHEA,WEAKNESS Physical Exam Vital Signs: Temp Pulse Resp BP Pulse Ox 97.5 F 89 17 106/67 99 12/07/18 15:18 12/07/18 15:18 12/07/18 15:18 12/07/18 15:18 12/07/18 15:18 Intake & Output 12/06/18 12/07/18 12/08/18 06:59 06:59 06:59 Intake Total 1440 380 Output Total 2400 500 200 Balance -2400 940 180 Weight 84.5 kg 87.6 kg Results Laboratory Results: 12/07/18 09:40 12/07/18 09:40 12/07/18 12/07/18 12/07/18 09:40 09:40 09:40 WBC 5.4 RBC 4.54 Hgb 11.8 L Hct 35.5 L MCV 78 L MCH 25.9 L MCHC 33.2 RDW 18.6 H Plt Count 126 L Sodium 135.4 L Potassium 3.6 Chloride 100 Carbon Dioxide 27 Anion Gap 8 BUN 17 Creatinine 0.76 Est GFR ( Amer) > 60 Glucose 165 H Calcium 7.9 L Magnesium 1.2 L* Assessment and Plan - Diagnosis (1) Muscular dystrophy Is this a current diagnosis for this admission?: Yes (2) Neurogenic bladder Is this a current diagnosis for this admission?: Yes (3) Diarrhea Qualifiers: Diarrhea type: unspecified type Qualified Code(s): R19.7 - Diarrhea, unspecified Is this a current diagnosis for this admission?: Yes (4) Chronic atrial fibrillation Is this a current diagnosis for this admission?: Yes (5) Diabetes mellitus type 2 in nonobese Is this a current diagnosis for this admission?: Yes (6) Hyponatremia Is this a current diagnosis for this admission?: Yes - Plan Summary Summary: 12/06/2018 Muscular dystrophy-the patient's muscular dystrophy is progressing. He is los ing control of his bowels and exhibits neurogenic bladder with urinary retention. He required catheter placement. I will hold his Toviaz. He admits to increased weakness. He is losing trunk strength and the ability to maintain positioning. I have asked physical and speech therapy to assess the patient. I do not believe he is capable of caring for himself at home. For fibrillation-the patient is chronic atrial fibrillation. He has been on several medications including amiodarone. Dr. Gutierrez will see the patient and I have ordered pulmonary function testing to assess for any pulmonary toxicity from the amiodarone. The patient will continue his anticoagulation. He is placed on telemetry monitoring. Diabetes mellitus type 2-we will continue the metformin 1 g at bedtime. He is on 60 units of Lantus at bedtime and 30 units of NovoLog with meals. I have decreased the Lantus dosing slightly and decrease the scheduled NovoLog. I have ordered Accu-Cheks and sliding scale coverage. Hyponatremia-the serum sodium is only slightly below the lower limit normal. We will administer IV fluids and continue to monitor.
[2018-12-07] MEDS: INSULIN GLARGINE,HUM.REC.ANLOG 1,000 UNIT/10 ML VIAL SUBCUT SCH (21:55)
[2018-12-07] MEDS: ATORVASTATIN CALCIUM 20 MG TABLET PO SCH (21:55)
[2018-12-07] MEDS: NORMAL SALINE 1000 ML 1,000 ML IV PRN (22:00)
[2018-12-08] MEDS: AMIODARONE HCL 200 MG TABLET PO SCH ×3 (06:15→21:35)
[2018-12-08] MEDS: NORMAL SALINE 1000 ML 1,000 ML IV PRN ×2 (06:16→16:03)
[2018-12-08 06:58] LABS: HEMATOCRIT 37.2 % (37.9-51.0); HEMOGLOBIN 12.1 g/dL (13.5-17.0); MEAN CORPUSCULAR HEMOGLOBIN 25.6 pg (27.0-33.4); MEAN CORPUSCULAR HGB CONC 32.5 g/dL (32.0-36.0); MEAN CORPUSCULAR VOLUME 79 fl (80-97); PLATELET COUNT 138 10^3/uL (150-450); RED BLOOD COUNT 4.71 10^6/uL (4.35-5.55); RED CELL DISTRIBUTION WIDTH 18.2 % (11.5-14.0); WHITE BLOOD COUNT 6.3 10^3/uL (4.0-10.5)
[2018-12-08] MEDS: INSULIN LISPRO 100 UNIT/ML 3 ML VIAL SUBCUT SCH ×7 (07:40→21:39)
[2018-12-08] MEDS ORDERED: SIMETHICONE 80 MG TAB.CHEW PO PRN (08:37)
[2018-12-08] MEDS: FAMOTIDINE 20 MG TABLET PO SCH ×2 (10:48→21:35)
[2018-12-08] MEDS: METOPROLOL SUCCINATE 25 MG TAB.SR.24H PO SCH ×2 (10:55→21:35)
[2018-12-08] MEDS: RIVAROXABAN 15 MG TABLET PO SCH (16:04)
--- NOTE | 2018-12-08 16:07 | PDOC PROGRESS REPORT ---
Subjective Progress Note for:: 12/08/18 Subjective:: No acute event overnight. His stools continue to improve. He is complaining of mild colicky abdominal pain which he describes as having a lot of gassiness in his bowel. He denies chest pain or shortness of breath. 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 He continues to have bilateral leg weakness. HR went down to the 40s. He may need SNF/rehab placement. Reason For Visit: DIARRHEA,WEAKNESS Physical Exam Vital Signs: Temp Pulse Resp BP Pulse Ox 97.7 F 52 L 16 126/67 H 100 12/08/18 12:17 12/08/18 12:17 12/08/18 12:17 12/08/18 12:17 12/08/18 12:17 Intake & Output 12/07/18 12/08/18 12/09/18 06:59 06:59 06:59 Intake Total 1440 2800 236 Output Total 500 2500 Balance 940 300 236 Weight 193 lb 1.999 oz 191 lb 9.307 oz General appearance: PRESENT: no acute distress, well-developed, well-nourished Head exam: PRESENT: atraumatic, normocephalic Eye exam: PRESENT: conjunctiva pink, EOMI, PERRLA. ABSENT: scleral icterus Ear exam: PRESENT: normal external ear exam Mouth exam: PRESENT: moist, tongue midline Neck exam: ABSENT: carotid bruit, JVD, lymphadenopathy, thyromegaly Respiratory exam: PRESENT: clear to auscultation asad. ABSENT: rales, rhonchi, wheezes Cardiovascular exam: PRESENT: RRR. ABSENT: diastolic murmur, rubs, systolic murmur Pulses: PRESENT: normal dorsalis pedis pul GI/Abdominal exam: PRESENT: normal bowel sounds, soft. ABSENT: distended, guarding, mass, organolmegaly, rebound, tenderness Rectal exam: PRESENT: deferred Neurological exam: PRESENT: alert, awake, oriented to person, oriented to place, oriented to time, oriented to situation, CN II-XII grossly intact, motor sensory deficit - 2/5 both LEs Results Laboratory Results: 12/08/18 05:06 12/07/18 09:40 12/08/18 12/08/18 05:06 05:06 WBC 6.3 RBC 4.71 Hgb 12.1 L Hct 37.2 L MCV 79 L MCH 25.6 L MCHC 32.5 RDW 18.2 H Plt Count 138 L Magnesium 1.6 Assessment and Plan - Diagnosis (1) Diarrhea Qualifiers: Diarrhea type: unspecified type Qualified Code(s): R19.7 - Diarrhea, unspecified Is this a current diagnosis for this admission?: Yes Plan: Improving. (2) Muscular dystrophy Is this a current diagnosis for this admission?: Yes Plan: He says he was diagnosed with Hfroldd-Yqlhg-Jvmih disease when he was 20 yo. (3) Neurogenic bladder Is this a current diagnosis for this admission?: Yes (4) Paroxysmal A-fib Is this a current diagnosis for this admission?: Yes Plan: Continue Xarelto. He is on amiodarone as well. Hold next dose of Toprol for now.
[2018-12-08] MEDS: ATORVASTATIN CALCIUM 20 MG TABLET PO SCH (21:36)
[2018-12-08] MEDS: INSULIN GLARGINE,HUM.REC.ANLOG 1,000 UNIT/10 ML VIAL SUBCUT SCH (21:36)
[2018-12-08] MEDS: METFORMIN HCL 500 MG TABLET PO SCH (21:36)
[2018-12-09] MEDS: AMIODARONE HCL 200 MG TABLET PO SCH ×2 (05:47→13:28)
[2018-12-09 06:13] LABS: HEMATOCRIT 35.4 % (37.9-51.0); HEMOGLOBIN 11.4 g/dL (13.5-17.0); MEAN CORPUSCULAR HEMOGLOBIN 25.2 pg (27.0-33.4); MEAN CORPUSCULAR HGB CONC 32.1 g/dL (32.0-36.0); MEAN CORPUSCULAR VOLUME 79 fl (80-97); PLATELET COUNT 122 10^3/uL (150-450); RED BLOOD COUNT 4.51 10^6/uL (4.35-5.55); RED CELL DISTRIBUTION WIDTH 18.4 % (11.5-14.0); WHITE BLOOD COUNT 4.7 10^3/uL (4.0-10.5)
[2018-12-09] MEDS: NORMAL SALINE 1000 ML 1,000 ML IV PRN ×2 (06:39→07:57)
[2018-12-09] MEDS: INSULIN LISPRO 100 UNIT/ML 3 ML VIAL SUBCUT SCH ×7 (07:32→21:33)
[2018-12-09] MEDS: METOPROLOL SUCCINATE 25 MG TAB.SR.24H PO SCH (09:24)
[2018-12-09] MEDS: FAMOTIDINE 20 MG TABLET PO SCH ×2 (09:24→21:34)
[2018-12-09] MEDS: RIVAROXABAN 15 MG TABLET PO SCH (17:14)
[2018-12-09] MEDS: ATORVASTATIN CALCIUM 20 MG TABLET PO SCH (21:34)
[2018-12-09] MEDS: METFORMIN HCL 500 MG TABLET PO SCH (21:34)
[2018-12-09] MEDS: INSULIN GLARGINE,HUM.REC.ANLOG 1,000 UNIT/10 ML VIAL SUBCUT SCH (21:34)
[2018-12-10] MEDS: NORMAL SALINE 1000 ML 1,000 ML IV PRN ×3 (00:21→18:30)
[2018-12-10] MEDS: INSULIN LISPRO 100 UNIT/ML 3 ML VIAL SUBCUT SCH ×7 (08:14→22:08)
[2018-12-10] MEDS: METOPROLOL SUCCINATE 25 MG TAB.SR.24H PO SCH (09:21)
[2018-12-10] MEDS: FAMOTIDINE 20 MG TABLET PO SCH ×2 (09:21→22:09)
[2018-12-10] MEDS: AMIODARONE HCL 200 MG TABLET PO SCH (09:21)
[2018-12-10] MEDS: ACETAMINOPHEN 325 MG TABLET PO PRN (11:21)
[2018-12-10] MEDS ORDERED: CYANOCOBALAMIN (VITAMIN B-12) INJ 1000 MCG/1 ML VIAL IM ONE (14:00)
--- NOTE | 2018-12-10 16:43 | PDOC PROGRESS REPORT ---
Subjective Progress Note for:: 12/09/18 Subjective:: 12/08: His stools continue to improve. He is complaining of mild colicky abdominal pain which he describes as having a lot of gassiness in his bowel. He denies chest pain or shortness of breath. He says he was diagnosed with Bsukpbz-Afrtx-Qnoxg disease when he was 20 yo. He continues to have bilateral leg weakness. HR went down to the 40s. He may need SNF/rehab placement. 12/09: No acute event overnight. Denies acute placement. Patient needs SNF/rehab placement. Awaiting placement. Reason For Visit: DIARRHEA,WEAKNESS Physical Exam Vital Signs: Temp Pulse Resp BP Pulse Ox 97.5 F 50 L 16 131/66 H 98 12/09/18 07:25 12/09/18 07:25 12/09/18 07:25 12/09/18 07:25 12/09/18 07:25 Intake & Output 12/08/18 12/09/18 12/10/18 06:59 06:59 06:59 Intake Total 2800 3166 163 Output Total 2500 1320 Balance 300 1846 163 Weight 191 lb 9.307 oz 194 lb 10.691 oz General appearance: PRESENT: no acute distress, well-developed, well-nourished Head exam: PRESENT: atraumatic, normocephalic Eye exam: PRESENT: conjunctiva pink, EOMI, PERRLA. ABSENT: scleral icterus Ear exam: PRESENT: normal external ear exam Mouth exam: PRESENT: moist, tongue midline Neck exam: ABSENT: carotid bruit, JVD, lymphadenopathy, thyromegaly Respiratory exam: PRESENT: clear to auscultation asda. ABSENT: rales, rhonchi, wheezes Cardiovascular exam: PRESENT: RRR. ABSENT: diastolic murmur, rubs, systolic murmur Pulses: PRESENT: normal dorsalis pedis pul GI/Abdominal exam: PRESENT: normal bowel sounds, soft. ABSENT: distended, guarding, mass, organolmegaly, rebound, tenderness Rectal exam: PRESENT: deferred Extremities exam: PRESENT: full ROM. ABSENT: calf tenderness, clubbing, pedal edema Neurological exam: PRESENT: alert, awake, oriented to person, oriented to place, oriented to time, CN II-XII grossly intact, motor sensory deficit - 1/5 weakness on both legs Results Laboratory Results: 12/09/18 05:51 12/07/18 09:40 12/09/18 12/09/18 05:51 05:51 WBC 4.7 RBC 4.51 Hgb 11.4 L Hct 35.4 L MCV 79 L MCH 25.2 L MCHC 32.1 RDW 18.4 H Plt Count 122 L Magnesium 1.3 L 12/06/18 02:55 Stool - Stool - Final 12/06/18 02:55 Stool - Stool Stool Culture - Final NO SALMONELLA, SHIGELLA, CAMPYLOBACTER, OR E.COLI 0157 RECOVERED. NEGATIVE FOR SHIGA TOXINS 1&2. Assessment and Plan - Diagnosis (1) Diarrhea Qualifiers: Diarrhea type: unspecified type Qualified Code(s): R19.7 - Diarrhea, unspecified Is this a current diagnosis for this admission?: Yes Plan: Improving. (2) Muscular dystrophy Is this a current diagnosis for this admission?: Yes Plan: He says he was diagnosed with Tgrqadp-Zatcd-Kksdv disease when he was 20 yo. (3) Neurogenic bladder Is this a current diagnosis for this admission?: Yes (4) Paroxysmal A-fib Is this a current diagnosis for this admission?: Yes Plan: Continue Xarelto. He is on amiodarone as well. Toprol decreased. - Time Time Spent with patient: 15-24 minutes
--- NOTE | 2018-12-10 17:28 | PDOC PROGRESS REPORT ---
Subjective Progress Note for:: 12/10/18 Subjective:: 12/08: His stools continue to improve. He is complaining of mild colicky abdominal pain which he describes as having a lot of gassiness in his bowel. He denies chest pain or shortness of breath. He says he was diagnosed with Jsttxou-Ivlbc-Kbhrr disease when he was 20 yo. He continues to have bilateral leg weakness. HR went down to the 40s. He may need SNF/rehab placement. 12/09: Denies acute placement. Patient needs SNF/rehab placement. 12/10: No acute event overnight. Stools are almost close to his baseline. He continues to have weakness and is deemed to require SNF/rehab placement. Patient has agreed to go to [facility] after a very long discussion with him and his close female friend. Reason For Visit: DIARRHEA,WEAKNESS Physical Exam Vital Signs: Temp Pulse Resp BP Pulse Ox 97.8 F 53 L 19 149/74 H 99 12/10/18 11:44 12/10/18 11:44 12/10/18 11:44 12/10/18 11:44 12/10/18 11:44 Intake & Output 12/09/18 12/10/18 12/11/18 06:59 06:59 06:59 Intake Total 3166 2319 1580 Output Total 1320 2075 Balance 7400 286 3164 Weight 194 lb 10.691 oz 214 lb 11.684 oz General appearance: PRESENT: no acute distress, well-developed, well-nourished Head exam: PRESENT: atraumatic, normocephalic Eye exam: PRESENT: conjunctiva pink, EOMI, PERRLA. ABSENT: scleral icterus Ear exam: PRESENT: normal external ear exam Mouth exam: PRESENT: moist, tongue midline Neck exam: ABSENT: carotid bruit, JVD, lymphadenopathy, thyromegaly Respiratory exam: PRESENT: clear to auscultation asad. ABSENT: rales, rhonchi, wheezes Cardiovascular exam: PRESENT: RRR. ABSENT: diastolic murmur, rubs, systolic murmur Pulses: PRESENT: normal dorsalis pedis pul Vascular exam: PRESENT: normal capillary refill GI/Abdominal exam: PRESENT: normal bowel sounds, soft. ABSENT: distended, guarding, mass, organolmegaly, rebound, tenderness Rectal exam: PRESENT: deferred Neurological exam: PRESENT: alert, awake, oriented to person, oriented to place, oriented to time, oriented to situation, CN II-XII grossly intact, motor sensory deficit - 1/5 strength on both LE Results Laboratory Results: 12/09/18 05:51 12/07/18 09:40 12/06/18 02:55 Stool - Stool - Final 12/06/18 02:55 Stool - Stool Stool Culture - Final NO SALMONELLA, SHIGELLA, CAMPYLOBACTER, OR E.COLI 0157 RECOVERED. NEGATIVE FOR SHIGA TOXINS 1&2. Assessment and Plan - Diagnosis (1) Diarrhea Qualifiers: Diarrhea type: unspecified type Qualified Code(s): R19.7 - Diarrhea, unspecified Is this a current diagnosis for this admission?: Yes Plan: Resolving. (2) Muscular dystrophy Is this a current diagnosis for this admission?: Yes Plan: He says he was diagnosed with Unvkzbg-Wxsiz-Gxdgj disease when he was 20 yo. (3) Neurogenic bladder Is this a current diagnosis for this admission?: Yes (4) Paroxysmal A-fib Is this a current diagnosis for this admission?: Yes Plan: Continue Xarelto. He is on amiodarone as well. Toprol decreased. - Time Time Spent with patient: 25-34 minutes
[2018-12-10] MEDS: RIVAROXABAN 15 MG TABLET PO SCH (18:30)
[2018-12-10] MEDS: METFORMIN HCL 500 MG TABLET PO SCH (22:08)
[2018-12-10] MEDS: ATORVASTATIN CALCIUM 20 MG TABLET PO SCH (22:09)
[2018-12-10] MEDS: INSULIN GLARGINE,HUM.REC.ANLOG 1,000 UNIT/10 ML VIAL SUBCUT SCH (22:19)
[2018-12-11] MEDS: TEMAZEPAM 15 MG CAPSULE PO PRN
[2018-12-11] MEDS: NORMAL SALINE 1000 ML 1,000 ML IV PRN (04:29)
[2018-12-11] MEDS: INSULIN LISPRO 100 UNIT/ML 3 ML VIAL SUBCUT SCH ×6 (08:24→15:54)
[2018-12-11] MEDS: AMIODARONE HCL 200 MG TABLET PO SCH (09:41)
[2018-12-11] MEDS: METOPROLOL SUCCINATE 25 MG TAB.SR.24H PO SCH (09:44)
[2018-12-11] MEDS: FAMOTIDINE 20 MG TABLET PO SCH (09:44)
--- NOTE | 2018-12-11 10:29 | Pulmonary Function Test ---
Pulmonary Function Test Date of Procedure:: 12/09/18 INDICATION:: Dyspnea Referring Provider: Dr.Lakshmi Gutierrez Threshing Machine Operator: Maricarmen Avendaño, LOCK FITTER, GUEST SERVICE AIDE - Report Spirometry: Spirometry: pre-FVC: 4.01 L 78% post-FVC: 3.96 L 77% pre-FEV:1 3.00 L 73% post-FEV1: 2.84 L 70% pre-FEV1/FVC %: 75 post-FEV1/FVC%: 72 predicted: 78 [id number]%: 2.43 L 61% [id number]%: 2.35 L 59% Diffusion Capactity: DLCO: 17.6 71% DLCO/VA: 5.11 135% Impression: Mild obstructive ventilatory defect. Insignificant response to bronchodilator therapy. This does not preclude a clinical trial of bronchodilator therapy. Restrictive defect is implied but cannot be diagnosed on the basis of spirometry alone. Mild decrease in diffusion capacity.
[2018-12-11 11:49] VITALS: BP 140/80
--- NOTE | 2018-12-11 13:29 | PDOC TRANSFER SUMMARY ---
Impression - Admit/DC Date/PCP Admission Date/Primary Care Provider: 12/06/18 06:32 KEMI MARTINEZ Discharge Date: 12/11/18 - Discharge Diagnosis (1) Diarrhea Is this a current diagnosis for this admission?: Yes (2) Muscular dystrophy Is this a current diagnosis for this admission?: Yes (3) Neurogenic bladder Is this a current diagnosis for this admission?: Yes (4) Paroxysmal A-fib Is this a current diagnosis for this admission?: Yes - Additional Information Resuscitation Status: Full Code Referrals: Urology,Follow Up [Other] (pt needs a follow up with an urologist) [facility]/Rehab [Outside] Prescriptions: Amiodarone HCl [Cordarone 200 mg Tablet] 200 mg PO DAILY #30 Metoprolol Succinate [Toprol Xl 25 mg Tab.sr] 12.5 mg PO DAILY #60 tab.sr.24h Home Medications: Rivaroxaban [Xarelto 15 mg Tablet] 15 mg PO DAILY 12/02/13 Atorvastatin Calcium [Lipitor 20 mg Tablet] 20 mg PO QHS 11/04/18 Fesoterodine Fumarate [Toviaz] 8 mg PO DAILY 11/04/18 Lisinopril [Prinivil 5 mg Tablet] 2.5 mg PO DAILY 11/04/18 Multivitamin [Tab-A-Tia (Multiple Vitamin) Tablet] 1 tab PO DAILY 11/04/18 Magnesium Oxide [Mag-Ox 400 mg Tablet] 800 mg PO MEALS 10 Days #10 tablet 11/11/18 Digoxin [Lanoxin 0.125 mg Tablet] 0.125 mg PO DAILY 12/06/18 Metformin HCl [Metformin HCl ER] 1,000 mg PO QHS 12/06/18 Amiodarone HCl [Cordarone 200 mg Tablet] 200 mg PO DAILY #30 12/11/18 Metoprolol Succinate [Toprol Xl 25 mg Tab.sr] 12.5 mg PO DAILY #60 tab.sr.24h 12/11/18 History of Present Illiness History of Present Illness: Admitting hospitalist's H&P: DESTIN RAYMOND is a 63 year old male with multiple previous hospitalizations over the last several months. The patient reports that he has been having incontinence of feces and urine. When he would move his bowels he would express urine. He also has been having increased weakness. He is unable to hold himself upright on his electric scooter. He tends to lean to the side. He can correct his position sometimes but sometimes falls. He has been feeling weaker over time. Assessment in the emergency department was relatively unremarkable. He had hyperglycemia and mild dehydration. He is incapable of caring for himself at home. He will be admitted to the hospital by the hospitalist service and evaluated for long-term care after repleting his volume, monitoring his electrolytes and checking pulmonary function as he has been on amiodarone for his atrial fibrillation. Hospital Course Hospital Course: This is a 63-year-old male with reported history of muscular dystrophy. 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 He presented with progressive bilateral weakness. He does have chronic weakness and has been wheelchair dependent for the past several years. He reports his been progressively weak and has been having extreme difficulty taking care of himself at home. He also presented with acute urinary retention and loose stools with questionable incontinence. Stool studies were unremarkable. His stools did return to his baseline and he was able to achieve better bowel control. Possibility of his Aqdzzne-Lattp-Nazwp disease progressing and contributing to a beginning neurogenic bladder. Recommend outpatient urodynamic studies with urology. Recommend intermittent straight catheterization at the correction for now until he sees urology for a more definitive management. Patient was initially very adamant about going home although he admits that he is unable to take care of himself at home. He was also evaluated by PT and was deemed to require SNF/rehab placement. He eventually agreed to going to [facility]. He has history of atrial fibrillation but has been in sinus rhythm on this hospitalization. His heart rate did went down to before to 40 while being on amiodarone 200 q8 and metoprolol 25 mg every 12. Amiodarone was decreased to daily and metoprolol was also decreased to 12.5 mg. With this regimen, he has remained in sinus rhythm since then with a heart rate in the high 50s in the past 48 hours. We will keep him on current regimen. He will also continue taking his Xarelto. He will follow-up with Dr. Winters for his A. fib. Physical Exam Vital Signs: Temp Pulse Resp BP Pulse Ox 97.5 F 51 L 18 140/80 H 99 12/11/18 10:53 12/11/18 10:53 12/11/18 10:53 12/11/18 10:53 12/11/18 10:53 Intake & Output 12/10/18 12/11/18 12/12/18 06:59 06:59 06:59 Intake Total 2319 3816 Output Total 2074 2400 Balance 244 1416 Weight 214 lb 11.684 oz 216 lb 11.43 oz General appearance: PRESENT: no acute distress, well-developed, well-nourished Head exam: PRESENT: atraumatic, normocephalic Eye exam: PRESENT: conjunctiva pink, EOMI, PERRLA. ABSENT: scleral icterus Ear exam: PRESENT: normal external ear exam Mouth exam: PRESENT: moist, tongue midline Neck exam: ABSENT: carotid bruit, JVD, lymphadenopathy, thyromegaly Respiratory exam: PRESENT: clear to auscultation asad. ABSENT: rales, rhonchi, wheezes Cardiovascular exam: PRESENT: RRR. ABSENT: diastolic murmur, rubs, systolic murmur Pulses: PRESENT: normal dorsalis pedis pul GI/Abdominal exam: PRESENT: normal bowel sounds, soft. ABSENT: distended, guarding, mass, organolmegaly, rebound, tenderness Rectal exam: PRESENT: deferred Extremities exam: PRESENT: full ROM. ABSENT: calf tenderness, clubbing, pedal edema Neurological exam: PRESENT: alert, awake, oriented to person, oriented to place, oriented to time, oriented to situation, CN II-XII grossly intact, motor sensory deficit - 1/5 motor strength on both LEs Results Laboratory Results: WBC 4.7 10^3/uL (4.0-10.5) 12/09/18 05:51 RBC 4.51 10^6/uL (4.35-5.55) 12/09/18 05:51 Hgb 11.4 g/dL (13.5-17.0) L 12/09/18 05:51 Hct 35.4 % (37.9-51.0) L 12/09/18 05:51 MCV 79 fl (80-97) L 12/09/18 05:51 MCH 25.2 pg (27.0-33.4) L 12/09/18 05:51 MCHC 32.1 g/dL (32.0-36.0) 12/09/18 05:51 RDW 18.4 % (11.5-14.0) H 12/09/18 05:51 Plt Count 122 10^3/uL (150-450) L 12/09/18 05:51 Lymph % (Auto) 10.2 % (13-45) L 12/06/18 02:55 Surry % (Auto) 7.5 % (3-13) 12/06/18 02:55 Eos % (Auto) 0.9 % (0-6) 12/06/18 02:55 Baso % (Auto) 0.6 % (0-2) 12/06/18 02:55 Absolute Neuts (auto) 6.9 10^3/uL (1.7-8.2) 12/06/18 02:55 Absolute Lymphs (auto) 0.9 10^3/uL (0.5-4.7) 12/06/18 02:55 Absolute Monos (auto) 0.6 10^3/uL (0.1-1.4) 12/06/18 02:55 Absolute Eos (auto) 0.1 10^3/uL (0.0-0.6) 12/06/18 02:55 Absolute Basos (auto) 0.0 10^3/uL (0.0-0.2) 12/06/18 02:55 Seg Neutrophils % 80.8 % (42-78) H 12/06/18 02:55 PT 22.3 SEC (11.4-15.4) H 12/06/18 06:55 INR 1.93 12/06/18 06:55 APTT 43.3 SEC (23.5-35.8) H 12/06/18 06:55 Sodium 135.4 mmol/L (137-145) L 12/07/18 09:40 Potassium 3.6 mmol/L (3.6-5.0) 12/07/18 09:40 Chloride 100 mmol/L (98-107) 12/07/18 09:40 Carbon Dioxide 27 mmol/L (22-30) 12/07/18 09:40 Anion Gap 8 (5-19) 12/07/18 09:40 BUN 17 mg/dL (7-20) 12/07/18 09:40 Creatinine 0.76 mg/dL (0.52-1.25) 12/07/18 09:40 Est GFR ( Amer) > 60 (>60) 12/07/18 09:40 Est GFR (MDRD) Non-Af > 60 (>60) 12/07/18 09:40 Glucose 165 mg/dL (75-110) H 12/07/18 09:40 POC Glucose 120 mg/dL (70-110) H 12/11/18 10:56 Calcium 7.9 mg/dL (8.4-10.2) L 12/07/18 09:40 Magnesium 1.3 mg/dL (1.6-2.3) L 12/09/18 05:51 Total Bilirubin 1.2 mg/dL (0.2-1.3) 12/06/18 02:55 Direct Bilirubin 0.1 mg/dL (0.0-0.4) 12/06/18 02:55 Neonat Total Bilirubin Not Reportable 12/06/18 02:55 Neonat Direct Bilirubin Not Reportable 12/06/18 02:55 Neonat Indirect Bili Not Reportable 12/06/18 02:55 AST 24 U/L (17-59) 12/06/18 02:55 ALT 14 U/L (<50) 12/06/18 02:55 Alkaline Phosphatase 79 U/L (38-126) 12/06/18 02:55 Total Protein 6.5 g/dL (6.3-8.2) 12/06/18 02:55 Albumin 3.5 g/dL (3.5-5.0) 12/06/18 02:55 TSH 1.81 uIU/mL (0.47-4.68) 12/06/18 02:55 Free T4 2.18 ng/dL (0.78-2.19) 12/06/18 02:55 Free T3 pg/mL 2.42 pg/mL (2.77-5.27) L 12/06/18 02:55 Urine Color YELLOW 12/06/18 05:07 Urine Appearance CLEAR 12/06/18 05:07 Urine pH 5.0 (5.0-9.0) 12/06/18 05:07 Ur Specific Keller 1.019 12/06/18 05:07 Urine Protein 30 mg/dL (NEGATIVE) H 12/06/18 05:07 Urine Glucose (UA) 150 mg/dL (NEGATIVE) H 12/06/18 05:07 Urine Ketones TRACE mg/dL (NEGATIVE) H 12/06/18 05:07 Urine Blood MODERATE (NEGATIVE) H 12/06/18 05:07 Urine Nitrite NEGATIVE (NEGATIVE) 12/06/18 05:07 Urine Bilirubin NEGATIVE (NEGATIVE) 12/06/18 05:07 Urine Urobilinogen NEGATIVE mg/dL (<2.0) 12/06/18 05:07 Ur Leukocyte Esterase NEGATIVE (NEGATIVE) 12/06/18 05:07 Urine WBC (Auto) 1 /HPF 12/06/18 05:07 Urine RBC (Auto) 36 /HPF 12/06/18 05:07 Squamous Epi Cells Auto <1 /HPF 12/06/18 05:07 Urine Mucus (Auto) RARE /LPF 12/06/18 05:07 Urine Ascorbic Acid NEGATIVE (NEGATIVE) 12/06/18 05:07 POC Stool Occult Blood POSITIVE (NEGATIVE) 12/06/18 02:20 Stool for White Cells NO WBCs SEEN 12/06/18 02:55 Stroke Is this a Stroke Patient?: No Acute Heart Failure - Is this a Heart Failure Patient?: No
[2018-12-11 13:39] LABS: ANION GAP 10 (5-19); BLOOD UREA NITROGEN 13 mg/dL (7-20); CALCIUM 7.9 mg/dL (8.4-10.2); CARBON DIOXIDE 23 mmol/L (22-30); CHLORIDE 104 mmol/L (98-107); GLUCOSE 121 mg/dL (75-110); POTASSIUM 4.1 mmol/L (3.6-5.0)
[2018-12-11] MEDS: MAGNESIUM SULFATE/D5W 1 GM/100 ML RTUPB IV SCH ×3 (14:49→17:49)
[2018-12-11] MEDS: RIVAROXABAN 15 MG TABLET PO SCH (17:47)
[2018-12-11 18:33] LABS: ALBUMIN 2.9 g/dL (3.5-5.0); ALKALINE PHOSPHATASE 83 U/L (38-126); ANION GAP 9 (5-19); ASPARTATE AMINO TRANSFERASE 27 U/L (17-59); BILIRUBIN,DIRECT 0.2 mg/dL (0.0-0.4); BILIRUBIN,TOTAL 0.3 mg/dL (0.2-1.3); BLOOD UREA NITROGEN 15 mg/dL (7-20); CALCIUM 7.8 mg/dL (8.4-10.2); CARBON DIOXIDE 24 mmol/L (22-30); CHLORIDE 103 mmol/L (98-107); GLUCOSE 185 mg/dL (75-110); POTASSIUM 4.2 mmol/L (3.6-5.0); TOTAL PROTEIN 5.8 g/dL (6.3-8.2)
--- NOTE | 2018-12-11 21:18 | EKG REPORT ---
SEVERITY:- ABNORMAL ECG - SINUS RHYTHM RIGHT BUNDLE BRANCH BLOCK ANTERIOR INFARCT, AGE INDETERMINATE CONSIDER OLD INFERIOR HI PROLONG QT INTERVAL. : Confirmed by: Que Mark MD 11-Dec-2018 21:17:52
== END 2018-12-11 19:53 | DRG 641 ==
LOC: ER 01:55 → EH 06:32 → 4N 13:29
PROVIDERS: ADMIT Emergency Medicine; ATTEND Emergency Medicine
DX: E87.1 Hypo-osmolality and hyponatremia (principal); G35 Multiple sclerosis; E86.0 Dehydration; G60.0 Hereditary motor and sensory neuropathy; E11.65 Type 2 diabetes mellitus with hyperglycemia; I48.0 Paroxysmal atrial fibrillation; Z60.2 Problems related to living alone; R15.9 Full incontinence of feces; R19.7 Diarrhea, unspecified; N31.9 Neuromuscular dysfunction of bladder, unspecified; N39.498 Other specified urinary incontinence; I10 Essential (primary) hypertension; Z79.02 Long term (current) use of antithrombotics/antiplatelets; Z99.3 Dependence on wheelchair; Z90.49 Acquired absence of other specified parts of digestive tract; Z88.6 Allergy status to analgesic agent; Z79.84 Long term (current) use of oral hypoglycemic drugs; Z79.899 Other long term (current) drug therapy
CPT/HCPCS: 36415; 80048; 80053; 81001; 82962; 83735; 84439; 84443; 84481; 85025; 85027; 85610; 85730; 87045; 87070; 87205; 89055; 93005; 93010; 94060; 94729; 99285; J1644; J1815; J3420; J3475; J3490; J7030; J7120

== ENCOUNTER 2019-03-11 13:15 | Inpatient (IN) | payer BC, MEDICARE ==
[2019-03-11 15:24] LABS: ABSOLUTE BASOPHILS # (AUTO) 0.1 10^3/uL (0.0-0.2); ABSOLUTE EOSINOPHILS # (AUTO) 0.1 10^3/uL (0.0-0.6); ABSOLUTE LYMPHOCYTES (AUTO) 1.2 10^3/uL (0.5-4.7); ABSOLUTE MONOCYTES (AUTO) 0.4 10^3/uL (0.1-1.4); BASOPHILS % (AUTO) 0.9 % (0-2); EOSINOPHILS % (AUTO) 1.7 % (0-6); HEMATOCRIT 38.7 % (37.9-51.0); HEMOGLOBIN 12.4 g/dL (13.5-17.0); LYMPHOCYTES % (AUTO) 17.1 % (13-45); MEAN CORPUSCULAR HEMOGLOBIN 24.9 pg (27.0-33.4); MEAN CORPUSCULAR HGB CONC 32.2 g/dL (32.0-36.0); MEAN CORPUSCULAR VOLUME 78 fl (80-97); MONOCYTES % (AUTO) 6.5 % (3-13); PLATELET COUNT 237 10^3/uL (150-450); RED CELL DISTRIBUTION WIDTH 16.3 % (11.5-14.0); SEGMENTED NEUTROPHILS % (AUTO) 73.8 % (42-78); TOTAL CELLS COUNTED % (AUTO) 100 %; WHITE BLOOD COUNT 6.8 10^3/uL (4.0-10.5)
[2019-03-11 15:37] LABS: ALBUMIN 3.8 g/dL (3.5-5.0); ALKALINE PHOSPHATASE 167 U/L (38-126); ANION GAP 13 (5-19); ASPARTATE AMINO TRANSFERASE 26 U/L (17-59); BILIRUBIN,DIRECT 0.2 mg/dL (0.0-0.4); BILIRUBIN,TOTAL 0.6 mg/dL (0.2-1.3); BLOOD UREA NITROGEN 14 mg/dL (7-20); CALCIUM 8.9 mg/dL (8.4-10.2); CARBON DIOXIDE 27 mmol/L (22-30); CHLORIDE 99 mmol/L (98-107); GLUCOSE 177 mg/dL (75-110); POTASSIUM 3.9 mmol/L (3.6-5.0); TOTAL PROTEIN 7.6 g/dL (6.3-8.2)
--- NOTE | 2019-03-11 15:44 | ER Document Report ---
ED General - General Chief Complaint: Wound Infection Stated Complaint: WOUND CHECK Time Seen by Provider: 03/11/19 15:06 Primary Care Provider: KEMI MARTINEZ MD [Primary Care Provider] - Follow up as needed TRAVEL OUTSIDE OF THE [place] IN LAST 30 DAYS: No - Related Data Allergies/Adverse Reactions: hydrocodone [Hydrocodone] Allergy (Verified 02/08/19 20:03) heart racing Past Medical History - Social History Smoking Status: Unknown if Ever Smoked Family History: None, CAD, DM Patient has suicidal ideation: No Patient has homicidal ideation: No - Past Medical History Cardiac Medical History: Reports: Hx Atrial Fibrillation, Hx Hypertension Denies: Hx Coronary Artery Disease, Hx Heart Attack, Hx Hypercholesterolemia Pulmonary Medical History: Denies: Hx Asthma, Hx COPD Neurological Medical History: Denies: Hx Seizures Endocrine Medical History: Reports: Hx Diabetes Mellitus Type 2. Denies: Hx Diabetes Mellitus Type 1, Hx Hyperthyroidism, Hx Hypothyroidism Renal/ Medical History: Denies: Hx Peritoneal Dialysis GI Medical History: Denies: Hx Cirrhosis, Hx Crohn's Disease, Hx Hepatitis, Hx Ulcerative Colitis Musculoskeletal Medical History: Denies Hx Arthritis, Denies Hx Gout, Reports Hx Muscular Dystrophy Skin Medical History: Denies Hx Eczema, Denies Hx Psoriasis Psychiatric Medical History: Denies: Hx Depression Infectious Medical History: Denies: Hx Hepatitis Past Surgical History: Reports: Hx Appendectomy, Hx Orthopedic Surgery - Immunizations Hx Diphtheria, Pertussis, Tetanus Vaccination: Yes Physical Exam - Vital signs Vitals: Temp 97.8 F 03/11/19 13:16 - Notes Notes: Patient was sent in from home health for evaluation of a sacral wound. Patient states he said the wound for about a month now was recently hospitalized for this. Reports it is getting worse and is unable to care for himself and is trying to get placed in senior living. He denies any fevers chest pain shortness of breath nausea vomiting or abdominal pain His medical history is significant for atrial fibrillation muscular dystrophy diabetes hypertension peripheral neuropathy. Social history does not smoke or drink at all. Tetanus is up-to-date Review of systems pertinent positives and negatives in HPI otherwise all the systems were reviewed and acutely negative PHYSICIAN EXAM -vital signs are noted triage note and note from triage reviewed GENERAL: Well-appearing, well-nourished and in _no acute distress HEAD: Atraumatic, normocephalic. EYES: Pupils equal round and reactive to light, extraocular movements intact, sclera anicteric, conjunctiva are normal. ENT: nares patent, oropharynx clear without exudates. Moist mucous membranes. NECK: supple without lymphadenopathy LUNGS: Breath sounds clear to auscultation bilaterally and equal. No wheezes rales or rhonchi. Pacemaker site left upper chest clean and dry with Steri- Strips in place HEART: Regular rate and rhythm without murmurs ABDOMEN: Soft, nontender, normoactive bowel sounds. EXTREMITIES: No deformity, no edema. NEUROLOGICAL he is alert and oriented x4. Cranial nerves symmetrical smile facial expressions. His motor strength is 5/5 in upper extremities with a mild resting tremor. Minimal movement in the lower extremities. PSYCH: Normal mood, normal affect. SKIN: Warm, Dry, normal turgor, superficial ulcerated lesions behind both knees. There is no secondary infection. She has stage IV decubitus ulcer sacral area with some drainage and foul smell BACK-nontender in the midline Differential diagnosis infected decubitus ulcer dehydration Course - Re-evaluation Re-evalutation: 03/11/19 18:17 ED patient is remained stable a wound culture was sent. He was started on Zosyn and vancomycin. Medical decision making patient presents with a large infected decubitus wound and will need admission of consult the hospitalist they have requested an MRI will need to determine if patient has a pacemaker that is MRI compatible we can obtain CT - Vital Signs Vital signs: Temp Pulse Resp BP Pulse Ox 97.6 F 15 173/87 H 100 03/11/19 16:00 03/11/19 17:01 03/11/19 17:00 03/11/19 17:01 - Laboratory Result Diagrams: 03/11/19 15:00 03/11/19 15:00 Laboratory results interpreted by me: 03/11/19 03/11/19 03/11/19 15:00 15:00 15:00 Hgb 12.4 L MCV 78 L MCH 24.9 L RDW 16.3 H ESR Glucose 177 H Lactic Acid 2.4 H Alkaline Phosphatase 167 H Creatine Kinase 03/11/19 03/11/19 15:00 15:00 Hgb MCV MCH RDW ESR 59 H Glucose Lactic Acid Alkaline Phosphatase Creatine Kinase 45 L - Diagnostic Test Radiology reviewed: Reports reviewed - EKG Interpretation by Me Additional EKG results interpreted by me: 03/11/19 18:17 EKG shows a atrial paced rhythm right bundle branch block. The right bundle is unchanged his EKG shows ventricular paced Discharge - Discharge Clinical Impression: Sacral decubitus ulcer, stage IV Sepsis Qualifiers: Sepsis type: sepsis due to unspecified organism Sepsis acute organ dysfunction status: unspecified Qualified Code(s): A41.9 - Sepsis, unspecified organism Disposition: ADMITTED INPATIENT Admitting Provider: isaias Unit Admitted: Medical Floor Referrals: KEMI MARTINEZ MD [Primary Care Provider] - Follow up as needed
[2019-03-11] MEDS ORDERED: ACETAMINOPHEN 325 MG TABLET PO ONE (16:11)
[2019-03-11] MEDS ORDERED: VANCOMYCIN HCL INJ 1000 MG VIAL IV ONE (16:12)
--- NOTE | 2019-03-11 17:14 | RADIOLOGY REPORT (SQ) ---
EXAM DESCRIPTION: PELVIS AP COMPLETED DATE/TIME: 03/11/2019 3:33 pm REASON FOR STUDY: ulcer COMPARISON: None. NUMBER OF VIEWS: One view TECHNIQUE: AP Pelvis LIMITATIONS: None. FINDINGS: MINERALIZATION: Normal. HIPS: No acute fracture or dislocation. 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 PELVIS AND SACRUM: No acute fracture or dislocation. No worrisome bone lesions. PUBIS AND ISCHIUM: No acute fracture. LOWER LUMBAR SPINE: No significant findings as visualized. SOFT TISSUES: No findings. OTHER: No other significant finding. IMPRESSION: No radiographic evidence of osteomyelitis. No acute fracture or dislocation. If there is clinical concern for osteomyelitis further evaluation with MRI is recommended. COMMENT: Pelvic fractures are often occult on plain radiographs. If strong clinical suspicion for f racture, recommend CT or MR. TECHNICAL DOCUMENTATION: JOB ID: [id number] [employer]- All Rights Reserved Reading location - IP/workstation name: [email or web address]
[2019-03-11] MEDS ORDERED: PIPERACILLIN/TAZOBACTAM 3.375 GM VIAL IV ONE ×2 (17:24→20:00)
[2019-03-11] MEDS ORDERED: ACETAMINOPHEN 650 MG SUPP.RECT PR PRN (18:16)
[2019-03-11] MEDS ORDERED: ONDANSETRON 4 MG TAB.RAPDIS PO PRN (18:16)
[2019-03-11] MEDS ORDERED: NORMAL SALINE 1000 ML 1,000 ML IV ONE (18:18)
[2019-03-11] MEDS ORDERED: NORMAL SALINE 500 ML IV ONE (18:18)
[2019-03-11] MEDS ORDERED: PIPERACILLIN SODIUM/TAZOBACTAM 4.5 GM in NORMAL SALINE 100 ML IV ONE (18:30)
--- NOTE | 2019-03-11 19:00 | PDOC H&P ---
History of Present Illness Admission Date/PCP: KEMI MARTINEZ History of Present Illness: DESTIN RAYMOND is a 63 year old male with past medical history significant for chronic stage IV sacral decubitus ulcer POA, Yylhaas-Hlwlk-Uaxte muscular dystrophy, T2 DM, chronic atrial fibrillation status post pacemaker, hypertension, neurogenic bladder. Patient presents after 1 week of progressive worsening stage IV sacral ulcer which had foul-smelling purulent material coming from the wound with increased pain in and around the wound per patient. He denies fever/chills/nausea/vomiting. WBC normal. X-ray of pelvis did not reveal osteomyelitis. MRI pelvis with contrast ordered by ED which is pending on admission. Of note, ESR elevated to 59 on admission and lactic acid up to 2.4. CPK normal. Sacral wound culture sent along with blood cultures on admission. Patient recently had pacemaker implanted in the left chest wall a few weeks ago and this is at risk of infection if he is bacteremic, however labs and vitals are not consistent with sepsis. Patient has never been seen by a plastic surgeon but states a general surgeon debrided his sacral wound on previous admission. He also has a few ulcerations on his lower legs including a 1 to 2 cm ulceration along his right lateral ankle which has some very scant bleeding on the bandage on exam. He was recently admitted in January/2019 with rhabdomyolysis worsening pressure ulcers and inability to care for self. Per patient, he is in the process of arranging placement at a long-term nursing facility and he has a social services manager that is working with him to arrange this. Past Medical History Cardiac Medical History: Reports: Atrial Fibrillation, Hypertension Denies: Coronary Artery Disease, Myocardial Infarction, Hyperlipidema Pulmonary Medical History: Denies: Asthma, Chronic Obstructive Pulmonary Disease (COPD) Neurological Medical History: Denies: Seizures Endocrine Medical History: Reports: Diabetes Mellitus Type 2 Denies: Diabetes Mellitus Type 1, Hyperthyroidism, Hypothyroidism Malignancy Medical History: Reports: None GI Medical History: Denies: Cirrhosis, Crohn's Disease, Hepatitis, Ulcerative Colitis Musculoskeltal Medical History: Denies: Arthritis, Gout Skin Medical History: Denies: Eczema, Psoriasis Psychiatric Medical History: Denies: Depression Hematology: Denies: Anemia, Bleeding Tendencies Past Surgical History Past Surgical History: Reports: Appendectomy, Orthopedic Surgery Social History Lives with: Alone Smoking Status: Former Smoker Frequency of Alcohol Use: None Hx Recreational Drug Use: No Drugs: None Hx Prescription Drug Abuse: No Family History Family History: Reviewed & Not Pertinent, CAD, DM Parental Family History Reviewed: Yes Children Family History Reviewed: NA Sibling(s) Family History Reviewed.: NA Medication/Allergy Home Medications: Atorvastatin Calcium [Lipitor 20 mg Tablet] 20 mg PO QHS 02/09/19 Metformin HCl [Glucophage] 1,000 mg PO QHS 02/09/19 Multivit-Min/Folic/Vit K/Lycop [Men's 50 Plus Multivitamin Tab] 1 each PO DAILY 02/09/19 Rivaroxaban [Xarelto 15 mg Tablet] 15 mg PO DAILY 02/09/19 Metoprolol Succinate [Toprol Xl 25 mg Tab.sr] 25 mg PO Q12 #60 tab.sr.24h 02/16/19 Amiodarone HCl [Cordarone 200 mg Tablet] 200 mg PO DAILY #30 tablet 02/19/19 Fesoterodine Fumarate [Toviaz] 8 mg PO DAILY 03/11/19 Allergies/Adverse Reactions: hydrocodone [Hydrocodone] Allergy (Verified 02/08/19 20:03) heart racing Review of Systems All systems: reviewed and no additional remarkable complaints except as stated Constitutional: PRESENT: as per HPI Eyes: PRESENT: as per HPI Ears: PRESENT: as per HPI Nose, Mouth, and Throat: PRESENT: as per HPI Breasts: PRESENT: as per HPI Cardiovascular: PRESENT: as per HPI Respiratory: PRESENT: as per HPI Gastrointestinal: PRESENT: as per HPI Genitourinary: PRESENT: as per HPI Musculoskeletal: PRESENT: as per HPI Integumentary: PRESENT: as per HPI Neurological: PRESENT: as per HPI Psychiatric: PRESENT: as per HPI Endocrine: PRESENT: as per HPI Hematologic/Lymphatic: PRESENT: as per HPI Allergic/Immunologic: PRESENT: as per HPI Physical Exam Vital Signs: Temp Pulse Resp BP Pulse Ox 97.6 F 15 173/87 H 100 03/11/19 16:00 03/11/19 17:01 03/11/19 17:00 03/11/19 17:01 Intake & Output 03/10/19 03/11/19 03/12/19 06:59 06:59 06:59 Weight 81 kg General appearance: PRESENT: no acute distress, well-developed, well-nourished Head exam: PRESENT: atraumatic, normocephalic Eye exam: PRESENT: conjunctiva pink Respiratory exam: PRESENT: clear to auscultation asad. ABSENT: rales, rhonchi, wheezes Cardiovascular exam: PRESENT: RRR. ABSENT: diastolic murmur, rubs, systolic murmur GI/Abdominal exam: PRESENT: normal bowel sounds, soft. ABSENT: distended, guarding, mass, organolmegaly, rebound, tenderness Extremities exam: PRESENT: other - Bilateral lower legs with 1 to 2 cm ulcerations Musculoskeletal exam: PRESENT: other - Diffuse muscle wasting Neurological exam: PRESENT: alert, awake, oriented to person, oriented to place, oriented to time, oriented to situation, motor sensory deficit - Chronic and unchanged from baseline per patient Psychiatric exam: PRESENT: appropriate affect, normal mood Skin exam: PRESENT: other - Large approximately 3 cm diameter and 2 to 3 cm depth stage IV sacral decubitus ulcer with yellow purulent material coming from wound now packed with gauze, foul-smelling Results Laboratory Results: 03/11/19 15:00 03/11/19 15:00 03/11/19 03/11/19 03/11/19 15:00 15:00 15:00 WBC 6.8 RBC 5.00 Hgb 12.4 L Hct 38.7 MCV 78 L MCH 24.9 L MCHC 32.2 RDW 16.3 H Plt Count 237 Seg Neutrophils % 73.8 Sodium 138.6 Potassium 3.9 Chloride 99 Carbon Dioxide 27 Anion Gap 13 BUN 14 Creatinine 0.70 Est GFR ( Amer) > 60 Glucose 177 H Lactic Acid 2.4 H Calcium 8.9 Total Bilirubin 0.6 AST 26 Alkaline Phosphatase 167 H Total Protein 7.6 Albumin 3.8 03/11/19 15:00 Creatine Kinase 45 L Impressions: Pelvis X-Ray 03/11/19 15:44 IMPRESSION: No radiographic evidence of osteomyelitis. No acute fracture or dislocation. If there is clinical concern for osteomyelitis further evaluation with MRI is recommended. Assessment and Plan - Diagnosis (1) Sacral decubitus ulcer, stage IV Is this a current diagnosis for this admission?: Yes Plan: Has been present for past few months per patient and became acutely worse over the past 1 to 2 weeks Wound care nurse sent patient to ED for this admission due to acute worsening of purulence and pain Empiric vancomycin/Zosyn Pelvic x-ray did not show osteomyelitis Pelvic MRI with contrast pending General surgery consult in a.m., very likely would benefit from a plastic surgery consult in the near future as well (2) Pacemaker Is this a current diagnosis for this admission?: Yes Plan: Recently placed few weeks COIN PURSE FRAMER per patient, no complications per patient Steri-Strips still in place on exam, good approximation of wound Monitor for signs of infection, none so far Follows with adjunct instructor Dr. Winters (3) Chronic atrial fibrillation Is this a current diagnosis for this admission?: Yes Plan: Continue amiodarone and metoprolol home meds Rate controlled here Pacemaker implanted a few weeks prior to admission, appears to be functioning properly (4) Debility Is this a current diagnosis for this admission?: Yes Plan: Prior admission for inability to care for self due to Yrfljkz-Ajuye-Alaes muscular dystrophy Social work here will need to follow-up with his social services manager to make sure he has safe transition from hospital when the time comes (5) Decubitus ulcer Qualifiers: Pressure injury location: buttock Pressure injury stage: stage 2 Laterality: left Qualified Code(s): L89.322 - Pressure ulcer of left buttock, stage 2 Is this a current diagnosis for this admission?: Yes - Time Time Spent with patient: 35 or more minutes Medications reviewed and adjusted accordingly: Yes - Inpatient Certification I certify that my determination is in accordance with my understanding of Medicare's requirements for reasonable and necessary INPATIENT services [42 CFR 412.3e].: Yes Medical Necessity: Need for IV Antibiotics, Need for Surgery, Risk of Complication if Not Cared For in Hospital
--- NOTE | 2019-03-11 19:11 | Progress Note ---
Provider Note Provider Note: Advance care planning time greater than 16 minutes spent discussing CODE STATUS including CPR/chest compressions/intubation and patient indicated he would like to be full code. He designates his friend Simeon Pedroza as his M POA and states he has notarized legal paperwork to support this
[2019-03-11] MEDS ORDERED: PIPERACILLIN/TAZOBACTAM 4.5 GM VIAL IV ONE (19:44)
[2019-03-11] MEDS ORDERED: DEXTROSE 50%-WATER SYRINGE 12.5 GM/25 ML DOSE IV PRN (20:00)
[2019-03-11] MEDS ORDERED: DEXTROSE 40% GEL 15 GM TUBE X 2 PO PRN (20:00)
[2019-03-11] MEDS ORDERED: DEXTROSE 40% GEL 15 GM TUBE PO PRN (20:00)
[2019-03-11] MEDS ORDERED: DEXTROSE 50%-WATER SYRINGE 25 GM/50 ML DOSE IV PRN (20:00)
[2019-03-11] MEDS ORDERED: GLUCAGON,HUMAN RECOMB 1 MG INJ IM PRN (20:00)
[2019-03-11] MEDS: ACETAMINOPHEN 325 MG TABLET PO PRN (20:54)
[2019-03-11 21:20] LABS: ANION GAP 10 (5-19); BLOOD UREA NITROGEN 15 mg/dL (7-20); CALCIUM 8.2 mg/dL (8.4-10.2); CARBON DIOXIDE 28 mmol/L (22-30); CHLORIDE 98 mmol/L (98-107); GLUCOSE 130 mg/dL (75-110); POTASSIUM 3.9 mmol/L (3.6-5.0)
--- NOTE | 2019-03-11 22:00 | EKG REPORT ---
SEVERITY:- ABNORMAL ECG - ATRIAL-PACED COMPLEXES RIGHT BUNDLE BRANCH BLOCK CONSIDER ANTERIOR INFARCT : Confirmed by: Rosalee Fragoso 11-Mar-2019 21:59:22
[2019-03-11] MEDS: INSULIN LISPRO 100 UNIT/ML 3 ML VIAL SUBCUT SCH (23:16)
[2019-03-11] MEDS ORDERED: INSULIN GLARGINE,HUM.REC.ANLOG 1,000 UNIT/10 ML VIAL (PYX) SUBCUT ONE (23:38)
[2019-03-11] MEDS: INSULIN GLARGINE,HUM.REC.ANLOG 1,000 UNIT/10 ML VIAL SUBCUT SCH (23:39)
[2019-03-11] MEDS: PIPERACILLIN/TAZOBACTAM 3.375 GM VIAL IV SCH (23:59)
[2019-03-12 05:10] LABS: ABSOLUTE BASOPHILS # (AUTO) 0.1 10^3/uL (0.0-0.2); ABSOLUTE EOSINOPHILS # (AUTO) 0.2 10^3/uL (0.0-0.6); ABSOLUTE LYMPHOCYTES (AUTO) 1.2 10^3/uL (0.5-4.7); ABSOLUTE MONOCYTES (AUTO) 0.5 10^3/uL (0.1-1.4); ABSOLUTE NEUT (AUTO) 3.1 10^3/uL (1.7-8.2); BASOPHILS % (AUTO) 1.1 % (0-2); EOSINOPHILS % (AUTO) 3.6 % (0-6); HEMATOCRIT 32.7 % (37.9-51.0); HEMOGLOBIN 10.4 g/dL (13.5-17.0); LYMPHOCYTES % (AUTO) 23.9 % (13-45); MEAN CORPUSCULAR HEMOGLOBIN 24.6 pg (27.0-33.4); MEAN CORPUSCULAR HGB CONC 31.9 g/dL (32.0-36.0); MEAN CORPUSCULAR VOLUME 77 fl (80-97); MONOCYTES % (AUTO) 9.9 % (3-13); PLATELET COUNT 197 10^3/uL (150-450); RED BLOOD COUNT 4.25 10^6/uL (4.35-5.55); SEGMENTED NEUTROPHILS % (AUTO) 61.5 % (42-78); TOTAL CELLS COUNTED % (AUTO) 100 %
[2019-03-12] MEDS: VANCOMYCIN HCL 1,000 MG in DEXTROSE 5%-WATER 250 ML IV SCH ×3 (05:20→22:03)
[2019-03-12] MEDS ORDERED: PIPERACILLIN/TAZOBACTAM 3.375 GM VIAL IV ONE (05:37)
[2019-03-12 06:03] LABS: APPEARANCE,URINE SLIGHTLY-CLOUDY; BILIRUBIN,URINE NEGATIVE (NEGATIVE); CALCIUM OXALATE CRYSTALS,URINE FEW /HPF; COLOR,URINE YELLOW; GLUCOSE, URINE >=500 mg/dL (NEGATIVE); KETONES,URINE NEGATIVE (NEGATIVE); LEUKOCYTE ESTERASE,URINE NEGATIVE (NEGATIVE); NITRITE,URINE NEGATIVE (NEGATIVE); PROTEIN,URINE NEGATIVE (NEGATIVE); UROBILINOGEN,URINE NEGATIVE mg/dL (<2.0)
[2019-03-12] MEDS: PIPERACILLIN/TAZOBACTAM 3.375 GM VIAL IV SCH (06:17)
[2019-03-12] MEDS: INSULIN LISPRO 100 UNIT/ML 3 ML VIAL SUBCUT SCH ×5 (10:17→22:03)
[2019-03-12] MEDS: AMIODARONE HCL 200 MG TABLET PO SCH (10:34)
[2019-03-12] MEDS: RIVAROXABAN 15 MG TABLET PO SCH (10:34)
[2019-03-12] MEDS: ATORVASTATIN CALCIUM 20 MG TABLET PO SCH (10:35)
[2019-03-12] MEDS: OXYBUTYNIN CHLORIDE 5 MG TABLET PO SCH (10:37)
[2019-03-12] MEDS ORDERED: VANCOMYCIN HCL INJ 1000 MG VIAL IV ONE (18:16)
--- NOTE | 2019-03-12 18:17 | PDOC PROGRESS REPORT ---
Subjective Progress Note for:: 03/12/19 Subjective:: Patient is a 63-year-old white male admitted for stage IV sacral ulcer and cellulitis. 03/12: Magnesium low, repleting. A1c 7.1. Unable to do MRI pelvis due to incom patibility with his pacemaker. Will get CT with contrast instead. No new complaints per patient, seems to pain in his right arm is resolved for now. Reason For Visit: STAGE FOUR SACRAL DECUBITUS ULCER POA,RLE CELLULIT Physical Exam Vital Signs: Temp Pulse Resp BP Pulse Ox 98.1 F 59 L 16 135/78 H 99 03/12/19 10:53 03/12/19 10:53 03/12/19 10:53 03/12/19 10:53 03/12/19 10:53 Intake & Output 03/11/19 03/12/19 03/13/19 06:59 06:59 06:59 Intake Total 600 646 Output Total 1000 650 Balance -400 -4 Weight 77.4 kg 77.4 kg General appearance: PRESENT: no acute distress, well-developed, well-nourished Head exam: PRESENT: atraumatic, normocephalic Eye exam: PRESENT: conjunctiva pink Respiratory exam: PRESENT: clear to auscultation asad. ABSENT: rales, rhonchi, w heezes Cardiovascular exam: PRESENT: RRR. ABSENT: diastolic murmur, rubs, systolic murmur GI/Abdominal exam: PRESENT: normal bowel sounds, soft. ABSENT: distended, guarding, mass, organolmegaly, rebound, tenderness Neurological exam: PRESENT: alert, awake, motor sensory deficit - Chronic and unchanged from baseline deficits Psychiatric exam: PRESENT: appropriate affect, normal mood Skin exam: PRESENT: other - Sacral decubitus ulcer still with some drainage, wounds on bilateral shins starting to heal with very minimal blood spots on imaging Results Laboratory Results: 03/12/19 04:11 03/11/19 20:55 03/11/19 03/12/19 03/12/19 20:55 04:11 04:11 WBC 5.0 RBC 4.25 L Hgb 10.4 L Hct 32.7 L MCV 77 L MCH 24.6 L MCHC 31.9 L RDW 16.0 H Plt Count 197 Seg Neutrophils % 61.5 Sodium 135.9 L Potassium 3.9 Chloride 98 Carbon Dioxide 28 Anion Gap 10 BUN 15 Creatinine 0.71 Est GFR ( Amer) > 60 Glucose 130 H Calcium 8.2 L Magnesium 1.3 L Urine Color Urine Appearance Urine pH Ur Specific [place] Urine Protein Urine Glucose (UA) Urine Ketones Urine Blood Urine Nitrite Ur Leukocyte Esterase Urine WBC (Auto) Urine RBC (Auto) 03/12/19 05:45 WBC RBC Hgb Hct MCV MCH MCHC RDW Plt Count Seg Neutrophils % Sodium Potassium Chloride Carbon Dioxide Anion Gap BUN Creatinine Est GFR ( Amer) Glucose Calcium Magnesium Urine Color YELLOW Urine Appearance SLIGHTLY-CLOUDY Urine pH 5.0 Ur Specific [place] 1.020 Urine Protein NEGATIVE Urine Glucose (UA) >=500 H Urine Ketones NEGATIVE Urine Blood SMALL H Urine Nitrite NEGATIVE Ur Leukocyte Esterase NEGATIVE Urine WBC (Auto) 3 Urine RBC (Auto) 3 03/11/19 15:00 Creatine Kinase 45 L Impressions: Pelvis X-Ray 03/11/19 15:44 IMPRESSION: No radiographic evidence of osteomyelitis. No acute fracture or dislocation. If there is clinical concern for osteomyelitis further evaluation with MRI is recommended. Assessment and Plan - Diagnosis (1) Sacral decubitus ulcer, stage IV Is this a current diagnosis for this admission?: Yes Plan: Has been present for past few months per patient and became acutely worse over the past 1 to 2 weeks Wound care nurse sent patient to ED for this admission due to acute worsening of purulence and pain Empiric vancomycin/Zosyn Pelvic x-ray did not show osteomyelitis Pelvic MRI could not be done due to pacemaker, CT with contrast of pelvis instead General surgery consult in a.m., very likely would benefit from a plastic surgery consult in the near future as well Personally spoke with general surgeon today who recommended patient have close follow-up with wound clinic where they have a plastic surgeon available (2) Pacemaker Is this a current diagnosis for this admission?: Yes (3) Chronic atrial fibrillation Is this a current diagnosis for this admission?: Yes (4) Debility Is this a current diagnosis for this admission?: Yes (5) Decubitus ulcer Qualifiers: Pressure injury location: buttock Pressure injury stage: stage 2 Laterality: left Qualified Code(s): L89.322 - Pressure ulcer of left buttock, stage 2 Is this a current diagnosis for this admission?: Yes - Time Time Spent with patient: 25-34 minutes Medications reviewed and adjusted accordingly: Yes - Inpatient Certification Medical Necessity: Need for IV Antibiotics, Need for Surgery, Risk of Complication if Not Cared For in Hospital
[2019-03-12] MEDS ORDERED: VANCOMYCIN HCL INJ 1000 MG VIAL IV SCH (18:30)
[2019-03-12] MEDS: PIPERACILLIN SODIUM/TAZOBACTAM 3.375 GM in NORMAL SALINE 100 ML IV SCH ×2 (18:56→18:57)
[2019-03-12] MEDS ORDERED: MAGNESIUM SULFATE/D5W 1 GM/100 ML RTUPB IV ONE (19:00)
--- NOTE | 2019-03-12 21:34 | Operative Report ---
Operative Report DATE OF SURGERY: 03/12/19 PREOPERATIVE DIAGNOSIS: Decubitus ulcer of the right trochanteric area stage IV with area of necrosis in the middle of 5 x 5 x 2 cm deep ulcer POSTOPERATIVE DIAGNOSIS: Same OPERATION: Sharp debridement of necrotic tissue on the right trochanteric area. Necrotic tissue debrided down to the muscle. SURGEON: CORBY ROBLES TISSUE REMOVED OR ALTERED: Necrotic tissue from the right greater trochanteric decubitus ulcer down to the muscle about 5 x 5 cm in diameter by about 2 cm deep COMPLICATIONS: None ESTIMATED BLOOD LOSS: 1 cc QUANTITATIVE BLOOD LOSS: 1 INTRAOPERATIVE FINDINGS: There is a 5 x 5 cm by about 2 cm deep right greater trochanteric decubitus ulcer with necrotic tissue in the middle 4 x 4 centimeter area down to the muscle. PROCEDURE: Patient was placed in left lateral decubitus position with the right side up. The decubitus area on the right trochanteric area has a necrotic tissue down to the muscle which was sharply debrided with a an 11 blade. It was divided all the way down into the muscle and fascia but not to the bone. Practically all of the necrotic tissue was excised sharply. Next wet-to-dry dressing was then placed over the operative site. The dressing with saline soaked 4 x 4 will be changed every 12 hours.
[2019-03-12] MEDS: METOPROLOL SUCCINATE 25 MG TAB.SR.24H PO SCH (22:03)
[2019-03-12] MEDS: INSULIN GLARGINE,HUM.REC.ANLOG 1,000 UNIT/10 ML VIAL SUBCUT SCH (22:04)
[2019-03-13] MEDS: PIPERACILLIN SODIUM/TAZOBACTAM 3.375 GM in NORMAL SALINE 100 ML IV SCH ×5 (00:16→23:58)
[2019-03-13] MEDS: VANCOMYCIN HCL 1,000 MG in DEXTROSE 5%-WATER 250 ML IV SCH ×3 (05:15→22:18)
[2019-03-13 05:28] LABS: ABSOLUTE BASOPHILS # (AUTO) 0.1 10^3/uL (0.0-0.2); ABSOLUTE EOSINOPHILS # (AUTO) 0.2 10^3/uL (0.0-0.6); ABSOLUTE LYMPHOCYTES (AUTO) 1.1 10^3/uL (0.5-4.7); ABSOLUTE MONOCYTES (AUTO) 0.5 10^3/uL (0.1-1.4); ABSOLUTE NEUT (AUTO) 3.6 10^3/uL (1.7-8.2); EOSINOPHILS % (AUTO) 2.8 % (0-6); HEMOGLOBIN 10.6 g/dL (13.5-17.0); LYMPHOCYTES % (AUTO) 20.4 % (13-45); MEAN CORPUSCULAR HEMOGLOBIN 25.3 pg (27.0-33.4); MEAN CORPUSCULAR HGB CONC 33.2 g/dL (32.0-36.0); MEAN CORPUSCULAR VOLUME 76 fl (80-97); MONOCYTES % (AUTO) 9.3 % (3-13); PLATELET COUNT 181 10^3/uL (150-450); RED BLOOD COUNT 4.21 10^6/uL (4.35-5.55); RED CELL DISTRIBUTION WIDTH 16.1 % (11.5-14.0); SEGMENTED NEUTROPHILS % (AUTO) 66.5 % (42-78); TOTAL CELLS COUNTED % (AUTO) 100 %; WHITE BLOOD COUNT 5.5 10^3/uL (4.0-10.5)
--- NOTE | 2019-03-13 08:35 | RADIOLOGY REPORT (SQ) ---
EXAM DESCRIPTION: CT PELVIS WITH COMPLETED DATE/TIME: 03/12/2019 11:02 pm REASON FOR STUDY: sacral osteomyelitis COMPARISON: None. TECHNIQUE: CT scan of the pelvis performed with intravenous, without oral contrast after administrat ion of 100 cc omni 350. Images reviewed with soft tissue and bone windows. Reconstructed coronal and sagittal MPR images rev iewed. All images stored on PACS. All CT scanners at this facility use dose modulation, iterative reconstruction, and/or weight based d osing when appropriate to reduce radiation dose to as low as reasonably achievable (ALARA). [facility]: Dose Right [facility]: CareDose [facility]: Dose Right [facility]: Teradose 4D [facility]: Smart ecomom RADIATION DOSE: CT Rad equipment meets quality standard of care and radiation dose reduction techniq ues were employed. CTDIvol: 9.4 mGy. DLP: 361 mGy-cm. mGy. LIMITATIONS: None. FINDINGS: PELVIC BONES: Patchy osteopenia without aggressive bone destruction. No fracture. VISUALIZED SPINE: Lower lumbar spondylosis. No sacral or coccyx acute fracture or bone loss. HIP(S): Bilateral hip DJD without fracture. Joint space narrowing. PELVIC SOFT TISSUES: Horseshoe kidney. Minimal presacral edema. No drainable lower abdominal or pel bryson collections. EXTRAPELVIC SOFT TISSUES: Right inferior gluteal tooth scratch at right inferior gluteal decubitus ul cer tracks down to ischium. No aggressive ischial bone loss or significant periostitis. No drainabl e fluid collections. OTHER: No other significant finding. IMPRESSION: 1. Right decubitus ulcer. 2. No CT evidence of aggressive bone resorption to suggest osteomyelitis. TECHNICAL DOCUMENTATION: JOB ID: [id number] Quality ID # [id number]: Final reports with documentation of one or more dose reduction techniques (e.g., Au tomated exposure control, adjustment of the mA and/or kV according to patient size, use of iterative reconstruction technique) 2010 [employer]- All Rights Reserved Reading location - IP/workstation name: [email or web address]
[2019-03-13] MEDS: INSULIN LISPRO 100 UNIT/ML 3 ML VIAL SUBCUT SCH ×6 (09:42→22:18)
[2019-03-13] MEDS: AMIODARONE HCL 200 MG TABLET PO SCH (09:43)
[2019-03-13] MEDS: RIVAROXABAN 15 MG TABLET PO SCH (09:45)
[2019-03-13] MEDS: MULTIVITAMIN TABLET PO SCH (09:45)
[2019-03-13] MEDS: ATORVASTATIN CALCIUM 20 MG TABLET PO SCH (09:45)
[2019-03-13] MEDS: METOPROLOL SUCCINATE 25 MG TAB.SR.24H PO SCH ×2 (09:45→22:18)
[2019-03-13] MEDS: OXYBUTYNIN CHLORIDE 5 MG TABLET PO SCH (09:45)
[2019-03-13] MEDS ORDERED: VIT K PO SCH (10:00)
[2019-03-13] MEDS ORDERED: [UNRECOGNIZED DRUG - OTHER] PO SCH (10:00)
[2019-03-13] MEDS ORDERED: (PENDING PHARMACY ID) (Fesoterodine Fumarate [Toviaz] 8 MG) PO SCH (10:00)
[2019-03-13] MEDS ORDERED: MULTIVIT MIN PO SCH (10:00)
[2019-03-13] MEDS ORDERED: LYCOP PO SCH (10:00)
[2019-03-13] MEDS ORDERED: FOLIC PO SCH (10:00)
[2019-03-13 10:28] LABS: VANCOMYCIN,TROUGH 17.6 ug/mL (5.0-20.0)
[2019-03-13 14:16] LABS: VANCOMYCIN,TROUGH 12.6 ug/mL (5.0-20.0)
--- NOTE | 2019-03-13 14:42 | PDOC PROGRESS REPORT ---
Subjective Progress Note for:: 03/13/19 Subjective:: Patient is a 63-year-old white male admitted for stage IV sacral ulcer and cellulitis. 03/12: Magnesium low, repleting. A1c 7.1. Unable to do MRI pelvis due to incom patibility with his pacemaker. Will get CT with contrast instead. No new complaints per patient, seems to pain in his right arm is resolved for now. 03/13: CT pelvis with contrast showed cellulitis but did not show any evidence of bone resorption or osteomyelitis per report. Patient states he has some intermittent increased pain in his wound especially when dressings are changed but has no new complaints. Blood sugars elevated and insulin has been adjusted accordingly. Reason For Visit: STAGE FOUR SACRAL DECUBITUS ULCER POA,RLE CELLULIT Physical Exam Vital Signs: Temp Pulse Resp BP Pulse Ox 98.1 F 60 18 116/61 98 03/13/19 12:00 03/13/19 12:00 03/13/19 12:00 03/13/19 12:00 03/13/19 12:00 Intake & Output 03/12/19 03/13/19 03/14/19 06:59 06:59 06:59 Intake Total 850 2299 Output Total 1000 2400 Balance -150 -101 Weight 77.4 kg 73.8 kg General appearance: PRESENT: no acute distress, well-developed, well-nourished Head exam: PRESENT: atraumatic, normocephalic Eye exam: PRESENT: conjunctiva pink Respiratory exam: PRESENT: clear to auscultation asad. ABSENT: rales, rhonchi, wheezes Cardiovascular exam: PRESENT: RRR. ABSENT: diastolic murmur, rubs, systolic murmur GI/Abdominal exam: PRESENT: normal bowel sounds, soft. ABSENT: distended, guarding, mass, organolmegaly, rebound, tenderness Neurological exam: PRESENT: alert, awake Psychiatric exam: PRESENT: appropriate affect, normal mood Skin exam: PRESENT: dry, warm - Sacral wound as before, and drainage on gauze, debrided by surgeon Results Laboratory Results: 03/13/19 05:06 03/13/19 13:15 03/13/19 03/13/19 05:06 13:15 WBC 5.5 RBC 4.21 L Hgb 10.6 L Hct 32.0 L MCV 76 L MCH 25.3 L MCHC 33.2 RDW 16.1 H Plt Count 181 Seg Neutrophils % 66.5 Creatinine 0.79 Est GFR ( Amer) > 60 03/11/19 15:00 Creatine Kinase 45 L Impressions: Pelvis X-Ray 03/11/19 15:44 IMPRESSION: No radiographic evidence of osteomyelitis. No acute fracture or dislocation. If there is clinical concern for osteomyelitis further evaluation with MRI is recommended. Pelvis CT 03/12/19 00:00 IMPRESSION: 1. Right decubitus ulcer. 2. No CT evidence of aggressive bone resorption to suggest osteomyelitis. Assessment and Plan - Diagnosis (1) Sacral decubitus ulcer, stage IV Is this a current diagnosis for this admission?: Yes Plan: Has been present for past few months per patient and became acutely worse over the past 1 to 2 weeks Wound care nurse sent patient to ED for this admission due to acute worsening of purulence and pain Empiric vancomycin/Zosyn; continued on broad antibiotics Pelvic x-ray did not show osteomyelitis Pelvic MRI could not be done due to pacemaker, CT with contrast of pelvis did not show osteomyelitis General surgery consult in a.m., very likely would benefit from a plastic surgery consult in the near future as well Personally spoke with general surgeon today who recommended patient have close follow-up with wound clinic where they have a plastic surgeon available (2) Pacemaker Is this a current diagnosis for this admission?: Yes (3) Chronic atrial fibrillation Is this a current diagnosis for this admission?: Yes (4) Debility Is this a current diagnosis for this admission?: Yes (5) Decubitus ulcer Qualifiers: Pressure injury location: buttock Pressure injury stage: stage 2 Laterality: left Qualified Code(s): L89.322 - Pressure ulcer of left buttock, stage 2 Is this a current diagnosis for this admission?: Yes - Time Time Spent with patient: 15-24 minutes - Inpatient Certification Medical Necessity: Need for IV Antibiotics, Need for Surgery
[2019-03-13] MEDS: ACETAMINOPHEN 325 MG TABLET PO PRN ×2 (15:50→22:29)
[2019-03-13] MEDS: INSULIN GLARGINE,HUM.REC.ANLOG 1,000 UNIT/10 ML VIAL SUBCUT SCH (22:18)
[2019-03-14] MEDS: ACETAMINOPHEN 325 MG TABLET PO PRN (05:31)
[2019-03-14] MEDS: PIPERACILLIN SODIUM/TAZOBACTAM 3.375 GM in NORMAL SALINE 100 ML IV SCH ×3 (05:32→17:36)
[2019-03-14] MEDS: VANCOMYCIN HCL 1,000 MG in DEXTROSE 5%-WATER 250 ML IV SCH ×3 (05:32→21:45)
[2019-03-14 05:50] LABS: ABSOLUTE BASOPHILS # (AUTO) 0.1 10^3/uL (0.0-0.2); ABSOLUTE EOSINOPHILS # (AUTO) 0.2 10^3/uL (0.0-0.6); ABSOLUTE LYMPHOCYTES (AUTO) 1.4 10^3/uL (0.5-4.7); ABSOLUTE MONOCYTES (AUTO) 0.5 10^3/uL (0.1-1.4); ABSOLUTE NEUT (AUTO) 3.3 10^3/uL (1.7-8.2); BASOPHILS % (AUTO) 1.3 % (0-2); EOSINOPHILS % (AUTO) 3.3 % (0-6); HEMATOCRIT 31.8 % (37.9-51.0); HEMOGLOBIN 10.4 g/dL (13.5-17.0); LYMPHOCYTES % (AUTO) 25.9 % (13-45); MEAN CORPUSCULAR HEMOGLOBIN 25.2 pg (27.0-33.4); MEAN CORPUSCULAR HGB CONC 32.8 g/dL (32.0-36.0); MEAN CORPUSCULAR VOLUME 77 fl (80-97); MONOCYTES % (AUTO) 9.4 % (3-13); PLATELET COUNT 183 10^3/uL (150-450); RED BLOOD COUNT 4.14 10^6/uL (4.35-5.55); RED CELL DISTRIBUTION WIDTH 16.1 % (11.5-14.0); SEGMENTED NEUTROPHILS % (AUTO) 60.1 % (42-78); TOTAL CELLS COUNTED % (AUTO) 100 %; WHITE BLOOD COUNT 5.5 10^3/uL (4.0-10.5)
[2019-03-14] MEDS: INSULIN LISPRO 100 UNIT/ML 3 ML VIAL SUBCUT SCH ×7 (08:07→21:46)
[2019-03-14] MEDS: AMIODARONE HCL 200 MG TABLET PO SCH (09:48)
[2019-03-14] MEDS: MAGNESIUM OXIDE 400 MG TABLET PO SCH (09:48)
[2019-03-14] MEDS: MULTIVITAMIN TABLET PO SCH (09:48)
[2019-03-14] MEDS: RIVAROXABAN 15 MG TABLET PO SCH (09:48)
[2019-03-14] MEDS: ATORVASTATIN CALCIUM 20 MG TABLET PO SCH (09:48)
[2019-03-14] MEDS: OXYBUTYNIN CHLORIDE 5 MG TABLET PO SCH (09:48)
[2019-03-14] MEDS: METOPROLOL SUCCINATE 25 MG TAB.SR.24H PO SCH ×2 (09:48→21:45)
--- NOTE | 2019-03-14 15:17 | PDOC PROGRESS REPORT ---
Subjective Subjective:: Patient is a 63-year-old white male admitted for stage IV sacral ulcer and cellulitis. 03/12: Magnesium low, repleting. A1c 7.1. Unable to do MRI pelvis due to incompatibility with his pacemaker. Will get CT with contrast instead. No new complaints per patient, seems to pain in his right arm is resolved for now. 03/13: CT pelvis with contrast showed cellulitis but did not show any evidence of bone resorption or osteomyelitis per report. Patient states he has some intermittent increased pain in his wound especially when dressings are changed but has no new complaints. Blood sugars elevated and insulin has been adjusted accordingly. 03/14: Patient pain well controlled on current medications. Blood pressure very mildly elevated intermittently. Magnesium a bit low. Patient has no new complaints but states he very much wants to go to a long-term nursing facility when we have found one for him. Reason For Visit: STAGE FOUR SACRAL DECUBITUS ULCER POA,RLE CELLULIT Physical Exam Vital Signs: Temp Pulse Resp BP Pulse Ox 98.0 F 59 L 17 117/60 98 03/14/19 11:19 03/14/19 11:19 03/14/19 11:19 03/14/19 11:19 03/14/19 11:19 Intake & Output 03/13/19 03/14/19 03/15/19 06:59 06:59 06:59 Intake Total 2299 2000 610 Output Total 2400 2100 750 Balance -101 -100 -140 Weight 73.8 kg General appearance: PRESENT: no acute distress, well-developed, well-nourished Respiratory exam: PRESENT: clear to auscultation asad. ABSENT: rales, rhonchi, wheezes Cardiovascular exam: PRESENT: RRR. ABSENT: diastolic murmur, rubs, systolic murmur GI/Abdominal exam: PRESENT: normal bowel sounds, soft. ABSENT: distended, guarding, mass, organolmegaly, rebound, tenderness Musculoskeletal exam: PRESENT: other - Chronic muscle wasting and chronic focal deficits at baseline Neurological exam: PRESENT: alert, awake Psychiatric exam: PRESENT: appropriate affect, normal mood Skin exam: PRESENT: dry, warm, other - Sacral wound healing slowly Results Laboratory Results: 03/14/19 05:18 03/13/19 13:15 03/14/19 03/14/19 05:18 05:18 WBC 5.5 RBC 4.14 L Hgb 10.4 L Hct 31.8 L MCV 77 L MCH 25.2 L MCHC 32.8 RDW 16.1 H Plt Count 183 Seg Neutrophils % 60.1 Magnesium 1.6 03/11/19 15:00 Creatine Kinase 45 L Impressions: Pelvis X-Ray 03/11/19 15:44 IMPRESSION: No radiographic evidence of osteomyelitis. No acute fracture or dislocation. If there is clinical concern for osteomyelitis further evaluation with MRI is recommended. Pelvis CT 03/12/19 00:00 IMPRESSION: 1. Right decubitus ulcer. 2. No CT evidence of aggressive bone resorption to suggest osteomyelitis. Assessment and Plan - Diagnosis (1) Sacral decubitus ulcer, stage IV Is this a current diagnosis for this admission?: Yes Plan: Has been present for past few months per patient and became acutely worse over the past 1 to 2 weeks Wound care nurse sent patient to ED for this admission due to acute worsening of purulence and pain Empiric vancomycin/Zosyn; continued on broad antibiotics Pelvic x-ray did not show osteomyelitis Pelvic MRI could not be done due to pacemaker, CT with contrast of pelvis did not show osteomyelitis General surgery consulted, very likely patient would benefit from a plastic surgery consult in the near future as well Personally spoke with general surgeon -Optimize nutrition (2) Pacemaker Is this a current diagnosis for this admission?: Yes (3) Chronic atrial fibrillation Is this a current diagnosis for this admission?: Yes (4) Debility Is this a current diagnosis for this admission?: Yes (5) Decubitus ulcer Qualifiers: Pressure injury location: buttock Pressure injury stage: stage 2 Laterality: left Qualified Code(s): L89.322 - Pressure ulcer of left buttock, stage 2 Is this a current diagnosis for this admission?: Yes (6) Hypomagnesemia Is this a current diagnosis for this admission?: Yes Plan: Replete - Time Time Spent with patient: 15-24 minutes Within: within 72 hours - Inpatient Certification Medical Necessity: Need for IV Antibiotics
[2019-03-14] MEDS: INSULIN GLARGINE,HUM.REC.ANLOG 1,000 UNIT/10 ML VIAL SUBCUT SCH (21:46)
[2019-03-15] MEDS: PIPERACILLIN SODIUM/TAZOBACTAM 3.375 GM in NORMAL SALINE 100 ML IV SCH ×4 (00:05→17:37)
[2019-03-15] MEDS: VANCOMYCIN HCL 1,000 MG in DEXTROSE 5%-WATER 250 ML IV SCH ×3 (05:30→21:59)
[2019-03-15] MEDS: INSULIN LISPRO 100 UNIT/ML 3 ML VIAL SUBCUT SCH ×7 (07:44→21:56)
[2019-03-15] MEDS: MULTIVITAMIN TABLET PO SCH (09:43)
[2019-03-15] MEDS: MAGNESIUM OXIDE 400 MG TABLET PO SCH (09:43)
[2019-03-15] MEDS: METOPROLOL SUCCINATE 25 MG TAB.SR.24H PO SCH ×2 (09:43→21:59)
[2019-03-15] MEDS: ATORVASTATIN CALCIUM 20 MG TABLET PO SCH (09:43)
[2019-03-15] MEDS: AMIODARONE HCL 200 MG TABLET PO SCH (09:44)
[2019-03-15] MEDS: OXYBUTYNIN CHLORIDE 5 MG TABLET PO SCH (09:44)
[2019-03-15] MEDS: RIVAROXABAN 15 MG TABLET PO SCH (09:44)
--- NOTE | 2019-03-15 15:22 | PDOC PROGRESS REPORT ---
Subjective Progress Note for:: 03/15/19 Subjective:: Patient is doing well has no complaints at the moment besides some back pain at the site of his ulcer. Patient would like to go to [facility] for long- term care. He states that he does not ambulate and gets around via wheelchair given his muscular dystrophy. Reason For Visit: STAGE FOUR SACRAL DECUBITUS ULCER POA,RLE CELLULIT Physical Exam Vital Signs: Temp Pulse Resp BP Pulse Ox 97.9 F 59 L 15 128/74 H 100 03/15/19 12:53 03/15/19 12:53 03/15/19 12:53 03/15/19 12:53 03/15/19 12:53 Intake & Output 03/14/19 03/15/19 03/16/19 06:59 06:59 06:59 Intake Total 1999 2210 350 Output Total 2099 2100 300 Balance -100 110 50 General appearance: PRESENT: no acute distress, cooperative Neck exam: ABSENT: JVD Respiratory exam: PRESENT: symmetrical, unlabored. ABSENT: tachypnea, wheezes Cardiovascular exam: PRESENT: +S1, +S2 Neurological exam: PRESENT: alert, awake, oriented to person, oriented to place Results Laboratory Results: 03/14/19 05:18 03/13/19 13:15 03/11/19 15:44 Coccyx - Decubitis Ulcer Gram Stain - Final 03/11/19 15:44 Coccyx - Decubitis Ulcer Wound Culture - Final Providencia Stuartii Escherichia Coli Enterococcus Faecium (Group D) 03/11/19 15:00 Creatine Kinase 45 L Impressions: Pelvis X-Ray 03/11/19 15:44 IMPRESSION: No radiographic evidence of osteomyelitis. No acute fracture or dislocation. If there is clinical concern for osteomyelitis further evaluation with MRI is recommended. Pelvis CT 03/12/19 00:00 IMPRESSION: 1. Right decubitus ulcer. 2. No CT evidence of aggressive bone resorption to suggest osteomyelitis. Assessment and Plan - Diagnosis (1) Sacral decubitus ulcer, stage IV Is this a current diagnosis for this admission?: Yes Plan: Has been present for past few months per patient and became acutely worse over the past 1 to 2 weeks and was referred in by his wound care nurse for worsening purulence Pelvic MRI could not be done due to pacemaker, CT with contrast of pelvis did not show osteomyelitis Surgery consulted and performed debridement with wound growing procidentia, enterococcus and Ecoli bacteria -Optimize nutrition -Continue Vanco Zosyn day 4 (2) Chronic atrial fibrillation Is this a current diagnosis for this admission?: Yes Plan: Continue his home regimen of amiodarone, metoprolol and Xarelto Rate controlled here Pacemaker implanted a few weeks prior to admission (3) Debility Is this a current diagnosis for this admission?: Yes Plan: Prior admission for inability to care for self due to G[place]pcuc-[place]uec-Ratgk muscular dystrophy and lives alone. Social work here will need to follow-up with his criminal justice social worker to make sure he has safe transition from hospital when the time comes. Patient would like to go to [facility] upon discharge however this may be difficult as patient may have used up all of his medicare allowed days. (4) DM type 2 (diabetes mellitus, type 2) Is this a current diagnosis for this admission?: Yes Plan: Currently on Lantus and pre-meal insulin was on metformin at home Continue to monitor BG levels and adjust regimen as needed. - Time Time Spent with patient: 15-24 minutes
[2019-03-15] MEDS: INSULIN GLARGINE,HUM.REC.ANLOG 1,000 UNIT/10 ML VIAL SUBCUT SCH (21:58)
[2019-03-16] MEDS: PIPERACILLIN SODIUM/TAZOBACTAM 3.375 GM in NORMAL SALINE 100 ML IV SCH ×2 (01:14→05:36)
[2019-03-16] MEDS: ACETAMINOPHEN 325 MG TABLET PO PRN ×2 (03:22→09:41)
[2019-03-16] MEDS: VANCOMYCIN HCL 1,000 MG in DEXTROSE 5%-WATER 250 ML IV SCH (07:21)
[2019-03-16] MEDS: INSULIN LISPRO 100 UNIT/ML 3 ML VIAL SUBCUT SCH ×7 (09:35→21:10)
[2019-03-16] MEDS: OXYBUTYNIN CHLORIDE 5 MG TABLET PO SCH (09:38)
[2019-03-16] MEDS: RIVAROXABAN 15 MG TABLET PO SCH (09:38)
[2019-03-16] MEDS: AMIODARONE HCL 200 MG TABLET PO SCH (09:38)
[2019-03-16] MEDS: MULTIVITAMIN TABLET PO SCH (09:38)
[2019-03-16] MEDS: SULFAMETHOXAZOLE/TRIMETHOPRIM 800-160 MG TABLET PO SCH ×2 (09:38→17:00)
[2019-03-16] MEDS: METOPROLOL SUCCINATE 25 MG TAB.SR.24H PO SCH ×2 (09:38→21:09)
[2019-03-16] MEDS: ATORVASTATIN CALCIUM 20 MG TABLET PO SCH (09:38)
[2019-03-16] MEDS: MAGNESIUM OXIDE 400 MG TABLET PO SCH (09:38)
--- NOTE | 2019-03-16 11:17 | PDOC PROGRESS REPORT ---
Subjective Progress Note for:: 03/16/19 Subjective:: Patient is having some back pain today. States he has been eating well and eating all his meals. Denies any fever or chills. Still wanting to go to rehab upon discharge. Reason For Visit: STAGE FOUR SACRAL DECUBITUS ULCER POA,RLE CELLULIT Physical Exam Vital Signs: Temp Pulse Resp BP Pulse Ox 98.3 F 59 L 18 137/76 H 100 03/16/19 08:00 03/16/19 08:00 03/16/19 08:00 03/16/19 08:00 03/16/19 08:00 Intake & Output 03/15/19 03/16/19 03/17/19 06:59 06:59 06:59 Intake Total 2210 1630 Output Total 2100 2700 Balance 110 -1070 Weight 76.5 kg General appearance: PRESENT: no acute distress, cooperative Neck exam: ABSENT: JVD Respiratory exam: PRESENT: clear to auscultation asad, unlabored. ABSENT: tachypnea, wheezes Cardiovascular exam: PRESENT: RRR, +S1, +S2. ABSENT: tachycardia GI/Abdominal exam: PRESENT: normal bowel sounds, soft. ABSENT: rebound, rigid, tenderness Musculoskeletal exam: ABSENT: ambulatory Neurological exam: PRESENT: alert, awake, oriented to person, oriented to place, oriented to time Results Laboratory Results: 03/14/19 05:18 03/13/19 13:15 03/11/19 15:00 Creatine Kinase 45 L Impressions: Pelvis X-Ray 03/11/19 15:44 IMPRESSION: No radiographic evidence of osteomyelitis. No acute fracture or dislocation. If there is clinical concern for osteomyelitis further evaluation with MRI is recommended. Pelvis CT 03/12/19 00:00 IMPRESSION: 1. Right decubitus ulcer. 2. No CT evidence of aggressive bone resorption to suggest osteomyelitis. Assessment and Plan - Diagnosis (1) Sacral decubitus ulcer, stage IV Is this a current diagnosis for this admission?: Yes Plan: Has been present for past few months per patient and became acutely worse over the past 1 to 2 weeks and was referred in by his wound care nurse for worsening purulence Pelvic MRI could not be done due to pacemaker, CT with contrast of pelvis did not show osteomyelitis Surgery consulted and performed debridement with wound growing procidentia, enterococcus and Ecoli bacteria -Optimize nutrition -Has received 4 days of Vanco Zosyn. De-escalated to Augmentin and Bactrim p.o. (2) Chronic atrial fibrillation Is this a current diagnosis for this admission?: Yes Plan: Continue his home regimen of amiodarone, metoprolol and Xarelto Rate controlled here Pacemaker implanted a few weeks prior to admission (3) Debility Is this a current diagnosis for this admission?: Yes Plan: Prior admission for inability to care for self due to [place]ubzz[place]-Almeq-Aalng muscular dystrophy and lives alone. Social work here will need to follow-up with his social service liaison to make sure he has safe transition from hospital when the time comes. Patient would like to go to [facility] upon discharge however this may be difficult as patient may have used up all of his medicare allowed days. (4) DM type 2 (diabetes mellitus, type 2) Is this a current diagnosis for this admission?: Yes Plan: I confirmed the patient that he takes Lantus 40 to 60 units at bedtime and NovoLog 30 units before meals when at home. I will adjust his insulin regimen here cautiously since he is not on the same diet in the hospital as at home and uptitrate his Lantus from 25 to 35 units and Humalog from 18 to 25 units AC to achieve more optimal control Continue to monitor BG levels and adjust regimen as needed. - Time Time Spent with patient: Less than 15 minutes
[2019-03-16] MEDS: AMOXICILLIN TR/POT CLAVULANATE 500-125 MG TAB PO SCH ×2 (13:21→21:09)
[2019-03-16] MEDS ORDERED: INSULIN GLARGINE,HUM.REC.ANLOG 1,000 UNIT/10 ML VIAL SUBCUT SCH (22:00)
[2019-03-17] MEDS: ACETAMINOPHEN 325 MG TABLET PO PRN (05:32)
[2019-03-17] MEDS: AMOXICILLIN TR/POT CLAVULANATE 500-125 MG TAB PO SCH ×3 (05:33→21:51)
[2019-03-17] MEDS: INSULIN LISPRO 100 UNIT/ML 3 ML VIAL SUBCUT SCH ×7 (07:28→21:51)
[2019-03-17] MEDS: MULTIVITAMIN TABLET PO SCH (09:48)
[2019-03-17] MEDS: SULFAMETHOXAZOLE/TRIMETHOPRIM 800-160 MG TABLET PO SCH ×2 (09:48→17:53)
[2019-03-17] MEDS: METOPROLOL SUCCINATE 25 MG TAB.SR.24H PO SCH ×2 (09:48→21:50)
[2019-03-17] MEDS: ATORVASTATIN CALCIUM 20 MG TABLET PO SCH (09:48)
[2019-03-17] MEDS: AMIODARONE HCL 200 MG TABLET PO SCH (09:48)
[2019-03-17] MEDS: MAGNESIUM OXIDE 400 MG TABLET PO SCH (09:48)
[2019-03-17] MEDS: OXYBUTYNIN CHLORIDE 5 MG TABLET PO SCH (09:48)
[2019-03-17] MEDS: RIVAROXABAN 15 MG TABLET PO SCH (09:48)
--- NOTE | 2019-03-17 12:39 | PDOC PROGRESS REPORT ---
Subjective Progress Note for:: 03/17/19 Subjective:: Patient denies any chest pain, shortness of breath, abdominal pain and back pain is minimal. Awaiting placement at SNF. Reason For Visit: STAGE FOUR SACRAL DECUBITUS ULCER POA,RLE CELLULIT Physical Exam Vital Signs: Temp Pulse Resp BP Pulse Ox 98.0 F 59 L 16 138/73 H 98 03/17/19 11:56 03/17/19 11:56 03/17/19 11:56 03/17/19 11:56 03/17/19 11:56 Intake & Output 03/16/19 03/17/19 03/18/19 06:59 06:59 06:59 Intake Total 1630 2174 Output Total 2700 800 Balance -1070 1374 Weight 76.5 kg 78.1 kg General appearance: PRESENT: no acute distress, cooperative Neck exam: ABSENT: JVD Respiratory exam: PRESENT: clear to auscultation asad Cardiovascular exam: PRESENT: +S1, +S2 GI/Abdominal exam: PRESENT: soft. ABSENT: tenderness Neurological exam: PRESENT: alert, awake, oriented to person, oriented to place, oriented to time Results Laboratory Results: 03/14/19 05:18 03/13/19 13:15 03/11/19 14:55 Blood Blood Culture - Final NO GROWTH IN 5 DAYS 03/11/19 15:00 Blood Blood Culture - Final NO GROWTH IN 5 DAYS 03/11/19 15:00 Creatine Kinase 45 L Impressions: Pelvis X-Ray 03/11/19 15:44 IMPRESSION: No radiographic evidence of osteomyelitis. No acute fracture or dislocation. If there is clinical concern for osteomyelitis further evaluation with MRI is recommended. Pelvis CT 03/12/19 00:00 IMPRESSION: 1. Right decubitus ulcer. 2. No CT evidence of aggressive bone resorption to suggest osteomyelitis. Assessment and Plan - Diagnosis (1) Sacral decubitus ulcer, stage IV Is this a current diagnosis for this admission?: Yes Plan: Has been present for past few months per patient and became acutely worse over the past 1 to 2 weeks and was referred in by his wound care nurse for worsening purulence Pelvic MRI could not be done due to pacemaker, CT with contrast of pelvis did not show osteomyelitis Surgery consulted and performed debridement with wound growing procidentia, enterococcus and Ecoli bacteria -Optimize nutrition -Has received 4 days of Vanco Zosyn. De-escalated to Augmentin and Bactrim p.o. day 2. (2) Chronic atrial fibrillation Is this a current diagnosis for this admission?: Yes Plan: Continue his home regimen of amiodarone, metoprolol and Xarelto Rate controlled here Pacemaker implanted a few weeks prior to admission (3) Debility Is this a current diagnosis for this admission?: Yes Plan: Prior admission for inability to care for self due to Rovzpsv-Uddon-Bhpsx muscular dystrophy and lives alone. Social work currently working on placement at SNF. Patient would like to go to [facility] for long-term care. (4) DM type 2 (diabetes mellitus, type 2) Is this a current diagnosis for this admission?: Yes Plan: I confirmed the patient that he takes Lantus 40 to 60 units at bedtime and NovoLog 30 units before meals when at home. Currently doses adjusted to Lantus 40 units at bedtime and Humalog 30 units before meals. Continue Accu-Cheks and sliding scale. - Time Time Spent with patient: Less than 15 minutes
[2019-03-17] MEDS: INSULIN GLARGINE,HUM.REC.ANLOG 1,000 UNIT/10 ML VIAL SUBCUT SCH (21:51)
[2019-03-18] MEDS: ACETAMINOPHEN 325 MG TABLET PO PRN ×3 (01:56→22:55)
[2019-03-18] MEDS: AMOXICILLIN TR/POT CLAVULANATE 500-125 MG TAB PO SCH ×3 (05:45→21:54)
[2019-03-18] MEDS: INSULIN LISPRO 100 UNIT/ML 3 ML VIAL SUBCUT SCH ×7 (07:33→21:58)
--- NOTE | 2019-03-18 09:52 | PDOC PROGRESS REPORT ---
Subjective Progress Note for:: 03/18/19 Subjective:: Patient denies any complaints today. Still awaiting placement. Reason For Visit: STAGE FOUR SACRAL DECUBITUS ULCER POA,RLE CELLULIT Physical Exam Vital Signs: Temp Pulse Resp BP Pulse Ox 98.0 F 60 18 122/69 99 03/17/19 16:00 03/17/19 16:00 03/17/19 16:00 03/17/19 16:00 03/17/19 16:00 Intake & Output 03/17/19 03/18/19 03/19/19 06:59 06:59 06:59 Intake Total 2174 1642 Output Total 800 2050 Balance 1374 -408 Weight 78.1 kg 80.1 kg General appearance: PRESENT: no acute distress, cooperative Neck exam: ABSENT: JVD Respiratory exam: PRESENT: clear to auscultation asad. ABSENT: wheezes Cardiovascular exam: PRESENT: +S1, +S2. ABSENT: tachycardia GI/Abdominal exam: PRESENT: normal bowel sounds, soft. ABSENT: tenderness Neurological exam: PRESENT: alert, awake Results Laboratory Results: 03/14/19 05:18 03/13/19 13:15 03/11/19 15:00 Creatine Kinase 45 L Impressions: Pelvis X-Ray 03/11/19 15:44 IMPRESSION: No radiographic evidence of osteomyelitis. No acute fracture or dislocation. If there is clinical concern for osteomyelitis further evaluation with MRI is recommended. Pelvis CT 03/12/19 00:00 IMPRESSION: 1. Right decubitus ulcer. 2. No CT evidence of aggressive bone resorption to suggest osteomyelitis. Assessment and Plan - Diagnosis (1) Sacral decubitus ulcer, stage IV Is this a current diagnosis for this admission?: Yes Plan: Had been present for past few months per patient and became acutely worse over the 1 to 2 weeks prior to presentation and was referred in by his wound care nurse for worsening purulence Pelvic MRI could not be done due to pacemaker, CT with contrast of pelvis did not show osteomyelitis Surgery consulted and performed debridement with wound growing procidentia, enterococcus and Ecoli bacteria -Optimize nutrition -Has received 4 days of Vanco Zosyn. De-escalated to Augmentin and Bactrim p.o. day 3/14. (2) Chronic atrial fibrillation Is this a current diagnosis for this admission?: Yes Plan: Continue his home regimen of amiodarone, metoprolol and Xarelto Pacemaker implanted a few weeks prior to admission due to episodes of bra dycardia (3) Debility Is this a current diagnosis for this admission?: Yes Plan: Prior admission for inability to care for self due to Tvqbrkl-Wwcgt-Mpaia muscular dystrophy and lives alone. Social work currently working on placement at SNF. Patient would like to go to [facility] for long-term care. (4) DM type 2 (diabetes mellitus, type 2) Is this a current diagnosis for this admission?: Yes Plan: I confirmed the patient that he takes Lantus 40 to 60 units at bedtime and NovoLog 30 units before meals when at home. Currently doses adjusted to Lantus 40 units at bedtime and Humalog 30 units before meals. Continue Accu-Cheks and sliding scale. - Plan Summary Summary: Still awaiting placement at SNF. - Time Time Spent with patient: Less than 15 minutes
[2019-03-18] MEDS: MULTIVITAMIN TABLET PO SCH (10:20)
[2019-03-18] MEDS: SULFAMETHOXAZOLE/TRIMETHOPRIM 800-160 MG TABLET PO SCH ×2 (10:20→17:14)
[2019-03-18] MEDS: ATORVASTATIN CALCIUM 20 MG TABLET PO SCH (10:20)
[2019-03-18] MEDS: MAGNESIUM OXIDE 400 MG TABLET PO SCH (10:20)
[2019-03-18] MEDS: OXYBUTYNIN CHLORIDE 5 MG TABLET PO SCH ×2 (10:21→10:22)
[2019-03-18] MEDS: METOPROLOL SUCCINATE 25 MG TAB.SR.24H PO SCH ×2 (10:21→21:54)
[2019-03-18] MEDS: RIVAROXABAN 15 MG TABLET PO SCH (10:21)
[2019-03-18] MEDS: AMIODARONE HCL 200 MG TABLET PO SCH (10:21)
[2019-03-18] MEDS: INSULIN GLARGINE,HUM.REC.ANLOG 1,000 UNIT/10 ML VIAL SUBCUT SCH (21:58)
[2019-03-19] MEDS: AMOXICILLIN TR/POT CLAVULANATE 500-125 MG TAB PO SCH ×3 (06:18→22:04)
[2019-03-19] MEDS: INSULIN LISPRO 100 UNIT/ML 3 ML VIAL SUBCUT SCH ×7 (07:35→22:06)
[2019-03-19] MEDS: OXYBUTYNIN CHLORIDE 5 MG TABLET PO SCH (09:39)
[2019-03-19] MEDS: AMIODARONE HCL 200 MG TABLET PO SCH (09:45)
[2019-03-19] MEDS: MULTIVITAMIN TABLET PO SCH (09:46)
[2019-03-19] MEDS: SULFAMETHOXAZOLE/TRIMETHOPRIM 800-160 MG TABLET PO SCH ×2 (09:46→17:27)
[2019-03-19] MEDS: RIVAROXABAN 15 MG TABLET PO SCH (09:46)
[2019-03-19] MEDS: METOPROLOL SUCCINATE 25 MG TAB.SR.24H PO SCH ×2 (09:46→22:03)
[2019-03-19] MEDS: MAGNESIUM OXIDE 400 MG TABLET PO SCH (09:46)
[2019-03-19] MEDS: ATORVASTATIN CALCIUM 20 MG TABLET PO SCH (09:46)
--- NOTE | 2019-03-19 12:33 | Progress Note ---
Provider Note Provider Note: Patient seen and evaluated by me. Patient has no complaints at this time. Vital signs within normal limits. Patient is alert and in no distress. Awake and oriented x3. Continue oral antibiotics for infected sacral decubitus ulcer. Patient remains cleared for discharge medically. Still awaiting SNF placement.
[2019-03-19] MEDS: INSULIN GLARGINE,HUM.REC.ANLOG 1,000 UNIT/10 ML VIAL SUBCUT SCH (22:06)
[2019-03-20] MEDS: AMOXICILLIN TR/POT CLAVULANATE 500-125 MG TAB PO SCH ×3 (05:55→22:02)
[2019-03-20] MEDS: ACETAMINOPHEN 325 MG TABLET PO PRN ×2 (07:41→21:59)
[2019-03-20] MEDS: INSULIN LISPRO 100 UNIT/ML 3 ML VIAL SUBCUT SCH ×7 (07:43→22:01)
--- NOTE | 2019-03-20 10:57 | Progress Note ---
Provider Note Provider Note: Patient seen by me today. Patient states that he is feeling better but just trying to get his Paxil to help. Vital signs are within normal limits. Patient looks in no distress and cooperative. Alert and oriented fully awake. Continue treatment of patient's infected sacral decubitus ulcer. Continue antibiotics. Every 2 hours turns. Encourage adequate high-protein nutrition. Blood sugars under better control. Continue insulin as scheduled with sliding scale coverage as needed. Still awaiting placement at SNF.
[2019-03-20] MEDS: ATORVASTATIN CALCIUM 20 MG TABLET PO SCH (12:51)
[2019-03-20] MEDS: AMIODARONE HCL 200 MG TABLET PO SCH (12:51)
[2019-03-20] MEDS: OXYBUTYNIN CHLORIDE 5 MG TABLET PO SCH (12:51)
[2019-03-20] MEDS: METOPROLOL SUCCINATE 25 MG TAB.SR.24H PO SCH ×2 (12:52→21:59)
[2019-03-20] MEDS: SULFAMETHOXAZOLE/TRIMETHOPRIM 800-160 MG TABLET PO SCH ×2 (12:52→17:11)
[2019-03-20] MEDS: RIVAROXABAN 15 MG TABLET PO SCH (12:52)
[2019-03-20] MEDS: MULTIVITAMIN TABLET PO SCH (12:52)
[2019-03-20] MEDS: MAGNESIUM OXIDE 400 MG TABLET PO SCH (12:52)
[2019-03-20] MEDS: INSULIN GLARGINE,HUM.REC.ANLOG 1,000 UNIT/10 ML VIAL SUBCUT SCH (22:00)
[2019-03-21] MEDS: AMOXICILLIN TR/POT CLAVULANATE 500-125 MG TAB PO SCH ×3 (06:22→21:50)
[2019-03-21] MEDS: ACETAMINOPHEN 325 MG TABLET PO PRN (07:21)
[2019-03-21] MEDS: INSULIN LISPRO 100 UNIT/ML 3 ML VIAL SUBCUT SCH ×7 (07:22→21:47)
[2019-03-21] MEDS: SULFAMETHOXAZOLE/TRIMETHOPRIM 800-160 MG TABLET PO SCH ×2 (10:32→17:12)
[2019-03-21] MEDS: MULTIVITAMIN TABLET PO SCH (10:33)
[2019-03-21] MEDS: MAGNESIUM OXIDE 400 MG TABLET PO SCH (10:33)
[2019-03-21] MEDS: RIVAROXABAN 15 MG TABLET PO SCH (10:33)
[2019-03-21] MEDS: OXYBUTYNIN CHLORIDE 5 MG TABLET PO SCH (10:34)
[2019-03-21] MEDS: ATORVASTATIN CALCIUM 20 MG TABLET PO SCH (10:34)
[2019-03-21] MEDS: AMIODARONE HCL 200 MG TABLET PO SCH (10:34)
[2019-03-21] MEDS: METOPROLOL SUCCINATE 25 MG TAB.SR.24H PO SCH ×2 (10:34→21:50)
--- NOTE | 2019-03-21 11:12 | Progress Note ---
Provider Note Provider Note: Patient only complains of some back pain. States he feels well and does not need anything. Vital signs are stable. Patient is in no distress. Abdomen is nontender. Continue antibiotics this day 6 of 14 for treatment of infected sacral decubitus ulcer. Diabetes and more controlled on insulin. Remains medically cleared. 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
[2019-03-21] MEDS: INSULIN GLARGINE,HUM.REC.ANLOG 1,000 UNIT/10 ML VIAL SUBCUT SCH (21:51)
[2019-03-22] MEDS: AMOXICILLIN TR/POT CLAVULANATE 500-125 MG TAB PO SCH ×3 (05:27→22:21)
[2019-03-22] MEDS: INSULIN LISPRO 100 UNIT/ML 3 ML VIAL SUBCUT SCH ×7 (07:23→22:22)
[2019-03-22] MEDS: OXYBUTYNIN CHLORIDE 5 MG TABLET PO SCH (09:58)
[2019-03-22] MEDS: METOPROLOL SUCCINATE 25 MG TAB.SR.24H PO SCH ×2 (10:00→22:21)
[2019-03-22] MEDS: ATORVASTATIN CALCIUM 20 MG TABLET PO SCH (10:01)
[2019-03-22] MEDS: RIVAROXABAN 15 MG TABLET PO SCH (10:01)
[2019-03-22] MEDS: MAGNESIUM OXIDE 400 MG TABLET PO SCH (10:01)
[2019-03-22] MEDS: MULTIVITAMIN TABLET PO SCH (10:01)
[2019-03-22] MEDS: AMIODARONE HCL 200 MG TABLET PO SCH (10:01)
[2019-03-22] MEDS: SULFAMETHOXAZOLE/TRIMETHOPRIM 800-160 MG TABLET PO SCH ×2 (10:02→17:27)
--- NOTE | 2019-03-22 11:36 | Progress Note ---
Provider Note Provider Note: Patient has no complaints today. Vital signs are stable. Patient appears in no distress without any work of breathing. Blood sugar noted acceptable control on current regimen. Continue current management of diabetes. Continue antibiotics for treatment of infected sacral decubitus ulcer.
[2019-03-22] MEDS: ACETAMINOPHEN 325 MG TABLET PO PRN ×2 (14:29→23:53)
[2019-03-22] MEDS: INSULIN GLARGINE,HUM.REC.ANLOG 1,000 UNIT/10 ML VIAL SUBCUT SCH (22:23)
[2019-03-23 06:11] LABS: ANION GAP 12 (5-19); BLOOD UREA NITROGEN 26 mg/dL (7-20); CALCIUM 8.7 mg/dL (8.4-10.2); CARBON DIOXIDE 24 mmol/L (22-30); CHLORIDE 97 mmol/L (98-107); GLUCOSE 194 mg/dL (75-110); POTASSIUM 4.9 mmol/L (3.6-5.0)
[2019-03-23] MEDS: AMOXICILLIN TR/POT CLAVULANATE 500-125 MG TAB PO SCH (06:11)
[2019-03-23] MEDS: INSULIN LISPRO 100 UNIT/ML 3 ML VIAL SUBCUT SCH ×7 (07:35→22:32)
[2019-03-23] MEDS: OXYBUTYNIN CHLORIDE 5 MG TABLET PO SCH (09:06)
[2019-03-23] MEDS: MAGNESIUM OXIDE 400 MG TABLET PO SCH ×2 (09:07→17:19)
[2019-03-23] MEDS: AMIODARONE HCL 200 MG TABLET PO SCH (09:07)
[2019-03-23] MEDS: MULTIVITAMIN TABLET PO SCH (09:07)
[2019-03-23] MEDS: RIVAROXABAN 15 MG TABLET PO SCH (09:07)
[2019-03-23] MEDS: ATORVASTATIN CALCIUM 20 MG TABLET PO SCH (09:07)
[2019-03-23] MEDS: METOPROLOL SUCCINATE 25 MG TAB.SR.24H PO SCH ×2 (09:07→22:32)
--- NOTE | 2019-03-23 14:16 | PDOC PROGRESS REPORT ---
Subjective Progress Note for:: 03/23/19 Subjective:: Patient has no complaints today. Reason For Visit: STAGE FOUR SACRAL DECUBITUS ULCER POA,RLE CELLULIT Physical Exam Vital Signs: Temp Pulse Resp BP Pulse Ox 97.9 F 59 L 16 118/64 100 03/23/19 11:06 03/23/19 11:06 03/23/19 11:06 03/23/19 11:06 03/23/19 11:06 Intake & Output 03/22/19 03/23/19 03/24/19 06:59 06:59 06:59 Intake Total 1590 1803 240 Output Total 725 425 400 Balance 865 1378 -160 Weight 70.7 kg 73.4 kg General appearance: PRESENT: no acute distress, cooperative Neurological exam: PRESENT: alert, awake, oriented to person, oriented to place, oriented to time Results Laboratory Results: 03/14/19 05:18 03/23/19 04:19 03/23/19 04:19 Sodium 133.4 L Potassium 4.9 Chloride 97 L Carbon Dioxide 24 Anion Gap 12 BUN 26 H Creatinine 0.92 Est GFR ( Amer) > 60 Glucose 194 H Calcium 8.7 Magnesium 1.5 L 03/11/19 15:00 Creatine Kinase 45 L Impressions: Pelvis X-Ray 03/11/19 15:44 IMPRESSION: No radiographic evidence of osteomyelitis. No acute fracture or dislocation. If there is clinical concern for osteomyelitis further evaluation with MRI is recommended. Pelvis CT 03/12/19 00:00 IMPRESSION: 1. Right decubitus ulcer. 2. No CT evidence of aggressive bone resorption to suggest osteomyelitis. Assessment and Plan - Diagnosis (1) Sacral decubitus ulcer, stage IV Is this a current diagnosis for this admission?: Yes Plan: Infected sacral decubitus ulcer Pelvic MRI could not be done due to pacemaker but CT with contrast of pelvis did not show osteomyelitis Surgery performed debridement with wound growing procidentia, enterococcus and Ecoli bacteria -Optimize nutrition -Received 4 days of Vanco Zosyn. De-escalated to Augmentin and Bactrim p.o. day 8/14. (2) Chronic atrial fibrillation Is this a current diagnosis for this admission?: Yes Plan: -History of A. fib with sick sinus syndrome s/p pacemaker by Dr Manzo 01/2019 --outpt f/u with cardiology -continue his home regimen of amiodarone, metoprolol and Xarelto (3) Debility Is this a current diagnosis for this admission?: Yes Plan: Inability to care for self due to Ydnvsmp-Fruut-Qqjbq muscular dystrophy and lives alone. Awaiting placement at SNF (4) DM type 2 (diabetes mellitus, type 2) Is this a current diagnosis for this admission?: Yes Plan: I confirmed the patient that he takes Lantus 40 to 60 units at bedtime and NovoLog 30 units before meals when at home. Current inpatient regimen: Sugars controlled on Lantus 40 units at bedtime and Humalog 30 units before meals. Continue Accu-Cheks and sliding scale. - Plan Summary Summary: Patient still awaiting placement at SNF for the past several days. Remains medically cleared. - Time Time Spent with patient: Less than 15 minutes
[2019-03-23] MEDS: INSULIN GLARGINE,HUM.REC.ANLOG 1,000 UNIT/10 ML VIAL SUBCUT SCH (22:33)
[2019-03-24] MEDS: INSULIN LISPRO 100 UNIT/ML 3 ML VIAL SUBCUT SCH ×7 (07:37→23:17)
[2019-03-24] MEDS: AMIODARONE HCL 200 MG TABLET PO SCH (10:07)
[2019-03-24] MEDS: METOPROLOL SUCCINATE 25 MG TAB.SR.24H PO SCH ×2 (10:07→23:23)
[2019-03-24] MEDS: MULTIVITAMIN TABLET PO SCH (10:07)
[2019-03-24] MEDS: MAGNESIUM OXIDE 400 MG TABLET PO SCH ×2 (10:07→17:49)
[2019-03-24] MEDS: ATORVASTATIN CALCIUM 20 MG TABLET PO SCH (10:07)
[2019-03-24] MEDS: OXYBUTYNIN CHLORIDE 5 MG TABLET PO SCH (10:08)
[2019-03-24] MEDS: RIVAROXABAN 15 MG TABLET PO SCH (10:08)
--- NOTE | 2019-03-24 14:08 | PDOC PROGRESS REPORT ---
Subjective Progress Note for:: 03/24/19 Subjective:: Patient was seen and examined. He is doing well. No issues whatsoever. Tolerating diet. Reason For Visit: STAGE FOUR SACRAL DECUBITUS ULCER POA,RLE CELLULIT Physical Exam Vital Signs: Temp Pulse Resp BP Pulse Ox 98.3 F 60 18 127/70 H 98 03/24/19 11:22 03/24/19 11:22 03/24/19 11:22 03/24/19 11:22 03/24/19 11:22 Intake & Output 03/23/19 03/24/19 03/25/19 06:59 06:59 06:59 Intake Total 1803 1120 Output Total 425 1525 Balance 1378 -405 Weight 161 lb 13.109 oz 159 lb 9.835 oz 159 lb 9.835 oz Exam: Patient is no acute distress Alert oriented to time place person No anxiety or depression Head: atraumatic normocephalic Pupils: are equal reactive Heart: Regular rate and rhythm Lungs: clear no distress Abdomen: nontender nondistended Neurological exam: unremarkable Results Laboratory Results: 03/14/19 05:18 03/23/19 04:19 03/11/19 15:00 Creatine Kinase 45 L Impressions: Pelvis X-Ray 03/11/19 15:44 IMPRESSION: No radiographic evidence of osteomyelitis. No acute fracture or dislocation. If there is clinical concern for osteomyelitis further evaluation with MRI is recommended. Pelvis CT 03/12/19 00:00 IMPRESSION: 1. Right decubitus ulcer. 2. No CT evidence of aggressive bone resorption to suggest osteomyelitis. Assessment and Plan - Diagnosis (1) Sacral decubitus ulcer, stage IV Is this a current diagnosis for this admission?: Yes Plan: Infected sacral decubitus ulcer Pelvic MRI could not be done due to pacemaker but CT with contrast of pelvis did not show osteomyelitis Surgery performed debridement with wound growing procidentia, enterococcus and Ecoli bacteria -Continue to optimize nutrition -Finished course of antibiotics (2) DM type 2 (diabetes mellitus, type 2) Is this a current diagnosis for this admission?: Yes Plan: I confirmed the patient that he takes Lantus 40 to 60 units at bedtime and NovoLog 30 units before meals when at home. Current inpatient regimen: Sugars controlled on Lantus 40 units at bedtime and Humalog 30 units before meals. Continue Accu-Cheks and sliding scale. (3) Debility Is this a current diagnosis for this admission?: Yes Plan: Inability to care for self due to Rmkaics-Uqpmm-Isvfq muscular dystrophy and lives alone. Awaiting placement at SNF (4) Chronic atrial fibrillation Is this a current diagnosis for this admission?: Yes Plan: -History of A. fib with sick sinus syndrome s/p pacemaker by Dr Manzo 01/2019 --outpt f/u with cardiology -continue his home regimen of amiodarone, metoprolol and Xarelto
[2019-03-24] MEDS: INSULIN GLARGINE,HUM.REC.ANLOG 1,000 UNIT/10 ML VIAL SUBCUT SCH (23:18)
[2019-03-25] MEDS: INSULIN LISPRO 100 UNIT/ML 3 ML VIAL SUBCUT SCH ×7 (07:43→22:02)
[2019-03-25] MEDS: MULTIVITAMIN TABLET PO SCH (09:24)
[2019-03-25] MEDS: METOPROLOL SUCCINATE 25 MG TAB.SR.24H PO SCH ×2 (09:24→22:02)
[2019-03-25] MEDS: ATORVASTATIN CALCIUM 20 MG TABLET PO SCH (09:24)
[2019-03-25] MEDS: MAGNESIUM OXIDE 400 MG TABLET PO SCH ×2 (09:25→17:03)
[2019-03-25] MEDS: RIVAROXABAN 15 MG TABLET PO SCH (09:25)
[2019-03-25] MEDS: AMIODARONE HCL 200 MG TABLET PO SCH (09:25)
[2019-03-25] MEDS: OXYBUTYNIN CHLORIDE 5 MG TABLET PO SCH (09:25)
--- NOTE | 2019-03-25 15:41 | PDOC PROGRESS REPORT ---
Subjective Subjective:: Patient was seen and examined. He is doing well. No issues whatsoever. Tolerating diet. Reason For Visit: STAGE FOUR SACRAL DECUBITUS ULCER POA,RLE CELLULIT Physical Exam Vital Signs: Temp Pulse Resp BP Pulse Ox 97.6 F 56 L 12 119/61 98 03/25/19 11:00 03/25/19 11:00 03/25/19 11:00 03/25/19 11:00 03/25/19 11:00 Intake & Output 03/24/19 03/25/19 03/26/19 06:59 06:59 06:59 Intake Total 1120 1604 Output Total 1525 650 Balance -405 954 Weight 159 lb 9.835 oz 159 lb 9.835 oz Exam: Patient is no acute distress Alert oriented to time place person No anxiety or depression Head: atraumatic normocephalic Pupils: are equal reactive Heart: Regular rate and rhythm Lungs: clear no distress Abdomen: nontender nondistended Neurological exam: unremarkable Results Laboratory Results: 03/14/19 05:18 03/23/19 04:19 03/11/19 15:00 Creatine Kinase 45 L Impressions: Pelvis X-Ray 03/11/19 15:44 IMPRESSION: No radiographic evidence of osteomyelitis. No acute fracture or dislocation. If there is clinical concern for osteomyelitis further evaluation with MRI is recommended. Pelvis CT 03/12/19 00:00 IMPRESSION: 1. Right decubitus ulcer. 2. No CT evidence of aggressive bone resorption to suggest osteomyelitis. Assessment and Plan - Diagnosis (1) Sacral decubitus ulcer, stage IV Is this a current diagnosis for this admission?: Yes Plan: Infected sacral decubitus ulcer Pelvic MRI could not be done due to pacemaker but CT with contrast of pelvis did not show osteomyelitis Surgery performed debridement with wound growing procidentia, enterococcus and Ecoli bacteria -Continue to optimize nutrition -Finished course of antibiotics (2) DM type 2 (diabetes mellitus, type 2) Is this a current diagnosis for this admission?: Yes Plan: I confirmed the patient that he takes Lantus 40 to 60 units at bedtime and NovoLog 30 units before meals when at home. Current inpatient regimen: Sugars controlled on Lantus 40 units at bedtime and Humalog 30 units before meals. Continue Accu-Cheks and sliding scale. (3) Debility Is this a current diagnosis for this admission?: Yes Plan: Inability to care for self due to Ghidemm-Lyrqh-Mtskm muscular dystrophy and lives alone. still Awaiting placement at SNF (4) Chronic atrial fibrillation Is this a current diagnosis for this admission?: Yes Plan: -History of A. andrews with sick sinus syndrome s/p pacemaker by Dr Manzo 01/2019 --outpt f/u with cardiology -continue his home regimen of amiodarone, metoprolol and Xarelto
[2019-03-25] MEDS: INSULIN GLARGINE,HUM.REC.ANLOG 1,000 UNIT/10 ML VIAL SUBCUT SCH (22:03)
[2019-03-26] MEDS: INSULIN LISPRO 100 UNIT/ML 3 ML VIAL SUBCUT SCH ×7 (08:17→21:44)
[2019-03-26] MEDS: AMIODARONE HCL 200 MG TABLET PO SCH (11:01)
[2019-03-26] MEDS: RIVAROXABAN 15 MG TABLET PO SCH (11:01)
[2019-03-26] MEDS: METOPROLOL SUCCINATE 25 MG TAB.SR.24H PO SCH ×2 (11:01→21:45)
[2019-03-26] MEDS: OXYBUTYNIN CHLORIDE 5 MG TABLET PO SCH (11:02)
[2019-03-26] MEDS: MULTIVITAMIN TABLET PO SCH (11:02)
[2019-03-26] MEDS: MAGNESIUM OXIDE 400 MG TABLET PO SCH ×2 (11:02→19:51)
[2019-03-26] MEDS: ATORVASTATIN CALCIUM 20 MG TABLET PO SCH (11:02)
--- NOTE | 2019-03-26 12:27 | PDOC PROGRESS REPORT ---
Subjective Progress Note for:: 03/26/19 Subjective:: 03/25/2019: Patient was seen and examined. He is doing well. No issues whatsoever. Tolerating diet. 03/26/2019: Patient was seen and examined. No acute changes. Tolerating diet. Was wondering if someone will follow-up on his pacemaker. Pacemaker pocket is healed and no signs of infection. Reason For Visit: STAGE FOUR SACRAL DECUBITUS ULCER POA,RLE CELLULIT Physical Exam Vital Signs: Temp Pulse Resp BP Pulse Ox 97.8 F 59 L 12 133/73 H 100 03/26/19 07:00 03/26/19 07:00 03/26/19 07:00 03/26/19 07:00 03/26/19 07:00 Intake & Output 03/25/19 03/26/19 03/27/19 06:59 06:59 06:59 Intake Total 1604 545 Output Total 650 850 Balance 954 -305 Weight 159 lb 9.835 oz 138 lb 10.732 oz Exam: Patient is no acute distress Alert oriented to time place person No anxiety or depression Head: atraumatic normocephalic Pupils: are equal reactive Heart: Regular rate and rhythm Lungs: clear no distress Abdomen: nontender nondistended Neurological exam: unremarkable Results Laboratory Results: 03/14/19 05:18 03/23/19 04:19 03/11/19 15:00 Creatine Kinase 45 L Impressions: Pelvis X-Ray 03/11/19 15:44 IMPRESSION: No radiographic evidence of osteomyelitis. No acute fracture or dislocation. If there is clinical concern for osteomyelitis further evaluation with MRI is recommended. Pelvis CT 03/12/19 00:00 IMPRESSION: 1. Right decubitus ulcer. 2. No CT evidence of aggressive bone resorption to suggest osteomyelitis. Assessment and Plan - Diagnosis (1) Sacral decubitus ulcer, stage IV Is this a current diagnosis for this admission?: Yes Plan: Infected sacral decubitus ulcer Pelvic MRI could not be done due to pacemaker but CT with contrast of pelvis did not show osteomyelitis Surgery performed debridement with wound growing procidentia, enterococcus and Ecoli bacteria -Continue to optimize nutrition -Finished course of antibiotics Continue dressing changes (2) DM type 2 (diabetes mellitus, type 2) Is this a current diagnosis for this admission?: Yes Plan: I confirmed the patient that he takes Lantus 40 to 60 units at bedtime and NovoLog 30 units before meals when at home. Current inpatient regimen: Sugars controlled on Lantus 40 units at bedtime and Humalog 30 units before meals. Continue Accu-Cheks and sliding scale. (3) Debility Is this a current diagnosis for this admission?: Yes Plan: Inability to care for self due to Gceuyzb-Bqzon-Adtrm muscular dystrophy and lives alone. still Awaiting placement at SNF (4) Chronic atrial fibrillation Is this a current diagnosis for this admission?: Yes Plan: -History of A. andrews with sick sinus syndrome s/p pacemaker by Dr Manzo 01/2019 --outpt f/u with cardiology -continue his home regimen of amiodarone, metoprolol and Xarelto
[2019-03-26] MEDS: INSULIN GLARGINE,HUM.REC.ANLOG 1,000 UNIT/10 ML VIAL SUBCUT SCH (21:53)
[2019-03-27] MEDS: ACETAMINOPHEN 325 MG TABLET PO PRN (02:54)
[2019-03-27] MEDS: INSULIN LISPRO 100 UNIT/ML 3 ML VIAL SUBCUT SCH ×7 (08:45→21:51)
[2019-03-27] MEDS: MULTIVITAMIN TABLET PO SCH (11:02)
[2019-03-27] MEDS: ATORVASTATIN CALCIUM 20 MG TABLET PO SCH (11:03)
[2019-03-27] MEDS: METOPROLOL SUCCINATE 25 MG TAB.SR.24H PO SCH ×2 (11:03→22:33)
[2019-03-27] MEDS: MAGNESIUM OXIDE 400 MG TABLET PO SCH ×2 (11:03→18:18)
[2019-03-27] MEDS: AMIODARONE HCL 200 MG TABLET PO SCH (11:04)
[2019-03-27] MEDS: OXYBUTYNIN CHLORIDE 5 MG TABLET PO SCH (11:04)
[2019-03-27] MEDS: RIVAROXABAN 15 MG TABLET PO SCH (11:04)
--- NOTE | 2019-03-27 11:46 | PDOC PROGRESS REPORT ---
Subjective Progress Note for:: 03/27/19 Subjective:: 03/25/2019: Patient was seen and examined. He is doing well. No issues whatsoever. Tolerating diet. 03/26/2019: Patient was seen and examined. No acute changes. Tolerating diet. Was wondering if someone will follow-up on his pacemaker. Pacemaker pocket is healed and no signs of infection. 03/27/2019: Patient was seen and examined. Stable clinically. Still awaiting insurance authorization for rehab. Reason For Visit: STAGE FOUR SACRAL DECUBITUS ULCER POA,RLE CELLULIT Physical Exam Vital Signs: Temp Pulse Resp BP Pulse Ox 97.4 F 60 12 124/68 98 03/27/19 08:43 03/27/19 08:43 03/27/19 08:43 03/27/19 08:43 03/27/19 08:43 Intake & Output 03/26/19 03/27/19 03/28/19 06:59 06:59 06:59 Intake Total 545 473 Output Total 850 400 Balance -305 73 Weight 138 lb 10.732 oz 159 lb 13.362 oz Exam: Patient is no acute distress Alert oriented to time place person No anxiety or depression Head: atraumatic normocephalic Pupils: are equal reactive Heart: Regular rate and rhythm Lungs: clear no distress Abdomen: nontender nondistended Neurological exam: unremarkable Results Laboratory Results: 03/14/19 05:18 03/23/19 04:19 03/11/19 15:00 Creatine Kinase 45 L Impressions: Pelvis X-Ray 03/11/19 15:44 IMPRESSION: No radiographic evidence of osteomyelitis. No acute fracture or dislocation. If there is clinical concern for osteomyelitis further evaluation with MRI is recommended. Pelvis CT 03/12/19 00:00 IMPRESSION: 1. Right decubitus ulcer. 2. No CT evidence of aggressive bone resorption to suggest osteomyelitis. Assessment and Plan - Diagnosis (1) Sacral decubitus ulcer, stage IV Is this a current diagnosis for this admission?: Yes Plan: Infected sacral decubitus ulcer Pelvic MRI could not be done due to pacemaker but CT with contrast of pelvis did not show osteomyelitis Surgery performed debridement with wound growing procidentia, enterococcus and Ecoli bacteria -Continue to optimize nutrition -Finished course of antibiotics Continue dressing changes (2) DM type 2 (diabetes mellitus, type 2) Is this a current diagnosis for this admission?: Yes Plan: Continue Lantus 40 to 60 units at bedtime and Humalog 30 units before meals when at home. Continue Accu-Cheks and sliding scale. (3) Debility Is this a current diagnosis for this admission?: Yes Plan: Inability to care for self due to Yquabou-Bxopc-Ahvft muscular dystrophy and lives alone. still Awaiting placement at SNF (4) Chronic atrial fibrillation Is this a current diagnosis for this admission?: Yes Plan: -History of A. andrews with sick sinus syndrome s/p pacemaker by Dr Manzo 01/2019 --outpt f/u with cardiology -continue his home regimen of amiodarone, metoprolol and Xarelto
[2019-03-27] MEDS: INSULIN GLARGINE,HUM.REC.ANLOG 1,000 UNIT/10 ML VIAL SUBCUT SCH (22:32)
[2019-03-28] MEDS: INSULIN LISPRO 100 UNIT/ML 3 ML VIAL SUBCUT SCH ×8 (08:43→22:49)
[2019-03-28] MEDS: AMIODARONE HCL 200 MG TABLET PO SCH (09:40)
[2019-03-28] MEDS: RIVAROXABAN 15 MG TABLET PO SCH (09:40)
[2019-03-28] MEDS: MAGNESIUM OXIDE 400 MG TABLET PO SCH ×2 (09:40→17:04)
[2019-03-28] MEDS: METOPROLOL SUCCINATE 25 MG TAB.SR.24H PO SCH ×2 (09:40→22:49)
[2019-03-28] MEDS: ATORVASTATIN CALCIUM 20 MG TABLET PO SCH ×2 (09:40→22:49)
[2019-03-28] MEDS: OXYBUTYNIN CHLORIDE 5 MG TABLET PO SCH (09:40)
[2019-03-28] MEDS: MULTIVITAMIN TABLET PO SCH (09:40)
[2019-03-28 10:14] LABS: HEMATOCRIT 35.7 % (37.9-51.0); HEMOGLOBIN 11.6 g/dL (13.5-17.0); MEAN CORPUSCULAR HEMOGLOBIN 24.6 pg (27.0-33.4); MEAN CORPUSCULAR HGB CONC 32.4 g/dL (32.0-36.0); MEAN CORPUSCULAR VOLUME 76 fl (80-97); PLATELET COUNT 269 10^3/uL (150-450); RED BLOOD COUNT 4.69 10^6/uL (4.35-5.55); RED CELL DISTRIBUTION WIDTH 16.4 % (11.5-14.0); WHITE BLOOD COUNT 4.6 10^3/uL (4.0-10.5)
--- NOTE | 2019-03-28 11:36 | PDOC PROGRESS REPORT ---
Subjective Progress Note for:: 03/28/19 Subjective:: 03/25/2019: Patient was seen and examined. He is doing well. No issues whatsoever. Tolerating diet. 03/26/2019: Patient was seen and examined. No acute changes. Tolerating diet. Was wondering if someone will follow-up on his pacemaker. Pacemaker pocket is healed and no signs of infection. 03/27/2019: Patient was seen and examined. Stable clinically. Still awaiting insurance authorization for rehab. 03/28/2019: Patient was seen and examined. No clinical changes. Reason For Visit: STAGE FOUR SACRAL DECUBITUS ULCER POA,RLE CELLULIT Physical Exam Vital Signs: Temp Pulse Resp BP Pulse Ox 97.3 F 60 20 123/68 100 03/28/19 07:20 03/28/19 07:20 03/28/19 07:20 03/28/19 07:20 03/28/19 07:20 Intake & Output 03/27/19 03/28/19 03/29/19 06:59 06:59 06:59 Intake Total 473 861 Output Total 400 725 150 Balance 73 136 -150 Weight 159 lb 13.362 oz 159 lb 6.307 oz Exam: Patient is no acute distress Alert oriented to time place person No anxiety or depression Head: atraumatic normocephalic Pupils: are equal reactive Heart: Regular rate and rhythm Lungs: clear no distress Abdomen: nontender nondistended Neurological exam: unremarkable Results Laboratory Results: 03/28/19 09:17 03/28/19 09:17 WBC 4.6 RBC 4.69 Hgb 11.6 L Hct 35.7 L MCV 76 L MCH 24.6 L MCHC 32.4 RDW 16.4 H Plt Count 269 03/11/19 15:00 Creatine Kinase 45 L Impressions: Pelvis X-Ray 03/11/19 15:44 IMPRESSION: No radiographic evidence of osteomyelitis. No acute fracture or dislocation. If there is clinical concern for osteomyelitis further evaluation with MRI is recommended. Pelvis CT 03/12/19 00:00 IMPRESSION: 1. Right decubitus ulcer. 2. No CT evidence of aggressive bone resorption to suggest osteomyelitis. Assessment and Plan - Diagnosis (1) Sacral decubitus ulcer, stage IV Is this a current diagnosis for this admission?: Yes Plan: Infected sacral decubitus ulcer Pelvic MRI could not be done due to pacemaker but CT with contrast of pelvis did not show osteomyelitis Surgery performed debridement with wound growing procidentia, enterococcus and Ecoli bacteria -Continue to optimize nutrition -Finished course of antibiotics Continue dressing changes (2) DM type 2 (diabetes mellitus, type 2) Is this a current diagnosis for this admission?: Yes Plan: Continue Lantus 40 to 60 units at bedtime and Humalog 30 units before meals when at home. Continue Accu-Cheks and sliding scale. Resume metformin (3) Debility Is this a current diagnosis for this admission?: Yes Plan: Inability to care for self due to [place]-Gjxtj-Ysjqg muscular dystrophy and lives alone. still Awaiting placement at SNF (4) Chronic atrial fibrillation Is this a current diagnosis for this admission?: Yes Plan: -History of A. fib with sick sinus syndrome s/p pacemaker by Dr Manzo 01/2019 --outpt f/u with cardiology -continue his home regimen of amiodarone, metoprolol and Xarelto
[2019-03-28 11:57] LABS: ANION GAP 11 (5-19); BLOOD UREA NITROGEN 24 mg/dL (7-20); CALCIUM 9.1 mg/dL (8.4-10.2); CARBON DIOXIDE 26 mmol/L (22-30); CHLORIDE 100 mmol/L (98-107); GLUCOSE 221 mg/dL (75-110); POTASSIUM 4.6 mmol/L (3.6-5.0)
[2019-03-28] MEDS: INSULIN GLARGINE,HUM.REC.ANLOG 1,000 UNIT/10 ML VIAL SUBCUT SCH (22:48)
[2019-03-28] MEDS: METFORMIN HCL 500 MG TABLET PO SCH (22:49)
[2019-03-29] MEDS: INSULIN LISPRO 100 UNIT/ML 3 ML VIAL SUBCUT SCH ×7 (07:44→22:26)
[2019-03-29] MEDS: MAGNESIUM OXIDE 400 MG TABLET PO SCH ×2 (09:40→17:48)
[2019-03-29] MEDS: OXYBUTYNIN CHLORIDE 5 MG TABLET PO SCH (09:40)
[2019-03-29] MEDS: MULTIVITAMIN TABLET PO SCH (09:41)
[2019-03-29] MEDS: METOPROLOL SUCCINATE 25 MG TAB.SR.24H PO SCH ×2 (09:41→22:27)
[2019-03-29] MEDS: RIVAROXABAN 15 MG TABLET PO SCH (09:43)
[2019-03-29] MEDS: AMIODARONE HCL 200 MG TABLET PO SCH (09:43)
--- NOTE | 2019-03-29 11:37 | PDOC PROGRESS REPORT ---
Subjective Progress Note for:: 03/29/19 Subjective:: 03/25/2019: Patient was seen and examined. He is doing well. No issues whatsoever. Tolerating diet. 03/26/2019: Patient was seen and examined. No acute changes. Tolerating diet. Was wondering if someone will follow-up on his pacemaker. Pacemaker pocket is healed and no signs of infection. 03/27/2019: Patient was seen and examined. Stable clinically. Still awaiting insurance authorization for rehab. 03/28/2019: Patient was seen and examined. No clinical changes. 03/29/2019: Patient seen and examined. He is in bed with no acute distress. Denies any pain shortness of breath. Reason For Visit: STAGE FOUR SACRAL DECUBITUS ULCER POA,RLE CELLULIT Physical Exam Vital Signs: Temp Pulse Resp BP Pulse Ox 98.2 F 60 16 124/65 99 03/29/19 07:22 03/29/19 07:22 03/29/19 07:22 03/29/19 07:22 03/29/19 07:22 Intake & Output 03/28/19 03/29/19 03/30/19 06:59 06:59 06:59 Intake Total 861 1175 Output Total 725 850 Balance 136 325 Weight 159 lb 6.307 oz 159 lb 6.307 oz Exam: Patient is no acute distress Alert oriented to time place person No anxiety or depression Head: atraumatic normocephalic Pupils: are equal reactive Heart: Regular rate and rhythm Lungs: clear no distress Abdomen: nontender nondistended Neurological exam: unremarkable Results Laboratory Results: 03/28/19 09:17 03/28/19 09:17 03/28/19 09:17 Sodium 136.8 L Potassium 4.6 Chloride 100 Carbon Dioxide 26 Anion Gap 11 BUN 24 H Creatinine 0.89 Est GFR ( Amer) > 60 Glucose 221 H Calcium 9.1 Magnesium 1.5 L 03/11/19 15:00 Creatine Kinase 45 L Impressions: Pelvis X-Ray 03/11/19 15:44 IMPRESSION: No radiographic evidence of osteomyelitis. No acute fracture or dislocation. If there is clinical concern for osteomyelitis further evaluation with MRI is recommended. Pelvis CT 03/12/19 00:00 IMPRESSION: 1. Right decubitus ulcer. 2. No CT evidence of aggressive bone resorption to suggest osteomyelitis. Assessment and Plan - Diagnosis (1) Sacral decubitus ulcer, stage IV Is this a current diagnosis for this admission?: Yes Plan: Infected sacral decubitus ulcer Pelvic MRI could not be done due to pacemaker but CT with contrast of pelvis did not show osteomyelitis Surgery performed debridement with wound growing procidentia, enterococcus and Ecoli bacteria -Continue to optimize nutrition -Finished course of antibiotics Continue dressing changes (2) DM type 2 (diabetes mellitus, type 2) Is this a current diagnosis for this admission?: Yes Plan: Continue Lantus 40 to 60 units at bedtime and Humalog 30 units before meals when at home. Continue Accu-Cheks and sliding scale. Resume metformin (3) Debility Is this a current diagnosis for this admission?: Yes Plan: Inability to care for self due to Dmouvwr-Coewp-Yibfh muscular dystrophy and lives alone. still Awaiting placement at SNF (4) Chronic atrial fibrillation Is this a current diagnosis for this admission?: Yes Plan: -History of A. fib with sick sinus syndrome s/p pacemaker by Dr Manzo 01/2019 --outpt f/u with cardiology -continue his home regimen of amiodarone, metoprolol and Xarelto
[2019-03-29] MEDS: ACETAMINOPHEN 325 MG TABLET PO PRN (18:34)
[2019-03-29] MEDS: METFORMIN HCL 500 MG TABLET PO SCH (22:26)
[2019-03-29] MEDS: ATORVASTATIN CALCIUM 20 MG TABLET PO SCH (22:27)
[2019-03-29] MEDS: INSULIN GLARGINE,HUM.REC.ANLOG 1,000 UNIT/10 ML VIAL SUBCUT SCH (22:27)
[2019-03-30] MEDS: INSULIN LISPRO 100 UNIT/ML 3 ML VIAL SUBCUT SCH ×7 (07:59→22:07)
[2019-03-30] MEDS: METOPROLOL SUCCINATE 25 MG TAB.SR.24H PO SCH ×2 (10:56→22:07)
[2019-03-30] MEDS: OXYBUTYNIN CHLORIDE 5 MG TABLET PO SCH (10:57)
[2019-03-30] MEDS: MAGNESIUM OXIDE 400 MG TABLET PO SCH ×2 (10:57→17:16)
[2019-03-30] MEDS: RIVAROXABAN 15 MG TABLET PO SCH (10:57)
[2019-03-30] MEDS: AMIODARONE HCL 200 MG TABLET PO SCH (10:57)
[2019-03-30] MEDS: MULTIVITAMIN TABLET PO SCH (10:57)
[2019-03-30] MEDS: ACETAMINOPHEN 325 MG TABLET PO PRN ×2 (15:51→22:09)
--- NOTE | 2019-03-30 17:32 | PDOC PROGRESS REPORT ---
Subjective Progress Note for:: 03/30/19 Subjective:: This is a 63 year old male with past medical history significant for chronic stage IV sacral decubitus ulcer POA, Sxeopms-Lofho-Oqjmq muscular dystrophy, T2 DM, chronic atrial fibrillation status post pacemaker, hypertension, neurogenic bladder who was admitted with worsening and necrotic stage IV sacral ulcer. Patient was started on IV antibiotics. He was also seen by surgery and underwent sharp debridement on 03/12/2019. Patient is clinically improved since then but is awaiting long-term placement. No acute event overnight. Upon encounter, he appears comfortable. He denies acute complaints. Still awaiting for placement. Reason For Visit: STAGE FOUR SACRAL DECUBITUS ULCER POA,RLE CELLULIT Physical Exam Vital Signs: Temp Pulse Resp BP Pulse Ox 97.8 F 54 L 16 119/65 100 03/30/19 14:41 03/30/19 14:41 03/30/19 14:41 03/30/19 14:41 03/30/19 14:41 Intake & Output 03/29/19 03/30/19 03/31/19 06:59 06:59 06:59 Intake Total 1175 1912 476 Output Total 850 800 Balance 325 1912 -324 Weight 159 lb 6.307 oz 159 lb 6.307 oz General appearance: PRESENT: no acute distress, well-developed, well-nourished Head exam: PRESENT: atraumatic, normocephalic Eye exam: PRESENT: conjunctiva pink, EOMI, PERRLA. ABSENT: scleral icterus Ear exam: PRESENT: normal external ear exam Mouth exam: PRESENT: moist, tongue midline Neck exam: ABSENT: carotid bruit, JVD, lymphadenopathy, thyromegaly Respiratory exam: PRESENT: clear to auscultation asad. ABSENT: rales, rhonchi, wheezes Cardiovascular exam: PRESENT: RRR. ABSENT: diastolic murmur, rubs, systolic murmur Pulses: PRESENT: normal dorsalis pedis pul GI/Abdominal exam: PRESENT: normal bowel sounds, soft. ABSENT: distended, gua rding, mass, organolmegaly, rebound, tenderness Rectal exam: PRESENT: deferred Neurological exam: PRESENT: alert, awake, oriented to person, oriented to place, oriented to time, oriented to situation, CN II-XII grossly intact Results Laboratory Results: 03/28/19 09:17 03/28/19 09:17 03/11/19 15:00 Creatine Kinase 45 L Impressions: Pelvis X-Ray 03/11/19 15:44 IMPRESSION: No radiographic evidence of osteomyelitis. No acute fracture or dislocation. If there is clinical concern for osteomyelitis further evaluation with MRI is recommended. Pelvis CT 03/12/19 00:00 IMPRESSION: 1. Right decubitus ulcer. 2. No CT evidence of aggressive bone resorption to suggest osteomyelitis. Assessment and Plan - Diagnosis (1) Sacral decubitus ulcer, stage IV Is this a current diagnosis for this admission?: Yes Plan: Completed IV antibiotics. S/P Sharp debridement on 03/12/2019. wound cultures grew Providentia, enterococcus and Ecoli bacteria (2) DM type 2 (diabetes mellitus, type 2) Is this a current diagnosis for this admission?: Yes (3) Diabetes mellitus type 2 in nonobese Is this a current diagnosis for this admission?: Yes (4) Hypertension Qualifiers: Hypertension type: essential hypertension Qualified Code(s): I10 - Essential (primary) hypertension Is this a current diagnosis for this admission?: Yes (5) Muscular dystrophy Is this a current diagnosis for this admission?: Yes (6) Neurogenic bladder Is this a current diagnosis for this admission?: Yes (7) Paroxysmal A-fib Is this a current diagnosis for this admission?: Yes - Time Time Spent with patient: 25-34 minutes
[2019-03-30] MEDS: METFORMIN HCL 500 MG TABLET PO SCH (22:07)
[2019-03-30] MEDS: INSULIN GLARGINE,HUM.REC.ANLOG 1,000 UNIT/10 ML VIAL SUBCUT SCH (22:08)
[2019-03-30] MEDS: ATORVASTATIN CALCIUM 20 MG TABLET PO SCH (22:09)
[2019-03-31] MEDS: ACETAMINOPHEN 325 MG TABLET PO PRN ×2 (02:15→22:44)
[2019-03-31 07:13] LABS: ANION GAP 8 (5-19); BLOOD UREA NITROGEN 20 mg/dL (7-20); CALCIUM 8.9 mg/dL (8.4-10.2); CARBON DIOXIDE 30 mmol/L (22-30); CHLORIDE 99 mmol/L (98-107); GLUCOSE 108 mg/dL (75-110); POTASSIUM 4.4 mmol/L (3.6-5.0)
[2019-03-31] MEDS: INSULIN LISPRO 100 UNIT/ML 3 ML VIAL SUBCUT SCH ×7 (07:45→22:43)
[2019-03-31] MEDS: AMIODARONE HCL 200 MG TABLET PO SCH (09:19)
[2019-03-31] MEDS: METOPROLOL SUCCINATE 25 MG TAB.SR.24H PO SCH ×2 (09:19→22:43)
[2019-03-31] MEDS: OXYBUTYNIN CHLORIDE 5 MG TABLET PO SCH (09:19)
[2019-03-31] MEDS: MAGNESIUM OXIDE 400 MG TABLET PO SCH ×2 (09:19→17:27)
[2019-03-31] MEDS: MULTIVITAMIN TABLET PO SCH (09:19)
[2019-03-31] MEDS: RIVAROXABAN 15 MG TABLET PO SCH (09:19)
[2019-03-31] MEDS: LIDOCAINE 5% (700 MG) TRANSDERMAL ADH..PATCH TP PRN (10:37)
--- NOTE | 2019-03-31 15:54 | PDOC PROGRESS REPORT ---
Subjective Progress Note for:: 03/31/19 Subjective:: This is a 63 year old male with past medical history significant for chronic stage IV sacral decubitus ulcer POA, Uuojzdi-Djnyu-Fimrf muscular dystrophy, T2 DM, chronic atrial fibrillation status post pacemaker, hypertension, neurogenic bladder who was admitted with worsening and necrotic stage IV sacral ulcer. Patient was started on IV antibiotics. He was also seen by surgery and underwent sharp debridement on 03/12/2019. Patient is clinically improved since then but is awaiting long-term placement. 03/30: No acute event overnight. Upon encounter, he appears comfortable. He denies acute complaints. 03/31: Patient complains of recurrence of right shoulder pain. He has prior chronic bilateral shoulder pains. He had a recent shoulder x-ray which showed osteoarthropathy and rotator cuff loss likely related to chronic overuse of his shoulders to compensate for his limited motility. Otherwise, denies chest pain or shortness of breath. We will add some lidocaine patch for his right shoulder pain. Still awaiting for placement. Reason For Visit: STAGE FOUR SACRAL DECUBITUS ULCER POA,RLE CELLULIT Physical Exam Vital Signs: Temp Pulse Resp BP Pulse Ox 97.7 F 59 L 16 131/67 H 100 03/31/19 14:58 03/31/19 14:58 03/31/19 14:58 03/31/19 14:58 03/31/19 14:58 Intake & Output 03/30/19 03/31/19 04/01/19 06:59 06:59 06:59 Intake Total 1912 1324 474 Output Total 1850 400 Balance 2 -526 74 Weight 159 lb 6.307 oz 159 lb 6.307 oz General appearance: PRESENT: no acute distress, well-developed, well-nourished Head exam: PRESENT: atraumatic, normocephalic Eye exam: PRESENT: conjunctiva pink, EOMI, PERRLA. ABSENT: scleral icterus Ear exam: PRESENT: normal external ear exam Mouth exam: PRESENT: moist, tongue midline Neck exam: ABSENT: carotid bruit, JVD, lymphadenopathy, thyromegaly Respiratory exam: PRESENT: clear to auscultation asad. ABSENT: rales, rhonchi, wheezes Cardiovascular exam: PRESENT: RRR. ABSENT: diastolic murmur, rubs, systolic murmur Pulses: PRESENT: normal dorsalis pedis pul GI/Abdominal exam: PRESENT: normal bowel sounds, soft. ABSENT: distended, guarding, mass, organolmegaly, rebound, tenderness Rectal exam: PRESENT: deferred Extremities exam: PRESENT: full ROM. ABSENT: calf tenderness, clubbing, pedal edema Neurological exam: PRESENT: alert, awake, oriented to person, oriented to place, oriented to time, oriented to situation, CN II-XII grossly intact Results Laboratory Results: 03/28/19 09:17 03/31/19 05:49 03/31/19 05:49 Sodium 136.8 L Potassium 4.4 Chloride 99 Carbon Dioxide 30 Anion Gap 8 BUN 20 Creatinine 0.68 Est GFR ( Amer) > 60 Glucose 108 Calcium 8.9 Magnesium 1.6 03/11/19 15:00 Creatine Kinase 45 L Impressions: Pelvis X-Ray 03/11/19 15:44 IMPRESSION: No radiographic evidence of osteomyelitis. No acute fracture or dislocation. If there is clinical concern for osteomyelitis further evaluation with MRI is recommended. Pelvis CT 03/12/19 00:00 IMPRESSION: 1. Right decubitus ulcer. 2. No CT evidence of aggressive bone resorption to suggest osteomyelitis. Assessment and Plan - Diagnosis (1) Sacral decubitus ulcer, stage IV Is this a current diagnosis for this admission?: Yes Plan: Completed IV antibiotics. S/P Sharp debridement on 03/12/2019. wound cultures grew Providentia, enterococcus and Ecoli bacteria (2) DM type 2 (diabetes mellitus, type 2) Is this a current diagnosis for this admission?: Yes Plan: Continue Lantus 40 to 60 units at bedtime and Humalog 30 units before meals when at home. Continue Accu-Cheks and sliding scale. Resume metformin (3) Diabetes mellitus type 2 in nonobese Is this a current diagnosis for this admission?: Yes (4) Hypertension Qualifiers: Hypertension type: essential hypertension Qualified Code(s): I10 - Essentia l (primary) hypertension Is this a current diagnosis for this admission?: Yes (5) Muscular dystrophy Is this a current diagnosis for this admission?: Yes (6) Neurogenic bladder Is this a current diagnosis for this admission?: Yes (7) Paroxysmal A-fib Is this a current diagnosis for this admission?: Yes - Time Time Spent with patient: 15-24 minutes
[2019-03-31] MEDS: INSULIN GLARGINE,HUM.REC.ANLOG 1,000 UNIT/10 ML VIAL SUBCUT SCH (22:41)
[2019-03-31] MEDS: METFORMIN HCL 500 MG TABLET PO SCH (22:42)
[2019-03-31] MEDS: ATORVASTATIN CALCIUM 20 MG TABLET PO SCH (22:43)
[2019-04-01] MEDS: INSULIN LISPRO 100 UNIT/ML 3 ML VIAL SUBCUT SCH ×7 (07:38→22:01)
[2019-04-01] MEDS: METOPROLOL SUCCINATE 25 MG TAB.SR.24H PO SCH ×2 (09:31→22:01)
[2019-04-01] MEDS: MAGNESIUM OXIDE 400 MG TABLET PO SCH ×2 (09:32→17:07)
[2019-04-01] MEDS: MULTIVITAMIN TABLET PO SCH (09:32)
[2019-04-01] MEDS: OXYBUTYNIN CHLORIDE 5 MG TABLET PO SCH (09:33)
[2019-04-01] MEDS: AMIODARONE HCL 200 MG TABLET PO SCH (10:17)
[2019-04-01] MEDS: RIVAROXABAN 15 MG TABLET PO SCH (10:17)
--- NOTE | 2019-04-01 15:34 | PDOC PROGRESS REPORT ---
Subjective Progress Note for:: 04/01/19 Subjective:: This is a 63 year old male with past medical history significant for chronic stage IV sacral decubitus ulcer POA, Msqtavf-Wtkft-Vxwwk muscular dystrophy, T2 DM, chronic atrial fibrillation status post pacemaker, hypertension, neurogenic bladder who was admitted with worsening and necrotic stage IV sacral ulcer. Patient was started on IV antibiotics. He was also seen by surgery and underwent sharp debridement on 03/12/2019. Patient is clinically improved since then but is awaiting long-term placement. 03/30: No acute event overnight. Upon encounter, he appears comfortable. He denies acute complaints. 03/31: Patient complains of recurrence of right shoulder pain. He has prior chronic bilateral shoulder pains. He had a recent shoulder x-ray which showed osteoarthropathy and rotator cuff loss likely related to chronic overuse of his shoulders to compensate for his limited motility. Otherwise, denies chest pain or shortness of breath. We will add some lidocaine patch for his right shoulder pain. Still awaiting for placement. 04/01: No acute issues overnight. He has gotten significant relief from the lidocaine patch for his right shoulder pain. Denies chest pain or shortness of breath. Reason For Visit: STAGE FOUR SACRAL DECUBITUS ULCER POA,RLE CELLULIT Physical Exam Vital Signs: Temp Pulse Resp BP Pulse Ox 98.1 F 60 16 112/61 100 04/01/19 11:08 04/01/19 11:08 04/01/19 11:08 04/01/19 11:08 04/01/19 11:08 Intake & Output 03/31/19 04/01/19 04/02/19 06:59 06:59 06:59 Intake Total 1324 1423 474 Output Total 1850 1425 250 Balance -526 -2 224 Weight 159 lb 6.307 oz 166 lb 10.711 oz General appearance: PRESENT: no acute distress, well-developed, well-nourished Head exam: PRESENT: atraumatic, normocephalic Eye exam: PRESENT: conjunctiva pink, EOMI, PERRLA. ABSENT: scleral icterus Ear exam: PRESENT: normal external ear exam Mouth exam: PRESENT: moist, tongue midline Neck exam: ABSENT: carotid bruit, JVD, lymphadenopathy, thyromegaly Respiratory exam: PRESENT: clear to auscultation asad. ABSENT: rales, rhonchi, wheezes Cardiovascular exam: PRESENT: RRR. ABSENT: diastolic murmur, rubs, systolic m urmur Pulses: PRESENT: normal dorsalis pedis pul GI/Abdominal exam: PRESENT: normal bowel sounds, soft. ABSENT: distended, guarding, mass, organolmegaly, rebound, tenderness Rectal exam: PRESENT: deferred Neurological exam: PRESENT: alert, awake, oriented to person, oriented to place, oriented to time. ABSENT: oriented to situation Results Laboratory Results: 03/28/19 09:17 03/31/19 05:49 03/11/19 15:00 Creatine Kinase 45 L Impressions: Pelvis X-Ray 03/11/19 15:44 IMPRESSION: No radiographic evidence of osteomyelitis. No acute fracture or dislocation. If there is clinical concern for osteomyelitis further evaluation with MRI is recommended. Pelvis CT 03/12/19 00:00 IMPRESSION: 1. Right decubitus ulcer. 2. No CT evidence of aggressive bone resorption to suggest osteomyelitis. Assessment and Plan - Diagnosis (1) Sacral decubitus ulcer, stage IV Is this a current diagnosis for this admission?: Yes Plan: Completed IV antibiotics. S/P Sharp debridement on 03/12/2019. wound cultures grew Providentia, enterococcus and Ecoli bacteria (2) DM type 2 (diabetes mellitus, type 2) Is this a current diagnosis for this admission?: Yes Plan: Continue Lantus and Humalog. (3) Diabetes mellitus type 2 in nonobese Is this a current diagnosis for this admission?: Yes (4) Hypertension Qualifiers: Hypertension type: essential hypertension Qualified Code(s): I10 - Essential (primary) hypertension Is this a current diagnosis for this admission?: Yes (5) Muscular dystrophy Is this a current diagnosis for this admission?: Yes (6) Neurogenic bladder Is this a current diagnosis for this admission?: Yes (7) Paroxysmal A-fib Is this a current diagnosis for this admission?: Yes - Time Time Spent with patient: 15-24 minutes
[2019-04-01] MEDS: ACETAMINOPHEN 325 MG TABLET PO PRN (20:37)
[2019-04-01] MEDS: METFORMIN HCL 500 MG TABLET PO SCH (22:00)
[2019-04-01] MEDS: ATORVASTATIN CALCIUM 20 MG TABLET PO SCH (22:01)
[2019-04-01] MEDS: INSULIN GLARGINE,HUM.REC.ANLOG 1,000 UNIT/10 ML VIAL SUBCUT SCH (22:01)
[2019-04-02] MEDS: INSULIN LISPRO 100 UNIT/ML 3 ML VIAL SUBCUT SCH ×7 (07:57→21:46)
[2019-04-02] MEDS: MULTIVITAMIN TABLET PO SCH (09:39)
[2019-04-02] MEDS: MAGNESIUM OXIDE 400 MG TABLET PO SCH ×2 (09:39→18:19)
[2019-04-02] MEDS: OXYBUTYNIN CHLORIDE 5 MG TABLET PO SCH (09:40)
[2019-04-02] MEDS: METOPROLOL SUCCINATE 25 MG TAB.SR.24H PO SCH ×2 (09:41→21:46)
[2019-04-02] MEDS: AMIODARONE HCL 200 MG TABLET PO SCH (09:41)
[2019-04-02] MEDS: RIVAROXABAN 15 MG TABLET PO SCH (09:41)
[2019-04-02] MEDS: LIDOCAINE 5% (700 MG) TRANSDERMAL ADH..PATCH TP PRN (09:49)
[2019-04-02] MEDS: ACETAMINOPHEN 325 MG TABLET PO PRN (11:41)
--- NOTE | 2019-04-02 15:54 | PDOC PROGRESS REPORT ---
Subjective Progress Note for:: 04/02/19 Subjective:: This is a 63 year old male with past medical history significant for chronic stage IV sacral decubitus ulcer POA, Dehvnxi-Yxufz-Ftwqh muscular dystrophy, T2 DM, chronic atrial fibrillation status post pacemaker, hypertension, neurogenic bladder who was admitted with worsening and necrotic stage IV sacral ulcer. Patient was started on IV antibiotics. He was also seen by surgery and underwent sharp debridement on 03/12/2019. Patient is clinically improved since then but is awaiting long-term placement. 03/30: No acute event overnight. Upon encounter, he appears comfortable. He denies acute complaints. 03/31: Patient complains of recurrence of right shoulder pain. He has prior chronic bilateral shoulder pains. He had a recent shoulder x-ray which showed osteoarthropathy and rotator cuff loss likely related to chronic overuse of his shoulders to compensate for his limited motility. Otherwise, denies chest pain or shortness of breath. We will add some lidocaine patch for his right shoulder pain. 04/01: No acute issues overnight. He has gotten significant relief from the lidocaine patch for his right shoulder pain. Denies chest pain or shortness of breath. 04/02: No acute issues overnight. Patient denies acute complaints. Right shoulder pain is well controlled with lidocaine patch. Still awaiting for placement. Reason For Visit: STAGE FOUR SACRAL DECUBITUS ULCER POA,RLE CELLULIT Physical Exam Vital Signs: Temp Pulse Resp BP Pulse Ox 97.9 F 54 L 19 116/71 99 04/02/19 10:54 04/02/19 10:54 04/02/19 10:54 04/02/19 10:54 04/02/19 10:54 Intake & Output 04/01/19 04/02/19 04/03/19 06:59 06:59 06:59 Intake Total 1423 1605 474 Output Total 1425 1725 600 Balance -2 -120 -126 Weight 166 lb 10.711 oz General appearance: PRESENT: no acute distress, well-developed, well-nourished Head exam: PRESENT: atraumatic, normocephalic Eye exam: PRESENT: conjunctiva pink, EOMI, PERRLA. ABSENT: scleral icterus Ear exam: PRESENT: normal external ear exam Mouth exam: PRESENT: moist, tongue midline Neck exam: ABSENT: carotid bruit, JVD, lymphadenopathy, thyromegaly Respiratory exam: PRESENT: clear to auscultation asad. ABSENT: rales, rhonchi, wheezes Cardiovascular exam: PRESENT: RRR. ABSENT: diastolic murmur, rubs, systolic murmur Pulses: PRESENT: normal dorsalis pedis pul GI/Abdominal exam: PRESENT: normal bowel sounds, soft. ABSENT: distended, guarding, mass, organolmegaly, rebound, tenderness Rectal exam: PRESENT: deferred Neurological exam: PRESENT: alert, awake, oriented to person, oriented to place, oriented to time, oriented to situation, CN II-XII grossly intact Results Laboratory Results: 03/28/19 09:17 03/31/19 05:49 03/11/19 15:00 Creatine Kinase 45 L Impressions: Pelvis X-Ray 03/11/19 15:44 IMPRESSION: No radiographic evidence of osteomyelitis. No acute fracture or dislocation. If there is clinical concern for osteomyelitis further evaluation with MRI is recommended. Pelvis CT 03/12/19 00:00 IMPRESSION: 1. Right decubitus ulcer. 2. No CT evidence of aggressive bone resorption to suggest osteomyelitis. Assessment and Plan - Diagnosis (1) Sacral decubitus ulcer, stage IV Is this a current diagnosis for this admission?: Yes Plan: Completed IV antibiotics. S/P Sharp debridement on 03/12/2019. Wound cultures grew Providentia, enterococcus and E. coli bacteria (2) DM type 2 (diabetes mellitus, type 2) Is this a current diagnosis for this admission?: Yes Plan: Continue Lantus and Humalog. (3) Paroxysmal A-fib Is this a current diagnosis for this admission?: Yes Plan: Continue Toprol, cordarone ad Xarelto. (4) Diabetes mellitus type 2 in nonobese Is this a current diagnosis for this admission?: Yes (5) Hypertension Qualifiers: Hypertension type: essential hypertension Qualified Code(s): I10 - Essent ial (primary) hypertension Is this a current diagnosis for this admission?: Yes Plan: Continue Toprol. (6) Muscular dystrophy Is this a current diagnosis for this admission?: Yes (7) Neurogenic bladder Is this a current diagnosis for this admission?: Yes - Time Time Spent with patient: 25-34 minutes
[2019-04-02] MEDS: METFORMIN HCL 500 MG TABLET PO SCH (21:46)
[2019-04-02] MEDS: ATORVASTATIN CALCIUM 20 MG TABLET PO SCH (21:46)
[2019-04-02] MEDS: INSULIN GLARGINE,HUM.REC.ANLOG 1,000 UNIT/10 ML VIAL SUBCUT SCH (21:47)
[2019-04-03] MEDS: INSULIN LISPRO 100 UNIT/ML 3 ML VIAL SUBCUT SCH ×7 (08:12→22:03)
[2019-04-03] MEDS: MAGNESIUM OXIDE 400 MG TABLET PO SCH ×2 (09:38→18:15)
[2019-04-03] MEDS: METOPROLOL SUCCINATE 25 MG TAB.SR.24H PO SCH ×2 (09:38→22:05)
[2019-04-03] MEDS: MULTIVITAMIN TABLET PO SCH (09:38)
[2019-04-03] MEDS: OXYBUTYNIN CHLORIDE 5 MG TABLET PO SCH (09:38)
[2019-04-03] MEDS: RIVAROXABAN 15 MG TABLET PO SCH (09:39)
[2019-04-03] MEDS: AMIODARONE HCL 200 MG TABLET PO SCH (09:39)
--- NOTE | 2019-04-03 14:56 | PDOC PROGRESS REPORT ---
Subjective Progress Note for:: 04/03/19 Subjective:: This is a 63 year old male with past medical history significant for chronic stage IV sacral decubitus ulcer POA, Ycuvenh-Htksp-Zrtwt muscular dystrophy, T2 DM, chronic atrial fibrillation status post pacemaker, hypertension, neurogenic bladder who was admitted with worsening and necrotic stage IV sacral ulcer. Patient was started on IV antibiotics. He was also seen by surgery and underwent sharp debridement on 03/12/2019. Patient is clinically improved since then but is awaiting long-term placement. 03/30: No acute event overnight. Upon encounter, he appears comfortable. He denies acute complaints. 03/31: Patient complains of recurrence of right shoulder pain. He has prior chronic bilateral shoulder pains. He had a recent shoulder x-ray which showed osteoarthropathy and rotator cuff loss likely related to chronic overuse of his shoulders to compensate for his limited motility. Otherwise, denies chest pain or shortness of breath. We will add some lidocaine patch for his right shoulder pain. 04/01: No acute issues overnight. He has gotten significant relief from the lidocaine patch for his right shoulder pain. Denies chest pain or shortness of breath. 04/02: No acute issues overnight. Patient denies acute complaints. Right shoulder pain is well controlled with lidocaine patch. 04/03: No acute issues or complaints. Still awaiting for placement. Reason For Visit: STAGE FOUR SACRAL DECUBITUS ULCER POA,RLE CELLULIT Physical Exam Vital Signs: Temp Pulse Resp BP Pulse Ox 98.6 F 60 18 118/65 100 04/03/19 12:00 04/03/19 12:00 04/03/19 12:04/03/19 12:04/03/19 12:00 Intake & Output 04/02/19 04/03/19 04/04/19 06:59 06:59 06:59 Intake Total 1605 933 Output Total 1725 1550 Balance -120 -617 Weight 161 lb 6.054 oz General appearance: PRESENT: no acute distress, well-developed, well-nourished Head exam: PRESENT: atraumatic, normocephalic Eye exam: PRESENT: conjunctiva pink, EOMI, PERRLA. ABSENT: scleral icterus Mouth exam: PRESENT: moist, tongue midline Neck exam: ABSENT: carotid bruit, JVD, lymphadenopathy, thyromegaly Respiratory exam: PRESENT: clear to auscultation asad. ABSENT: rales, rhonchi, wheezes Cardiovascular exam: PRESENT: RRR. ABSENT: diastolic murmur, rubs, systolic murmur Pulses: PRESENT: normal dorsalis pedis pul GI/Abdominal exam: PRESENT: normal bowel sounds, soft. ABSENT: distended, guarding, mass, organolmegaly, rebound, tenderness Rectal exam: PRESENT: deferred Extremities exam: ABSENT: calf tenderness, +1 edema Neurological exam: PRESENT: alert, awake, oriented to person, oriented to place, oriented to time, oriented to situation, CN II-XII grossly intact Results Laboratory Results: 03/28/19 09:17 03/31/19 05:49 03/11/19 15:00 Creatine Kinase 45 L Impressions: Pelvis X-Ray 03/11/19 15:44 IMPRESSION: No radiographic evidence of osteomyelitis. No acute fracture or di slocation. If there is clinical concern for osteomyelitis further evaluation with MRI is recommended. Pelvis CT 03/12/19 00:00 IMPRESSION: 1. Right decubitus ulcer. 2. No CT evidence of aggressive bone resorption to suggest osteomyelitis. Assessment and Plan - Diagnosis (1) Sacral decubitus ulcer, stage IV Is this a current diagnosis for this admission?: Yes Plan: Completed IV antibiotics. S/P Sharp debridement on 03/12/2019. Wound cultures grew Providentia, enterococcus and E. coli bacteria (2) DM type 2 (diabetes mellitus, type 2) Is this a current diagnosis for this admission?: Yes Plan: Continue Lantus and Humalog. (3) Paroxysmal A-fib Is this a current diagnosis for this admission?: Yes Plan: Continue Toprol, cordarone ad Xarelto. (4) Diabetes mellitus type 2 in nonobese Is this a current diagnosis for this admission?: Yes (5) Hypertension Qualifiers: Hypertension type: essential hypertension Qualified Code(s): I10 - Essential (primary) hypertension Is this a current diagnosis for this admission?: Yes Plan: Continue Toprol. (6) Muscular dystrophy Is this a current diagnosis for this admission?: Yes (7) Neurogenic bladder Is this a current diagnosis for this admission?: Yes - Time Time Spent with patient: 25-34 minutes
[2019-04-03] MEDS ORDERED: NYSTATIN TOPICAL POWDER 15 GM TP PRN (19:53)
[2019-04-03] MEDS: INSULIN GLARGINE,HUM.REC.ANLOG 1,000 UNIT/10 ML VIAL SUBCUT SCH (22:04)
[2019-04-03] MEDS: METFORMIN HCL 500 MG TABLET PO SCH (22:05)
[2019-04-03] MEDS: ACETAMINOPHEN 325 MG TABLET PO PRN (22:05)
[2019-04-03] MEDS: ATORVASTATIN CALCIUM 20 MG TABLET PO SCH (22:05)
[2019-04-04] MEDS: INSULIN LISPRO 100 UNIT/ML 3 ML VIAL SUBCUT SCH ×7 (08:29→22:28)
[2019-04-04] MEDS: AMIODARONE HCL 200 MG TABLET PO SCH (11:13)
[2019-04-04] MEDS: MAGNESIUM OXIDE 400 MG TABLET PO SCH ×2 (11:14→18:19)
[2019-04-04] MEDS: MULTIVITAMIN TABLET PO SCH (11:14)
[2019-04-04] MEDS: METOPROLOL SUCCINATE 25 MG TAB.SR.24H PO SCH ×2 (11:14→22:27)
[2019-04-04] MEDS: RIVAROXABAN 15 MG TABLET PO SCH (11:14)
[2019-04-04] MEDS: OXYBUTYNIN CHLORIDE 5 MG TABLET PO SCH (11:20)
--- NOTE | 2019-04-04 15:08 | PDOC PROGRESS REPORT ---
Subjective Progress Note for:: 04/04/19 Subjective:: This is a 63 year old male with past medical history significant for chronic stage IV sacral decubitus ulcer POA, Rgcoajb-Kdvnf-Ggoma muscular dystrophy, T2 DM, chronic atrial fibrillation status post pacemaker, hypertension, neurogenic bladder who was admitted with worsening and necrotic stage IV sacral ulcer. Patient was started on IV antibiotics. He was also seen by surgery and underwent sharp debridement on 03/12/2019. Patient is clinically improved since then but is awaiting long-term placement. 03/30: No acute event overnight. Upon encounter, he appears comfortable. He denies acute complaints. 03/31: Patient complains of recurrence of right shoulder pain. He has prior chronic bilateral shoulder pains. He had a recent shoulder x-ray which showed osteoarthropathy and rotator cuff loss likely related to chronic overuse of his shoulders to compensate for his limited motility. Otherwise, denies chest pain or shortness of breath. We will add some lidocaine patch for his right shoulder pain. 04/01: No acute issues overnight. He has gotten significant relief from the lidocaine patch for his right shoulder pain. Denies chest pain or shortness of breath. 04/02: No acute issues overnight. Patient denies acute complaints. Right shoulder pain is well controlled with lidocaine patch. 04/04: No acute issues or complaints. Still awaiting for placement. Reason For Visit: STAGE FOUR SACRAL DECUBITUS ULCER POA,RLE CELLULIT Physical Exam Vital Signs: Temp Pulse Resp BP Pulse Ox 98.4 F 55 L 16 107/58 L 99 04/04/19 08:51 04/04/19 08:51 04/04/19 08:51 04/04/19 08:51 04/04/19 08:51 Intake & Output 04/03/19 04/04/19 04/05/19 06:59 06:59 06:59 Intake Total 933 860 750 Output Total 1550 1310 Balance -617 -450 750 Weight 161 lb 6.054 oz 160 lb 0.889 oz General appearance: PRESENT: no acute distress, well-developed, well-nourished Head exam: PRESENT: atraumatic, normocephalic Eye exam: PRESENT: conjunctiva pink, EOMI, PERRLA. ABSENT: scleral icterus Ear exam: PRESENT: normal external ear exam Mouth exam: PRESENT: moist, tongue midline Neck exam: ABSENT: carotid bruit, JVD, lymphadenopathy, thyromegaly Respiratory exam: PRESENT: clear to auscultation asad. ABSENT: rales, rhonchi, wheezes Cardiovascular exam: PRESENT: RRR. ABSENT: diastolic murmur, rubs, systolic murmur Pulses: PRESENT: normal dorsalis pedis pul GI/Abdominal exam: PRESENT: normal bowel sounds, soft. ABSENT: distended, guarding, mass, organolmegaly, rebound, tenderness Rectal exam: PRESENT: deferred Neurological exam: PRESENT: alert, awake, oriented to person, oriented to place, oriented to time, oriented to situation, CN II-XII grossly intact Results Laboratory Results: 03/28/19 09:17 03/31/19 05:49 03/11/19 15:00 Creatine Kinase 45 L Impressions: Pelvis X-Ray 03/11/19 15:44 IMPRESSION: No radiographic evidence of osteomyelitis. No acute fracture or dislocation. If there is clinical concern for osteomyelitis further evaluation with MRI is recommended. Pelvis CT 03/12/19 00:00 IMPRESSION: 1. Right decubitus ulcer. 2. No CT evidence of aggressive bone resorption to suggest osteomyelitis. Assessment and Plan - Diagnosis (1) Sacral decubitus ulcer, stage IV Is this a current diagnosis for this admission?: Yes Plan: Completed IV antibiotics. S/P Sharp debridement on 03/12/2019. Wound cultures grew Providentia, enterococcus and E. coli bacteria (2) DM type 2 (diabetes mellitus, type 2) Is this a current diagnosis for this admission?: Yes Plan: Continue Lantus and Humalog. (3) Paroxysmal A-fib Is this a current diagnosis for this admission?: Yes Plan: Continue Toprol, cordarone and Xarelto. (4) Diabetes mellitus type 2 in nonobese Is this a current diagnosis for this admission?: Yes (5) Hypertension Qualifiers: Hypertension type: essential hypertension Qualified Code(s): I10 - Essential (primary) hypertension Is this a current diagnosis for this admission?: Yes Plan: Continue Toprol. (6) Muscular dystrophy Is this a current diagnosis for this admission?: Yes (7) Neurogenic bladder Is this a current diagnosis for this admission?: Yes - Time Time Spent with patient: 25-34 minutes
[2019-04-04] MEDS: METFORMIN HCL 500 MG TABLET PO SCH (22:27)
[2019-04-04] MEDS: ATORVASTATIN CALCIUM 20 MG TABLET PO SCH (22:27)
[2019-04-04] MEDS: INSULIN GLARGINE,HUM.REC.ANLOG 1,000 UNIT/10 ML VIAL SUBCUT SCH (22:28)
[2019-04-04] MEDS ORDERED: LIDOCAINE 5% (700 MG) TRANSDERMAL ADH..PATCH ONE (22:43)
[2019-04-04] MEDS: LIDOCAINE 5% (700 MG) TRANSDERMAL ADH..PATCH TP PRN (22:46)
[2019-04-05] MEDS: INSULIN LISPRO 100 UNIT/ML 3 ML VIAL SUBCUT SCH ×7 (07:25→22:05)
[2019-04-05] MEDS: MAGNESIUM OXIDE 400 MG TABLET PO SCH ×2 (10:14→17:26)
[2019-04-05] MEDS: METOPROLOL SUCCINATE 25 MG TAB.SR.24H PO SCH ×2 (10:14→22:04)
[2019-04-05] MEDS: MULTIVITAMIN TABLET PO SCH (10:14)
[2019-04-05] MEDS: RIVAROXABAN 15 MG TABLET PO SCH (10:14)
[2019-04-05] MEDS: AMIODARONE HCL 200 MG TABLET PO SCH (10:14)
[2019-04-05] MEDS: OXYBUTYNIN CHLORIDE 5 MG TABLET PO SCH (10:14)
--- NOTE | 2019-04-05 14:39 | PDOC PROGRESS REPORT ---
Subjective Progress Note for:: 04/05/19 Subjective:: This is a 63 year old male with past medical history significant for chronic stage IV sacral decubitus ulcer POA, Ilogduc-Uoowb-Obikl muscular dystrophy, T2 DM, chronic atrial fibrillation status post pacemaker, hypertension, neurogenic bladder who was admitted with worsening and necrotic stage IV sacral ulcer. Patient was started on IV antibiotics. He was also seen by surgery and underwent sharp debridement on 03/12/2019. Patient is clinically improved since then but is awaiting long-term placement. 03/30: No acute event overnight. Upon encounter, he appears comfortable. He denies acute complaints. 03/31: Patient complains of recurrence of right shoulder pain. He has prior chronic bilateral shoulder pains. He had a recent shoulder x-ray which showed osteoarthropathy and rotator cuff loss likely related to chronic overuse of his shoulders to compensate for his limited motility. Otherwise, denies chest pain or shortness of breath. We will add some lidocaine patch for his right shoulder pain. 04/01: No acute issues overnight. He has gotten significant relief from the lidocaine patch for his right shoulder pain. Denies chest pain or shortness of breath. 04/02: No acute issues overnight. Patient denies acute complaints. Right shoulder pain is well controlled with lidocaine patch. 04/05: No acute issues or complaints. He has been medically stable for discharge but is still awaiting for placement as he needs SNF placement. Reason For Visit: STAGE FOUR SACRAL DECUBITUS ULCER POA,RLE CELLULIT Physical Exam Vital Signs: Temp Pulse Resp BP Pulse Ox 98.1 F 61 19 134/70 H 97 04/05/19 07:44 04/05/19 07:44 04/05/19 07:44 04/05/19 07:44 04/05/19 07:44 Intake & Output 04/04/19 04/05/19 04/06/19 06:59 06:59 06:59 Intake Total 860 1310 Output Total 1310 725 Balance -450 585 Weight 160 lb 0.889 oz 160 lb 0.889 oz General appearance: PRESENT: no acute distress, well-developed, well-nourished Head exam: PRESENT: atraumatic, normocephalic Eye exam: PRESENT: conjunctiva pink, EOMI, PERRLA. ABSENT: scleral icterus Ear exam: PRESENT: normal external ear exam Mouth exam: PRESENT: moist, tongue midline Neck exam: ABSENT: carotid bruit, JVD, lymphadenopathy, thyromegaly Respiratory exam: PRESENT: clear to auscultation asad. ABSENT: rales, rhonchi, wheezes Cardiovascular exam: PRESENT: RRR. ABSENT: diastolic murmur, rubs, systolic murmur Pulses: PRESENT: normal dorsalis pedis pul GI/Abdominal exam: PRESENT: normal bowel sounds, soft. ABSENT: distended, guarding, mass, organolmegaly, rebound, tenderness Rectal exam: PRESENT: deferred Neurological exam: PRESENT: alert, awake, oriented to person, oriented to place, oriented to time, oriented to situation, CN II-XII grossly intact Results Laboratory Results: 03/28/19 09:17 03/31/19 05:49 03/11/19 15:00 Creatine Kinase 45 L Impressions: Pelvis X-Ray 03/11/19 15:44 IMPRESSION: No radiographic evidence of osteomyelitis. No acute fracture or dislocation. If there is clinical concern for osteomyelitis further evaluation with MRI is recommended. Pelvis CT 03/12/19 00:00 IMPRESSION: 1. Right decubitus ulcer. 2. No CT evidence of aggressive bone resorption to suggest osteomyelitis. Assessment and Plan - Diagnosis (1) Sacral decubitus ulcer, stage IV Is this a current diagnosis for this admission?: Yes Plan: Completed IV antibiotics. S/P Sharp debridement on 03/12/2019. Wound cultures grew Providentia, enterococcus and E. coli bacteria (2) DM type 2 (diabetes mellitus, type 2) Is this a current diagnosis for this admission?: Yes Plan: Continue Lantus and Humalog. (3) Paroxysmal A-fib Is this a current diagnosis for this admission?: Yes Plan: Continue Toprol, cordarone and Xarelto. (4) Diabetes mellitus type 2 in nonobese Is this a current diagnosis for this admission?: Yes (5) Hypertension Qualifiers: Hypertension type: essential hypertension Qualified Code(s): I10 - Essential (primary) hypertension Is this a current diagnosis for this admission?: Yes Plan: Continue Toprol. (6) Muscular dystrophy Is this a current diagnosis for this admission?: Yes (7) Neurogenic bladder Is this a current diagnosis for this admission?: Yes - Time Time Spent with patient: 15-24 minutes
[2019-04-05] MEDS: ATORVASTATIN CALCIUM 20 MG TABLET PO SCH (22:04)
[2019-04-05] MEDS: METFORMIN HCL 500 MG TABLET PO SCH (22:04)
[2019-04-05] MEDS: INSULIN GLARGINE,HUM.REC.ANLOG 1,000 UNIT/10 ML VIAL SUBCUT SCH (22:07)
[2019-04-06 06:13] LABS: ABSOLUTE EOSINOPHILS # (AUTO) 0.1 10^3/uL (0.0-0.6); ABSOLUTE LYMPHOCYTES (AUTO) 1.1 10^3/uL (0.5-4.7); ABSOLUTE MONOCYTES (AUTO) 0.7 10^3/uL (0.1-1.4); ABSOLUTE NEUT (AUTO) 3.8 10^3/uL (1.7-8.2); BASOPHILS % (AUTO) 0.7 % (0-2); EOSINOPHILS % (AUTO) 2.4 % (0-6); HEMATOCRIT 34.5 % (37.9-51.0); HEMOGLOBIN 11.1 g/dL (13.5-17.0); MEAN CORPUSCULAR HEMOGLOBIN 24.2 pg (27.0-33.4); MEAN CORPUSCULAR HGB CONC 32.2 g/dL (32.0-36.0); MEAN CORPUSCULAR VOLUME 75 fl (80-97); MONOCYTES % (AUTO) 11.4 % (3-13); PLATELET COUNT 206 10^3/uL (150-450); RED BLOOD COUNT 4.57 10^6/uL (4.35-5.55); RED CELL DISTRIBUTION WIDTH 16.4 % (11.5-14.0); SEGMENTED NEUTROPHILS % (AUTO) 66.5 % (42-78); TOTAL CELLS COUNTED % (AUTO) 100 %; WHITE BLOOD COUNT 5.7 10^3/uL (4.0-10.5)
[2019-04-06 06:33] LABS: ANION GAP 12 (5-19); BLOOD UREA NITROGEN 25 mg/dL (7-20); CALCIUM 8.5 mg/dL (8.4-10.2); CARBON DIOXIDE 26 mmol/L (22-30); CHLORIDE 98 mmol/L (98-107); GLUCOSE 222 mg/dL (75-110); POTASSIUM 4.2 mmol/L (3.6-5.0)
[2019-04-06] MEDS: INSULIN LISPRO 100 UNIT/ML 3 ML VIAL SUBCUT SCH ×7 (08:51→21:33)
[2019-04-06] MEDS: METOPROLOL SUCCINATE 25 MG TAB.SR.24H PO SCH ×2 (10:45→21:36)
[2019-04-06] MEDS: MULTIVITAMIN TABLET PO SCH (10:45)
[2019-04-06] MEDS: MAGNESIUM OXIDE 400 MG TABLET PO SCH ×2 (10:45→18:47)
[2019-04-06] MEDS: AMIODARONE HCL 200 MG TABLET PO SCH (10:46)
[2019-04-06] MEDS: OXYBUTYNIN CHLORIDE 5 MG TABLET PO SCH (10:46)
[2019-04-06] MEDS: RIVAROXABAN 15 MG TABLET PO SCH (10:46)
[2019-04-06] MEDS: LIDOCAINE 5% (700 MG) TRANSDERMAL ADH..PATCH TP PRN (18:48)
[2019-04-06] MEDS: INSULIN GLARGINE,HUM.REC.ANLOG 1,000 UNIT/10 ML VIAL SUBCUT SCH (21:36)
[2019-04-06] MEDS: METFORMIN HCL 500 MG TABLET PO SCH (21:36)
[2019-04-06] MEDS: ATORVASTATIN CALCIUM 20 MG TABLET PO SCH (21:36)
--- NOTE | 2019-04-06 21:48 | PDOC PROGRESS REPORT ---
Subjective Progress Note for:: 04/06/19 Subjective:: Patient is currently eating his dinner. He is not in any acute discomfort. He is worried about his decubitus ulcer. He also is very defensive about his current situation with regard to transitioning to [facility] facility, the insurance and financial obligations. Reason For Visit: STAGE FOUR SACRAL DECUBITUS ULCER POA,RLE CELLULIT Physical Exam Vital Signs: Temp Pulse Resp BP Pulse Ox 98.1 F 60 17 115/65 99 04/06/19 15:05 04/06/19 15:05 04/06/19 15:05 04/06/19 15:05 04/06/19 15:05 Intake & Output 04/05/19 04/06/19 04/07/19 06:59 06:59 06:59 Intake Total 1310 1100 500 Output Total 725 700 400 Balance 585 400 100 Weight 72.6 kg 72.6 kg 72.6 kg General appearance: PRESENT: cooperative, well-developed Head exam: PRESENT: atraumatic, normocephalic Respiratory exam: PRESENT: clear to auscultation asad, symmetrical, unlabored. ABSENT: accessory muscle use, prolonged expiratory phas, rales, rhonchi, tachypnea, wheezes Cardiovascular exam: PRESENT: RRR, +S1, +S2, systolic murmur - 2/6 GI/Abdominal exam: PRESENT: normal bowel sounds, soft. ABSENT: distended, guarding, tenderness Neurological exam: PRESENT: alert, awake, oriented to person, oriented to place, oriented to time, oriented to situation Psychiatric exam: ABSENT: agitated, anxious - Somewhat defensive today. Focused psych exam: ABSENT: delusional, restlessness Results Laboratory Results: 04/06/19 05:45 04/06/19 05:45 04/06/19 04/06/19 05:45 05:45 WBC 5.7 RBC 4.57 Hgb 11.1 L Hct 34.5 L MCV 75 L MCH 24.2 L MCHC 32.2 RDW 16.4 H Plt Count 206 Seg Neutrophils % 66.5 Sodium 136.1 L Potassium 4.2 Chloride 98 Carbon Dioxide 26 Anion Gap 12 BUN 25 H Creatinine 0.71 Est GFR ( Amer) > 60 Glucose 222 H Calcium 8.5 03/11/19 15:00 Creatine Kinase 45 L Impressions: Pelvis X-Ray 03/11/19 15:44 IMPRESSION: No radiographic evidence of osteomyelitis. No acute fracture or dislocation. If there is clinical concern for osteomyelitis further evaluation with MRI is recommended. Pelvis CT 03/12/19 00:00 IMPRESSION: 1. Right decubitus ulcer. 2. No CT evidence of aggressive bone resorption to suggest osteomyelitis. Assessment and Plan - Diagnosis (1) Sacral decubitus ulcer, stage IV Is this a current diagnosis for this admission?: Yes Plan: Saline wet-to-dry dressings twice daily. This is a chronic issue due to his immobility. (2) DM type 2 (diabetes mellitus, type 2) Qualifiers: Diabetes mellitus adjunct faculty for medical terminology insulin use: with senior care use Diabetes mellitus complication status: without complication Qualified Code(s): E11.9 - Type 2 diabetes mellitus without complications; Z79.4 - adjunct faculty for medical terminology (current) use of insulin Is this a current diagnosis for this admission?: Yes Plan: Continue Lantus as well as Humalog 15 units before meals plus sliding scale. Reasonable control at this time. Glucose levels do fluctuate and this could be related to inconsistency with meal consumption. (3) Paroxysmal A-fib Is this a current diagnosis for this admission?: Yes Plan: Good rate control on current medications. Continue anticoagulation as well. (4) Hypertension Qualifiers: Hypertension type: essential hypertension Qualified Code(s): I10 - Essential (primary) hypertension Is this a current diagnosis for this admission?: Yes Plan: Excellent blood pressure control on current medication regimen. No changes at this time. (5) Muscular dystrophy Is this a current diagnosis for this admission?: Yes Plan: Chronic progressive condition. Patient needs long-term placement. (6) Neurogenic bladder Is this a current diagnosis for this admission?: Yes Plan: Continue oxybutynin - Time Time Spent with patient: 15-24 minutes Medications reviewed and adjusted accordingly: Yes Anticipated discharge: Other - Long-term care
[2019-04-07] MEDS: INSULIN LISPRO 100 UNIT/ML 3 ML VIAL SUBCUT SCH ×7 (07:46→21:11)
[2019-04-07] MEDS: METOPROLOL SUCCINATE 25 MG TAB.SR.24H PO SCH ×2 (09:47→21:13)
[2019-04-07] MEDS: MULTIVITAMIN TABLET PO SCH (09:47)
[2019-04-07] MEDS: MAGNESIUM OXIDE 400 MG TABLET PO SCH ×2 (09:47→17:21)
[2019-04-07] MEDS: OXYBUTYNIN CHLORIDE 5 MG TABLET PO SCH (09:48)
[2019-04-07] MEDS: RIVAROXABAN 15 MG TABLET PO SCH (09:48)
[2019-04-07] MEDS: AMIODARONE HCL 200 MG TABLET PO SCH (09:48)
--- NOTE | 2019-04-07 12:13 | PDOC PROGRESS REPORT ---
Subjective Progress Note for:: 04/07/19 Subjective:: With the assistance of the nurse we uncovered the ischial ulcer. I have also contacted the wound care center for suggestions about ongoing care. The patient has no complaints this morning. Reason For Visit: STAGE FOUR SACRAL DECUBITUS ULCER POA,RLE CELLULIT Physical Exam Vital Signs: Temp Pulse Resp BP Pulse Ox 98.1 F 60 16 116/63 99 04/07/19 07:14 04/07/19 07:14 04/07/19 07:14 04/07/19 07:14 04/07/19 07:14 Intake & Output 04/06/19 04/07/19 04/08/19 06:59 06:59 06:59 Intake Total 1100 600 Output Total 700 400 Balance 400 200 Weight 72.6 kg 72.6 kg General appearance: PRESENT: no acute distress, cooperative, well-developed Head exam: PRESENT: atraumatic, normocephalic Respiratory exam: PRESENT: clear to auscultation asad, symmetrical, unlabored. ABSENT: rales, rhonchi, tachypnea, wheezes Cardiovascular exam: PRESENT: RRR, +S1, +S2 GI/Abdominal exam: PRESENT: normal bowel sounds, soft. ABSENT: tenderness Musculoskeletal exam: PRESENT: other - Paraplegia. ABSENT: ambulatory Neurological exam: PRESENT: alert, awake, oriented to person, oriented to place, oriented to time, oriented to situation, CN II-XII grossly intact, motor sensory deficit - Paraplegia with weakness in upper extremities Psychiatric exam: PRESENT: flat affect. ABSENT: agitated, anxious Skin exam: PRESENT: other - The patient has an ulcer over the right ischial tuberosity. We took the dressing down. There is a beefy red wound base. There is a small defect at the base of the wound with likely nerve tissue exposed. Results Laboratory Results: 04/06/19 05:45 04/06/19 05:45 03/11/19 15:00 Creatine Kinase 45 L Impressions: Pelvis X-Ray 03/11/19 15:44 IMPRESSION: No radiographic evidence of osteomyelitis. No acute fracture or di slocation. If there is clinical concern for osteomyelitis further evaluation with MRI is recommended. Pelvis CT 03/12/19 00:00 IMPRESSION: 1. Right decubitus ulcer. 2. No CT evidence of aggressive bone resorption to suggest osteomyelitis. Assessment and Plan - Diagnosis (1) Sacral decubitus ulcer, stage IV Is this a current diagnosis for this admission?: Yes Plan: I have reached out to the wound care center. 1 of the nurses did come to evaluate the wound. I reviewed her findings and suggestions with her as well as the patient's nurse. For the time being we will put Promogran silver (Marybel) in the base of the wound and cover with slightly dampened gauze. Dressing change every 2 days. Once the patient is at a assisted facility the [facility] care team can decide if he would benefit from a VAC or not. (2) DM type 2 (diabetes mellitus, type 2) Qualifiers: Diabetes mellitus watermelon inspector insulin use: with watermelon inspector use Diabetes mellitus complication status: without complication Qualified Code(s): E11.9 - Type 2 diabetes mellitus without complications; Z79.4 - snf (current) use of insulin Is this a current diagnosis for this admission?: Yes Plan: Reasonable control. Continue current regimen. (3) Paroxysmal A-fib Is this a current diagnosis for this admission?: Yes Plan: Stable on current regimen. No changes. Continue anticoagulation. (4) Hypertension Qualifiers: Hypertension type: essential hypertension Qualified Code(s): I10 - Es sential (primary) hypertension Is this a current diagnosis for this admission?: Yes Plan: Good blood pressure control. No changes at this time. (5) Muscular dystrophy Is this a current diagnosis for this admission?: Yes Plan: Currently stable. Unfortunately this is a chronic progressive disease. No acute intervention at this time other than wound care. (6) Neurogenic bladder Is this a current diagnosis for this admission?: Yes Plan: Continue oxybutynin - Time Time Spent with patient: 15-24 minutes Medications reviewed and adjusted accordingly: Yes Anticipated discharge: Other - Long-term care
[2019-04-07] MEDS: LIDOCAINE 5% (700 MG) TRANSDERMAL ADH..PATCH TP PRN (20:55)
[2019-04-07] MEDS: INSULIN GLARGINE,HUM.REC.ANLOG 1,000 UNIT/10 ML VIAL SUBCUT SCH (21:12)
[2019-04-07] MEDS: ACETAMINOPHEN 325 MG TABLET PO PRN (21:13)
[2019-04-07] MEDS: ATORVASTATIN CALCIUM 20 MG TABLET PO SCH (21:13)
[2019-04-07] MEDS: METFORMIN HCL 500 MG TABLET PO SCH (21:13)
[2019-04-08] MEDS: INSULIN LISPRO 100 UNIT/ML 3 ML VIAL SUBCUT SCH ×7 (07:33→21:48)
[2019-04-08] MEDS: AMIODARONE HCL 200 MG TABLET PO SCH (09:27)
[2019-04-08] MEDS: OXYBUTYNIN CHLORIDE 5 MG TABLET PO SCH (09:28)
[2019-04-08] MEDS: MAGNESIUM OXIDE 400 MG TABLET PO SCH ×2 (09:28→17:05)
[2019-04-08] MEDS: MULTIVITAMIN TABLET PO SCH (09:28)
[2019-04-08] MEDS: RIVAROXABAN 15 MG TABLET PO SCH (09:28)
[2019-04-08] MEDS: METOPROLOL SUCCINATE 25 MG TAB.SR.24H PO SCH ×2 (09:29→21:47)
--- NOTE | 2019-04-08 13:40 | PDOC PROGRESS REPORT ---
Subjective Progress Note for:: 04/08/19 Subjective:: No new complaints. Reason For Visit: STAGE FOUR SACRAL DECUBITUS ULCER POA,RLE CELLULIT Physical Exam Vital Signs: Temp Pulse Resp BP Pulse Ox 97.7 F 60 18 131/69 H 100 04/08/19 07:30 04/08/19 07:30 04/08/19 07:30 04/08/19 07:30 04/08/19 07:30 Intake & Output 04/07/19 04/08/19 04/09/19 06:59 06:59 06:59 Intake Total 600 2591 Output Total 400 300 Balance 200 2291 Weight 72.6 kg 72.6 kg General appearance: PRESENT: no acute distress, well-developed Respiratory exam: PRESENT: clear to auscultation asad, symmetrical, unlabored. ABSENT: rales, rhonchi, tachypnea, wheezes Cardiovascular exam: PRESENT: RRR, +S1, +S2 GI/Abdominal exam: PRESENT: normal bowel sounds, soft. ABSENT: tenderness Rectal exam: PRESENT: deferred Neurological exam: PRESENT: alert, awake, oriented to person, oriented to place, oriented to time, oriented to situation Psychiatric exam: PRESENT: agitated Results Laboratory Results: 04/06/19 05:45 04/06/19 05:45 03/11/19 15:00 Creatine Kinase 45 L Impressions: Pelvis X-Ray 03/11/19 15:44 IMPRESSION: No radiographic evidence of osteomyelitis. No acute fracture or dislocation. If there is clinical concern for osteomyelitis further evaluation with MRI is recommended. Pelvis CT 03/12/19 00:00 IMPRESSION: 1. Right decubitus ulcer. 2. No CT evidence of aggressive bone resorption to suggest osteomyelitis. Assessment and Plan - Diagnosis (1) Sacral decubitus ulcer, stage IV Is this a current diagnosis for this admission?: Yes Plan: Continue the Marybel collagen dressings (2) DM type 2 (diabetes mellitus, type 2) Qualifiers: Diabetes mellitus fpc insulin use: with fpc use Diabetes mellitus complication status: without complication Qualified Code(s): E11.9 - Type 2 diabetes mellitus without complications; Z79.4 - halfway (current) use of insulin Is this a current diagnosis for this admission?: Yes Plan: Accu-Cheks very. This may in part be due to the variability of his appetite (3) Paroxysmal A-fib Is this a current diagnosis for this admission?: Yes Plan: Continue current regimen (4) Hypertension Qualifiers: Hypertension type: essential hypertension Qualified Code(s): I10 - Essent ial (primary) hypertension Is this a current diagnosis for this admission?: Yes Plan: Continue current regimen (5) Muscular dystrophy Is this a current diagnosis for this admission?: Yes Plan: No change in treatment plan (6) Neurogenic bladder Is this a current diagnosis for this admission?: Yes Plan: Continue oxybutynin - Plan Summary Summary: The patient remains [facility]. Unfortunately he is unwilling to comply with the financial requirements to progress to long-term care at [facility]. - Time Time Spent with patient: Less than 15 minutes Medications reviewed and adjusted accordingly: Yes Anticipated discharge: Other - Long-term care
[2019-04-08] MEDS: METFORMIN HCL 500 MG TABLET PO SCH (21:47)
[2019-04-08] MEDS: ATORVASTATIN CALCIUM 20 MG TABLET PO SCH (21:48)
[2019-04-08] MEDS: INSULIN GLARGINE,HUM.REC.ANLOG 1,000 UNIT/10 ML VIAL SUBCUT SCH (21:49)
[2019-04-09] MEDS: INSULIN LISPRO 100 UNIT/ML 3 ML VIAL SUBCUT SCH ×7 (08:23→22:25)
[2019-04-09] MEDS: MAGNESIUM OXIDE 400 MG TABLET PO SCH ×2 (10:03→18:37)
[2019-04-09] MEDS: MULTIVITAMIN TABLET PO SCH (10:04)
[2019-04-09] MEDS: RIVAROXABAN 15 MG TABLET PO SCH (10:04)
[2019-04-09] MEDS: AMIODARONE HCL 200 MG TABLET PO SCH (10:04)
[2019-04-09] MEDS: OXYBUTYNIN CHLORIDE 5 MG TABLET PO SCH (10:04)
[2019-04-09] MEDS: METOPROLOL SUCCINATE 25 MG TAB.SR.24H PO SCH ×2 (10:04→22:23)
--- NOTE | 2019-04-09 17:06 | PDOC PROGRESS REPORT ---
Subjective Progress Note for:: 04/09/19 Subjective:: 04/09/2019. No acute events overnight. Patient pending placement. Reason For Visit: STAGE FOUR SACRAL DECUBITUS ULCER POA,RLE CELLULIT Physical Exam Vital Signs: Temp Pulse Resp BP Pulse Ox 97.5 F 60 16 126/67 H 96 04/09/19 14:43 04/09/19 14:43 04/09/19 14:43 04/09/19 14:43 04/09/19 14:43 Intake & Output 04/08/19 04/09/19 04/10/19 06:59 06:59 06:59 Intake Total 2591 1901 240 Output Total 300 1900 300 Balance 2291 1 -60 Weight 72.6 kg 71.4 kg General appearance: PRESENT: no acute distress, well-developed, well-nourished Head exam: PRESENT: atraumatic, normocephalic Neck exam: ABSENT: carotid bruit, JVD, lymphadenopathy, thyromegaly Respiratory exam: PRESENT: clear to auscultation asad. ABSENT: rales, rhonchi, wheezes GI/Abdominal exam: PRESENT: normal bowel sounds, soft. ABSENT: distended, guard ing, mass, organolmegaly, rebound, tenderness Neurological exam: PRESENT: alert, awake, oriented to person, oriented to place, oriented to time, oriented to situation, CN II-XII grossly intact Results Laboratory Results: 04/06/19 05:45 04/06/19 05:45 03/11/19 15:00 Creatine Kinase 45 L Impressions: Pelvis X-Ray 03/11/19 15:44 IMPRESSION: No radiographic evidence of osteomyelitis. No acute fracture or dislocation. If there is clinical concern for osteomyelitis further evaluation with MRI is recommended. Pelvis CT 03/12/19 00:00 IMPRESSION: 1. Right decubitus ulcer. 2. No CT evidence of aggressive bone resorption to suggest osteomyelitis. 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 This may in part be due to the variability of his appetite (3) Hypertension Qualifiers: Hypertension type: essential hypertension Qualified Code(s): I10 - Essential (primary) hypertension Is this a current diagnosis for this admission?: Yes Plan: Continue current regimen (4) Muscular dystrophy Is this a current diagnosis for this admission?: Yes Plan: No change in treatment plan (5) Neurogenic bladder Is this a current diagnosis for this admission?: Yes Plan: Continue oxybutynin (6) Paroxysmal A-fib Is this a current diagnosis for this admission?: Yes Plan: Continue current regimen - Plan Summary Summary: The patient remains [facility]. Unfortunately he is unwilling to comply with the financial requirements to progress to long-term care at [facility].
[2019-04-09] MEDS: METFORMIN HCL 500 MG TABLET PO SCH (22:23)
[2019-04-09] MEDS: ATORVASTATIN CALCIUM 20 MG TABLET PO SCH (22:23)
[2019-04-09] MEDS: INSULIN GLARGINE,HUM.REC.ANLOG 1,000 UNIT/10 ML VIAL SUBCUT SCH (22:24)
[2019-04-10] MEDS: INSULIN LISPRO 100 UNIT/ML 3 ML VIAL SUBCUT SCH ×6 (08:00→16:33)
[2019-04-10] MEDS: MAGNESIUM OXIDE 400 MG TABLET PO SCH ×2 (09:24→17:50)
[2019-04-10] MEDS: METOPROLOL SUCCINATE 25 MG TAB.SR.24H PO SCH ×2 (09:24→22:22)
[2019-04-10] MEDS: MULTIVITAMIN TABLET PO SCH (09:24)
[2019-04-10] MEDS: AMIODARONE HCL 200 MG TABLET PO SCH (09:25)
[2019-04-10] MEDS: RIVAROXABAN 15 MG TABLET PO SCH (09:25)
[2019-04-10] MEDS: OXYBUTYNIN CHLORIDE 5 MG TABLET PO SCH (09:25)
[2019-04-10] MEDS: ACETAMINOPHEN 325 MG TABLET PO PRN (11:02)
--- NOTE | 2019-04-10 12:39 | PDOC PROGRESS REPORT ---
Subjective Progress Note for:: 04/10/19 Subjective:: 04/09/2019. No acute events overnight. Patient pending placement. 04/10/2019. No acute events overnight. Saw patient this morning comfortably resting in bed no apparent distress, complaining chronic right upper extremity pain otherwise denies any fever, chills, nausea, vomiting, diarrhea, constipation or any urinary symptoms. P.o. tolerant. Having normal bowel scott dder movements. Reason For Visit: STAGE FOUR SACRAL DECUBITUS ULCER POA,RLE CELLULIT Physical Exam Vital Signs: Temp Pulse Resp BP Pulse Ox 97.5 F 60 17 129/70 H 100 04/10/19 10:46 04/10/19 10:46 04/10/19 10:46 04/10/19 10:46 04/10/19 10:46 Intake & Output 04/09/19 04/10/19 04/11/19 06:59 06:59 06:59 Intake Total 1901 240 474 Output Total 1900 1400 300 Balance 1 -1160 174 Weight 71.4 kg 71.4 kg General appearance: PRESENT: no acute distress, well-developed, well-nourished Head exam: PRESENT: atraumatic, normocephalic Respiratory exam: PRESENT: clear to auscultation asad. ABSENT: rales, rhonchi, wheezes Cardiovascular exam: PRESENT: RRR. ABSENT: diastolic murmur, rubs, systolic murmur GI/Abdominal exam: PRESENT: normal bowel sounds, soft. ABSENT: distended, guarding, mass, organolmegaly, rebound, tenderness Neurological exam: PRESENT: alert, awake, oriented to person, oriented to place, oriented to time, oriented to situation, CN II-XII grossly intact Results Laboratory Results: 04/06/19 05:45 04/06/19 05:45 03/11/19 15:00 Creatine Kinase 45 L Impressions: Pelvis X-Ray 03/11/19 15:44 IMPRESSION: No radiographic evidence of osteomyelitis. No acute fracture or dislocation. If there is clinical concern for osteomyelitis further evaluation with MRI is recommended. Pelvis CT 03/12/19 00:00 IMPRESSION: 1. Right decubitus ulcer. 2. No CT evidence of aggressive bone resorption to suggest osteomyelitis. Assessment and Plan - Diagnosis (1) Sacral decubitus ulcer, stage IV Is this a current diagnosis for this admission?: Yes Plan: Continue the Marybel collagen dressings, frequent repositioning. 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 Continue diabetic diet, continue basal, prandial and correctional insulin. Accu-Chek. Hypoglycemia protocol. Metformin. (3) Hypertension Qualifiers: Hypertension type: essential hypertension Qualified Code(s): I10 - Essential (primary) hypertension Is this a current diagnosis for this admission?: Yes Plan: Continue current regimen (4) Muscular dystrophy Is this a current diagnosis for this admission?: Yes Plan: No change in treatment plan (5) Neurogenic bladder Is this a current diagnosis for this admission?: Yes Plan: Continue oxybutynin (6) Paroxysmal A-fib Is this a current diagnosis for this admission?: Yes Plan: Rate controlled. Anticoagulated. Continue amiodarone and beta-blockers. - Plan Summary Summary: The patient remains [facility]. Unfortunately he is unwilling to comply with the financial requirements to progress to long-term care at [facility].
[2019-04-10] MEDS: LIDOCAINE 5% (700 MG) TRANSDERMAL ADH..PATCH TP PRN (16:27)
[2019-04-10] MEDS: ATORVASTATIN CALCIUM 20 MG TABLET PO SCH (22:22)
[2019-04-10] MEDS: METFORMIN HCL 500 MG TABLET PO SCH (22:22)
[2019-04-10] MEDS: INSULIN GLARGINE,HUM.REC.ANLOG 1,000 UNIT/10 ML VIAL SUBCUT SCH (22:29)
[2019-04-11] MEDS: INSULIN LISPRO 100 UNIT/ML 3 ML VIAL SUBCUT SCH ×3 (08:25→16:22)
[2019-04-11] MEDS: AMIODARONE HCL 200 MG TABLET PO SCH (09:23)
[2019-04-11] MEDS: MAGNESIUM OXIDE 400 MG TABLET PO SCH ×2 (09:23→17:11)
[2019-04-11] MEDS: RIVAROXABAN 15 MG TABLET PO SCH (09:23)
[2019-04-11] MEDS: MULTIVITAMIN TABLET PO SCH (09:23)
[2019-04-11] MEDS: METOPROLOL SUCCINATE 25 MG TAB.SR.24H PO SCH ×2 (09:23→21:14)
--- NOTE | 2019-04-11 13:44 | PDOC PROGRESS REPORT ---
Subjective Progress Note for:: 04/11/19 Subjective:: 04/09/2019. No acute events overnight. Patient pending placement. 04/10/2019. No acute events overnight. Saw patient this morning comfortably resting in bed no apparent distress, complaining chronic right upper extremity pain otherwise denies any fever, chills, nausea, vomiting, diarrhea, constipation or any urinary symptoms. P.o. tolerant. Having normal bowel scott dder movements. 04/11/2019. No acute events overnight. Comfortably sitting in bed no apparent distress. Still complaining of right upper extremity chronic pain which is improved with topical lidocaine patches. Does not want to be started on muscle relaxants. Denies any fever, chills, nausea, vomiting, diarrhea, constipation or any urinary symptoms. Reason For Visit: STAGE FOUR SACRAL DECUBITUS ULCER POA,RLE CELLULIT Physical Exam Vital Signs: Temp Pulse Resp BP Pulse Ox 97.7 F 60 17 116/63 99 04/11/19 11:22 04/11/19 11:22 04/11/19 11:22 04/11/19 11:22 04/11/19 11:22 Intake & Output 04/10/19 04/11/19 04/12/19 06:59 06:59 06:59 Intake Total 240 948 237 Output Total 1400 900 250 Balance -1160 48 -13 Weight 71.4 kg 71.3 kg General appearance: PRESENT: no acute distress, well-developed, well-nourished Head exam: PRESENT: atraumatic, normocephalic Respiratory exam: PRESENT: clear to auscultation asad. ABSENT: rales, rhonchi, wheezes Cardiovascular exam: PRESENT: RRR. ABSENT: diastolic murmur, rubs, systolic murmur GI/Abdominal exam: PRESENT: normal bowel sounds, soft. ABSENT: distended, guarding, mass, organolmegaly, rebound, tenderness Neurological exam: PRESENT: alert, awake, oriented to person, oriented to place, oriented to time, oriented to situation, CN II-XII grossly intact Results Laboratory Results: 04/06/19 05:45 04/06/19 05:45 03/11/19 15:00 Creatine Kinase 45 L Impressions: Pelvis X-Ray 03/11/19 15:44 IMPRESSION: No radiographic evidence of osteomyelitis. No acute fracture or dislocation. If there is clinical concern for osteomyelitis further evaluation with MRI is recommended. Pelvis CT 03/12/19 00:00 IMPRESSION: 1. Right decubitus ulcer. 2. No CT evidence of aggressive bone resorption to suggest osteomyelitis. Assessment and Plan - Diagnosis (1) Sacral decubitus ulcer, stage IV Is this a current diagnosis for this admission?: Yes Plan: Continue the Marybel collagen dressings, frequent repositioning. 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 Continue diabetic diet, continue basal, prandial and correctional insulin. Accu-Chek. Hypoglycemia protocol. Metformin. (3) Hypertension Qualifiers: Hypertension type: essential hypertension Qualified Code(s): I10 - Essential (primary) hypertension Is this a current diagnosis for this admission?: Yes Plan: Continue current regimen (4) Muscular dystrophy Is this a current diagnosis for this admission?: Yes Plan: No change in treatment plan (5) Neurogenic bladder Is this a current diagnosis for this admission?: Yes Plan: Continue oxybutynin (6) Paroxysmal A-fib Is this a current diagnosis for this admission?: Yes Plan: Rate controlled. Anticoagulated. Continue amiodarone and beta-blockers. - Plan Summary Summary: The patient remains [facility]. Unfortunately he is unwilling to comply with the financial requirements to progress to long-term care at [facility].
[2019-04-11] MEDS: ATORVASTATIN CALCIUM 20 MG TABLET PO SCH (21:14)
[2019-04-11] MEDS: INSULIN GLARGINE,HUM.REC.ANLOG 1,000 UNIT/10 ML VIAL SUBCUT SCH (21:14)
[2019-04-11] MEDS: METFORMIN HCL 500 MG TABLET PO SCH (21:14)
[2019-04-12] MEDS: INSULIN LISPRO 100 UNIT/ML 3 ML VIAL SUBCUT SCH ×3 (07:48→16:57)
[2019-04-12] MEDS: RIVAROXABAN 15 MG TABLET PO SCH (10:33)
[2019-04-12] MEDS: AMIODARONE HCL 200 MG TABLET PO SCH (10:33)
[2019-04-12] MEDS: METOPROLOL SUCCINATE 25 MG TAB.SR.24H PO SCH ×2 (10:33→21:53)
[2019-04-12] MEDS: LIDOCAINE 5% (700 MG) TRANSDERMAL ADH..PATCH TP PRN (10:34)
[2019-04-12] MEDS: MAGNESIUM OXIDE 400 MG TABLET PO SCH ×2 (10:34→18:00)
--- NOTE | 2019-04-12 18:14 | Progress Note ---
Provider Note Provider Note: Patient has no complaints today besides continued mild back pain. Patient denies any fever or shortness of breath or chills. Patient vital signs remained stable. Lungs are clear bilaterally. Abdomen is soft and nontender. Patient is alert and fully oriented. Continue frequent repositioning for patient's sacral decubitus stage IV ulcers. Continue metformin for patient's diabetes. Continue Accu-Cheks. Continue current antihypertensives. No changes to current regimen.
[2019-04-12] MEDS: ATORVASTATIN CALCIUM 20 MG TABLET PO SCH (21:53)
[2019-04-12] MEDS: INSULIN GLARGINE,HUM.REC.ANLOG 1,000 UNIT/10 ML VIAL SUBCUT SCH (21:53)
[2019-04-12] MEDS: METFORMIN HCL 500 MG TABLET PO SCH (21:53)
[2019-04-13] MEDS: INSULIN LISPRO 100 UNIT/ML 3 ML VIAL SUBCUT SCH ×3 (08:22→15:09)
[2019-04-13] MEDS: METOPROLOL SUCCINATE 25 MG TAB.SR.24H PO SCH ×2 (09:28→22:00)
[2019-04-13] MEDS: MAGNESIUM OXIDE 400 MG TABLET PO SCH ×2 (09:28→17:45)
[2019-04-13] MEDS: RIVAROXABAN 15 MG TABLET PO SCH (09:28)
[2019-04-13] MEDS: AMIODARONE HCL 200 MG TABLET PO SCH (09:28)
--- NOTE | 2019-04-13 18:27 | Progress Note ---
Provider Note Provider Note: Patient seen and examined by me today. Patient has no complaints at the moment. Patient's vital signs remained stable. Lungs are clear to auscultation bilaterally. Abdomen is soft and nontender. Continue current plan with metoprolol and amiodarone and Xarelto for patient's chronic atrial fibrillation. Continue frequent repositioning for stage IV decubitus ulcer. Continue diabetic regimen. Patient remains medically cleared.
[2019-04-13] MEDS: INSULIN GLARGINE,HUM.REC.ANLOG 1,000 UNIT/10 ML VIAL SUBCUT SCH (21:59)
[2019-04-13] MEDS: METFORMIN HCL 500 MG TABLET PO SCH (21:59)
[2019-04-13] MEDS: ATORVASTATIN CALCIUM 20 MG TABLET PO SCH (22:00)
[2019-04-14] MEDS: INSULIN LISPRO 100 UNIT/ML 3 ML VIAL SUBCUT SCH ×3 (08:03→17:33)
[2019-04-14] MEDS: AMIODARONE HCL 200 MG TABLET PO SCH (09:16)
[2019-04-14] MEDS: RIVAROXABAN 15 MG TABLET PO SCH (09:16)
[2019-04-14] MEDS: MAGNESIUM OXIDE 400 MG TABLET PO SCH ×2 (09:16→17:33)
[2019-04-14] MEDS: METOPROLOL SUCCINATE 25 MG TAB.SR.24H PO SCH ×2 (09:17→22:29)
--- NOTE | 2019-04-14 12:16 | Progress Note ---
Provider Note Provider Note: Patient was seen and evaluated today. Patient complained of feeling drowsy and did not have a good night sleep yesterday. States that he feels weak and would like to work with physical therapy today. Otherwise has no complaints. Denies any dizziness or vertigo. Denies lightheadedness. Vital signs continue to remain within normal limits. Lungs are clear to auscultation. Heart rate is regular in rate and rhythm. Patient is fully awake and completely oriented. Stage IV sacral decubitus ulcer-continue frequent repositioning Diabetes mellitus-continue current insulin regimen. Adequately controlled in the hospital. Chronic atrial fibrillation-continue amiodarone and Xarelto. Rate is adequately. 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 Patient continues to be medically cleared.
[2019-04-14] MEDS: ATORVASTATIN CALCIUM 20 MG TABLET PO SCH (22:29)
[2019-04-14] MEDS: METFORMIN HCL 500 MG TABLET PO SCH (22:29)
[2019-04-14] MEDS: INSULIN GLARGINE,HUM.REC.ANLOG 1,000 UNIT/10 ML VIAL SUBCUT SCH (22:36)
[2019-04-15] MEDS: INSULIN LISPRO 100 UNIT/ML 3 ML VIAL SUBCUT SCH ×3 (09:11→17:28)
[2019-04-15] MEDS: MAGNESIUM OXIDE 400 MG TABLET PO SCH ×2 (09:12→17:28)
[2019-04-15] MEDS: AMIODARONE HCL 200 MG TABLET PO SCH (09:12)
[2019-04-15] MEDS: RIVAROXABAN 15 MG TABLET PO SCH (09:12)
[2019-04-15] MEDS: METOPROLOL SUCCINATE 25 MG TAB.SR.24H PO SCH ×2 (09:12→21:36)
--- NOTE | 2019-04-15 15:09 | Progress Note ---
Provider Note Provider Note: Patient is doing well. Vital signs remained stable. Patient is fully awake and alert. Lungs are clear to auscultation. Patient worked with physical therapy today. Continue physical therapy for debility. Continue frequent repositioning for sacral decubitus ulcer. Patient's diabetes seems acceptable on current diabetes regimen. Continue current regimen for his chronic paroxysmal atrial fibrillation. Patient remains medically cleared for discharge.
[2019-04-15] MEDS: METFORMIN HCL 500 MG TABLET PO SCH (21:36)
[2019-04-15] MEDS: ATORVASTATIN CALCIUM 20 MG TABLET PO SCH (21:36)
[2019-04-15] MEDS: INSULIN GLARGINE,HUM.REC.ANLOG 1,000 UNIT/10 ML VIAL SUBCUT SCH (21:37)
[2019-04-16] MEDS: INSULIN LISPRO 100 UNIT/ML 3 ML VIAL SUBCUT SCH ×3 (07:24→16:47)
[2019-04-16] MEDS: METOPROLOL SUCCINATE 25 MG TAB.SR.24H PO SCH ×2 (09:38→22:41)
[2019-04-16] MEDS: MAGNESIUM OXIDE 400 MG TABLET PO SCH ×2 (09:39→17:24)
[2019-04-16] MEDS: AMIODARONE HCL 200 MG TABLET PO SCH (09:39)
[2019-04-16] MEDS: RIVAROXABAN 15 MG TABLET PO SCH (09:39)
--- NOTE | 2019-04-16 18:34 | Progress Note ---
Provider Note Provider Note: Patient has no complaints today. Vital signs remained stable. Patient is alert and oriented and fully conversational. Continue frequent repositioning for patient's sacral decubitus ulcers. Continue current diabetes regimen. Continue current A. fib regimen. Patient remains medically clear.
[2019-04-16] MEDS: INSULIN GLARGINE,HUM.REC.ANLOG 1,000 UNIT/10 ML VIAL SUBCUT SCH (22:41)
[2019-04-16] MEDS: METFORMIN HCL 500 MG TABLET PO SCH (22:42)
[2019-04-16] MEDS: ATORVASTATIN CALCIUM 20 MG TABLET PO SCH (22:42)
[2019-04-17] MEDS: INSULIN LISPRO 100 UNIT/ML 3 ML VIAL SUBCUT SCH ×3 (07:36→16:24)
[2019-04-17] MEDS: RIVAROXABAN 15 MG TABLET PO SCH (09:48)
[2019-04-17] MEDS: METOPROLOL SUCCINATE 25 MG TAB.SR.24H PO SCH ×2 (09:48→22:06)
[2019-04-17] MEDS: MAGNESIUM OXIDE 400 MG TABLET PO SCH ×2 (09:49→17:27)
[2019-04-17] MEDS: AMIODARONE HCL 200 MG TABLET PO SCH (09:49)
--- NOTE | 2019-04-17 16:38 | Progress Note ---
Provider Note Provider Note: Patient is comfortable at rest. Patient has no complaints today. Vital signs remained stable. Patient is awake and alert with no acute distress. Patient is fully oriented. Continue current management for patient's sacral decubitus ulcers, chronic paroxysmal atrial fibrillation, Charcot brendan muscular dystrophy. Continue PT for his physical debility
[2019-04-17] MEDS: INSULIN GLARGINE,HUM.REC.ANLOG 1,000 UNIT/10 ML VIAL SUBCUT SCH (22:05)
[2019-04-17] MEDS: METFORMIN HCL 500 MG TABLET PO SCH (22:05)
[2019-04-17] MEDS: ATORVASTATIN CALCIUM 20 MG TABLET PO SCH (22:24)
[2019-04-18] MEDS: INSULIN LISPRO 100 UNIT/ML 3 ML VIAL SUBCUT SCH ×3 (07:45→17:03)
[2019-04-18] MEDS: AMIODARONE HCL 200 MG TABLET PO SCH (10:12)
[2019-04-18] MEDS: RIVAROXABAN 15 MG TABLET PO SCH (10:12)
[2019-04-18] MEDS: METOPROLOL SUCCINATE 25 MG TAB.SR.24H PO SCH ×2 (10:12→22:10)
[2019-04-18] MEDS: MAGNESIUM OXIDE 400 MG TABLET PO SCH ×2 (10:12→17:03)
--- NOTE | 2019-04-18 10:47 | Progress Note ---
Provider Note Provider Note: Patient has no complaints today. Denies any shortness of breath. Vital signs remained stable. Lungs are clear to auscultation. Heart rate is regular. Patient is fully awake and conversational. Continue current regimen for his chronic sacral decubitus ulcer, chronic paroxysmal atrial fibrillation, physical debility, charcot brednan tooth muscular dystrophy.
[2019-04-18] MEDS: INSULIN GLARGINE,HUM.REC.ANLOG 1,000 UNIT/10 ML VIAL SUBCUT SCH (22:09)
[2019-04-18] MEDS: ATORVASTATIN CALCIUM 20 MG TABLET PO SCH (22:11)
[2019-04-18] MEDS: METFORMIN HCL 500 MG TABLET PO SCH (22:11)
[2019-04-19] MEDS: INSULIN LISPRO 100 UNIT/ML 3 ML VIAL SUBCUT SCH ×3 (07:55→18:22)
[2019-04-19] MEDS: AMIODARONE HCL 200 MG TABLET PO SCH (09:56)
[2019-04-19] MEDS: MAGNESIUM OXIDE 400 MG TABLET PO SCH ×2 (09:56→18:21)
[2019-04-19] MEDS: METOPROLOL SUCCINATE 25 MG TAB.SR.24H PO SCH ×2 (09:56→22:12)
[2019-04-19] MEDS: RIVAROXABAN 15 MG TABLET PO SCH (09:56)
--- NOTE | 2019-04-19 12:57 | Progress Note ---
Provider Note Provider Note: Patient has no complaints today. Patient's vitals are stable. Patient is awake and alert and in no acute distress. Patient is conversational. Continue current management for patient's diabetes mellitus, physical debility, Charcot's Zoya tooth muscular dystrophy, sacral decubitus ulcer.
[2019-04-19] MEDS: INSULIN GLARGINE,HUM.REC.ANLOG 1,000 UNIT/10 ML VIAL SUBCUT SCH (22:00)
[2019-04-19] MEDS: ATORVASTATIN CALCIUM 20 MG TABLET PO SCH (22:12)
[2019-04-19] MEDS: METFORMIN HCL 500 MG TABLET PO SCH (22:12)
[2019-04-20] MEDS: METOPROLOL SUCCINATE 25 MG TAB.SR.24H PO SCH ×2 (10:05→22:38)
[2019-04-20] MEDS: AMIODARONE HCL 200 MG TABLET PO SCH (10:05)
[2019-04-20] MEDS: RIVAROXABAN 15 MG TABLET PO SCH (10:05)
[2019-04-20] MEDS: INSULIN LISPRO 100 UNIT/ML 3 ML VIAL SUBCUT SCH ×3 (10:06→18:08)
[2019-04-20] MEDS: MAGNESIUM OXIDE 400 MG TABLET PO SCH ×2 (10:06→18:07)
--- NOTE | 2019-04-20 13:02 | Progress Note ---
Provider Note Provider Note: Patient doing well today. Has no complaints besides that he was not turned every 2 hours as advised yesterday. Otherwise vital signs are normal. Patient is awake alert and fully oriented. Incision site of recent pacemaker appears well-healed and noninflamed. Continue current treatment regimen for sacral decubitus ulcer, diabetes, Charcot Zoya tooth, muscular dystrophy, chronic atrial fibrillation.
[2019-04-20] MEDS: INSULIN GLARGINE,HUM.REC.ANLOG 1,000 UNIT/10 ML VIAL SUBCUT SCH (22:37)
[2019-04-20] MEDS: METFORMIN HCL 500 MG TABLET PO SCH (22:38)
[2019-04-20] MEDS: ATORVASTATIN CALCIUM 20 MG TABLET PO SCH (22:38)
[2019-04-21] MEDS: INSULIN LISPRO 100 UNIT/ML 3 ML VIAL SUBCUT SCH ×3 (09:41→17:29)
[2019-04-21] MEDS: METOPROLOL SUCCINATE 25 MG TAB.SR.24H PO SCH ×2 (09:42→21:24)
[2019-04-21] MEDS: AMIODARONE HCL 200 MG TABLET PO SCH (09:42)
[2019-04-21] MEDS: RIVAROXABAN 15 MG TABLET PO SCH (09:42)
[2019-04-21] MEDS: MAGNESIUM OXIDE 400 MG TABLET PO SCH ×2 (09:42→17:29)
--- NOTE | 2019-04-21 15:38 | Progress Note ---
Provider Note Provider Note: Patient seen and evaluated. No new complaints. Continue current treatment regimen for sacral decubitus ulcer, diabetes, Charcot Zoya tooth, muscular dystrophy, chronic atrial fibrillation. Temp Pulse Resp BP Pulse Ox 97.3 F 60 16 108/50 L 100 04/21/19 11:37 04/21/19 11:37 04/21/19 11:37 04/21/19 11:37 04/21/19 11:37 Intake & Output 04/20/19 04/21/19 04/22/19 06:59 06:59 06:59 Intake Total 910 801 210 Output Total 350 850 150 Balance 560 -49 60 Weight 71.4 kg 71.4 kg Weight/Height Weight 71.4 kg Height 5 ft 2 in
[2019-04-21] MEDS: ATORVASTATIN CALCIUM 20 MG TABLET PO SCH (21:22)
[2019-04-21] MEDS: METFORMIN HCL 500 MG TABLET PO SCH (21:22)
[2019-04-21] MEDS: INSULIN GLARGINE,HUM.REC.ANLOG 1,000 UNIT/10 ML VIAL SUBCUT SCH (21:23)
[2019-04-22] MEDS: INSULIN LISPRO 100 UNIT/ML 3 ML VIAL SUBCUT SCH ×3 (08:40→16:09)
[2019-04-22] MEDS: METOPROLOL SUCCINATE 25 MG TAB.SR.24H PO SCH ×2 (10:33→22:25)
[2019-04-22] MEDS: RIVAROXABAN 15 MG TABLET PO SCH (10:33)
[2019-04-22] MEDS: AMIODARONE HCL 200 MG TABLET PO SCH (10:33)
--- NOTE | 2019-04-22 16:42 | PDOC PROGRESS REPORT ---
Subjective Progress Note for:: 04/22/19 Reason For Visit: STAGE FOUR SACRAL DECUBITUS ULCER POA,RLE CELLULIT Awaiting disposition Physical Exam Vital Signs: Temp Pulse Resp BP Pulse Ox 97.5 F 60 18 113/58 L 99 04/22/19 15:26 04/22/19 15:26 04/22/19 15:26 04/22/19 15:26 04/22/19 15:26 Intake & Output 04/21/19 04/22/19 04/23/19 06:59 06:59 06:59 Intake Total 801 720 594 Output Total 850 425 Balance -49 295 594 Weight 71.4 kg 71.4 kg General appearance: PRESENT: no acute distress, well-developed Head exam: PRESENT: atraumatic, normocephalic Eye exam: PRESENT: conjunctiva pink, EOMI, PERRLA. ABSENT: scleral icterus Neck exam: ABSENT: carotid bruit, JVD, lymphadenopathy, thyromegaly Respiratory exam: PRESENT: clear to auscultation asad. ABSENT: rales, rhonchi, wheezes Cardiovascular exam: PRESENT: RRR, +S1, +S2. ABSENT: diastolic murmur, rubs, systolic murmur GI/Abdominal exam: PRESENT: normal bowel sounds, soft. ABSENT: distended, guarding, mass, organolmegaly, rebound, tenderness Rectal exam: PRESENT: deferred Extremities exam: PRESENT: full ROM. ABSENT: calf tenderness, clubbing, pedal edema Neurological exam: PRESENT: alert, awake, oriented to person, oriented to place, oriented to time, oriented to situation Psychiatric exam: PRESENT: appropriate affect. ABSENT: homicidal ideation, suicidal ideation Skin exam: PRESENT: other - Sacral Decubitus ulcers. ABSENT: cyanosis Results Laboratory Results: 04/06/19 05:45 04/06/19 05:45 03/11/19 15:00 Creatine Kinase 45 L Impressions: Pelvis X-Ray 03/11/19 15:44 IMPRESSION: No radiographic evidence of osteomyelitis. No acute fracture or dislocation. If there is clinical concern for osteomyelitis further evaluation with MRI is recommended. Pelvis CT 03/12/19 00:00 IMPRESSION: 1. Right decubitus ulcer. 2. No CT evidence of aggressive bone resorption to suggest osteomyelitis. 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 Awaiting disposition
[2019-04-22] MEDS: INSULIN GLARGINE,HUM.REC.ANLOG 1,000 UNIT/10 ML VIAL SUBCUT SCH (22:25)
[2019-04-22] MEDS: ATORVASTATIN CALCIUM 20 MG TABLET PO SCH (22:26)
[2019-04-22] MEDS: METFORMIN HCL 500 MG TABLET PO SCH (22:26)
[2019-04-23] MEDS: INSULIN LISPRO 100 UNIT/ML 3 ML VIAL SUBCUT SCH ×3 (08:07→21:42)
[2019-04-23] MEDS: RIVAROXABAN 15 MG TABLET PO SCH (10:54)
[2019-04-23] MEDS: AMIODARONE HCL 200 MG TABLET PO SCH (10:54)
[2019-04-23] MEDS: METOPROLOL SUCCINATE 25 MG TAB.SR.24H PO SCH ×2 (10:54→21:47)
--- NOTE | 2019-04-23 14:50 | Progress Note ---
Provider Note Provider Note: There are no new injuries.. No significant findings Awaiting disposition. foundation relations manager is involved. Temp Pulse Resp BP Pulse Ox 97.6 F 60 16 117/61 100 04/23/19 12:00 04/23/19 12:00 04/23/19 12:00 04/23/19 12:00 04/23/19 12:00 Intake & Output 04/22/19 04/23/19 04/24/19 06:59 06:59 06:59 Intake Total 720 1071 474 Output Total 425 600 275 Balance 295 471 199 Weight 71.4 kg
[2019-04-23] MEDS: INSULIN GLARGINE,HUM.REC.ANLOG 1,000 UNIT/10 ML VIAL SUBCUT SCH (21:47)
[2019-04-23] MEDS: METFORMIN HCL 500 MG TABLET PO SCH (21:47)
[2019-04-23] MEDS: ATORVASTATIN CALCIUM 20 MG TABLET PO SCH (21:48)
[2019-04-24] MEDS: INSULIN LISPRO 100 UNIT/ML 3 ML VIAL SUBCUT SCH ×3 (08:29→18:25)
[2019-04-24] MEDS: METOPROLOL SUCCINATE 25 MG TAB.SR.24H PO SCH ×2 (10:31→22:06)
[2019-04-24] MEDS: AMIODARONE HCL 200 MG TABLET PO SCH (10:32)
[2019-04-24] MEDS: RIVAROXABAN 15 MG TABLET PO SCH (10:32)
--- NOTE | 2019-04-24 15:35 | Progress Note ---
Provider Note Provider Note: Still awaiting disposition on this gentleman. He continues to have no new complaints. He says he is waiting to hear back Temp Pulse Resp BP Pulse Ox 97.5 F 60 17 112/65 93 04/24/19 10:51 04/24/19 10:51 04/24/19 10:51 04/24/19 10:51 04/24/19 10:51 Intake & Output 04/23/19 04/24/19 04/25/19 06:59 06:59 06:59 Intake Total 1071 1049 473 Output Total 600 575 280 Balance 471 474 193 Weight 71.4 kg Weight/Height Weight 71.4 kg Height 5 ft 2 in Current Medications Generic Name Dose Route Start Last Admin Trade Name Freq PRN Reason Stop Dose Admin Amiodarone HCl 200 mg 03/29/19 10:00 04/24/19 10:32 Cordarone 200 Mg Tablet PO 04/28/19 09:59 200 mg DAILY ADOLPH Administration Atorvastatin Calcium 20 mg 03/28/19 22:00 04/23/19 21:48 Lipitor 20 Mg Tablet PO 04/27/19 21:59 20 mg QHS ADOLPH Administration Insulin Glargine 35 unit 04/11/19 22:00 04/23/19 21:47 Lantus Insulin 100 Unit/1 Ml 10 Ml SUBCUT 05/11/19 21:59 35 unit QHS ADOLPH Administration Insulin Human Lispro 15 unit 03/30/19 11:00 04/24/19 13:17 Humalog Insulin 100 Unit/1 Ml 3 Ml Vial SUBCUT 04/29/19 10:59 15 unit AC ADOLPH Administration Lidocaine 1 patch 03/31/19 10:15 04/12/19 10:34 Lidoderm 5% (700 Mg) Transdermal Patch TP 04/30/19 10:14 1 patch DAILYP PRN Administration FOR PAIN-RIGHT SHOULDER Metformin HCl 1,000 mg 03/28/19 22:00 04/23/19 21:47 Glucophage 500 Mg Tablet PO 04/27/19 21:59 1,000 mg QHS ADOLPH Administration Metoprolol Succinate 25 mg 03/28/19 22:00 04/24/19 10:31 Toprol Xl 25 Mg Tab.Sr PO 04/27/19 21:59 25 mg Q12 ADOLPH Administration Rivaroxaban 15 mg 03/29/19 10:00 04/24/19 10:32 Xarelto 15 Mg Tablet PO 04/28/19 09:59 15 mg DAILY ADOLPH Administration Discontinued Medications Generic Name Dose Route Start Last Admin Trade Name Jessica PRN Reason Stop Dose Admin Acetaminophen 975 mg 03/11/19 16:11 03/11/19 16:41 Tylenol 325 Mg Tablet PO 03/11/19 16:12 975 mg NOW ONE Administration Acetaminophen 650 mg 03/11/19 18:16 Tylenol 650 Mg Supp CO 04/10/19 18:15 Q4HP PRN FOR PAIN Acetaminophen 650 mg 03/11/19 18:16 04/10/19 11:02 Tylenol 325 Mg Tablet PO 04/10/19 18:15 650 mg Q4HP PRN Administration FOR PAIN Amiodarone HCl 200 mg 03/12/19 10:00 03/28/19 09:40 Cordarone 200 Mg Tablet PO 04/11/19 09:59 200 mg DAILY ADOLPH Administration Amoxicillin/Clavulanate Potassium 1 tab 03/16/19 14:00 03/23/19 06:11 Augmentin 500-125 Tablet PO 03/23/19 13:59 1 tab Q8 ADOLPH Administration Atorvastatin Calcium 20 mg 03/12/19 10:00 03/28/19 09:40 Lipitor 20 Mg Tablet PO 04/11/19 09:59 20 mg DAILY ADOLPH Administration Dextrose 12.5 gm 03/11/19 20:00 Dextrose Inj 50% Syringe (25 Gm/50 Ml) IV 04/10/19 19:59 PRN PRN FOR BG 50-69 IN ALERT PATIENT Protocol Dextrose 25 gm 03/11/19 20:00 Dextrose Inj 50% Syringe (25 Gm/50 Ml) IV 04/10/19 19:59 PRN PRN Protocol Glucagon 1 mg 03/11/19 20:00 Glucagen Inj 1 Mg Vial IM 04/10/19 19:59 PRN PRN EVALUATE FOR BG < 70 Protocol Glucose 15 gm 03/11/19 20:00 Glutose 40% Gel 15 Gm Tube PO 04/10/19 19:59 PRN PRN FOR BG 50-69 IN ALERT PATIENT Protocol Glucose 30 gm 03/11/19 20:00 Glutose 40% Gel 15 Gm Tube PO 04/10/19 19:59 PRN PRN FOR BG < 50 IN ALERT PATIENT Protocol Piperacillin Sod/Tazobactam 100 mls @ 200 mls/hr 03/11/19 18:30 03/11/19 23:58 Sod 4.5 gm/ Sodium Chloride IV 03/11/19 18:59 Infused NOW ONE Infusion Sodium Chloride 500 mls @ 0 mls/hr 03/11/19 18:18 03/11/19 23:58 Nacl 0.9% 500 Ml Iv Soln IV 03/11/19 18:19 Infused NOW ONE Infusion Wide Open Sodium Chloride 1,000 mls @ 125 mls/hr 03/11/19 18:18 03/11/19 19:57 Nacl 0.9% 1000 Ml Iv Soln IV 03/12/19 02:17 125 mls/hr NOW ONE Administration Vancomycin HCl 1,000 mg/ 250 mls @ 166.667 mls/hr 03/12/19 06:00 03/16/19 12:25 Dextrose IV 03/19/19 05:59 Infused Q8 ADOLPH Infusion Piperacillin Sod/Tazobactam 100 mls @ 200 mls/hr 03/12/19 12:00 03/16/19 06:06 Sod 3.375 gm/ Sodium Chloride IV 03/19/19 11:59 Infused Q6 ADOLPH Infusion Magnesium Sulfate/Dextrose 1 gm in 100 mls @ 100 mls/hr 03/12/19 19:00 03/13/19 02:11 Magnesium Sulfate Rtu-[id number] 1 Gm/100 Ml Premix IV 03/12/19 19:59 Infused NOW ONE Infusion Insulin Glargine 20 unit 03/11/19 22:00 03/12/19 22:04 Lantus Insulin 100 Unit/1 Ml 10 Ml SUBCUT 04/10/19 21:59 20 unit QHS ADOLPH Administration Insulin Glargine Confirm 03/11/19 23:38 03/11/19 23:54 Lantus (Pyxis) Insulin 100 Unit/1 Ml 10 Ml Administered 03/11/19 23:39 Not Given Dose 1 unit SUBCUT .STK-MED ONE Insulin Glargine 25 unit 03/13/19 22:00 03/15/19 21:58 Lantus Insulin 100 Unit/1 Ml 10 Ml SUBCUT 04/12/19 21:59 25 unit QHS ADOLPH Administration Insulin Glargine 35 unit 03/16/19 22:00 03/16/19 21:10 Lantus Insulin 100 Unit/1 Ml 10 Ml SUBCUT 04/15/19 21:59 [facility] Administration Insulin Glargine 40 unit 03/17/19 22:00 04/10/19 22:29 Lantus Insulin 100 Unit/1 Ml 10 Ml SUBCUT 04/16/19 21:59 Not Given [facility] Insulin Human Lispro 15 unit 03/12/19 08:00 03/12/19 21:02 Humalog Insulin 100 Unit/1 Ml 3 Ml Vial SUBCUT 04/11/19 07:59 Not Given [facility] Protocol Insulin Human Lispro 0 - 16 unit 03/11/19 22:00 04/10/19 16:32 Humalog Insulin 100 Unit/1 Ml 3 Ml Vial SUBCUT 04/10/19 21:59 4 unit [facility] Administration Protocol Insulin Human Lispro 18 unit 03/13/19 11:00 03/16/19 12:24 Humalog Insulin 100 Unit/1 Ml 3 Ml Vial SUBCUT 04/12/19 10:59 Not Given [facility] Protocol Insulin Human Lispro 25 unit 03/16/19 16:00 03/17/19 07:28 Humalog Insulin 100 Unit/1 Ml 3 Ml Vial SUBCUT 04/15/19 15:59 25 unit [facility] Administration Protocol Insulin Human Lispro 30 unit 03/17/19 11:00 03/28/19 09:44 Humalog Insulin 100 Unit/1 Ml 3 Ml Vial SUBCUT 04/16/19 10:59 30 unit [facility] Administration Protocol Insulin Human Lispro 30 unit 03/28/19 11:00 03/30/19 08:21 Humalog Insulin 100 Unit/1 Ml 3 Ml Vial SUBCUT 04/27/19 10:59 Not Given [facility] Lidocaine Confirm 04/04/19 22:43 04/04/19 22:45 Lidoderm 5% (700 Mg) Transdermal Patch Administered 04/04/19 22:44 Not Given Dose 1 patch .ROUTE .STK-MED ONE Magnesium Oxide 400 mg 03/14/19 10:00 03/22/19 10:01 Mag-Ox 400 Mg Tablet PO 04/13/19 09:59 400 mg DAILY [facility] Administration Magnesium Oxide 400 mg 03/23/19 10:00 04/21/19 17:29 Mag-Ox 400 Mg Tablet PO 04/22/19 09:59 400 mg BID [facility] Administration Metoprolol Succinate 25 mg 03/12/19 22:00 03/28/19 09:40 Toprol Xl 25 Mg Tab.Sr PO 04/11/19 21:59 25 mg Q12 ADOLPH Administration Multivitamins 1 tab 03/13/19 10:00 04/11/19 09:23 Tab-A-Tia (Multiple Vitamin) Tablet PO 04/12/19 09:59 1 tab DAILY ADOLPH Administration Nystatin 1 applic 04/03/19 19:53 Mycostatin Topical Powder 15 Gm TP 04/10/19 19:52 PRN PRN SKIN IRRITATION Ondansetron HCl 4 mg 03/11/19 18:16 Zofran Odt 4 Mg Tablet PO 04/10/19 18:15 Q6HP PRN FOR NAUSEA/VOMITING Oxybutynin Chloride 5 mg 03/12/19 10:00 04/10/19 09:25 Ditropan 5 Mg Tablet PO 04/11/19 09:59 5 mg DAILY ADOLPH Administration Piperacillin Sod/Tazobactam Sod 4.5 gm 03/11/19 17:24 03/11/19 19:43 Zosyn Inj 3.375 Gm Vial IV 03/11/19 17:25 Not Given IVBAG (ED) ONE Piperacillin Sod/Tazobactam Sod 3.375 gm 03/12/19 00:01 03/12/19 06:17 Zosyn Inj 3.375 Gm Vial IV 03/19/19 00:00 3.375 gm Q8 ADOLPH Administration Piperacillin Sod/Tazobactam Sod Confirm 03/11/19 19:44 03/11/19 21:33 Zosyn Inj 4.5 Gm Vial Administered 03/11/19 19:45 Not Given Dose 4.5 gm IV .STK-MED ONE Piperacillin Sod/Tazobactam Sod Confirm 03/12/19 05:37 03/12/19 06:17 Zosyn Inj 3.375 Gm Vial Administered 03/12/19 05:38 Not Given Dose 3.375 gm IV .STK-MED ONE Rivaroxaban 15 mg 03/12/19 10:00 03/28/19 09:40 Xarelto 15 Mg Tablet PO 04/11/19 09:59 15 mg DAILY ADOLPH Administration Trimethoprim/Sulfamethoxazole 1 tab 03/16/19 10:00 03/22/19 17:27 Septra-Ds 800-160 Mg Tablet PO 03/23/19 09:59 1 tab BID ADOLPH Administration Vancomycin HCl 1,700 mg 03/11/19 16:12 03/11/19 16:54 Vancocin Inj 1000 Mg Vial IV 03/11/19 16:13 1,700 mg IVBAG (ED) ONE Administration Will continue with current management
[2019-04-24] MEDS: INSULIN GLARGINE,HUM.REC.ANLOG 1,000 UNIT/10 ML VIAL SUBCUT SCH (22:05)
[2019-04-24] MEDS: METFORMIN HCL 500 MG TABLET PO SCH (22:06)
[2019-04-24] MEDS: ATORVASTATIN CALCIUM 20 MG TABLET PO SCH (22:06)
[2019-04-25] MEDS: INSULIN LISPRO 100 UNIT/ML 3 ML VIAL SUBCUT SCH ×3 (08:18→18:15)
[2019-04-25] MEDS: RIVAROXABAN 15 MG TABLET PO SCH (11:01)
[2019-04-25] MEDS: METOPROLOL SUCCINATE 25 MG TAB.SR.24H PO SCH ×2 (11:02→21:52)
[2019-04-25] MEDS: AMIODARONE HCL 200 MG TABLET PO SCH (11:02)
--- NOTE | 2019-04-25 11:14 | PDOC PROGRESS REPORT ---
Subjective Progress Note for:: 04/25/19 Subjective:: Patient sleeping peacefully no new complaints Reason For Visit: STAGE FOUR SACRAL DECUBITUS ULCER POA,RLE CELLULIT Physical Exam Vital Signs: Temp Pulse Resp BP Pulse Ox 97.4 F 60 18 124/66 100 04/25/19 07:29 04/25/19 07:29 04/25/19 07:29 04/25/19 07:29 04/25/19 07:29 Intake & Output 04/24/19 04/25/19 04/26/19 06:59 06:59 06:59 Intake Total 1049 1443 Output Total 575 480 Balance 474 963 Weight 71.4 kg 71.4 kg General appearance: PRESENT: no acute distress, well-developed Head exam: PRESENT: atraumatic Respiratory exam: PRESENT: clear to auscultation asad Cardiovascular exam: PRESENT: RRR, +S1, +S2 GI/Abdominal exam: PRESENT: soft. ABSENT: tenderness Rectal exam: PRESENT: deferred Neurological exam: PRESENT: other - easily arousable Results Laboratory Results: 04/06/19 05:45 04/06/19 05:45 03/11/19 15:00 Creatine Kinase 45 L Impressions: Pelvis X-Ray 03/11/19 15:44 IMPRESSION: No radiographic evidence of osteomyelitis. No acute fracture or dislocation. If there is clinical concern for osteomyelitis further evaluation with MRI is recommended. Pelvis CT 03/12/19 00:00 IMPRESSION: 1. Right decubitus ulcer. 2. No CT evidence of aggressive bone resorption to suggest osteomyelitis. 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 use Diabetes mellitus complication status: without complication Qualified Code(s): E11.9 - Type 2 diabetes mellitus without complications; Z79.4 - [facility] (current) use of insulin Is this a current diagnosis for this admission?: Yes (2) Sacral decubitus ulcer, stage IV Is this a current diagnosis for this admission?: Yes (3) Atrial fibrillation Qualifiers: Atrial fibrillation type: paroxysmal Qualified Code(s): I48.0 - Paroxysmal atrial fibrillation Is this a current diagnosis for this admission?: Yes (4) Weakness Is this a current diagnosis for this admission?: Yes - Plan Summary Summary: The patient remains at [facility]. Awaiting disposition - Time Time Spent with patient: Less than 15 minutes Anticipated discharge: SNF
[2019-04-25 12:54] LABS: ANION GAP 11 (5-19); BLOOD UREA NITROGEN 21 mg/dL (7-20); CALCIUM 9.4 mg/dL (8.4-10.2); CARBON DIOXIDE 25 mmol/L (22-30); CHLORIDE 102 mmol/L (98-107); GLUCOSE 91 mg/dL (75-110); POTASSIUM 4.7 mmol/L (3.6-5.0)
[2019-04-25] MEDS: METFORMIN HCL 500 MG TABLET PO SCH (21:52)
[2019-04-25] MEDS: ATORVASTATIN CALCIUM 20 MG TABLET PO SCH (21:52)
[2019-04-25] MEDS: INSULIN GLARGINE,HUM.REC.ANLOG 1,000 UNIT/10 ML VIAL SUBCUT SCH (21:52)
[2019-04-26] MEDS: INSULIN LISPRO 100 UNIT/ML 3 ML VIAL SUBCUT SCH ×3 (08:55→17:09)
[2019-04-26] MEDS: RIVAROXABAN 15 MG TABLET PO SCH (10:19)
[2019-04-26] MEDS: METOPROLOL SUCCINATE 25 MG TAB.SR.24H PO SCH ×2 (10:19→23:43)
[2019-04-26] MEDS: AMIODARONE HCL 200 MG TABLET PO SCH (10:19)
--- NOTE | 2019-04-26 15:15 | Progress Note ---
Provider Note Provider Note: Patient has no complaints other than the fact that he does not want to continue getting blood work if not as needed. Patient's vitals remained stable. Continue current management with patient's sacral decubitus ulcers abates with repositioning, diabetes mellitus, charcot brendan tooth muscular dystrophy and debility.
[2019-04-26] MEDS: INSULIN GLARGINE,HUM.REC.ANLOG 1,000 UNIT/10 ML VIAL SUBCUT SCH (22:27)
[2019-04-26] MEDS: ATORVASTATIN CALCIUM 20 MG TABLET PO SCH (22:27)
[2019-04-26] MEDS: METFORMIN HCL 500 MG TABLET PO SCH (22:27)
[2019-04-27] MEDS: INSULIN LISPRO 100 UNIT/ML 3 ML VIAL SUBCUT SCH ×3 (09:09→18:16)
[2019-04-27] MEDS: RIVAROXABAN 15 MG TABLET PO SCH (09:09)
[2019-04-27] MEDS: AMIODARONE HCL 200 MG TABLET PO SCH (09:09)
[2019-04-27] MEDS: METOPROLOL SUCCINATE 25 MG TAB.SR.24H PO SCH ×2 (09:09→22:18)
--- NOTE | 2019-04-27 11:59 | Progress Note ---
Provider Note Provider Note: Patient is comfortable in bed today. Blood pressure was a little bit on the soft side this late morning after being normal throughout the morning. Patient notably in bed as usual. Patient denies any complaints however. Rest of vital signs are within normal limits. Will monitor patient's vitals and repeat blood pressure this afternoon. Otherwise continue current management as before. Chronic A. fib Charcot's Zoya tooth muscular dystrophy Physical debility Diabetes mellitus Sacral decubitus ulcer
[2019-04-27] MEDS: ATORVASTATIN CALCIUM 20 MG TABLET PO SCH (22:18)
[2019-04-27] MEDS: INSULIN GLARGINE,HUM.REC.ANLOG 1,000 UNIT/10 ML VIAL SUBCUT SCH (22:18)
[2019-04-27] MEDS: METFORMIN HCL 500 MG TABLET PO SCH (22:18)
[2019-04-28] MEDS: INSULIN LISPRO 100 UNIT/ML 3 ML VIAL SUBCUT SCH ×3 (07:29→19:37)
[2019-04-28] MEDS: METOPROLOL SUCCINATE 25 MG TAB.SR.24H PO SCH ×2 (11:00→22:25)
--- NOTE | 2019-04-28 18:45 | Progress Note ---
Provider Note Provider Note: Patient has no complaints today. Patient blood pressure has normalized without intervention. Vitals signs are normal. Patient is awake and alert. No current changes to patient's plan. Continue current management for patient's atrial fibrillation sacral decubitus ulcer, diabetes mellitus and other medical condi tions. Patient remains medically cleared.
[2019-04-28] MEDS: METFORMIN HCL 500 MG TABLET PO SCH (22:23)
[2019-04-28] MEDS: ATORVASTATIN CALCIUM 20 MG TABLET PO SCH (22:24)
[2019-04-28] MEDS: INSULIN GLARGINE,HUM.REC.ANLOG 1,000 UNIT/10 ML VIAL SUBCUT SCH (22:25)
[2019-04-29] MEDS: METOPROLOL SUCCINATE 25 MG TAB.SR.24H PO SCH ×2 (09:20→21:49)
[2019-04-29] MEDS: INSULIN LISPRO 100 UNIT/ML 3 ML VIAL SUBCUT SCH ×3 (09:20→21:49)
[2019-04-29] MEDS ORDERED: GLUCAGON,HUMAN RECOMB 1 MG INJ IM PRN (14:30)
[2019-04-29] MEDS ORDERED: DEXTROSE 40% GEL 15 GM TUBE X 2 PO PRN (14:30)
[2019-04-29] MEDS ORDERED: DEXTROSE 50%-WATER SYRINGE 25 GM/50 ML DOSE IV PRN (14:30)
[2019-04-29] MEDS ORDERED: DEXTROSE 50%-WATER SYRINGE 12.5 GM/25 ML DOSE IV PRN (14:30)
[2019-04-29] MEDS ORDERED: DEXTROSE 40% GEL 15 GM TUBE PO PRN (14:30)
--- NOTE | 2019-04-29 15:20 | Progress Note ---
Provider Note Provider Note: Patient seen today. Vital signs reviewed. Blood pressures close to noon were somewhat soft today but patient stated that he felt well and had no complaints whatsoever. We will keep an eye on his blood pressures. Continue current medications as prescribed. Continue current treatment plan for his medical conditions. If he gets hypotensive further, will consider going down on his beta-blockers. Currently continue amiodarone and metoprolol for his chronic atrial fibrillation. Continue Xarelto.
[2019-04-29] MEDS: RIVAROXABAN 10 MG TABLET PO SCH (18:23)
[2019-04-29] MEDS: INSULIN GLARGINE,HUM.REC.ANLOG 1,000 UNIT/10 ML VIAL SUBCUT SCH (21:48)
[2019-04-29] MEDS: METFORMIN HCL 500 MG TABLET PO SCH (21:48)
[2019-04-29] MEDS: ATORVASTATIN CALCIUM 20 MG TABLET PO SCH (21:48)
[2019-04-30] MEDS: INSULIN LISPRO 100 UNIT/ML 3 ML VIAL SUBCUT SCH ×4 (08:08→22:28)
[2019-04-30] MEDS: AMIODARONE HCL 200 MG TABLET PO SCH (10:44)
[2019-04-30] MEDS: METOPROLOL SUCCINATE 25 MG TAB.SR.24H PO SCH ×2 (10:44→22:27)
--- NOTE | 2019-04-30 10:50 | Progress Note ---
Provider Note Provider Note: Patient has no complaints this morning he denies any shortness of breath fever chills chest pain or palpitations. States that his pacemaker has not been interrogated since placed. Vital signs overnight show 2 episodes of bradycardia in the 40s and 50s. EKG this morning shows A. fib in the 120 prior to receiving his medications. Lungs are clear to auscultation. Breathing is unlabored without accessory muscle use. Tachycardia on cardiac auscultation S1-S2 pacemaker site and chest wall appears nonerythematous and without purulence. Abdomen is soft and nontender. Patient is fully awake and oriented x3. A/P Chronic atrial fibrillation-continue amiodarone and current regimen including Xarelto Charcot's Zoya tooth muscular dystrophy-PT Bradycardia on pacemaker-we will need to interrogate patient's pacemaker today to ensure functionality. order placed for [employer] pacemaker interrogation. Will check EKG if patient has any recurrent episode of bradycardia. Ensure accuracy of vital signs documentation. Physical debility Sacral decubitus ulcer
--- NOTE | 2019-04-30 13:54 | EKG REPORT ---
SEVERITY:- ABNORMAL ECG - ATRIAL FIBRILLATION RIGHT BUNDLE BRANCH BLOCK ANTERIOR INFARCT, AGE INDETERMINATE : Confirmed by: Minda Gutierrez MD 30-Apr-2019 13:53:19
[2019-04-30] MEDS: RIVAROXABAN 10 MG TABLET PO SCH (16:43)
[2019-04-30] MEDS: INSULIN GLARGINE,HUM.REC.ANLOG 1,000 UNIT/10 ML VIAL SUBCUT SCH (22:27)
[2019-04-30] MEDS: ATORVASTATIN CALCIUM 20 MG TABLET PO SCH (22:27)
[2019-04-30] MEDS: METFORMIN HCL 500 MG TABLET PO SCH (22:27)
[2019-05-01] MEDS: INSULIN LISPRO 100 UNIT/ML 3 ML VIAL SUBCUT SCH ×4 (07:34→22:38)
[2019-05-01] MEDS: METOPROLOL SUCCINATE 25 MG TAB.SR.24H PO SCH ×2 (09:35→22:37)
[2019-05-01] MEDS: AMIODARONE HCL 200 MG TABLET PO SCH (09:36)
--- NOTE | 2019-05-01 14:05 | PDOC PROGRESS REPORT ---
Subjective Progress Note for:: 05/01/19 Subjective:: Today patient has no complaints. Shortness of breath chest pain, palpitations or lightheadedness. Reason For Visit: STAGE FOUR SACRAL DECUBITUS ULCER POA,RLE CELLULIT Physical Exam Vital Signs: Temp Pulse Resp BP Pulse Ox 97.4 F 47 L 12 106/65 100 05/01/19 11:57 05/01/19 11:57 05/01/19 11:57 05/01/19 11:57 05/01/19 11:57 Intake & Output 04/30/19 05/01/19 05/02/19 06:59 06:59 06:59 Intake Total 950 1339 710 Output Total 700 500 150 Balance 250 839 560 Weight 72 kg 72 kg General appearance: PRESENT: no acute distress, cooperative Neck exam: ABSENT: JVD Respiratory exam: PRESENT: clear to auscultation asad, unlabored. ABSENT: tachypnea, wheezes Cardiovascular exam: PRESENT: irregular rhythm, +S1, +S2. ABSENT: tachycardia GI/Abdominal exam: PRESENT: soft. ABSENT: rebound, rigid, tenderness Neurological exam: PRESENT: alert, awake, oriented to person, oriented to place, oriented to time, oriented to situation Results Laboratory Results: 04/06/19 05:45 04/25/19 12:25 03/11/19 15:00 Creatine Kinase 45 L Impressions: Pelvis X-Ray 03/11/19 15:44 IMPRESSION: No radiographic evidence of osteomyelitis. No acute fracture or dislocation. If there is clinical concern for osteomyelitis further evaluation with MRI is recommended. Pelvis CT 03/12/19 00:00 IMPRESSION: 1. Right decubitus ulcer. 2. No CT evidence of aggressive bone resorption to suggest osteomyelitis. 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 However, vital signs reveal episo keyla of bradycardia. It was for this reason that I interrogated patient's pacemaker yesterday. Results from [employer] were obtained today shows normal functioning of the pacemaker and some events of atrial fibrillation. 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 His heart rate had been persisting at 59-60 at the least but now dipping into the 40s on occasions even despite reported normal functioning of the pacemaker interrogation. I will place patient on quality assurance monitor final Check 12-lead EKG Check electrolytes I will have cardiology also reviewed their interrogation results and pacemaker on Friday. Unfortunately no parish visitor on service this weekend. Hold beta-blockers if bradycardia persists. - Time Time Spent with patient: Less than 15 minutes
[2019-05-01 15:02] LABS: ANION GAP 12 (5-19); BLOOD UREA NITROGEN 29 mg/dL (7-20); CALCIUM 8.7 mg/dL (8.4-10.2); CARBON DIOXIDE 26 mmol/L (22-30); CHLORIDE 100 mmol/L (98-107); GLUCOSE 206 mg/dL (75-110); POTASSIUM 4.4 mmol/L (3.6-5.0)
--- NOTE | 2019-05-01 17:30 | EKG REPORT ---
SEVERITY:- ABNORMAL ECG - ATRIAL-PACED COMPLEXES RIGHT BUNDLE BRANCH BLOCK PROBABLE INFERIOR INFARCT, OLD ANTERIOR INFARCT, AGE INDETERMINATE : Confirmed by: Minda Gutierrez MD 01-May-2019 17:29:46
[2019-05-01] MEDS: RIVAROXABAN 10 MG TABLET PO SCH (17:36)
[2019-05-01] MEDS: METFORMIN HCL 500 MG TABLET PO SCH (22:37)
[2019-05-01] MEDS: ATORVASTATIN CALCIUM 20 MG TABLET PO SCH (22:37)
[2019-05-01] MEDS: INSULIN GLARGINE,HUM.REC.ANLOG 1,000 UNIT/10 ML VIAL SUBCUT SCH (22:39)
[2019-05-02] MEDS: INSULIN LISPRO 100 UNIT/ML 3 ML VIAL SUBCUT SCH ×4 (08:30→21:35)
[2019-05-02] MEDS: METOPROLOL SUCCINATE 25 MG TAB.SR.24H PO SCH ×2 (10:31→21:34)
[2019-05-02] MEDS: AMIODARONE HCL 200 MG TABLET PO SCH (10:31)
--- NOTE | 2019-05-02 10:38 | PDOC PROGRESS REPORT ---
Subjective Progress Note for:: 05/02/19 Subjective:: Patient denies any complaints at this time. Wanted to know about the results of his interrogation which I told him was normal with some episodes of A. fib but no actual bradycardia documented. Reason For Visit: BRADYCARDIA Physical Exam Vital Signs: Temp Pulse Resp BP Pulse Ox 97.7 F 60 19 120/62 100 05/02/19 07:44 05/02/19 07:44 05/02/19 07:44 05/02/19 07:44 05/02/19 07:44 Intake & Output 05/01/19 05/02/19 05/03/19 06:59 06:59 06:59 Intake Total 1339 947 Output Total 500 300 Balance 839 647 Weight 72 kg 72 kg General appearance: PRESENT: no acute distress, cooperative, well-nourished. ABSENT: disheveled, obese Neck exam: ABSENT: JVD Respiratory exam: PRESENT: symmetrical, unlabored. ABSENT: accessory muscle use, retraction, tachypnea Cardiovascular exam: ABSENT: bradycardia, tachycardia GI/Abdominal exam: PRESENT: soft. ABSENT: tenderness Neurological exam: PRESENT: alert, awake, oriented to person, oriented to place, oriented to time Psychiatric exam: ABSENT: agitated, anxious Focused psych exam: ABSENT: internal stimuli, pressured speech, psychomotor agitation, restlessness Skin exam: ABSENT: cyanosis, jaundice, mottled, pallor Results Laboratory Results: 04/06/19 05:45 05/01/19 14:24 05/01/19 14:24 Sodium 138.0 Potassium 4.4 Chloride 100 Carbon Dioxide 26 Anion Gap 12 BUN 29 H Creatinine 0.70 Est GFR ( Amer) > 60 Glucose 206 H Calcium 8.7 Magnesium 1.6 03/11/19 15:00 Creatine Kinase 45 L Impressions: Pelvis X-Ray 03/11/19 15:44 IMPRESSION: No radiographic evidence of osteomyelitis. No acute fracture or dislocation. If there is clinical concern for osteomyelitis further evaluation with MRI is recommended. Pelvis CT 03/12/19 00:00 IMPRESSION: 1. Right decubitus ulcer. 2. No CT evidence of aggressive bone resorption to suggest osteomyelitis. 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 However, vital signs reveal episodes of bradycardia. It was for this reason that I interrogated patient's pacemaker yesterday. Results from [employer] were obtained today shows normal functioning of the pacemaker and some events of atrial fibrillation. 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 His heart rate had been persisting at 59-60 at the least but now dipping into the 40s on occasions even despite reported normal functioning of the pacemaker interrogation. I will place patient on panel monitor Check 12-lead EKG Check electrolytes I will have cardiology also reviewed their interrogation results and pacemaker on Friday. Unfortunately no airport ramp agent on service this weekend. Hold beta-blockers if bradycardia persists. 05/02/2019 Electrolytes came back within normal limits. Renal function continues to be normal. 12-lead EKG was reviewed showing normal AV pacing at 65 bpm. Pacemaker interrogation shows normal functioning of the pacemaker with some bouts of A. fib but without any episodes of bradycardia documented. I have reviewed panel monitor which shows that patient did not have any instances where his heart rate dropped below 60 since noon yesterday despite documentation of ep isodes of bradycardia at midnight. At this point, I have concluded that the episodes of bradycardia documented on vital signs were ERRORs in measurement of vitals and was not actually real. We will maintain on telemetry for another 24 hours. Continue rest of plan as before.
[2019-05-02] MEDS: RIVAROXABAN 10 MG TABLET PO SCH (16:56)
[2019-05-02] MEDS: METFORMIN HCL 500 MG TABLET PO SCH (21:35)
[2019-05-02] MEDS: ATORVASTATIN CALCIUM 20 MG TABLET PO SCH (21:35)
[2019-05-02] MEDS: INSULIN GLARGINE,HUM.REC.ANLOG 1,000 UNIT/10 ML VIAL SUBCUT SCH (21:36)
[2019-05-03] MEDS: INSULIN LISPRO 100 UNIT/ML 3 ML VIAL SUBCUT SCH ×4 (08:10→22:35)
[2019-05-03] MEDS: AMIODARONE HCL 200 MG TABLET PO SCH (09:52)
[2019-05-03] MEDS: METOPROLOL SUCCINATE 25 MG TAB.SR.24H PO SCH ×2 (09:53→22:37)
--- NOTE | 2019-05-03 13:01 | PDOC PROGRESS REPORT ---
Subjective Progress Note for:: 05/03/19 Subjective:: Patient complains of some nasal congestion today. Otherwise feels well. Denies any shortness of breath or chest pain. Reason For Visit: BRADYCARDIA Physical Exam Vital Signs: Temp Pulse Resp BP Pulse Ox 97.6 F 60 18 125/62 100 05/03/19 07:28 05/03/19 07:28 05/03/19 07:28 05/03/19 07:28 05/03/19 07:28 Intake & Output 05/02/19 05/03/19 05/04/19 06:59 06:59 06:59 Intake Total 947 800 Output Total 300 650 Balance 647 150 Weight 72 kg 72 kg General appearance: PRESENT: no acute distress, cooperative Respiratory exam: PRESENT: unlabored. ABSENT: accessory muscle use, retraction, tachypnea Neurological exam: PRESENT: alert, awake Results Laboratory Results: 04/06/19 05:45 05/01/19 14:24 03/11/19 15:00 Creatine Kinase 45 L Impressions: Pelvis X-Ray 03/11/19 15:44 IMPRESSION: No radiographic evidence of osteomyelitis. No acute fracture or dislocation. If there is clinical concern for osteomyelitis further evaluation with MRI is recommended. Pelvis CT 03/12/19 00:00 IMPRESSION: 1. Right decubitus ulcer. 2. No CT evidence of aggressive bone resorption to suggest osteomyelitis. 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 However, vital signs reveal episodes of bradycardia. It was for this reason that I interrogated patient's pacemaker yesterday. Results from [employer] were obtained today shows normal functioning of the pacemaker and some events of atrial fibrillation. 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 His heart rate had been persisting at 59-60 at the least but now dipping into the 40s on occasions even despite reported normal functioning of the pacemaker interrogation. I will place patient on promotion writer Check 12-lead EKG Check electrolytes I will have cardiology also reviewed their interrogation results and pacemaker on Friday. Unfortunately no supervisor cooler service on service this weekend. Hold beta-blockers if bradycardia persists. 05/02/2019 Electrolytes came back within normal limits. Renal function continues to be normal. 12-lead EKG was reviewed showing normal AV pacing at 65 bpm. Pacemaker interrogation shows normal functioning of the pacemaker with some bouts of A. fib but without any episodes of bradycardia documented. I have reviewed promotion writer which shows that patient did not have any instances where his heart rate dropped below 60 since noon yesterday despite documentation of episodes of bradycardia at midnight. At this point, I have concluded that the episodes of bradycardia documented on vital signs were ERRORs in measurement of vitals and was not actually real. We will maintain on telemetry for another 24 hours. Continue rest of plan as before. 05/03/2019 Patient is noting some nasal congestion and rhinorrhea today. Will give Flonase. Otherwise continue rest of plan as before. - Time Time Spent with patient: Less than 15 minutes
[2019-05-03] MEDS: FLUTICASONE NASAL SPRAY 50 MCG/SPRY 120 SPRAY/16 GM NASL SCH ×2 (14:50→22:42)
[2019-05-03] MEDS: RIVAROXABAN 10 MG TABLET PO SCH (16:41)
[2019-05-03] MEDS: ATORVASTATIN CALCIUM 20 MG TABLET PO SCH (22:36)
[2019-05-03] MEDS: METFORMIN HCL 500 MG TABLET PO SCH (22:36)
[2019-05-03] MEDS: INSULIN GLARGINE,HUM.REC.ANLOG 1,000 UNIT/10 ML VIAL SUBCUT SCH (22:36)
[2019-05-04] MEDS: INSULIN LISPRO 100 UNIT/ML 3 ML VIAL SUBCUT SCH ×2 (08:10→11:40)
[2019-05-04] MEDS: AMIODARONE HCL 200 MG TABLET PO SCH (10:21)
[2019-05-04] MEDS: METOPROLOL SUCCINATE 25 MG TAB.SR.24H PO SCH (10:24)
[2019-05-04] MEDS: FLUTICASONE NASAL SPRAY 50 MCG/SPRY 120 SPRAY/16 GM NASL SCH (10:42)
--- NOTE | 2019-05-04 10:51 | PDOC TRANSFER SUMMARY ---
Impression - Admit/DC Date/PCP Admission Date/Primary Care Provider: 03/11/19 18:16 KEMI MARTINEZ Discharge Date: 05/04/19 - Discharge Diagnosis (1) DM type 2 (diabetes mellitus, type 2) Is this a current diagnosis for this admission?: Yes (2) Sacral decubitus ulcer, stage IV Is this a current diagnosis for this admission?: Yes (3) Atrial fibrillation Is this a current diagnosis for this admission?: Yes (4) Weakness Is this a current diagnosis for this admission?: Yes - Assessment Summary: 05/01/2019 Patient has no complaints today feels well. However, vital signs reveal episodes of bradycardia. It was for this reason that I interrogated patient's pacemaker yesterday. Results from [employer] were obtained today shows normal functioning of the pacemaker and some events of atrial fibrillation. 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 His heart rate had been persisting at 59-60 at the least but now dipping into the 40s on occasions even despite reported normal functioning of the pacemaker interrogation. I will place patient on automatic teller machine servicer Check 12-lead EKG Check electrolytes I will have cardiology also reviewed their interrogation results and pacemaker on Friday. Unfortunately no content development specialist on service this weekend. Hold beta-blockers if bradycardia persists. 05/02/2019 Electrolytes came back within normal limits. Renal function continues to be normal. 12-lead EKG was reviewed showing normal AV pacing at 65 bpm. Pacemaker interrogation shows normal functioning of the pacemaker with some bouts of A. fib but without any episodes of bradycardia documented. I have reviewed automatic teller machine servicer which shows that patient did not have any instances where his heart rate dropped below 60 since noon yesterday despite documentation of episodes of bradycardia at midnight. At this point, I have concluded that the episodes of bradycardia documented on vital signs were ERRORs in measurement of vitals and was not actually real. We will maintain on telemetry for another 24 hours. Continue rest of plan as before. 05/03/2019 Patient is noting some nasal congestion and rhinorrhea today. Will give Flonase. Otherwise continue rest of plan as before. - Additional Information Discharge Diet: Diabetic Discharge Activity: Activity As Tolerated, Balance Activity w/Rest Referrals: KEMI MARTINEZ MD [Primary Care Provider] - 05/13/19 12:45 pm Prescriptions: Metformin HCl [Glucophage] 1,000 mg PO QHS #60 Insulin Glargine,Hum.rec.anlog [Lantus Insulin 100 Unit/1 ml 10 ml] 35 unit SUBCUT QHS #1 each Amiodarone HCl [Cordarone 200 mg Tablet] 200 mg PO DAILY #30 tablet Fluticasone Propionate [Flonase Nasal [place] 50 Mcg/[place] 16 gm] 1 spray NASL Q12 #1 spray.pump Metoprolol Succinate [Toprol Xl 25 mg Tab.sr] 25 mg PO Q12 #60 tab.sr.24h Fesoterodine Fumarate [Toviaz] 8 mg PO DAILY #30 Rivaroxaban [Xarelto 10 mg Tablet] 20 mg PO WSUPPER #30 tablet Home Medications: Atorvastatin Calcium [Lipitor 20 mg Tablet] 20 mg PO QHS 02/09/19 Multivit-Min/Folic/Vit K/Lycop [Men's 50 Plus Multivitamin Tab] 1 each PO DAILY 02/09/19 Amiodarone HCl [Cordarone 200 mg Tablet] 200 mg PO DAILY #30 tablet 05/04/19 Fesoterodine Fumarate [Toviaz] 8 mg PO DAILY #30 05/04/19 Fluticasone Propionate [Flonase Nasal [place] 50 Mcg/[place] 16 gm] 1 spray NASL Q12 #1 spray.pump 05/04/19 Insulin Glargine,Hum.rec.anlog [Lantus Insulin 100 Unit/1 ml 10 ml] 35 unit SUBCUT QHS #1 each 05/04/19 Insulin Lispro [Humalog Insulin (Lispro) 100 unit/mL] 0 - 12 unit SUBCUT ACHS unit 05/04/19 Metformin HCl [Glucophage] 1,000 mg PO QHS #60 05/04/19 Metoprolol Succinate [Toprol Xl 25 mg Tab.sr] 25 mg PO Q12 #60 tab.sr.24h 05/04/19 Rivaroxaban [Xarelto 10 mg Tablet] 20 mg PO WSUPPER #30 tablet 05/04/19 History of Present Illiness History of Present Illness: DESTIN RAYMOND is a 63 year old male with past medical history significant for chronic stage IV sacral decubitus ulcer POA, Wgbyavn-Qrsak-Koctj muscular dystrophy, T2 DM, chronic atrial fibrillation status post pacemaker, hypertension, neurogenic bladder. Patient presents after 1 week of progressive worsening stage IV sacral ulcer which had foul-smelling purulent material coming from the wound with increased pain in and around the wound per patient. He denies fever/chills/nausea/vomiting. WBC normal. X-ray of pelvis did not reveal osteomyelitis. MRI pelvis with contrast ordered by ED which is pending on admission. Of note, ESR elevated to 59 on admission and lactic acid up to 2.4. CPK normal. Sacral wound culture sent along with blood cultures on admission. Patient recently had pacemaker implanted in the left chest wall a few weeks ago and this is at risk of infection if he is bacteremic, however labs and vitals are not consistent with sepsis. Patient has never been seen by a plastic surgeon but states a general surgeon debrided his sacral wound on previous admission. He also has a few ulcerations on his lower legs including a 1 to 2 cm ulceration along his right lateral ankle which has some very scant bleeding on the bandage on exam. He was recently admitted in January/2019 with rhabdomyolysis worsening pressure ulcers and inability to care for self. Per patient, he is in the process of arranging placement at a long-term nursing facility and he has a home health care social worker that is working with him to arrange this. Hospital Course Hospital Course: Patient was admitted with sacral decubitus stage IV, present on admission. Patient had sharp debridement of necrotic tissue on the right trochanteric area down to the muscle. This was done on March 12. Patient was treated with intravenous antibiotics which has been completed. Patient has history of chronic atrial fibrillation for which he receives amiodarone, metoprolol and Xarelto. This will continue. He had his pacemaker interrogated a few days ago which shows no significant arrhythmia. Patient prolonged hospital stay has compounded his baseline debility. He does have Ywpaich-Mnhnw-Ufycu muscular dystrophy by history. Was also treated for his underlying type 2 diabetes mellitus. He is insulin will need to be further adjusted as needed. Patient was also treated for right lower extremity cellulitis. Patient has remained hemodynamically stable during his prolonged hospital stay which is partly secondary to difficulty in arranging alf placement Physical Exam Vital Signs: Temp Pulse Resp BP Pulse Ox 97.7 F 120 H 18 124/70 99 05/04/19 00:56 05/04/19 08:20 05/04/19 08:20 05/04/19 08:20 05/04/19 08:20 Intake & Output 05/03/19 05/04/19 05/05/19 06:59 06:59 06:59 Intake Total 800 1261 Output Total 650 1150 Balance 150 111 Weight 72 kg 72 kg General appearance: PRESENT: no acute distress, well-developed, well-nourished Head exam: PRESENT: atraumatic Neck exam: PRESENT: full ROM. ABSENT: JVD, tenderness Respiratory exam: PRESENT: clear to auscultation asad, unlabored. ABSENT: rhonchi, wheezes Cardiovascular exam: PRESENT: irregular rhythm, +S1, +S2 GI/Abdominal exam: PRESENT: normal bowel sounds, soft Rectal exam: PRESENT: deferred Extremities exam: ABSENT: calf tenderness Musculoskeletal exam: PRESENT: other - Bed ridden Neurological exam: PRESENT: alert, oriented to person, oriented to place, oriented to time, motor sensory deficit Psychiatric exam: PRESENT: appropriate affect Skin exam: PRESENT: other - sacral decubitus stage 4 Results Laboratory Results: WBC 5.7 10^3/uL (4.0-10.5) 04/06/19 05:45 RBC 4.57 10^6/uL (4.35-5.55) 04/06/19 05:45 Hgb 11.1 g/dL (13.5-17.0) L 04/06/19 05:45 Hct 34.5 % (37.9-51.0) L 04/06/19 05:45 MCV 75 fl (80-97) L 04/06/19 05:45 MCH 24.2 pg (27.0-33.4) L 04/06/19 05:45 MCHC 32.2 g/dL (32.0-36.0) 04/06/19 05:45 RDW 16.4 % (11.5-14.0) H 04/06/19 05:45 Plt Count 206 10^3/uL (150-450) 04/06/19 05:45 Lymph % (Auto) 19.0 % (13-45) 04/06/19 05:45 [place] % (Auto) 11.4 % (3-13) 04/06/19 05:45 Eos % (Auto) 2.4 % (0-6) 04/06/19 05:45 Baso % (Auto) 0.7 % (0-2) 04/06/19 05:45 Absolute Neuts (auto) 3.8 10^3/uL (1.7-8.2) 04/06/19 05:45 Absolute Lymphs (auto) 1.1 10^3/uL (0.5-4.7) 04/06/19 05:45 Absolute Monos (auto) 0.7 10^3/uL (0.1-1.4) 04/06/19 05:45 Absolute Eos (auto) 0.1 10^3/uL (0.0-0.6) 04/06/19 05:45 Absolute Basos (auto) 0.0 10^3/uL (0.0-0.2) 04/06/19 05:45 Seg Neutrophils % 66.5 % (42-78) 04/06/19 05:45 ESR 59 mm/hr (0-20) H 03/11/19 15:00 Sodium 138.0 mmol/L (137-145) 05/01/19 14:24 Potassium 4.4 mmol/L (3.6-5.0) 05/01/19 14:24 Chloride 100 mmol/L (98-107) 05/01/19 14:24 Carbon Dioxide 26 mmol/L (22-30) 05/01/19 14:24 Anion Gap 12 (5-19) 05/01/19 14:24 BUN 29 mg/dL (7-20) H 05/01/19 14:24 Creatinine 0.70 mg/dL (0.52-1.25) 05/01/19 14:24 Est GFR ( Amer) > 60 (>60) 05/01/19 14:24 Est GFR (MDRD) Non-Af > 60 (>60) 05/01/19 14:24 Glucose 206 mg/dL (75-110) H 05/01/19 14:24 POC Glucose 119 mg/dL (70-110) H 05/04/19 05:48 Hemoglobin A1c % 7.1 % (4.7-6.0) H 03/12/19 04:11 Lactic Acid 2.4 mmol/L (0.7-2.1) H 03/11/19 15:00 Calcium 8.7 mg/dL (8.4-10.2) 05/01/19 14:24 Magnesium 1.6 mg/dL (1.6-2.3) 05/01/19 14:24 Total Bilirubin 0.6 mg/dL (0.2-1.3) 03/11/19 15:00 Direct Bilirubin 0.2 mg/dL (0.0-0.4) 03/11/19 15:00 Neonat Total Bilirubin Not Reportable 03/11/19 15:00 Neonat Direct Bilirubin Not Reportable 03/11/19 15:00 Neonat Indirect Bili Not Reportable 03/11/19 15:00 AST 26 U/L (17-59) 03/11/19 15:00 ALT 25 U/L (<50) 03/11/19 15:00 Alkaline Phosphatase 167 U/L (38-126) H 03/11/19 15:00 Creatine Kinase 45 U/L (55-170) L 03/11/19 15:00 Total Protein 7.6 g/dL (6.3-8.2) 03/11/19 15:00 Albumin 3.8 g/dL (3.5-5.0) 03/11/19 15:00 Urine Color YELLOW 03/12/19 05:45 Urine Appearance SLIGHTLY-CLOUDY 03/12/19 05:45 Urine pH 5.0 (5.0-9.0) 03/12/19 05:45 Ur Specific Jean 1.020 03/12/19 05:45 Urine Protein NEGATIVE mg/dL (NEGATIVE) 03/12/19 05:45 Urine Glucose (UA) >=500 mg/dL (NEGATIVE) H 03/12/19 05:45 Urine Ketones NEGATIVE mg/dL (NEGATIVE) 03/12/19 05:45 Urine Blood SMALL (NEGATIVE) H 03/12/19 05:45 Urine Nitrite NEGATIVE (NEGATIVE) 03/12/19 05:45 Urine Bilirubin NEGATIVE (NEGATIVE) 03/12/19 05:45 Urine Urobilinogen NEGATIVE mg/dL (<2.0) 03/12/19 05:45 Ur Leukocyte Esterase NEGATIVE (NEGATIVE) 03/12/19 05:45 Urine WBC (Auto) 3 /HPF 03/12/19 05:45 Urine RBC (Auto) 3 /HPF 03/12/19 05:45 Urine Bacteria (Auto) 1+ /HPF 03/12/19 05:45 Calcium Oxalate Cr Auto FEW /HPF 03/12/19 05:45 Urine Mucus (Auto) RARE /LPF 03/12/19 05:45 Urine Ascorbic Acid NEGATIVE (NEGATIVE) 03/12/19 05:45 Time Trough Drawn 1315 03/13/19 13:15 Vancomycin Trough 12.6 ug/mL (5.0-20.0) 03/13/19 13:15 EKG Comments: Right bundle branch block Atrial pacing Impressions: Pelvis X-Ray 03/11/19 15:44 IMPRESSION: No radiographic evidence of osteomyelitis. No acute fracture or dislocation. If there is clinical concern for osteomyelitis further evaluation with MRI is recommended. Pelvis CT 03/12/19 00:00 IMPRESSION: 1. Right decubitus ulcer. 2. No CT evidence of aggressive bone resorption to suggest osteomyelitis. Plan Health Concerns: Patient remains high risk for readmission due to his several comorbidities. He needs close follow-up as outpatient. Medication management strongly suggested as outpatient. Time Spent: Greater than 30 Minutes Stroke Is this a Stroke Patient?: No Acute Heart Failure - Is this a Heart Failure Patient?: No
[2019-05-04 12:11] VITALS: BP 114/60
== END 2019-05-04 14:08 | DRG 580 ==
LOC: ER 13:15 → EH 18:16 → 4S 20:30
PROVIDERS: ADMIT Internal Medicine; ATTEND Internal Medicine
PROC: 0KBN0ZZ Excision of Right Hip Muscle, Open Approach (ICD-10-PCS; principal; 2019-03-12)
DX: L89.154 Pressure ulcer of sacral region, stage 4 (principal); L97.319 Non-pressure chronic ulcer of right ankle with unspecified severity; L97.929 Non-pressure chronic ulcer of unspecified part of left lower leg with unspecified severity; L03.115 Cellulitis of right lower limb; G82.20 Paraplegia, unspecified; L97.919 Non-pressure chronic ulcer of unspecified part of right lower leg with unspecified severity; I48.0 Paroxysmal atrial fibrillation; G60.0 Hereditary motor and sensory neuropathy; E11.9 Type 2 diabetes mellitus without complications; N31.9 Neuromuscular dysfunction of bladder, unspecified; E11.622 Type 2 diabetes mellitus with other skin ulcer; E83.42 Hypomagnesemia; B95.2 Enterococcus as the cause of diseases classified elsewhere; B96.20 Unspecified Escherichia coli [E. coli] as the cause of diseases classified elsewhere; B96.89 Other specified bacterial agents as the cause of diseases classified elsewhere; Z75.1 Person awaiting admission to adequate facility elsewhere; Z79.4 Long term (current) use of insulin; Z79.01 Long term (current) use of anticoagulants; Z60.2 Problems related to living alone; M19.012 Primary osteoarthritis, left shoulder; M19.011 Primary osteoarthritis, right shoulder; I10 Essential (primary) hypertension; Z95.0 Presence of cardiac pacemaker; Z90.49 Acquired absence of other specified parts of digestive tract; Z83.3 Family history of diabetes mellitus; Z82.49 Family history of ischemic heart disease and other diseases of the circulatory system; Z79.899 Other long term (current) drug therapy; Z88.5 Allergy status to narcotic agent
CPT/HCPCS: 36415; 72170; 72193; 80048; 80053; 80202; 81001; 82550; 82565; 82962; 83036; 83605; 83735; 85025; 85027; 85652; 87040; 87070; 87077; 87186; 87205; 93005; 93010; 96365; 99285; J1815; J2543; J3370; J3475; J3490; J7030; J7040; J7050; J7060

== ENCOUNTER 2019-08-26 12:18 | Inpatient (IN) | payer MEDICARE, BC, MEDICAID ==
[2019-08-26 12:46] LABS: ABSOLUTE BASOPHILS # (AUTO) 0.1 10^3/uL (0.0-0.2); ABSOLUTE EOSINOPHILS # (AUTO) 0.4 10^3/uL (0.0-0.6); ABSOLUTE LYMPHOCYTES (AUTO) 2.5 10^3/uL (0.5-4.7); ABSOLUTE MONOCYTES (AUTO) 1.2 10^3/uL (0.1-1.4); ABSOLUTE NEUT (AUTO) 5.1 10^3/uL (1.7-8.2); BASOPHILS % (AUTO) 0.8 % (0-2); EOSINOPHILS % (AUTO) 3.9 % (0-6); HEMATOCRIT 41.7 % (37.9-51.0); HEMOGLOBIN 13.4 g/dL (13.5-17.0); LYMPHOCYTES % (AUTO) 27.1 % (13-45); MEAN CORPUSCULAR HEMOGLOBIN 24.1 pg (27.0-33.4); MEAN CORPUSCULAR HGB CONC 32.3 g/dL (32.0-36.0); MEAN CORPUSCULAR VOLUME 75 fl (80-97); MONOCYTES % (AUTO) 13.2 % (3-13); PLATELET COUNT 226 10^3/uL (150-450); RED BLOOD COUNT 5.58 10^6/uL (4.35-5.55); RED CELL DISTRIBUTION WIDTH 18.5 % (11.5-14.0); TOTAL CELLS COUNTED % (AUTO) 100 %; WHITE BLOOD COUNT 9.2 10^3/uL (4.0-10.5)
[2019-08-26 12:58] LABS: INTERNATIONAL RATION (INR) 1.47
[2019-08-26 13:10] LABS: ALBUMIN 3.6 g/dL (3.5-5.0); ALKALINE PHOSPHATASE 107 U/L (38-126); ANION GAP 9 (5-19); ASPARTATE AMINO TRANSFERASE 24 U/L (17-59); BILIRUBIN,TOTAL 0.7 mg/dL (0.2-1.3); BLOOD UREA NITROGEN 23 mg/dL (7-20); CALCIUM 8.9 mg/dL (8.4-10.2); CARBON DIOXIDE 25 mmol/L (22-30); CHLORIDE 100 mmol/L (98-107); GLUCOSE 159 mg/dL (75-110); POTASSIUM 4.5 mmol/L (3.6-5.0); TOTAL PROTEIN 7.1 g/dL (6.3-8.2)
--- NOTE | 2019-08-26 14:23 | ER Document Report ---
Entered by JOANIE HERNANDEZ SCRIBE 08/26/19 1353 Acting as scribe for:CELIO CAO DO ED GI Bleed / Rectal Pain - General Chief Complaint: Rectal Bleeding Stated Complaint: BLOODY STOOL Time Seen by Provider: 08/26/19 13:34 Mode of Arrival: Ambulatory Information source: Patient Notes: This 64 year old male patient presents to the emergency department today with complaints of noticing blood in stool for about the last 3 days. Patient currently resides at [facility] and he states he does not think he has had any bad food recently. Patient states he has had blood in his stool in the past. Patient states what frequently happens is that he becomes constipated and he "pushes out hard stool and then it is followed by soft stool and blood". Patient also mentions that he has had a history of hemorrhoids which bled similar to this. Patient denies any abdominal pain but does mention a "tight pressure" in his abdomen just prior to defecating. Patient has any fevers, cough, vomiting, or shortness of breath. TRAVEL OUTSIDE OF THE [place] IN LAST 30 DAYS: No - Related Data Allergies/Adverse Reactions: hydrocodone [Hydrocodone] Allergy (Verified 02/08/19 20:03) heart racing Past Medical History - General Information source: Patient, [facility] Records - Social History Smoking Status: Unknown if Ever Smoked Cigarette use (# per day): No Frequency of alcohol use: None Drug Abuse: None Occupation: [employer] Lives with: [facility] Family History: Reviewed & Not Pertinent, CAD, DM Patient has homicidal ideation: No - Past Medical History Cardiac Medical History: Reports: Hx Atrial Fibrillation, Hx Hypertension Endocrine Medical History: Reports: Hx Diabetes Mellitus Type 2 Musculoskeletal Medical History: Reports Hx Muscular Dystrophy Past Surgical History: Reports: Hx Appendectomy, Hx Orthopedic Surgery - Immunizations Hx Diphtheria, Pertussis, Tetanus Vaccination: Yes Review of Systems - Review of Systems Constitutional: No symptoms reported EENT: No symptoms reported Cardiovascular: No symptoms reported Respiratory: No symptoms reported Gastrointestinal: See HPI, Constipation, Rectal bleeding Genitourinary: No symptoms reported Male Genitourinary: No symptoms reported Musculoskeletal: No symptoms reported Skin: No symptoms reported Hematologic/Lymphatic: No symptoms reported Neurological/Psychological: No symptoms reported -: Yes All other systems reviewed and negative Physical Exam - Vital signs Vitals: Pulse Ox 95 08/26/19 12:34 - Notes Notes: Physical Exam: General: Alert, appears chronically ill. HEENT: Normocephalic. Atraumatic. PERRL. Extraocular movements intact. Oropharynx clear. Neck: Supple. Non-tender. Respiratory: No respiratory distress. Clear and equal breath sounds bilaterally. Cardiovascular: Regular rate and rhythm. Abdominal: Normal Inspection. Non-tender. No distension. Normal Bowel Sounds. Back: No gross abnormalities. Extremities: Moves all four extremities. Upper extremities: Hands are contracted Lower extremities: Legs are very atrophied bilaterally consistent with history of muscular dystrophy. Neurological: Normal cognition. AAOx4. Normal speech. Psychological: Normal affect. Normal Mood. Skin: Warm. Dry. Normal color. Course - Vital Signs Vital signs: Temp Pulse Resp BP Pulse Ox 98.6 F 135 H 13 111/73 99 08/26/19 12:39 08/26/19 12:38 08/26/19 18:01 08/26/19 18:01 08/26/19 18:01 - Laboratory Result Diagrams: 08/26/19 12:29 08/26/19 12:29 Laboratory results interpreted by me: 08/26/19 08/26/19 08/26/19 12:29 12:29 12:29 RBC 5.58 H Hgb 13.4 L MCV 75 L MCH 24.1 L RDW 18.5 H [place] % (Auto) 13.2 H PT 18.0 H Sodium 134.0 L BUN 23 H Glucose 159 H - Diagnostic Test Radiology reviewed: Reports reviewed - EKG Interpretation by Nm Rate: Tachycardia Rhythm: A.Fib - A fib [address] elevation or depression repolarization abnormality my interpreation. Discharge - Discharge Clinical Impression: Diabetes mellitus type 2 in nonobese, Colitis, Hematochezia Condition: Stable Disposition: ADMITTED INPATIENT Admitting Provider: Mayra (Hospitalist) Unit Admitted: Telemetry I personally performed the services described in the documentation, reviewed and edited the documentation which was dictated to the scribe in my presence, and it accurately records my words and actions.
--- NOTE | 2019-08-26 15:32 | RADIOLOGY REPORT (SQ) ---
EXAM DESCRIPTION: CT ABD/PELVIS WITH IV ONLY IMAGES COMPLETED DATE/TIME: 08/26/2019 3:03 pm REASON FOR STUDY: rectal bleeding/ abd pain COMPARISON: 03/12/2019 TECHNIQUE: CT scan of the abdomen and pelvis performed using helical scanning technique with dynamic intravenous contrast injection. No oral contrast. Images reviewed with lung, soft tissue, and bone windows. Reconstructed coronal and sagittal MPR images reviewed. Delayed images for evaluation of the urinary system also acquired. All images stored on PACS. All CT scanners at this facility use dose modulation, iterative reconstruction, and/or weight based d osing when appropriate to reduce radiation dose to as low as reasonably achievable (ALARA). [facility]: Dose Right [facility]: CareDose [facility]: Dose Right [facility]: Teradose 4D [facility]: Attune Foods CONTRAST TYPE AND DOSE: 100 mL Omnipaque 350- low osmolar. RENAL FUNCTION: BUN 23; creatinine 0.77 RADIATION DOSE: CT Rad equipment meets quality standard of care and radiation dose reduction techniq ues were employed. CTDIvol: 16.5 - 19.7 mGy. DLP: 2104 mGy-cm.. LIMITATIONS: None. FINDINGS: LOWER CHEST: No significant findings. No nodules or infiltrates. LIVER: Normal size. No masses. No dilated ducts. SPLEEN: Normal size. No focal lesions. PANCREAS: No masses. No significant calcifications. No adjacent inflammation or peripancreatic fluid collections. Pancreatic duct not dilated. GALLBLADDER: No identified stones by CT criteria. No inflammatory changes to suggest cholecystitis. ADRENAL GLANDS: Mild nodularity of the left adrenal gland. 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 No solid mass. No significant calcifications. No hydronephrosis or hydrourete r. LEFT KIDNEY AND URETER: No solid masses. No significant calcifications. No hydronephrosis or hydr oureter. AORTA AND VESSELS: No aneurysm. No dissection. Calcified and noncalcified atherosclerotic plaque is seen, to include the origins of the major visceral branches. RETROPERITONEUM: No retroperitoneal adenopathy, hemorrhage or masses. BOWEL AND PERITONEAL CAVITY: Circumferential mural thickening is seen of the rectum. Mural hyperemia is seen of the entire colon, noting scattered fluid levels. No obstruction. APPENDIX: Surgically absent. PELVIS: No mass. No free fluid. Normal bladder. ABDOMINAL WALL: Incidental note is made of small fat containing inguinal hernias. BONES: No significant or acute findings. OTHER: No other significant finding. IMPRESSION: Constellation of findings consistent with diffuse colitis most significantly involving t he rectum. 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 No hydronephrosis or mass. TECHNICAL DOCUMENTATION: JOB ID: [id number] Quality ID # [id number]: Final reports with documentation of one or more dose reduction techniques (e.g., Au tomated exposure control, adjustment of the mA and/or kV according to patient size, use of iterative reconstruction technique) 2010 [employer]- All Rights Reserved Reading location - IP/workstation name: [email or web address]
[2019-08-26] MEDS ORDERED: CIPROFLOXACIN 400 MG/D5W RTU 400 MG/200 ML RTUPB IV ONE (16:32)
[2019-08-26] MEDS ORDERED: ACETAMINOPHEN 325 MG TABLET PO PRN ×2 (17:17)
[2019-08-26] MEDS ORDERED: PROMETHAZINE HCL INJ 25 MG/1 ML VIAL IV PRN (17:17)
[2019-08-26] MEDS ORDERED: TEMAZEPAM 7.5 MG CAPSULE PO PRN (17:17)
--- NOTE | 2019-08-26 17:32 | PDOC H&P ---
History of Present Illness Admission Date/PCP: KEMI MARTINEZ History of Present Illness: DESTIN RAYMOND is a 64 year old male past medical history of diabetes, atrial fibrillation anticoagulated, hypertension, sick sinus syndrome status post pacemaker placement, muscular dystrophy, chronically bedbound due to his muscular dystrophy, who is a resident of [facility], presenting to ED complaining of diffuse abdominal pain, bloody diarrhea for the last 3 days. Abdominal pain is minimum, diffuse, "feels tight", nonradiating, no alleviating or exacerbating factors identified, not associated with any nausea or vomiting. Patient has had about 3-4 bowel movements a day, and has noted blood clots in his diarrhea, denies any fever, chills, shortness of breath, headache, chest pain, weakness, any new neurological deficits. Denies any recent travel or sick contacts however patient lives at a half-way. In ED CBC CMP was unremarkable however CT abdomen was positive for diffuse colitis most significantly involving the rectum. Past Medical History Cardiac Medical History: Reports: Atrial Fibrillation, Hypertension Denies: Coronary Artery Disease, Myocardial Infarction, Hyperlipidema Pulmonary Medical History: Denies: Asthma, Chronic Obstructive Pulmonary Disease (COPD) Neurological Medical History: Denies: Seizures Endocrine Medical History: Reports: Diabetes Mellitus Type 2 Denies: Diabetes Mellitus Type 1, Hyperthyroidism, Hypothyroidism GI Medical History: Denies: Cirrhosis, Crohn's Disease, Hepatitis, Ulcerative Colitis Musculoskeltal Medical History: Denies: Arthritis, Gout Skin Medical History: Denies: Eczema, Psoriasis Psychiatric Medical History: Denies: Depression Hematology: Denies: Anemia, Bleeding Tendencies Past Surgical History Past Surgical History: Reports: Appendectomy, Orthopedic Surgery Social History Lives with: [facility] Smoking Status: Unknown if Ever Smoked Frequency of Alcohol Use: None Hx Recreational Drug Use: No Drugs: None Hx Prescription Drug Abuse: No Family History Family History: Reviewed & Not Pertinent, CAD, DM Parental Family History Reviewed: Yes Children Family History Reviewed: Yes Sibling(s) Family History Reviewed.: Yes Medication/Allergy Home Medications: Atorvastatin Calcium [Lipitor 20 mg Tablet] 20 mg PO QHS 02/09/19 Multivit-Min/Folic/Vit K/Lycop [Men's 50 Plus Multivitamin Tab] 1 each PO DAILY 02/09/19 Amiodarone HCl [Cordarone 200 mg Tablet] 200 mg PO DAILY #30 tablet 05/04/19 Fesoterodine Fumarate [Toviaz] 8 mg PO DAILY #30 05/04/19 Fluticasone Propionate [Flonase Nasal [place] 50 Mcg/[place] 16 gm] 1 spray NASL Q12 #1 spray.pump 05/04/19 Insulin Glargine,Hum.rec.anlog [Lantus Insulin 100 Unit/1 ml 10 ml] 35 unit SUBCUT QHS #1 each 05/04/19 Insulin Lispro [Humalog Insulin (Lispro) 100 unit/mL] 0 - 12 unit SUBCUT ACHS unit 05/04/19 Metformin HCl [Glucophage] 1,000 mg PO QHS #60 05/04/19 Metoprolol Succinate [Toprol Xl 25 mg Tab.sr] 25 mg PO Q12 #60 tab.sr.24h 05/04/19 Rivaroxaban [Xarelto 10 mg Tablet] 20 mg PO WSUPPER #30 tablet 05/04/19 Allergies/Adverse Reactions: hydrocodone [Hydrocodone] Allergy (Verified 02/08/19 20:03) heart racing Review of Systems Review of Systems: as per hpi Physical Exam Vital Signs: Temp Pulse Resp BP Pulse Ox 98.6 F 135 H 14 108/76 95 08/26/19 12:39 08/26/19 12:38 08/26/19 16:01 08/26/19 16:01 08/26/19 16:01 General appearance: PRESENT: no acute distress, well-developed, well-nourished Head exam: PRESENT: atraumatic, normocephalic Neck exam: ABSENT: carotid bruit, JVD, lymphadenopathy, thyromegaly Respiratory exam: PRESENT: clear to auscultation asad. ABSENT: rales, rhonchi, wheezes Cardiovascular exam: PRESENT: RRR. ABSENT: diastolic murmur, rubs, systolic murmur GI/Abdominal exam: PRESENT: normal bowel sounds, soft, tenderness. ABSENT: distended, guarding, mass, organolmegaly, rebound Extremities exam: PRESENT: full ROM. ABSENT: calf tenderness, clubbing, pedal edema Neurological exam: PRESENT: alert, awake, oriented to person, oriented to place, oriented to time, oriented to situation, CN II-XII grossly intact. ABSENT: motor sensory deficit Skin exam: PRESENT: dry, intact, warm. ABSENT: cyanosis, rash Results Laboratory Results: 08/26/19 12:29 08/26/19 12:29 08/26/19 08/26/19 08/26/19 12:29 12:29 12:29 WBC 9.2 RBC 5.58 H Hgb 13.4 L Hct 41.7 MCV 75 L MCH 24.1 L MCHC 32.3 RDW 18.5 H Plt Count 226 Seg Neutrophils % 55.0 Sodium 134.0 L Potassium 4.5 Chloride 100 Carbon Dioxide 25 Anion Gap 9 BUN 23 H Creatinine 0.77 Est GFR ( Amer) > 60 Glucose 159 H Lactic Acid 2.1 Calcium 8.9 Total Bilirubin 0.7 AST 24 Alkaline Phosphatase 107 Total Protein 7.1 Albumin 3.6 Blood Type Antibody Screen 08/26/19 12:29 WBC RBC Hgb Hct MCV MCH MCHC RDW Plt Count Seg Neutrophils % Sodium Potassium Chloride Carbon Dioxide Anion Gap BUN Creatinine Est GFR ( Amer) Glucose Lactic Acid Calcium Total Bilirubin AST Alkaline Phosphatase Total Protein Albumin Blood Type O POSITIVE Antibody Screen NEGATIVE Impressions: Abdomen/Pelvis CT 08/26/19 14:09 IMPRESSION: Constellation of findings consistent with diffuse colitis most significantly involving the rectum. 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 No hydronephrosis or mass. Assessment and Plan - Diagnosis (1) Colitis Is this a current diagnosis for this admission?: Yes Plan: Denies any fever, nausea, vomiting. No leukocytosis. CT abdomen positive for colitis and rectosigmoid region. Empiric IV ciprofloxacin and metronidazole. Stool ova and parasite, stool white blood cell, stool Gram stain, stool culture, C. difficile toxin. Monitor electrolytes. Monitor volume status. Replace electrolytes as needed. Follow-up stool and blood culture. (2) Hematochezia Is this a current diagnosis for this admission?: Yes Plan: Likely due to colitis complicated by chronic anticoagulation for his underlying A. fib. Monitor H&H. Hold Xarelto. We will consult cardiology discussed the need for continuation of Xarelto. If hematochezia does not resolve will consult surgery for possible colonoscopy. (3) Chronic atrial fibrillation Is this a current diagnosis for this admission?: Yes Plan: Denies any chest pain, palpitation or lightheadedness. Rate controlled. Anticoagulated. Resume home meds. Hold Xarelto due to GI bleed. (4) Diabetes mellitus type 2 in nonobese Is this a current diagnosis for this admission?: Yes Plan: Controlled. Diabetic diet. Sliding scale insulin, basal insulin, correctional insulin. Hypoglycemic protocol. Accu-Cheks. Resume home meds upon discharge. Outpatient PCP follow-up. (5) Muscular dystrophy Is this a current diagnosis for this admission?: Yes Plan: Supportive measures. Resume home meds. Frequent turning. Decubitus ulcer precautions. (6) Debility Is this a current diagnosis for this admission?: Yes Plan: Decubitus ulcer precautions. Continue PT.
[2019-08-26] MEDS ORDERED: GLUCAGON,HUMAN RECOMB 1 MG INJ IM PRN (17:33)
[2019-08-26] MEDS ORDERED: DEXTROSE 40% GEL 15 GM TUBE PO PRN ×2 (17:33)
[2019-08-26] MEDS ORDERED: DEXTROSE 50%-WATER 25 GM/50 ML DISP.SYRIN IV PRN ×2 (17:33)
[2019-08-26] MEDS ORDERED: METOPROLOL TARTRATE PF/INJ 5 MG/5 ML SDV IV PRN (17:37)
[2019-08-26] MEDS ORDERED: HYDRALAZINE HCL INJ/PF 20 MG/1 ML SDV IV PRN (17:37)
[2019-08-26] MEDS ORDERED: METRONIDAZOLE 500 MG/NS RTU 500 MG/100 ML RTUPB IV SCH (18:00)
[2019-08-26] MEDS: METRONIDAZOLE 500 MG/NS RTU 500 MG/100 ML RTUPB IV SCH (18:29)
[2019-08-26] MEDS: IPRATROPIUM/ALBUTEROL 0.5-2.5 MG/3 ML AMPUL NEB SCH (20:31)
[2019-08-26] MEDS: INSULIN LISPRO 100 UNIT/ML 3 ML VIAL SUBCUT SCH (22:03)
[2019-08-26] MEDS: FAMOTIDINE 20 MG TABLET PO SCH (22:07)
[2019-08-26] MEDS: ATORVASTATIN CALCIUM 10 MG TABLET PO SCH (22:07)
[2019-08-26] MEDS: CIPROFLOXACIN 400 MG/D5W RTU 400 MG/200 ML RTUPB IV SCH (22:07)
[2019-08-26] MEDS ORDERED: INSULIN GLARGINE,HUM.REC.ANLOG 1,000 UNIT/10 ML VIAL (PYX) SUBCUT ONE (23:02)
[2019-08-26] MEDS: INSULIN GLARGINE,HUM.REC.ANLOG 1,000 UNIT/10 ML VIAL SUBCUT SCH (23:14)
[2019-08-27] MEDS: IPRATROPIUM/ALBUTEROL 0.5-2.5 MG/3 ML AMPUL NEB SCH ×4 (00:32→12:07)
[2019-08-27] MEDS: METRONIDAZOLE 500 MG/NS RTU 500 MG/100 ML RTUPB IV SCH ×5 (00:52→17:11)
[2019-08-27 06:21] LABS: ABSOLUTE EOSINOPHILS # (AUTO) 0.3 10^3/uL (0.0-0.6); ABSOLUTE MONOCYTES (AUTO) 0.8 10^3/uL (0.1-1.4); ABSOLUTE NEUT (AUTO) 2.1 10^3/uL (1.7-8.2); BASOPHILS % (AUTO) 0.8 % (0-2); EOSINOPHILS % (AUTO) 5.7 % (0-6); HEMOGLOBIN 12.9 g/dL (13.5-17.0); LYMPHOCYTES % (AUTO) 38.3 % (13-45); MEAN CORPUSCULAR HEMOGLOBIN 24.2 pg (27.0-33.4); MEAN CORPUSCULAR HGB CONC 32.9 g/dL (32.0-36.0); MEAN CORPUSCULAR VOLUME 74 fl (80-97); MONOCYTES % (AUTO) 14.6 % (3-13); PLATELET COUNT 153 10^3/uL (150-450); RED BLOOD COUNT 5.31 10^6/uL (4.35-5.55); RED CELL DISTRIBUTION WIDTH 17.8 % (11.5-14.0); SEGMENTED NEUTROPHILS % (AUTO) 40.6 % (42-78); TOTAL CELLS COUNTED % (AUTO) 100 %; WHITE BLOOD COUNT 5.3 10^3/uL (4.0-10.5)
[2019-08-27 06:43] LABS: ALBUMIN 3.3 g/dL (3.5-5.0); ALKALINE PHOSPHATASE 94 U/L (38-126); ANION GAP 11 (5-19); ASPARTATE AMINO TRANSFERASE 25 U/L (17-59); BILIRUBIN,TOTAL 0.8 mg/dL (0.2-1.3); BLOOD UREA NITROGEN 22 mg/dL (7-20); CALCIUM 8.7 mg/dL (8.4-10.2); CARBON DIOXIDE 26 mmol/L (22-30); CHLORIDE 98 mmol/L (98-107); TOTAL PROTEIN 6.6 g/dL (6.3-8.2)
[2019-08-27 06:45] LABS: GLUCOSE 61 mg/dL (75-110)
[2019-08-27 07:04] LABS: APPEARANCE,URINE CLEAR; BILIRUBIN,URINE NEGATIVE (NEGATIVE); COLOR,URINE YELLOW; GLUCOSE, URINE NEGATIVE (NEGATIVE); KETONES,URINE NEGATIVE (NEGATIVE); LEUKOCYTE ESTERASE,URINE NEGATIVE (NEGATIVE); NITRITE,URINE NEGATIVE (NEGATIVE); PROTEIN,URINE NEGATIVE (NEGATIVE); URINE SPECIFIC GRAVITY 1.057; UROBILINOGEN,URINE NEGATIVE mg/dL (<2.0)
[2019-08-27] MEDS: INSULIN LISPRO 100 UNIT/ML 3 ML VIAL SUBCUT SCH ×4 (09:58→23:21)
[2019-08-27] MEDS: METOPROLOL SUCCINATE 25 MG TAB.SR.24H PO SCH (11:23)
[2019-08-27] MEDS: NORMAL SALINE 1000 ML 1,000 ML IV PRN (11:23)
[2019-08-27] MEDS: AMIODARONE HCL 200 MG TABLET PO SCH (11:23)
[2019-08-27] MEDS: CIPROFLOXACIN 400 MG/D5W RTU 400 MG/200 ML RTUPB IV SCH ×2 (11:23→23:17)
[2019-08-27] MEDS: FAMOTIDINE 20 MG TABLET PO SCH ×2 (11:23→23:18)
[2019-08-27] MEDS ORDERED: IPRATROPIUM/ALBUTEROL 0.5-2.5 MG/3 ML AMPUL NEB PRN (15:02)
--- NOTE | 2019-08-27 18:56 | PDOC PROGRESS REPORT ---
Subjective Progress Note for:: 08/27/19 Subjective:: DESTIN RAYMOND is a 64 year old male past medical history of diabetes, atrial fibrillation anticoagulated, hypertension, sick sinus syndrome status post pacemaker placement, muscular dystrophy, chronically bedbound due to his muscular dystrophy, who is a resident of [facility], presenting to ED complaining of diffuse abdominal pain, bloody diarrhea for the last 3 days. Abdominal pain is minimum, diffuse, "feels tight", nonradiating, no alleviating or exacerbating factors identified, not associated with any nausea or vomiting. Patient has had about 3-4 bowel movements a day, and has noted blood clots in his diarrhea, denies any fever, chills, shortness of breath, headache, chest pain, weakness, any new neurological deficits. Denies any recent travel or sick contacts however patient lives at a retirement. In ED CBC CMP was unremarkable however CT abdomen was positive for diffuse colitis most significantly involving the rectum. 08/27/2019. No acute events overnight. Patient has had only one bowel movement today, denies any abdominal pain, nausea, vomiting, diarrhea, constipation or any symptoms. Denies any fever, chills, shortness of breath. Possible discharge tomorrow. Reason For Visit: COLITIS, HEMATOCHEZIA Physical Exam Vital Signs: Temp Pulse Resp BP Pulse Ox 97.7 F 63 18 106/71 97 08/27/19 15:48 08/27/19 15:48 08/27/19 15:48 08/27/19 15:48 08/27/19 15:48 Intake & Output 08/26/19 08/27/19 08/28/19 06:59 06:59 06:59 Intake Total 800 1435 Output Total 400 Balance 400 1435 Weight 85 kg General appearance: PRESENT: no acute distress, well-developed, well-nourished Head exam: PRESENT: atraumatic, normocephalic Respiratory exam: PRESENT: clear to auscultation asad. ABSENT: rales, rhonchi, wheezes Cardiovascular exam: PRESENT: RRR. ABSENT: diastolic murmur, rubs, systolic murmur Pulses: PRESENT: normal dorsalis pedis pul GI/Abdominal exam: PRESENT: normal bowel sounds, soft. ABSENT: distended, guarding, mass, organolmegaly, rebound, tenderness Neurological exam: PRESENT: alert, awake, oriented to person, oriented to place, oriented to time, oriented to situation, CN II-XII grossly intact Results Laboratory Results: 08/27/19 05:36 08/27/19 05:36 08/27/19 08/27/19 08/27/19 05:36 05:36 06:46 WBC 5.3 RBC 5.31 Hgb 12.9 L Hct 39.0 MCV 74 L MCH 24.2 L MCHC 32.9 RDW 17.8 H Plt Count 153 Seg Neutrophils % 40.6 L Sodium 134.5 L Potassium 4.0 Chloride 98 Carbon Dioxide 26 Anion Gap 11 BUN 22 H Creatinine 0.85 Est GFR ( Amer) > 60 Glucose 61 L Calcium 8.7 Magnesium 1.6 Total Bilirubin 0.8 AST 25 Alkaline Phosphatase 94 Total Protein 6.6 Albumin 3.3 L Urine Color YELLOW Urine Appearance CLEAR Urine pH 5.0 Ur Specific [place] 1.057 Urine Protein NEGATIVE Urine Glucose (UA) NEGATIVE Urine Ketones NEGATIVE Urine Blood NEGATIVE Urine Nitrite NEGATIVE Ur Leukocyte Esterase NEGATIVE Urine WBC (Auto) 1 Urine RBC (Auto) 1 Impressions: Abdomen/Pelvis CT 08/26/19 14:09 IMPRESSION: Constellation of findings consistent with diffuse colitis most significantly involving the rectum. 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 No hydronephrosis or mass. Assessment and Plan - Diagnosis (1) Colitis Is this a current diagnosis for this admission?: Yes Plan: Improving. Has had only one bowel movement today. Denies any fever, nausea, vomiting. No leukocytosis. CT abdomen positive for colitis and rectosigmoid region. Continue empiric IV ciprofloxacin and metronidazole. Stool ova and parasite, stool white blood cell, stool Gram stain, stool culture, C. difficile toxin. Monitor electrolytes. Monitor volume status. Replace electrolytes as needed. Follow-up stool and blood culture. (2) Hematochezia Is this a current diagnosis for this admission?: Yes Plan: Likely due to colitis complicated by chronic anticoagulation for his underlying A. fib. Monitor H&H. Hold Xarelto. We will consult cardiology discussed the need for continuation of Xarelto. If hematochezia does not resolve will consult surgery for possible colonoscopy. (3) Chronic atrial fibrillation Is this a current diagnosis for this admission?: Yes Plan: Denies any chest pain, palpitation or lightheadedness. Rate controlled. Anticoagulated. Resume home meds. Hold Xarelto due to GI bleed. (4) Diabetes mellitus type 2 in nonobese Is this a current diagnosis for this admission?: Yes Plan: Controlled. Diabetic diet. Sliding scale insulin, basal insulin, correctional insulin. Hypoglycemic protocol. Accu-Cheks. Resume home meds upon discharge. Outpatient PCP follow-up. (5) Muscular dystrophy Is this a current diagnosis for this admission?: Yes Plan: Supportive measures. Resume home meds. Frequent turning. Decubitus ulcer precautions. (6) Debility Is this a current diagnosis for this admission?: Yes Plan: Decubitus ulcer precautions. Continue PT.
--- NOTE | 2019-08-27 19:29 | EKG REPORT ---
SEVERITY:- ABNORMAL ECG - ATRIAL FLUTTER, A-RATE 250 RBBB AND LPFB INFERIOR INFARCT, AGE INDETERMINATE ANTERIOR INFARCT, AGE INDETERMINATE : Confirmed by: Rosalee Fragoso 27-Aug-2019 19:27:08
[2019-08-27] MEDS: ATORVASTATIN CALCIUM 10 MG TABLET PO SCH (23:18)
[2019-08-28] MEDS: METRONIDAZOLE 500 MG/NS RTU 500 MG/100 ML RTUPB IV SCH ×4 (00:43→17:00)
[2019-08-28] MEDS ORDERED: INSULIN GLARGINE,HUM.REC.ANLOG 1,000 UNIT/10 ML VIAL (PYX) SUBCUT ONE (00:56)
[2019-08-28] MEDS: INSULIN GLARGINE,HUM.REC.ANLOG 1,000 UNIT/10 ML VIAL SUBCUT SCH (01:12)
[2019-08-28] MEDS: NORMAL SALINE 1000 ML 1,000 ML IV PRN (05:50)
[2019-08-28] MEDS: INSULIN LISPRO 100 UNIT/ML 3 ML VIAL SUBCUT SCH ×3 (08:04→16:49)
[2019-08-28] MEDS: FAMOTIDINE 20 MG TABLET PO SCH (10:21)
[2019-08-28] MEDS: CIPROFLOXACIN 400 MG/D5W RTU 400 MG/200 ML RTUPB IV SCH (10:21)
[2019-08-28] MEDS: METOPROLOL SUCCINATE 25 MG TAB.SR.24H PO SCH (10:21)
[2019-08-28] MEDS: AMIODARONE HCL 200 MG TABLET PO SCH (10:21)
--- NOTE | 2019-08-28 13:43 | PDOC TRANSFER SUMMARY ---
Impression - Admit/DC Date/PCP Admission Date/Primary Care Provider: 08/27/19 15:35 KEMI MARTINEZ Discharge Date: 08/28/19 - Discharge Diagnosis (1) Colitis Is this a current diagnosis for this admission?: Yes (2) Hematochezia Is this a current diagnosis for this admission?: Yes (3) Chronic atrial fibrillation Is this a current diagnosis for this admission?: Yes (4) Diabetes mellitus type 2 in nonobese Is this a current diagnosis for this admission?: Yes (5) Muscular dystrophy Is this a current diagnosis for this admission?: Yes (6) Debility Is this a current diagnosis for this admission?: Yes - Additional Information Referrals: KEMI MARTINEZ MD [Primary Care Provider] - Follow up as needed Home Medications: Amiodarone HCl [Cordarone 200 mg Tablet] 200 mg PO DAILY 08/27/19 Cyanocobalamin (Vitamin B-12) [Vitamin B-12 Inj 1000 Mcg/1 ml Vial] 1,000 mcg IM .ON THE 08/27/19 Fluticasone Propionate [Flonase Nasal [place] 50 Mcg/[place] 16 gm] 1 spray NASL BID 08/27/19 Insulin Aspart [Novolog] 0 units SUBCUT QID 08/27/19 Insulin Glargine,Hum.rec.anlog [Lantus Insulin 100 Unit/1 ml 10 ml] 10 units SUBCUT QAM 08/27/19 Insulin Glargine,Hum.rec.anlog [Lantus Insulin 100 Unit/1 ml 10 ml] 40 units SUBCUT QHS 08/27/19 Metformin HCl [Glucophage] 1,000 mg PO QHS 08/27/19 Metoprolol Succinate [Toprol Xl 25 mg Tab.sr] 25 mg PO Q12 08/27/19 Nystatin [Mycostatin Cream 15 gm] 1 applic TOP DAILY 08/27/19 Rivaroxaban [Xarelto] 20 mg PO WSUPPER 08/27/19 History of Present Illiness History of Present Illness: DESTIN RAYMOND is a 64 year old male past medical history of diabetes, atrial fibrillation anticoagulated, hypertension, sick sinus syndrome status post pacemaker placement, muscular dystrophy, chronically bedbound due to his muscular dystrophy, who is a resident of [facility], presenting to ED complaining of diffuse abdominal pain, bloody diarrhea for the last 3 days. Abdominal pain is minimum, diffuse, "feels tight", nonradiating, no alleviating or exacerbating factors identified, not associated with any nausea or vomiting. Patient has had about 3-4 bowel movements a day, and has noted blood clots in his diarrhea, denies any fever, chills, shortness of breath, headache, chest pain, weakness, any new neurological deficits. Denies any recent travel or sick contacts however patient lives at a long term. In ED CBC CMP was unremarkable however CT abdomen was positive for diffuse colitis most significantly involving the rectum. Hospital Course Hospital Course: (1) Colitis Moderate improvement. Denies any nausea or vomiting. Abdominal pain has resolved. Patient has not had a bowel movement since yesterday. Abdominal pain has resolved. CT abdomen on admission positive for colitis and rectosigmoid region. Afebrile. No leukocytosis. Day 3 IV metronidazole and ciprofloxacin. Continue ciprofloxacin 500 mg p.o. for another 2 days. (2) Hematochezia Patient reported seeing blood clots when he had diarrhea however patient has not had any recurrence of his hematochezia and his H&H has been stable. Xarelto was held and cardiology was consulted. As per my conversation with Dr. Gutierrez his signal mechanic patient can continue Xarelto same dosage and if recurrence of hematochezia patient was instructed by Dr. Gutierrez to call him right away. (3) Chronic atrial fibrillation Denies any chest pain, palpitation or lightheadedness. Rate controlled. Anticoagulated. Resume home meds upon discharge. Continue Xarelto at the schedule before. (4) Diabetes mellitus type 2 in nonobese Controlled. Diabetic diet. Sliding scale insulin, basal insulin, correctional insulin. Hypoglycemic protocol. Accu-Cheks. Resume home meds upon discharge. Outpatient PCP follow-up. (5) Muscular dystrophy Supportive measures. Resume home meds. Frequent turning. Decubitus ulcer precautions. (6) Debility Decubitus ulcer precautions. Continue PT. Physical Exam Vital Signs: Temp Pulse Resp BP Pulse Ox 97.7 F 60 17 105/63 99 08/28/19 11:06 08/28/19 11:06 08/28/19 11:06 08/28/19 11:06 08/28/19 11:06 Intake & Output 08/27/19 08/28/1920 06:59 06:59 06:59 Intake Total 800 2577 1062 Output Total 400 Balance 400 2577 1062 Weight 85 kg 84.2 kg General appearance: PRESENT: no acute distress, well-developed, well-nourished Head exam: PRESENT: atraumatic, normocephalic Respiratory exam: PRESENT: clear to auscultation asad. ABSENT: rales, rhonchi, wheezes Cardiovascular exam: PRESENT: RRR. ABSENT: diastolic murmur, rubs, systolic murmur GI/Abdominal exam: PRESENT: normal bowel sounds, soft. ABSENT: distended, guarding, mass, organolmegaly, rebound, tenderness Neurological exam: PRESENT: alert, awake, oriented to person, oriented to place, oriented to time, oriented to situation, CN II-XII grossly intact Results Laboratory Results: WBC 5.3 10^3/uL (4.0-10.5) 08/27/19 05:36 RBC 5.31 10^6/uL (4.35-5.55) 08/27/19 05:36 Hgb 12.9 g/dL (13.5-17.0) L 08/27/19 05:36 Hct 39.0 % (37.9-51.0) 08/27/19 05:36 MCV 74 fl (80-97) L 08/27/19 05:36 MCH 24.2 pg (27.0-33.4) L 08/27/19 05:36 MCHC 32.9 g/dL (32.0-36.0) 08/27/19 05:36 RDW 17.8 % (11.5-14.0) H 08/27/19 05:36 Plt Count 153 10^3/uL (150-450) 08/27/19 05:36 Lymph % (Auto) 38.3 % (13-45) 08/27/19 05:36 [place] % (Auto) 14.6 % (3-13) H 08/27/19 05:36 Eos % (Auto) 5.7 % (0-6) 08/27/19 05:36 Baso % (Auto) 0.8 % (0-2) 08/27/19 05:36 Absolute Neuts (auto) 2.1 10^3/uL (1.7-8.2) 08/27/19 05:36 Absolute Lymphs (auto) 2.0 10^3/uL (0.5-4.7) 08/27/19 05:36 Absolute Monos (auto) 0.8 10^3/uL (0.1-1.4) 08/27/19 05:36 Absolute Eos (auto) 0.3 10^3/uL (0.0-0.6) 08/27/19 05:36 Absolute Basos (auto) 0.0 10^3/uL (0.0-0.2) 08/27/19 05:36 Seg Neutrophils % 40.6 % (42-78) L 08/27/19 05:36 PT 18.0 SEC (11.4-15.4) H 08/26/19 12:29 INR 1.47 08/26/19 12:29 Sodium 134.5 mmol/L (137-145) L 08/27/19 05:36 Potassium 4.0 mmol/L (3.6-5.0) 08/27/19 05:36 Chloride 98 mmol/L (98-107) 08/27/19 05:36 Carbon Dioxide 26 mmol/L (22-30) 08/27/19 05:36 Anion Gap 11 (5-19) 08/27/19 05:36 BUN 22 mg/dL (7-20) H 08/27/19 05:36 Creatinine 0.85 mg/dL (0.52-1.25) 08/27/19 05:36 Est GFR ( Amer) > 60 (>60) 08/27/19 05:36 Est GFR (MDRD) Non-Af > 60 (>60) 08/27/19 05:36 Glucose 61 mg/dL (75-110) L 08/27/19 05:36 POC Glucose 238 mg/dL (70-110) H 08/28/19 11:07 Lactic Acid 2.1 mmol/L (0.7-2.1) 08/26/19 12:29 Calcium 8.7 mg/dL (8.4-10.2) 08/27/19 05:36 Magnesium 1.6 mg/dL (1.6-2.3) 08/27/19 05:36 Total Bilirubin 0.8 mg/dL (0.2-1.3) 08/27/19 05:36 Direct Bilirubin 0.0 mg/dL (0.0-0.4) 08/27/19 05:36 Neonat Total Bilirubin Not Reportable 08/27/19 05:36 Neonat Direct Bilirubin Not Reportable 08/27/19 05:36 Neonat Indirect Bili Not Reportable 08/27/19 05:36 AST 25 U/L (17-59) 08/27/19 05:36 ALT 22 U/L (<50) 08/27/19 05:36 Alkaline Phosphatase 94 U/L (38-126) 08/27/19 05:36 Total Protein 6.6 g/dL (6.3-8.2) 08/27/19 05:36 Albumin 3.3 g/dL (3.5-5.0) L 08/27/19 05:36 Urine Color YELLOW 08/27/19 06:46 Urine Appearance CLEAR 08/27/19 06:46 Urine pH 5.0 (5.0-9.0) 08/27/19 06:46 Ur Specific [place] 1.057 08/27/19 06:46 Urine Protein NEGATIVE mg/dL (NEGATIVE) 08/27/19 06:46 Urine Glucose (UA) NEGATIVE mg/dL (NEGATIVE) 08/27/19 06:46 Urine Ketones NEGATIVE mg/dL (NEGATIVE) 08/27/19 06:46 Urine Blood NEGATIVE (NEGATIVE) 08/27/19 06:46 Urine Nitrite NEGATIVE (NEGATIVE) 08/27/19 06:46 Urine Bilirubin NEGATIVE (NEGATIVE) 08/27/19 06:46 Urine Urobilinogen NEGATIVE mg/dL (<2.0) 08/27/19 06:46 Ur Leukocyte Esterase NEGATIVE (NEGATIVE) 08/27/19 06:46 Urine WBC (Auto) 1 /HPF 08/27/19 06:46 Urine RBC (Auto) 1 /HPF 08/27/19 06:46 Squamous Epi Cells Auto <1 /HPF 08/27/19 06:46 Urine Mucus (Auto) RARE /LPF 08/27/19 06:46 Urine Ascorbic Acid 40 (NEGATIVE) H 08/27/19 06:46 Blood Type O POSITIVE 08/26/19 12:29 Antibody Screen NEGATIVE 08/26/19 12:29 Impressions: Abdomen/Pelvis CT 08/26/19 14:09 IMPRESSION: Constellation of findings consistent with diffuse colitis most significantly involving the rectum. 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 No hydronephrosis or mass. Stroke Is this a Stroke Patient?: No Acute Heart Failure - Is this a Heart Failure Patient?: No
[2019-08-28 19:42] VITALS: BP 132/83
== END 2019-08-28 20:47 | DRG 392 ==
LOC: ER 12:18 → EH 17:32 → 4S 18:51 → 3N 08-27 09:32 → OBSVTOIN 08-27 15:35
PROVIDERS: ADMIT Internal Medicine; ATTEND Internal Medicine
DX: K52.9 Noninfective gastroenteritis and colitis, unspecified (principal); K92.1 Melena; I48.91 Unspecified atrial fibrillation; I10 Essential (primary) hypertension; E11.9 Type 2 diabetes mellitus without complications; G71.00 Muscular dystrophy, unspecified; Q63.1 Lobulated, fused and horseshoe kidney; Z95.0 Presence of cardiac pacemaker; Z79.01 Long term (current) use of anticoagulants; Z79.84 Long term (current) use of oral hypoglycemic drugs; Z79.4 Long term (current) use of insulin; Z79.899 Other long term (current) drug therapy; Z03.818 Encounter for observation for suspected exposure to other biological agents ruled out
CPT/HCPCS: 36415; 74177; 80053; 81001; 82962; 83605; 83735; 85025; 85610; 86850; 86900; 86901; 87040; 87635; 93005; 93010; 94640; 96365; 99285; C9803; G0378; J0744; J1815; J3490; J7030; J7620